=== PATIENT | female | born 1990 | race Caucasian/White ===

== ENCOUNTER 2019-12-28 19:38 | Emergency (ER) | payer MEDICAID, OTHER ==
[~2019-12-28] VITALS: Ht 162.6 cm; Wt 70.5 kg
[2019-12-28 19:39] VITALS: BP 125/81
[2019-12-28] MEDS ORDERED: METH20TA31 PO (20:08)
[2019-12-28] MEDS ORDERED: BUPR8SUB SL (20:08)
[2019-12-28] MEDS ORDERED: XANA1TAB2 PO (20:08)
[2019-12-28 22:22] LABS: AMPHETAMINES LEVEL URINE NEGATIVE (NEGATIVE); BARBITURATES URINE NEGATIVE (NEGATIVE); BENZODIAZEPINES URINE POSITIVE (NEGATIVE); CANNABINOIDS URINE NEGATIVE (NEGATIVE); COCAINE METABOLITE URINE NEGATIVE (NEGATIVE); METHADONE URINE NEGATIVE (NEGATIVE); OPIATES URINE NEGATIVE (NEGATIVE); PHENCYCLIDINE URINE NEGATIVE (NEGATIVE)
[2019-12-28 22:23] LABS: ACETAMINOPHEN LEVEL < 2.0 UG/ML (10.0-30.0); ETHYL ALCOHOL (ETHANOL) < 0.003 % (0.000-0.010)
[2019-12-28] MEDS ORDERED: BUPRENORPHINE/NALOXONE 8-2MG SUBLINGUAL TABLET(SUBOXONE) SL STA (22:25)
[2019-12-28] MEDS ORDERED: ALPRAZolam 0.5 MG TAB PO ONE (22:30)
[2019-12-28] MEDS ORDERED: METHYLPHENIDATE 5 MG TAB PO ONE (22:30)
[2019-12-28] MEDS ORDERED: GABA800T4 (22:30)
[2019-12-28] MEDS ORDERED: PRENTAB29 (22:30)
== END 2019-12-28 23:26 | disposition left against medical advice (07) ==
LOC: M ED 19:38
DX: Z76.0 Encounter for issue of repeat prescription (principal); F19.10 Other psychoactive substance abuse, uncomplicated; F41.9 Anxiety disorder, unspecified; F90.9 Attention-deficit hyperactivity disorder, unspecified type; Z53.9 Procedure and treatment not carried out, unspecified reason; K21.9 Gastro-esophageal reflux disease without esophagitis; B19.20 Unspecified viral hepatitis C without hepatic coma; F17.200 Nicotine dependence, unspecified, uncomplicated
CPT/HCPCS: 36415; 80307; 99283; G0480

== ENCOUNTER 2019-12-31 17:53 | Emergency (ER) | payer MEDICAID, OTHER ==
[~2019-12-31] VITALS: Ht 162.6 cm; Wt 70.5 kg
[~2019-12-31 17:53] MED LIST: BUPR8SUB SL; GABA800T4; METH20TA31 PO; PRENTAB29; XANA1TAB2 PO
[2019-12-31 19:27] LABS: AMPHETAMINES LEVEL URINE NEGATIVE (NEGATIVE); BARBITURATES URINE NEGATIVE (NEGATIVE); BENZODIAZEPINES URINE POSITIVE (NEGATIVE); CANNABINOIDS URINE NEGATIVE (NEGATIVE); COCAINE METABOLITE URINE NEGATIVE (NEGATIVE); METHADONE URINE NEGATIVE (NEGATIVE); OPIATES URINE NEGATIVE (NEGATIVE); PHENCYCLIDINE URINE NEGATIVE (NEGATIVE)
[2019-12-31] MEDS ORDERED: XANA1TAB2 PO (19:43)
[2019-12-31] MEDS ORDERED: ALPRAZolam 0.5 MG TAB PO ONE (19:45)
[2019-12-31 19:52] VITALS: BP 109/65
== END 2019-12-31 19:55 | disposition home or self-care (01) ==
LOC: M ED 17:53
DX: F13.20 Sedative, hypnotic or anxiolytic dependence, uncomplicated (principal); Z76.0 Encounter for issue of repeat prescription; K21.9 Gastro-esophageal reflux disease without esophagitis; M54.9 Dorsalgia, unspecified; B19.20 Unspecified viral hepatitis C without hepatic coma; F31.89 Other bipolar disorder; F41.9 Anxiety disorder, unspecified; F43.10 Post-traumatic stress disorder, unspecified; F17.200 Nicotine dependence, unspecified, uncomplicated; Z79.899 Other long term (current) drug therapy

== ENCOUNTER 2021-01-13 17:13 | Emergency (ER) | payer OTHER ==
[~2021-01-13] VITALS: Ht 160 cm; Wt 76.4 kg
[2021-01-13 17:18] VITALS: BP 127/71
--- OUTSIDE RECORDS SUMMARY | 2021-01-13 17:36 | CCD | Clinical Summary ---
Author Author [facility] Address [address] [place] [address] Phone Care Team Providers Care Compositor Apprentice Name Role Phone Danika Osborne Unavailable [phone] Eliseo Elliott MD Unavailable [phone] Eliseo Elliott MD PP [phone] Reason for Referral Date Encounter Description Provider Reason for Referral 12/17/20 Eliseo Elliott MD Request Con sultation By Specialist Reason for Visit and Chief Complaint The Chief Complaint is: pt ambulated to the room well for a subutex visit, she last used this mediation tdoay , her recent UDS was inconsistatn , she has no c/ o' stoday , catarina castron was with this pt for 9 minutes Problems Includes: Problems addressed during this encounter and other active Problems Current Visit Onset Date - Time Resolved Date - Time Provider C ondition Status Hepatitis, C Virus - Chronic 08/20/2020 - 5:06PM Eliseo Elliott MD Active 08/20/2020 - 5:03PM Eliseo Elliott MD A ctive Anxiety Disorder Nos 02/01/2020 - 12:00AM Carolynjennifer Pond DO Active Adult Attention Deficit Hyperactivity Disorder 02/01/2020 - 12:0 0AM Carolyn John Pond DO Active Post-traumatic Stress Disorder 02/01/2020 - 12:00AM Am jennifer L Ray DO Active 06/06/2019 - 12:00AM Unknown - Unknown Eliseo coppola MD Resolved Note: with second c hild Nicotine Dependence 06/10/2011 - 12:00AM Eliseo vieyra MD Active Note: Unchanged Opioid Dependence 06/03/2011 - 12:00AM Genet engel NP Active Note: Unchanged Depression 11/22/2008 - 12:00AM Nurys JaylinDevon Reagan Active Note: Unchanged Bipolar Disorder 11/22/2008 - 12:00AM Genet Lange NP Active Note: Unchanged - about ever y month goes from depressed to feeling th opposite for about 1 week - high energy and mood etc. [address] grace discussed Past Visits Onset Date - Time Resolved Date - Time Provider Co ndition Status Lumbago 02/01/2020 - 12:00AM Carolyn L Ray DO Acti ve Adjustment Disorder 01/25/2020 - 12:00AM Carolyn L Ray DO Active Contraceptive Surveillance 02/08/2019 - 12:00AM Sabrina Lange NP Active Benzodiazepine Abuse 06/03/2011 - 12:00AM Eliseo licona MD Active Note: Improved Cannabis Abuse 06/03/2011 - 12:00AM Eliseo Bang Active Note: Unchanged Plan of Treatment Pending Tests Order Diagnosis Results Due Ordering Provi tavia Lab CBC w/ Auto Diff 08/20/20 Eliseo patino MD Lab COMPREHENSIVE METABOLIC PANEL 08/20/20 Eliseo Elliott MD Lab HCG QUALITATIVE SPECIMEN 08/20/20 Netta Elliott MD Lab HEP C VIR RNA PCR,QN RFX SANDRA 08/20/20 Eliseo Elliott MD Lab HIV SCREEN 08/20/20 Eliseo coppola MD Lab HEPATITIS PROF A,B,C 08/20/20 Eliseo Elliott MD Lab HSV 1 and 2 IgG Ab,S 08/20/20 Eliseo Elliott MD Lab LIPID PANEL 08/20/20 Eliseo coppola MD Lab Syphilis Abs. to T. pallidum 08/20/20 Eliseo Elliott MD Lab TSH 08/20/20 Eliseo coppola MD Lab Vitamin D,25-HYDROXY 08/20/20 Eliseo Elliott MD Lab Custom Panel [id number] 12/24/20 Eliseo Elliott MD Future Appointments Date Time Location Provider [facility] 01/14/2021 10:20AM [facility] Eliseo licona MD [facility] 02/11/2021 10:40AM [facility] Eliseo licona MD [facility] 03/11/2021 11:20AM [facility] Eliseo licona MD - Instructions for patient Continue subutex at 10mg (one 8mg and one 2mg). Continue xanax as 1mg three times a day, but can try cutting down by 1/2 pill in a day if able Continue methylphenidate at two 20mg tabs twice a day but can consider cutting out one of the afternoon pills. Wants refill on ProAir. Still taking zoloft 200mg a day F/u 4 weeks - Return to the clinic if condition wors ens or new symptoms arise Assessments Includes: Assessments from this encounter - Chronic hepatitis, C virus - - Opioid dependence - Nicotine dependence - Depression - Post-traumatic stress disorder - Adult attention deficit hyperactivity disorder - Anxiety disorder NOS - Bipolar disorder Instructions Includes: Instructions from this encounter Instructions to patient Instructions for patient ~Continue subu [place] at 10mg (one 8mg and one 2mg). ~Continue xanax as 1mg three times a day, but can try cutting down by 1/2 pill in a day if able ~Continue methylphenidate at two 20mg tabs twice a day but can consider cutting out one of the afternoon pills. ~Wants refill on ProAir. ~Still taking zoloft 200mg a day ~F/u 4 weeks ~ ~ Education and Decision Aids were provide d during visit for: Education and counseling provided for h ealthy behaviors related to chronic care goals and plan Medical Equipment - Implanted Devices Includes: Current DevicesNo Medical Equipment Recorded Medications Includes: Medications discussed during this encounter and other current Medicati ons New / Renewed during this visit Eliseo Elliott MD on 12/17/2020 ProAir HFA 108 (90 Base) MCG/ACT Inhalation Aerosol Solution Provider: Eliseo Elliott MD 30 day supply: 8.5 gram, 0 refills Diagnosis: as directed - 2 puffs every 4-6 hours as needed for cough or wheeze. Pharmacy: [id number] - [address] [facility], [phone] - Zoloft 100 MG Oral Tablet Provider: Eliseo Elliott MD 30 day supply: 60 tablet, 1 refills Diagnosis: 2 once a day- increasing dose Pharmacy: [facility] - [address] [facility], [id number] - Buprenorphine HCl 8 MG Sublingual Tablet Sublingual Provider: Eliseo Elliott MD 28 day supply: 28 tablet, 0 refills Diagnosis: Opi oid dependence, in remission Dissolve 1 tablet under tongue once a day. MDD1 Pharmacy: [facility] - [address] [facility], [id number] - Buprenorphine HCl 2 MG Sublingual Tablet Sublingual Provider: Eliseo Elliott MD 28 day supply: 28 tablet, 0 refills Diagnosis: Opi oid dependence, in remission Dissolve 1 tablet under tongue once a da y, in addition to one 8mg subutex. [id number] Pharmacy: [id number] - [address] [facility], [id number] - Current Medications (continue as prescribed) Methylphenidate HCl 20 MG Oral Tablet 12/04/2020 Pr ovider: Eliseo Elliott MD Diagnosis: Attention-deficit hy peractivity disorder, other type 2 twice a day MDD4 ALPRAZolam 1 MG Oral Tablet 11/26/2020 Provider: Eliseo Elliott MD Diagnosis: Generalized anxiety disorder three times a day MDD3 Due 12/05/20 Multi 27-0.8 MG Oral Tablet 07/11/2019 Pro vider: Diagnosis: 1 PO q day Medications Administered Includes: Administered Medications from this encounterNo Administered Medications Recorded Vital Signs Includes: Vital Signs from this encounter Vital Name 12/17/2020 11:31A Blood Pressure Sitting L 100/70 BP Cuff Size Regular Pulse Rate-Sitting (bpm) 76 Pulse Rhythm Regular Respiration Rate (breaths/min) 16 Temp-Tympanic (F) 97.8 Height (in) 62 Weight (lb) 158 Body Mass Index (kg/m2) 28.9 Body Surface Area (m2) 1.73 Pain Level 0 Oxygen Saturation (%) 97 Results Includes: Results discussed during this encounterNo Results Recorded For Specified Dates History of Present Illness Includes: History of Present Illness from this encounter Ariella Montemayor is a 30 year old female. - Allergy list reviewed - Medication reconciliation performed Pt presents to f/u opioid dependence/depression//PTSD/Bipolar disorder/ Drug of Choice: IV Heroin and cocaine. Last heroin 2016. She is staying clean. She would like to come down on the subutex today, to 10mg. Wants to keep the xanax and methylphenidate as they are and get 30 days at a time for insurance reasons. Legal issues: On probation for another year, max. Medical issues: Takes zoloft for depression. Has known Hepatitis C. Not treated yet. Family history: Family hx of alcohol abuse. Still smoking but much improved. Social history: Has 3 year old son. Currently 31 weeks a girl. Had a 2 month old daughter . [id number]. Baby is doing fine, but she is expecting a , and it may be done early due to bladder dropping and weak pelvic muscles. She is at about 35 weeks and 3 days now. Due in a month and 4 days, Dec - - No request for consultation by special ist no previous emergency room visit Social History Description Last Updated Smoking status 12/17/2020 : Current everyday smoker Single. Niece of Bailey Brown. Dropped o ut of HS 2 years ago, but plans to get GED. Also has plans to get a "really good job" at a place that will be doing drug testing, so wants to be clean. Boyfriend a drug addict in inpatient rehab (as of May 2011) 01/25/2020 1 snacks per day 01/25/2020 3 meals per day 01/25/2020 Activities 01/25/2020 Alcohol use Last alcohol 30 Mar 2011 01/25/2020 control method using condoms, "not very sexuall y active." 01/25/2020 Current smoker 1/2 ppd 01/25/2020 Daily cola consumption 01/25/2020 Diet provides sufficient food variety 01/25/2020 Drug use Last marijuana was 06/02/11. Arellano s been smoking 2 bowls every other day. ~Last heroin was 04/08/13 . Has been using 5-6 bags/day. IV. ~Last cocaine prior to 2010. ~Last morphine use September 2010 ~Last Opana use 19 May 2011 ~Never used LSD or crystal meth ~Last oxycodone May 11 ~Last Hyrocodone May 11 ~Last benzodiazepine abt May 11 01/25/2020 Educational level Dropped out of high school in tenth grade 01/25/2020 Educational level: grade was ten 01/25/2020 Good occasional exercise habits 01/25/2020 No caffeine use 01/25/2020 No chronic emotional stress 01/25/2020 No domestic violence 01/25/2020 No physical disability 01/25/2020 No recent emotional stress 01/25/2020 No secondhand cigarette smoke exposure 01/25/2020 Normal activities of daily living 01/25/2020 Not a smoker Greater than 30 pack years 01/25/2020 Not working part-time 01/25/2020 Physical activity tolerance has recently decreased Sexually active 01/25/2020 Procedures and Surgical History Includes: Procedures from this encounter Procedures Code Diagnosis Performing Provider Service Location Service Date Summary provided electronically in CCDA format & reasonable certainty of receipt Surgical History Last Updated No prior surgery 01/25/2020 Medical History Includes: Medical History addressed during this encounter Description Last Updated PSHx: No prior surgery 01/25/2020 weight: was 3497 g 10/25/2019 JOSEPH ENT DELIVERED AT [facility] AT 41 F1/7 WKS GESTATION VIA VAGINAL DELIVERY OF FEMALE WEIGHT 7 POUNDS 11 [place] NAMED KIM SHERIFF 01/25/2020 First visit was with another provider Arledia [facility] 01/25/2020 No history of coronary artery disease 01/25/2020 No history of essential hypertension 01/25/2020 No history of hyperlipidemia 01/25/2020 No history of type 2 diabetes mellitus 01/25/2020 Not taking medication 01/25/2020 Other diagnoses and conditions 01/25/2020 Past medical history -Please see Problem List for Act stalin Chronic Problems 01/25/2020 Patient entered care during 1st trimester 05/11/2017 AT 12 0/7 WKS GESTATION. [facility] 01/25/2020 Patient entered care during 2nd trimester 05/28 22 0/7 WKS 01/25/2020 Smoke exposure 01/25/2020 Education and counseling provided for h ealthy behaviors related to chronic care goals and plan 06/13/2013 X-rays of the hand(s) were performed 06/27/19942013 Family History Includes: Family History addressed during this encounter Description Last Updated DM--None 01/25/2020 Family history changed 01/25/2020 Family history of cancer MGF's brothers--lung CA 12/29 Family history of depression Mother, MGM. No known bi polar 01/25/2020 Family history of diabetes mellitus 01/25/2020 Family history of not using drugs 01/25/2020 Family history reviewed - unchanged since last visit 01/25/2020 No family history of heart disease 01/25/2020 No family history of hypertension 01/25/2020 Review of Systems Includes: Review of Systems from this encounter Systemic: Not feeling poorly (malaise). No fever, no chills, no night sweats, and no recent weight change. Head: No headache, no facial pain, and no sinus pain. Neck: No neck pain and no neck stiffness. Eyes: No vision problems, no itching of the eyes, and no eye pain. No photophobia. Otolaryngeal: No hearing loss, no earache, no tinnitus, no nasal discharge, no epistaxis, no hoarseness, no sore throat, and no bleeding gums. No mouth sores. Cardiovascular: No chest pain or discomfort, no palpitations, and the heart rate was not fast. Pulmonary: No dyspnea, not during exertion, and not nocturnal; causing awakening from sleep. No cough, no hemoptysis, and no wheezing. Gastrointestinal: Normal appetite, no dysphagia, and no heartburn. No nausea, no vomiting, no abdominal pain, and no melena. No diarrhea and no constipation. Genitourinary: No hematuria, no increase in urinary frequency, and no nocturia. No dysuria. Endocrine: No polydipsia and no excessive sweating. Musculoskeletal: No muscle aches, no localized joint pain, and no localized joint stiffness. Neurological: No dizziness, no vertigo, no fainting, no motor disturbances, and no sensory disturbances. Psychological: No anxiety, no depression, and no sleep disturbances. Skin: No pruritus. No skin lesions and no rash. Mental Status Includes: Mental Status from this encounter Description Cognitive functioning was normal Thought processes were not impaired No anxiety The thought content revealed no impairme nt Depression Functional Status Includes: Functional Status from this encounterNo Functional Status Recorded Physical Exam Includes: Physical Exam from this encounter Lungs: -normal breath sounds/voice sounds -no wheezing was heard -no rhonchi were heard -no rales/crackles were heard Cardiovascular System: -no murmurs were heard -heart rate and rhythm normal -no bradycardia present -no tachycardia present Abdomen: -the bowel sounds were normal -abdominal non-tender -no mass was palpated in the abdomen -- -the liver was not enlarged -the spleen was not enlarged Psychiatric Exam: -the grooming was normal -the affect was normal -the mood was euthymic -thought processes were not impaired -the thought content revealed no impairment Neurological System: -cognitive functioning was normal General Status: -in no acute distress -well developed -well nourished -no feelings of hopelessness -no loss of interest in activities Vital Signs: -current vital signs reviewed Immunizations Includes: Immunizations addressed during this encounterNo Immunizations Recorded Allergies Includes: Active AllergiesNo Known Allergies Encounters Encounter Provider Location Date Check-In Time Check-Out Time D iagnosis SUBOX[facility] Eliseo Elliott MD [facility] 12/17/2020 11:32AM 11: 59PM , Opioid Dependence, Nicotine Dependence, Anxiety Disorder Nos, Depression, Hepatitis, C Virus - Chronic, Assessment of Bipolar Disorder, Post- traumatic Stress Disorder, Adult Attention Deficit Hyperactivity Disorder Insurance Includes: Active Insurance Policies Plan Name Member ID Group # Subscriber Relationship Effective Da chelly 1 - Neto [id number] Ariella Montemayor Self 03/2018 - Unknown Advance Directives Includes: Current Advance Directives Directive Pat Aware Third Republican Effective Date Reviewed Status Ebola Screening Performed Yes 01/25/2020 Current and Verified Note: Within the last month, have you traveled outside of the [place]? - NO COVID Screening Performed Yes 07/27/2020 Current and Verified Note: neg packet given Pt Bill of Rights, Priv Prac, Ad Dir Yes 07/27/2020 Current and Verified Note: Pt declined AD packet Health Concerns Includes: Health Concerns addressed during this encounterNo Active Health Concerns Recorded Goals Includes: Goals addressed during this encounterNo Active Goals Recorded Interventions Includes: Interventions addressed during this encounterNo Interventions Recorded Evaluations & Outcomes Includes: Evaluations & Outcomes addressed during this encounterNo Outcomes Recorded
--- OUTSIDE RECORDS SUMMARY | 2021-01-13 17:37 | CCD | Clinical Summary ---
Author Author [place] Organization [facility] Address [address] [place] [address] Phone Care Team Providers Care Travelift Operator Name Role Phone Danika Osborne Unavailable [phone] Eliseo Elliott MD Unavailable [phone] Eliseo Elliott MD PP [phone] Reason for Referral Date Encounter Description Provider Reason for Referral 10/22/20 Eliseo Elliott MD Request Con sultation By Specialist Reason for Visit and Chief Complaint The Chief Complaint is: pt ambulated to ther oom well for a subutx visit , she last used this medication today , her recent UDS was consistant , she has no c/o 's today, [facility] collins was with this pt for 9 minutes [...] Deficit Hyperactivity Disorder 02/01/2020 - 12:0 0AM Carolynjennifer Pond DO Active Post-traumatic Stress Disorder 02/01/2020 - 12:00AM Am jennifer John Ray DO Active 06/06/2019 - 12:00AM Unknown - Unknown Eliseo coppola MD Resolved Note: with second c hild Nicotine Dependence 06/10/2011 - 12:00AM Eliseo vieyra MD Active Note: Unchanged Opioid Dependence 06/03/2011 - 12:00AM 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 to T. pallidum 08/20/20 Eliseo Elliott MD Lab TSH 08/20/20 Eliseo coppola MD Lab Vitamin D,25-HYDROXY 08/20/20 Eliseo Elliott MD Lab Custom Panel [id number] 10/29/20 Eliseo Elliott MD Future Appointments Date Time Location Provider SUBOXONE 11/05/2020 10:30AM [facility] Eliseo licona MD SUBOXONE 11/26/2020 10:50AM [facility] Eliseo licona MD SUBOXONE 12/17/2020 11:20AM [facility] Eliseo licona MD - Instructions for patient Continue subutex at 1 and 1/2 of an 8mg tablet daily. Consider/plan on going down next visit Continue xanax as 1mg three times a day, but can try cutting down by 1/2 pill in a day if able Continue methylphenidate at two 20mg tabs twice a day but can consider cutting out one of the afternoon pills. Still taking zoloft 200mg a day F/u 2 weeks - Return to the clinic if [...] Instructions for patient ~Continue subu wellington at 1 and 1/2 of an 8mg tablet daily. Consider/plan on going down next visit ~Continue xanax as 1mg three times a day, but can try cutting down by 1/2 pill in a day if able ~Continue methylphenidate at two 20mg tabs twice a day but can consider cutting out one of the afternoon pills. ~Still taking zoloft 200mg a day ~F/u 2 weeks ~ ~ Education and Decision Aids were provide d during visit for: Education and counseling provided for h ealthy behaviors related to chronic care goals and plan Medical Equipment - Implanted Devices Includes: Current DevicesNo Medical Equipment Recorded Medications Includes: Medications discussed during this encounter and other current Medicati ons New / Renewed during this visit Eliseo Elliott MD on 10/22/2020 Zoloft 100 MG Oral Tablet Provider: Eliseo Elliott MD 30 day supply: 60 tablet, 1 refills Diagnosis: 2 once a day- increasing dose Pharmacy: [address] [facility] [address] - [address] [facility], [id number] - Buprenorphine HCl 8 MG Sublingual Tablet Sublingual Provider: Eliseo Elliott MD 14 day supply: 21 tablet, 0 refills Diagnosis: Opi oid dependence, in remission Dissolve 1 and 1/2 tablets under tongue once a day. MDD1.5 Pharmacy: [facility] - [id number] [facility], [id number] - Methylphenidate HCl 20 MG Oral Tablet Pr ovider: Eliseo Elliott MD 14 day supply: 56 tablet, 0 refills Diagnosis: Att ention-deficit hyperactivity disorder, other type 2 twice a day MDD4 [id number] Pharmacy: [facility] [address] - [address] [facility], [id number] - ALPRAZolam 1 MG Oral Tablet Provider: Eliseo Elliott MD 14 day supply: 42 tablet, 0 refills Diagnosis: three times a day Due 10/14/20 MDD3 Pharmacy: [facility] - [address] [facility], [id number] - Current Medications (continue as prescribed) Multi 27-0.8 MG Oral Tablet 07/11/2019 Pro vider: Diagnosis: 1 PO q day ProAir HFA 108 (90 Base)MCG/ACT Inhalation Aerosol Solution 04/07/2018 Provider: Genet Lange FIRE AND SAFETY HELPER Diagnosis: as directed - 2 puffs every 4-6 hours as needed for cough or wheeze. Medications Administered Includes: Administered Medications from this encounterNo Administered Medications Recorded Vital Signs Includes: Vital Signs from this encounter Vital Name 10/22/2020 10:40A Blood Pressure Sitting L 104/70 BP Cuff Size Regular Pulse Rate-Sitting (bpm) 98 Pulse Rhythm Regular Respiration Rate (breaths/min) 16 Temp-Tympanic (F) 97.3 Height (in) 62 Weight (lb) 148 Body Mass Index (kg/m2) 27.1 Body Surface Area (m2) 1.68 Pain Level 0 Oxygen Saturation (%) 100 Results Includes: Results discussed during this encounterNo Results Recorded For Specified Dates History of Present Illness Includes: History of Present Illness from this encounter Ariella Montemayor is a 30 year old female. - Allergy list reviewed - Medication reconciliation performed Pt presents to establish care and start in the buprenorphine-naloxone program for treatment of opioid dependence. Drug of Choice: IV Heroin and cocaine. She is staying clean. Notes she thought she would be particularly depressed this month because her daughter would have turned one. Does not want to mess with her meds right now. But willing to talk about adjustments later. Knows she is on whopping doses of methylphenidate and xanax. She has most recently been on Xanax 1mg three times a day as needed (usually takes 3 times a day) and three 8mg subutex daily. But, being , she has not wanted to be on the three 8s a day so has been taking 1 and 1/2 and doing fine. Also prescribed methylphenidate two 20mg tablets in AM and two in early afternoon. Has been on that close to 2 years. Also on vitamins and zoloft. She is not currently working. Wants to work on getting off subutex--plans to go down to one 8mg next visit. Drug use questionaire:Last heroin Jan 2017. Last oxycodone/opana/morphine 2014. Last fentanyl 2015. Prior treatment programs: Legal issues: On probation for another year, max. Medical issues: She says she is 17 and 1/2 weeks pregant. Seeing OB. Due date 01/20/21. Takes zoloft for depression. Was a tobacco smoker for a long time, then quit, then started again, still smoking. Thinks OB is going to prescribe her something to help her quit. But last week only smoked 2-3 cigarettes. Has known Hepatitis C. Not treated yet. Family history: Family hx of alcohol abuse. Social history: Has 3 year old son. Currently 27+1 weeks a girl. Had a 2 month old daughter . [id number] - - No request for consultation by special ist no previous emergency room visit Social History Description Last Updated Smoking status 10/22/2020 : Current everyday smoker Single. Niece of [...] 3497 g 10/25/2019 JOSEPH ENT DELIVERED AT [facility] AT 41 F1/7 WKS GESTATION VIA VAGINAL DELIVERY OF FEMALE WEIGHT 7 POUNDS 11 [employer] NAMED KIM SHERIFF 01/25/2020 First visit was with another provider [facility] 01/25/2020 No history of coronary artery disease 01/25/2020 No history of essential hypertension 01/25/2020 No history of hyperlipidemia 01/25/2020 No history of type 2 diabetes mellitus 01/25/2020 Not taking medication 01/25/2020 Other diagnoses and conditions 01/25/2020 Past medical history -Please see Problem List for Act stalin Chronic Problems 01/25/2020 Patient entered care during 1st trimester 05/11/2017 AT 12 0/7 WKS GESTATION. [facility] 01/25/2020 Patient entered care during 2nd trimester [...] Time D iagnosis SUBOXONE Eliseo Elliott MD [facility] 10/22/2020 10:30AM 11: 59PM , Opioid Dependence, Nicotine Dependence, Anxiety Disorder Nos, Depression, Hepatitis, C Virus - Chronic, Assessment of Bipolar Disorder, Post- traumatic Stress Disorder, Adult Attention Deficit Hyperactivity Disorder Insurance Includes: Active Insurance Policies Plan Name Member ID Group # Subscriber Relationship Effective Da chelly 1 - [place] [id number] Ariella Montemayor Self 03/2018 - Unknown Advance Directives Includes: Current Advance Directives Directive Pat Aware Third Green Party Effective Date Reviewed Status Ebola Screening Performed Yes 01/25/2020 Current and Verified Note: Within the last month, have you traveled outside of the [place]? - NO COVID Screening Performed Yes 07/27/2020 Current and Verified Note: neg packet given Pt Bill of Rights, Priv Prac, Ad Dir Yes 07/27/2020 Current and Verified Note: Pt declined AD packet Health Concerns Includes: Health Concerns for current assessments Depression Onset 11/22/2008 Goals Includes: Active Goals for current assessments Symptom relief. Added 11/22/2008 by Provider Health Concern: Depression Interventions Includes: Interventions for current assessments PHQ - 9, reveals mild depression, please continue counseling sessions monthly. Will trial Zoloft as this is the preferred SSRI to be used during . Follow-up one month or sooner if needed. Added 11/22/2008 Goal: Symptom relief. Evaluations & Outcomes Includes: Evaluations & Outcomes for current assessments Goal converted from Patient Problem data . Goal is currently In Progress. Added 11/22/2008 - In Progress Goal: Symptom relief.
--- OUTSIDE RECORDS SUMMARY | 2021-01-13 17:37 | CCD | Clinical Summary ---
Author Author [place] [employer] Organization [facility] Address [address] [place] [address] Phone Care Team Providers Care Acid Cutter Name Role Phone Danika Osborne Unavailable [phone] Eliseo Elliott MD Unavailable [phone] Eliseo Elliott MD PP [phone] Reason for Referral Date Encounter Description Provider Reason for Referral 11/05/20 Eliseo Elliott MD Request Con sultation By Specialist Reason for Visit and Chief Complaint The Chief Complaint is: pt ambulated to the room well for a suboxone visit, she last used this medcaiton today ,her recent UDS was inconsistant , she has no c/ o's today , [facility] Problems Includes: Problems addressed during this encounter [...] 06/03/2011 - 12:00AM 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 Consider/plan on going down next visit to one 8mg. Continue xanax as 1mg three times a day, but can try cutting down by 1/2 pill in a day if able Continue methylphenidate at two 20mg tabs twice a day but can consider cutting out one of the afternoon pills. Still taking zoloft 200mg a day F/u 3 weeks - Return to the clinic if condition wors ens or new symptoms arise Assessments Includes: Assessments from this encounter - Chronic hepatitis, C virus - - Opioid dependence - Nicotine dependence - Depression - Post-traumatic stress disorder - Adult attention deficit hyperactivity disorder - Anxiety disorder NOS - Bipolar disorder Instructions Includes: Instructions from this encounter Instructions to patient Instructions for patient ~Decrease subu wellington to 10mg (one 8mg and one 2mg). Consider/plan on going down next visit to one 8mg. ~Continue xanax as 1mg three times a day, but can try cutting down by 1/2 pill in a day if able ~Continue methylphenidate at two 20mg tabs twice a day but can consider cutting out one of the afternoon pills. ~Still taking zoloft 200mg a day ~F/u 3 weeks ~ ~ Education and Decision Aids were provide d during visit for: Education and counseling provided for h ealthy behaviors related to chronic care goals and plan Medical Equipment - Implanted Devices Includes: Current DevicesNo Medical Equipment Recorded Medications Includes: Medications discussed during this encounter and other current Medicati ons New / Renewed during this visit Eliseo Elliott MD on 11/05/2020 Buprenorphine HCl 2 MG Sublingual Tablet Sublingual Provider: Eliseo Elliott MD 21 day supply: 21 tablet, 0 refills Diagnosis: Opi oid dependence, in remission Dissolve 1 tablet under tongue once a da y, in addition to one 8mg subutex. [id number] Pharmacy: [facility] - [address] [facility], [id number] - Buprenorphine HCl 8 MG Sublingual Tablet Sublingual Provider: Eliseo Elliott MD 21 day supply: 21 tablet, 0 refills Diagnosis: Opi oid dependence, in remission Dissolve 1 tablet under tongue once a day. MDD1 Pharmacy: [facility] - [address] [facility], [id number] - Methylphenidate HCl 20 MG Oral Tablet Pr ovider: Eliseo Elliott MD 30 day supply: 120 tablet, 0 refills Diagnosis: At tention-deficit hyperactivity disorder, other type 2 twice a day MDD4 [id number] Pharmacy: [facility] [address] - [address] [facility], [id number] - ALPRAZolam 1 MG Oral Tablet Provider: Eliseo Elliott MD 30 day supply: 90 tablet, 0 refills Diagnosis: Gen eralized anxiety disorder three times a day MDD3 Pharmacy: [facility] [address] - [address] [facility], [id number] - Current Medications (continue as prescribed) Zoloft 100 MG Oral Tablet 10/22/2020 Provider: Eliseo Elliott MD Diagnosis: 2 once a day- increasing dose Multi 27-0.8 MG Oral Tablet 07/11/2019 Pro vider: Diagnosis: 1 PO q day ProAir HFA 108 (90 Base)MCG/ACT Inhalation Aerosol Solution 04/07/2018 Provider: Genet Lange NP Diagnosis: as directed - 2 puffs every 4-6 hours as needed for cough or wheeze. Medications Administered Includes: Administered Medications from this encounterNo Administered Medications Recorded Vital Signs Includes: Vital Signs from this encounter Vital Name 11/05/2020 11:15A Blood Pressure Sitting L 100/66 BP Cuff Size Regular Pulse Rate-Sitting (bpm) 78 Pulse Rhythm Regular Respiration Rate (breaths/min) 16 Temp-Tympanic (F) 96.7 Height (in) 62 Weight (lb) 146 Body Mass Index (kg/m2) 26.7 Body Surface Area (m2) 1.67 Pain Level 0 Oxygen Saturation (%) 100 [...] Heroin and cocaine. She is staying clean. She would like to come down on the subutex today, to 10mg. Wants to keep the xanax and methylphenidate as they are and get 30 days at a time for insurance reasons. Drug use questionaire:Last heroin Jan 2017. Last [...] Had a 2 month old daughter . [id number] - - No request for consultation by special ist no previous emergency room visit Social History Description Last Updated Smoking status 11/05/2020 : Current everyday smoker 11/2020 Single. Niece of Bailey Brown. Dropped o [...] 3497 g 10/25/2019 JOSEPH ENT DELIVERED AT [facility] AT 41 F1/7 WKS GESTATION VIA VAGINAL DELIVERY OF FEMALE WEIGHT 7 POUNDS 11 [employer] NAMED KIM SHERIFF 01/25/2020 First visit was with another provider [facility] 01/25/2020 No history of coronary artery disease 01/25/2020 No history of essential hypertension 01/25/2020 No history of hyperlipidemia 01/25/2020 No history of type 2 diabetes mellitus 01/25/2020 Not taking medication 01/25/2020 Other diagnoses and conditions 01/25/2020 Past medical history -Please see Problem List for Act stalin Chronic Problems 01/25/2020 Patient entered care during 1st trimester 05/11/2017 AT 12 0/7 WKS GESTATION. [facility] 01/25/2020 Patient entered care during [...] iagnosis SUBOXONE Eliseo Elliott MD [facility] 11/05/2020 11:07AM 11: 59PM , Opioid Dependence, Nicotine Dependence, Anxiety Disorder Nos, Depression, Hepatitis, C Virus - Chronic, Assessment of Bipolar Disorder, Post- traumatic Stress Disorder, Adult Attention Deficit Hyperactivity Disorder Insurance Includes: Active Insurance Policies Plan Name Member ID Group # Subscriber Relationship Effective Da chelly 1 - [place] [id number] Ariella Montemayor Self 03/2018 - Unknown Advance Directives Includes: Current Advance Directives Directive Pat Aware Third Alliance Party Effective Date Reviewed Status Ebola Screening [...]
--- OUTSIDE RECORDS SUMMARY | 2021-01-13 17:38 | CCD ---
Author Author [facility] Organization [facility] Address Unknown Phone Unavailable Care Team Providers Care Operator Cavity Pump Name Role Phone MENARDDaniela HARDIK Unavailable Unavailable Anisa, I Genet BUS [employer]LEY [employer]AX[employer] INSTRUCTOR Unavailable Unavailable Anisa, I Genet BUS TROLLEY [employer]AXI INSTRUCTOR Unavailable Unavailable Anisa, I Genet BUS TROLLEY [employer] TAXI INSTRUCTOR Unavailable Unavailable Anisa, I Genet BUS TROLLEY AND TAXI INSTRUCTOR Unavailable Unavailable Anisa, I Genet BUS TROLLEY AND TAXI INSTRUCTOR Unavailable Unavailable Anisa, I Genet BUS TROLLEY AND TAXI INSTRUCTOR Unavailable Unavailable Anisa, I Genet BUS TROLLEY AND TAXI INSTRUCTOR Unavailable Unavailable Anisa, I Genet BUS TROLLEY AND TAXI INSTRUCTOR Unavailable Unavailable Anisa, I Genet BUS TROLLEY AND TAXI INSTRUCTOR Unavailable Unavailable Anisa, I Genet BUS TROLLEY AND TAXI INSTRUCTOR Unavailable Unavailable Anisa, I Genet BUS TROLLEY AND TAXI INSTRUCTOR Unavailable Unavailable Anisa, I Genet BUS TROLLEY AND TAXI INSTRUCTOR Unavailable Unavailable Anisa, I Genet BUS TROLLEY AND TAXI INSTRUCTOR Unavailable Unavailable Anisa, I Genet BUS TROLLEY AND TAXI INSTRUCTOR Unavailable Unavailable Anisa, I Genet BUS TROLLEY AND TAXI INSTRUCTOR Unavailable Unavailable Anisa, I Genet BUS TROLLEY AND TAXI INSTRUCTOR Unavailable Unavailable Anisa, I Genet BUS TROLLEY AND TAXI INSTRUCTOR Unavailable Unavailable Anisa, I Genet BUS TROLLEY [employer] TAXI INSTRUCTOR Unavailable Unavailable Anisa, I Genet BUS TROLLEY AND TAXI INSTRUCTOR Unavailable Unavailable Anisa, I Genet BUS TROLLEY AND TAXI INSTRUCTOR Unavailable Unavailable Anisa, I Genet BUS TROLLEY AND TAXI INSTRUCTOR Unavailable Unavailable Anisa, I Genet BUS TROLLEY AND TAXI INSTRUCTOR Unavailable Unavailable Anisa, I Genet BUS TROLLEY AND TAXI INSTRUCTOR Unavailable Unavailable Anisa, I Genet BUS TROLLEY AND TAXI INSTRUCTOR Unavailable Unavailable Anisa, I Genet BUS TROLLEY AND TAXI INSTRUCTOR Unavailable Unavailable Anisa, I Genet BUS TROLLEY AND TAXI INSTRUCTOR Unavailable Unavailable Anisa, I Genet BUS TROLLEY AND TAXI INSTRUCTOR Unavailable Unavailable Anisa, I Genet BUS TROLLEY AND TAXI INSTRUCTOR Unavailable Unavailable Anisa, I Genet BUS TROLLEY AND TAXI INSTRUCTOR Unavailable Unavailable Anisa, I Genet BUS TROLLEY [employer] TAXI INSTRUCTOR Unavailable Unavailable Anisa, I Genet BUS TROLLEY AND TAXI INSTRUCTOR Unavailable Unavailable Anisa, I Genet BUS TROLLEY AND TAXI INSTRUCTOR Unavailable Unavailable Anisa, I Genet BUS TROLLEY AND TAXI INSTRUCTOR Unavailable Unavailable Anisa, I Genet BUS TROLLEY AND TAXI INSTRUCTOR Unavailable Unavailable Anisa, I Genet BUS TROLLEY AND TAXI INSTRUCTOR Unavailable Unavailable Anisa, I Genet BUS TROLLEY AND TAXI INSTRUCTOR Unavailable Unavailable Anisa, I Genet BUS TROLLEY AND TAXI INSTRUCTOR Unavailable Unavailable Anisa, I Genet BUS TROLLEY AND TAXI INSTRUCTOR Unavailable Unavailable Anisa, I Genet BUS TROLLEY AND TAXI INSTRUCTOR Unavailable Unavailable Anisa, I Genet BUS TROLLEY AND TAXI INSTRUCTOR Unavailable Unavailable Anisa, I Genet BUS TROLLEY AND TAXI INSTRUCTOR Unavailable Unavailable Anisa, I Genet BUS TROLLEY AND TAXI INSTRUCTOR Unavailable Unavailable Anisa, I Genet BUS TROLLEY AND TAXI INSTRUCTOR Unavailable Unavailable Anisa, I Genet BUS TROLLEY [employer] TAXI INSTRUCTOR Unavailable Unavailable Anisa, I Genet BUS TROLLEY AND TAXI INSTRUCTOR Unavailable Unavailable Anisa, I Genet BUS TROLLEY AND TAXI INSTRUCTOR Unavailable Unavailable Anisa, I Genet BUS TROLLEY AND TAXI INSTRUCTOR Unavailable Unavailable Anisa, I Genet BUS TROLLEY AND TAXI INSTRUCTOR Unavailable Unavailable Anisa, I Genet BUS TROLLEY AND TAXI INSTRUCTOR Unavailable Unavailable Anisa, I Genet BUS TROLLEY AND TAXI INSTRUCTOR Unavailable Unavailable Naisa, I Genet BUS TROLLEY AND TAXI INSTRUCTOR Unavailable Unavailable Anisa, I Genet BUS TROLLEY AND TAXI INSTRUCTOR Unavailable Unavailable Anisa, I Genet BUS TROLLEY AND TAXI INSTRUCTOR Unavailable Unavailable Anisa, I Genet BUS TROLLEY AND TAXI INSTRUCTOR Unavailable Unavailable Anisa, I Genet BUS TROLLEY AND TAXI INSTRUCTOR Unavailable Unavailable Anisa, I Genet BUS TROLLEY AND TAXI INSTRUCTOR Unavailable Unavailable Anisa, I Genet BUS TROLLEY AND TAXI INSTRUCTOR Unavailable Unavailable Anisa, I Genet BUS TROLLEY AND TAXI INSTRUCTOR Unavailable Unavailable Anisa, I Genet BUS TROLLEY AND TAXI INSTRUCTOR Unavailable Unavailable Anisa, I Genet BUS TROLLEY AND TAXI INSTRUCTOR Unavailable Unavailable Anisa, I Genet BUS TROLLEY AND TAXI INSTRUCTOR Unavailable Unavailable Anisa, I Genet BUS TROLLEY AND TAXI INSTRUCTOR Unavailable Unavailable Anisa, I Genet BUS TROLLEY AND TAXI INSTRUCTOR Unavailable Unavailable Anisa, I Genet BUS TROLLEY AND TAXI INSTRUCTOR Unavailable Unavailable Anisa, I Genet BUS TROLLEY AND TAXI INSTRUCTOR Unavailable Unavailable Anisa, I Genet BUS TROLLEY AND TAXI INSTRUCTOR Unavailable Unavailable Anisa, I Genet BUS TROLLEY AND TAXI INSTRUCTOR Unavailable Unavailable Anisa, I Genet BUS TROLLEY AND TAXI INSTRUCTOR Unavailable Unavailable Anisa, I Genet BUS TROLLEY AND TAXI INSTRUCTOR Unavailable Unavailable Anisa, I Genet BUS TROLLEY AND TAXI INSTRUCTOR Unavailable Unavailable Anisa, I Genet BUS TROLLEY AND TAXI INSTRUCTOR Unavailable Unavailable Anisa, I Genet BUS TROLLEY AND TAXI INSTRUCTOR Unavailable Unavailable BILAL, AHMAD MD Unavailable Unavailable BILAL, AHMAD MD Unavailable Unavailable BILAL, AHMAD MD Unavailable Unavailable BILAL, AHMAD MD Unavailable Unavailable BILAL, AHMAD MD Unavailable Unavailable BILAL, AHMAD MD Unavailable Unavailable BILAL, AHMAD MD Unavailable Unavailable BILAL, AHMAD MD Unavailable Unavailable BILAL, AHMAD MD Unavailable Unavailable BILAL, AHMAD MD Unavailable Unavailable Curry, C Dede Unavailable Unavailable Curry, C Dede Unavailable Unavailable Curry, C Dede Unavailable Unavailable Curry, C Dede Unavailable Unavailable Curry, C Dede Unavailable Unavailable Curry, C Dede Unavailable Unavailable Curry, C Dede Unavailable Unavailable Curry, C Dede Unavailable Unavailable Curry, C Dede Unavailable Unavailable Curry, C Dede Unavailable Unavailable Curry, C Dede Unavailable Unavailable Curry, C Dede Unavailable Unavailable Curry, C Dede Unavailable Unavailable Curry, C Dede Unavailable Unavailable Curry, C Dede Unavailable Unavailable Curry, C Dede Unavailable Unavailable Curry, C Dede Unavailable Unavailable Curry, C Dede Unavailable Unavailable Curry, C Dede Unavailable Unavailable Curry, C Dede Unavailable Unavailable Curry, C Dede Unavailable Unavailable Curry, C Dede Unavailable Unavailable Curry, C Dede Unavailable Unavailable Curry, C Dede Unavailable Unavailable Curry, C Dede Unavailable Unavailable Curry, C Dede Unavailable Unavailable Earl, F Eliseo MD Unavailable Unavailable Earl, F Eliseo MD Unavailable Unavailable Earl, F Eliseo Unavailable Unavailable Earl, F Eliseo MD Unavailable Unavailable Earl, F Eliseo MD Unavailable Unavailable Earl, F Eliseo MD Unavailable Unavailable Earl, F Eliseo MD Unavailable Unavailable Earl, F Eliseo MD Unavailable Unavailable Earl, F Eliseo MD Unavailable Unavailable Earl, F Eliseo MD Unavailable Unavailable Earl, F Eliseo MD Unavailable Unavailable Earl, F Eliseo MD Unavailable Unavailable Earl, F Eliseo MD Unavailable Unavailable Earl, F Eliseo MD Unavailable Unavailable Earl, F Eliseo MD Unavailable Unavailable Earl, F Eliseo MD Unavailable Unavailable Earl, F Eliseo MD Unavailable Unavailable Earl, F Eliseo MD Unavailable Unavailable Earl, F Eliseo MD Unavailable Unavailable Earl, F Eliseo MD Unavailable Unavailable Earl, F Eliseo MD Unavailable Unavailable Earl, F Eliseo MD Unavailable Unavailable Earl, F Eliseo MD Unavailable Unavailable Earl, F Eliseo MD Unavailable Unavailable Earl, F Eliseo MD Unavailable Unavailable Earl, F Eliseo MD Unavailable Unavailable Earl, F Eliseo MD Unavailable Unavailable Earl, F Eliseo MD Unavailable Unavailable Earl, F Eliseo MD Unavailable Unavailable Earl, F Eliseo MD Unavailable Unavailable Earl, F Eliseo MD Unavailable Unavailable Earl, F Eliseo MD Unavailable Unavailable Earl, F Eliseo MD Unavailable Unavailable Earl, F Eliseo MD Unavailable Unavailable Earl, F Eliseo MD Unavailable Unavailable Earl, F Eliseo MD Unavailable Unavailable Earl, F Eliseo MD Unavailable Unavailable Earl, F Eliseo MD Unavailable Unavailable Earl, F Eliseo MD Unavailable Unavailable Earl, F Eliseo MD Unavailable Unavailable Earl, F Eliseo MD Unavailable Unavailable Earl, F Eliseo MD Unavailable Unavailable Earl, F Eliseo MD Unavailable Unavailable Earl, F Eliseo MD Unavailable Unavailable Earl, F Eliseo Unavailable Unavailable Earl, F Eliseo MD Unavailable Unavailable Earl, F Eliseo MD Unavailable Unavailable Earl, F Eliseo Unavailable Unavailable Earl, F Eliseo Unavailable Unavailable Earl, F Eliseo Unavailable Unavailable Earl, F Eliseo MD Unavailable Unavailable Earl, F Eliseo Unavailable Unavailable Earl, F Eliseo MD Unavailable Unavailable Earl, F Eliseo MD Unavailable Unavailable Earl, F Eliseo MD Unavailable Unavailable Earl, F Eliseo MD Unavailable Unavailable Earl, F Eliseo MD Unavailable Unavailable Earl, F Eliseo MD Unavailable Unavailable Earl, F Eliseo MD Unavailable Unavailable Earl, F Eliseo MD Unavailable Unavailable Earl, F Eliseo MD Unavailable Unavailable Earl, Sarina Gomes MD Unavailable Unavailable Earl, Sarina Gomes MD Unavailable Unavailable Earl, Sarina Gomes MD Unavailable Unavailable Earl, Sarina Gomes MD Unavailable Unavailable Earl, Sarina Gomes MD Unavailable Unavailable Earl, Sarina Gomes MD Unavailable Unavailable Earl, Sarina Gomes MD Unavailable Unavailable Earl, F Eliseo CALDWELL Unavailable Unavailable Earl, F Eliseo CALDWELL Unavailable Unavailable Earl, F Eliseo CALDWELL Unavailable Unavailable Earl, Sarina Gomes MD Unavailable Unavailable Ray, L Carolyn Unavailable Unavailable Ray, L Carolyn Unavailable Unavailable Ray, L Carolyn Unavailable Unavailable Ray, L Carolyn Unavailable Unavailable Ray, L Carolyn Unavailable Unavailable Ray, L Carolyn Unavailable Unavailable Ray, L Carolyn Unavailable Unavailable Ray, L Carolyn Unavailable Unavailable Ray, L Carolyn Unavailable Unavailable Ray, L Carolyn Unavailable Unavailable Ray, L Caroyln Unavailable Unavailable Ray, L Carolyn Unavailable Unavailable Ray, L Carolyn Unavailable Unavailable Ray, L Carolyn Unavailable Unavailable Ray, L Carolyn Unavailable Unavailable Ray, L Carolyn Unavailable Unavailable Ray, L Carolyn Unavailable Unavailable Ray, L Carolyn Unavailable Unavailable Ray, L Carolyn Unavailable Unavailable Ray, L Carolyn Unavailable Unavailable Ray, L Carolyn Unavailable Unavailable Ray, L Carolyn Unavailable Unavailable Ray, L Carolyn Unavailable Unavailable Ray, L Carolyn Unavailable Unavailable Ray, L Carolyn Unavailable Unavailable Ray, L Carolyn Unavailable Unavailable Ray, L Carolyn Unavailable Unavailable Ray, L Carolyn Unavailable Unavailable Ray, L Carolyn Unavailable Unavailable Ray, L Carolyn Unavailable Unavailable Ray, L Carolyn Unavailable Unavailable Ray, L Carolyn Unavailable Unavailable Ray, L Carolyn Unavailable Unavailable Ray, L Carolyn Unavailable Unavailable Ray, L Carolyn Unavailable Unavailable Ray, L Carolyn Unavailable Unavailable Ray, L Carolyn Unavailable Unavailable Ray, L Carolyn Unavailable Unavailable Ray, L Carolyn Unavailable Unavailable Ray, L Carolyn Unavailable Unavailable Ray, L Carolyn Unavailable Unavailable Ray, L Carolyn Unavailable Unavailable Ray, L Carolyn Unavailable Unavailable Ray, L Carolyn Unavailable Unavailable Ray, L Carolyn Unavailable Unavailable Ray, L Carolyn Unavailable Unavailable Ray, L Carolyn Unavailable Unavailable Ray, L Carolyn Unavailable Unavailable Ray, L Carolyn Unavailable Unavailable Ray, L Carolyn Unavailable Unavailable Ray, L Carolyn Unavailable Unavailable Ray, L Carolyn Unavailable Unavailable Ray, L Carolyn Unavailable Unavailable Ray, L Carolyn Unavailable Unavailable Ray, L Carolyn Unavailable Unavailable Ray, L Carolyn Unavailable Unavailable Ray, L Carolyn Unavailable Unavailable Ray, L Carolyn Unavailable Unavailable Ray, L Carolyn Unavailable Unavailable Ray, L Carolyn Unavailable Unavailable Ray, L Carolyn Unavailable Unavailable Ray, L Carolyn Unavailable Unavailable Ray, L Carolyn Unavailable Unavailable Ray, L Carolyn Unavailable Unavailable Ray, L Carolyn Unavailable Unavailable Ray, L Carolyn Unavailable Unavailable Ray, L Carolyn Unavailable Unavailable Ray, L Carolyn Unavailable Unavailable Ray, L Carolyn Unavailable Unavailable Ray, L Carolyn Unavailable Unavailable Ray, L Carolyn Unavailable Unavailable Ray, L Carolyn Unavailable Unavailable Ray, L Carolyn Unavailable Unavailable Ray, L Carolyn Unavailable Unavailable Ray, L Carolyn Unavailable Unavailable Maribel Michele MD Unavailable Unavailable Maribel Michele MD Unavailable Unavailable Maribel Michele MD Unavailable Unavailable SyrMaribel pruitt MD Unavailable Unavailable SyrMaribel pruitt MD Unavailable Unavailable MANZANARES, BERTHA Unavailable Unavailable GOWDAKAYARELIS, M GREGG Unavailable Unavailable Dator SR, Yonatan Drake MD Unavailable Unavailable Dator SR, Yonatan Drake MD Unavailable Unavailable Dator SR, Yonatan Drake MD Unavailable Unavailable Dator SR, Yonatan Drake MD Unavailable Unavailable Dator SR, Yonatan Drake MD Unavailable Unavailable Dator SR, Yonatan Drake MD Unavailable Unavailable Dator SR, Yonatan Drake MD Unavailable Unavailable Dator SR, Yonatan Drake MD Unavailable Unavailable Dator SR, Yonatan Drake MD Unavailable Unavailable Dator SR, Yonatan Drake MD Unavailable Unavailable Dator SR, Yonatan Drake MD Unavailable Unavailable Dator SR, Yonatan Drake MD Unavailable Unavailable Dator SR, Yonatan Drake MD Unavailable Unavailable Dator SR, Yonatan Drake MD Unavailable Unavailable Dator SR, Yonatan Drake MD Unavailable Unavailable Dator SR, Yonatan Drake MD Unavailable Unavailable Dator SR, Yonatan Drake MD Unavailable Unavailable Dator SR, Yonatan Drake MD Unavailable Unavailable Dator SR, Yonatan Drake MD Unavailable Unavailable Dator SR, Yonatan Drake MD Unavailable Unavailable Dator SR, Yonatan Drake MD Unavailable Unavailable Dator SR, Yonatan Drake MD Unavailable Unavailable Dator SR, Yonatan Drake MD Unavailable Unavailable Dator SR, Yonatan Drake MD Unavailable Unavailable Dator SR, Yonatan Drake MD Unavailable Unavailable Dator SR, Yonatan Drake MD Unavailable Unavailable Dator SR, Yonatan Drake MD Unavailable Unavailable Dator SR, Yonatan Drake MD Unavailable Unavailable Dator SR, Yonatan Drake MD Unavailable Unavailable Dator SR, Yonatan Drake MD Unavailable Unavailable Dator SR, Yonatan Drake MD Unavailable Unavailable Dator SR, Yonatan Drake MD Unavailable Unavailable Dator SR, Yonatan Drake MD Unavailable Unavailable Dator SR, Yonatan Drake MD Unavailable Unavailable Dator SR, Yonatan Drake MD Unavailable Unavailable Dator SR, Yonatan Drake MD Unavailable Unavailable Dator SR, Yonatan Drake MD Unavailable Unavailable Dator SR, Yonatan Drkae MD Unavailable Unavailable Dator SR, Yonatan Drake MD Unavailable Unavailable Dator SR, Yonatan Drake MD Unavailable Unavailable Dator SR, Yonatan Drake MD Unavailable Unavailable Dator SR, Yonatan Drake MD Unavailable Unavailable Dator SR, Yonatan Drake MD Unavailable Unavailable Dator SR, Yonatan Drake MD Unavailable Unavailable Dator SR, Yonatan Drake MD Unavailable Unavailable Dator SR, Yonatan Drake MD Unavailable Unavailable Dator SR, Yonatan Drake MD Unavailable Unavailable Dator SR, Yonatan Drake MD Unavailable Unavailable Dator SR, Yonatan Drake MD Unavailable Unavailable Dator SR, Yonatan Drake MD Unavailable Unavailable Dator SR, Yonatan Drake MD Unavailable Unavailable Dator SR, Yonatan Drake MD Unavailable Unavailable Dator SR, Yonatan Drake MD Unavailable Unavailable Dator SR, Yonatan Drake MD Unavailable Unavailable Dator SR, Yonatan Drake MD Unavailable Unavailable Dator SR, Yonatan Drake MD Unavailable Unavailable PHYSICIAN, PHYSICIAN ER Unavailable Unavailable Mason Cheung MD Unavailable Unavailable Mason Cheung MD Unavailable Unavailable Mason Cheung MD Unavailable Unavailable Mason Cheung MD Unavailable Unavailable Mason Cheung MD Unavailable Unavailable Mason Cheung MD Unavailable Unavailable Mason Cheung MD Unavailable Unavailable Mason Cheung MD Unavailable Unavailable Mason Cheung MD Unavailable Unavailable Mason Cheung MD Unavailable Unavailable Mason Cheung MD Unavailable Unavailable Mason Cheung MD Unavailable Unavailable Mason Cheung MD Unavailable Unavailable Mason Cheung MD Unavailable Unavailable Mason Cheung MD Unavailable Unavailable Mason Cheung MD Unavailable Unavailable Mason Cheung MD Unavailable Unavailable Mason Cheung MD Unavailable Unavailable Mason Cheung MD Unavailable Unavailable Ahmed, M Mohamed MD Unavailable Unavailable Ahmed, M Mohamed MD Unavailable Unavailable Ahmed, M Mohamed MD Unavailable Unavailable Ahmed, M Mohamed MD Unavailable Unavailable Ahmed, M Mohamed MD Unavailable Unavailable Ahmed, M Mohamed MD Unavailable Unavailable Ahmed, M Mohamed MD Unavailable Unavailable Ahmed, M Mohamed MD Unavailable Unavailable Ahmed, M Mohamed MD Unavailable Unavailable Ahmed, M Mohamed MD Unavailable Unavailable Ahmed, M Mohamed MD Unavailable Unavailable Ahmed, M Mohamed MD Unavailable Unavailable Ahmed, M Mohamed MD Unavailable Unavailable Ahmed, M Mohamed MD Unavailable Unavailable Ahmed, M Mohamed MD Unavailable Unavailable Ahmed, M Mohamed MD Unavailable Unavailable Ahmed, M Mohamed MD Unavailable Unavailable Ahmed, M Mohamed MD Unavailable Unavailable Ahmed, M Mohamed MD Unavailable Unavailable Ahmed, M Mohamed MD Unavailable Unavailable Ahmed, M Mohamed MD Unavailable Unavailable Ahmed, M Mohamed MD Unavailable Unavailable Ahmed, M Mohamed MD Unavailable Unavailable Ahmed, M Mohamed MD Unavailable Unavailable Ahmed, M Mohamed MD Unavailable Unavailable Ahmed, M Mohamed MD Unavailable Unavailable Ahmed, M Mohamed MD Unavailable Unavailable Ahmed, M Mohamed MD Unavailable Unavailable Ahmed, M Mohamed MD Unavailable Unavailable Ahmed, M Mohamed MD Unavailable Unavailable Cristine, Carmen Isela DO Unavailable Unavailable Blanchard, Carmen Isela DO Unavailable Unavailable Cristine, Carmen Isela DO Unavailable Unavailable Blanchard, Carmen Isela DO Unavailable Unavailable Blanchard, Carmen Isela DO Unavailable Unavailable Blanchard, Carmen Isela DO Unavailable Unavailable Cristine, Carmen Isela DO Unavailable Unavailable Blanchard, Carmen Isela DO Unavailable Unavailable Cristine, Carmen Isela DO Unavailable Unavailable Blanchard, Carmen Isela DO Unavailable Unavailable Cristine, Carmen Isela DO Unavailable Unavailable Blanchard, Carmen Isela DO Unavailable Unavailable Blanchard, Carmen Isela DO Unavailable Unavailable Cristine, Carmen Isela DO Unavailable Unavailable Blanchard, Carmen Isela DO Unavailable Unavailable Cristine, Carmen Isela DO Unavailable Unavailable Blanchard, Carmen Isela DO Unavailable Unavailable Blanchard, Carmen Isela DO Unavailable Unavailable Cristine, Carmen Isela DO Unavailable Unavailable Cristine, Carmen Isela DO Unavailable Unavailable Blanchard, Carmen Isela DO Unavailable Unavailable Blanchard, Carmen Isela DO Unavailable Unavailable Blanchard, Carmen Isela DO Unavailable Unavailable Blanchard, Carmen Isela DO Unavailable Unavailable Cristine, Carmen Isela DO Unavailable Unavailable Cristine, Carmen Isela DO Unavailable Unavailable Blanchard, Carmen Isela DO Unavailable Unavailable Cristine, Carmen Isela DO Unavailable Unavailable BINA, A RALF MD Unavailable Unavailable BINA, A RALF MD Unavailable Unavailable BINA, A RALF MD Unavailable Unavailable BINA, A RALF MD Unavailable Unavailable BINA, A RALF MD Unavailable Unavailable BINA, A RALF MD Unavailable Unavailable BINA, A RALF MD Unavailable Unavailable BINA, A RALF MD Unavailable Unavailable BINA, A RALF MD Unavailable Unavailable BINA, A RALF MD Unavailable Unavailable BINA, A RALF MD Unavailable Unavailable BINA, A RALF MD Unavailable Unavailable BINA, A RALF MD Unavailable Unavailable BINA, A RALF MD Unavailable Unavailable BINA, A RALF MD Unavailable Unavailable BINA, A RALF MD Unavailable Unavailable BINA, A RALF MD Unavailable Unavailable BINA, A RALF MD Unavailable Unavailable BINA, A RALF MD Unavailable Unavailable BINA, A RALF MD Unavailable Unavailable BINA, A RALF MD Unavailable Unavailable BINA, A RALF MD Unavailable Unavailable BINA, A RALF MD Unavailable Unavailable BINA, A RALF MD Unavailable Unavailable BINA, A RALF MD Unavailable Unavailable BINA, A RALF MD Unavailable Unavailable BINA, A RALF MD Unavailable Unavailable BINA, A RALF MD Unavailable Unavailable BINA, A RALF MD Unavailable Unavailable BINA, A RALF MD Unavailable Unavailable BINA, A RALF MD Unavailable Unavailable BINA, A RALF MD Unavailable Unavailable BINA, A RALF MD Unavailable Unavailable BINA, A RALF MD Unavailable Unavailable BINA, A RALF MD Unavailable Unavailable BINA, A RALF MD Unavailable Unavailable BINA, A RALF MD Unavailable Unavailable BINA, A RALF MD Unavailable Unavailable BINA, A RALF MD Unavailable Unavailable BINA, A RALF MD Unavailable Unavailable BINA, A RALF MD Unavailable Unavailable BINA, A RALF MD Unavailable Unavailable BINA, A RALF MD Unavailable Unavailable BINA, A RALF MD Unavailable Unavailable BINA, A RALF MD Unavailable Unavailable BINA, A RALF MD Unavailable Unavailable BINA, A RALF MD Unavailable Unavailable BINA, A RALF MD Unavailable Unavailable BINA, A RALF MD Unavailable Unavailable BINA, A RALF MD Unavailable Unavailable BINA, A RALF MD Unavailable Unavailable BINA, A RALF MD Unavailable Unavailable BINA, A RALF MD Unavailable Unavailable BINA, A RALF MD Unavailable Unavailable BINA, A RALF MD Unavailable Unavailable BINA, A RALF MD Unavailable Unavailable BINA, A RALF MD Unavailable Unavailable BINA, A RALF MD Unavailable Unavailable BINA, A RALF MD Unavailable Unavailable BINA, A RALF MD Unavailable Unavailable BINA, A RALF MD Unavailable Unavailable BINA, A RALF MD Unavailable Unavailable BINA, A RALF MD Unavailable Unavailable BINA, A RALF MD Unavailable Unavailable BINA, A RALF MD Unavailable Unavailable BINA, A RALF MD Unavailable Unavailable BINA, A RALF MD Unavailable Unavailable OH, R EMELYN Unavailable Unavailable Charity, D Karina RESEARCH TECHNOLOGIST-C Unavailable Unavailable Charity, D Karina RESEARCH TECHNOLOGIST-C Unavailable Unavailable Charity, D Karina RESEARCH TECHNOLOGIST-C Unavailable Unavailable Charity, D Karina RESEARCH TECHNOLOGIST-C Unavailable Unavailable Charity, D Karina RESEARCH TECHNOLOGIST-C Unavailable Unavailable Charity, D Karina RESEARCH TECHNOLOGIST-C Unavailable Unavailable Charity, D Karina RESEARCH TECHNOLOGIST-C Unavailable Unavailable Charity, D Karina RESEARCH TECHNOLOGIST-C Unavailable Unavailable Charity, D Karina RESEARCH TECHNOLOGIST-C Unavailable Unavailable Charity, D Karina RESEARCH TECHNOLOGIST-C Unavailable Unavailable Charity, D Karina RESEARCH TECHNOLOGIST-C Unavailable Unavailable Charity, D Karina RESEARCH TECHNOLOGIST-C Unavailable Unavailable Charity, D Karina RESEARCH TECHNOLOGIST-C Unavailable Unavailable PHYSICIAN, ER Unavailable Unavailable Re-disclosure Warning The records that you are about to access may contain information from federally-assisted alcohol or drug abuse programs. If such information is present, then the following federally mandated warning applies: This information has been disclosed to you from records protected by federal confidentiality rules (42 CFR part 2). The federal rules prohibit you from making any further disclosure of this information unless further disclosure is expressly permitted by the written consent of the person to whom it pertains or as otherwise permitted by 42 CFR part 2. A general authorization for the release of medical or other information is NOT sufficient for this purpose. The Federal rules restrict any use of the information to criminally investigate or prosecute any alcohol or drug abuse patient.The records that you are about to access may contain highly sensitive health information, the redisclosure of which is protected by Article 27-F of the [facility] Public Health law. If you continue you may have access to information: Regarding HIV / AIDS; Provided by facilities licensed or operated by the [facility] Office of Mental Health; or Provided by the [facility] Office for People With Developmental Disabilities. If such information is present, then the following [facility] mandated warning applies: This information has been disclosed to you from confidential records which are protected by state law. State law prohibits you from making any further disclosure of this information without the specific written consent of the person to whom it pertains, or as otherwise permitted by law. Any unauthorized further disclosure in violation of state law may result in a fine or chcf sentence or both. A general authorization for the release of medical or other information is NOT sufficient authorization for further disc losure. 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 -NO Ebola Screening Performed completed Ebol a Screening Performed [facility] ([facility]) Note: Within the last month, have you tr aveled outside of the [place]? -NO Allergies and Adverse Reactions Type Description Substance Reaction Status Data Source(s ) Allergy to substance No Known Allergies No known allergies (situation ) [facility] ([facility]) Allergy to substance No Known Allergies No known allergies (situation ) [facility] ([facility]) Allergy to substance No Known Allergies No known allergies (situation ) [facility] ([facility]) Propensity to adverse reactions NO KNOWN ALLERGIES NO KNOWN ALLERGIES [facility] Allergy to substance No Known Allergies No known allergies (situation ) [facility] ([facility]) Allergy to substance No Known Allergies No known allergies (situation ) [facility] ([facility]) Allergy to substance No Known Allergies No known allergies (situation ) [facility] ([facility]) Drug allergy No Known Allergies No Known Allergies [facility] Allergy to substance No Known Allergies No known allergies (situation ) [facility] ([facility]) Allergy to substance No Known Allergies No known allergies (situation ) [facility] ([facility]) Family History Family Member Name Family Member Gender Family Member Status Date o f Status Description Data Source(s) Unknown Condition [facility] Unknown Condition [facility] Unknown Unknown Problem [facility] ([facility]) Encounters Encounter Providers Location Date Indications Data Source(s ) Outpatient Attender: GREGG Caputoender: HARDIK ANTHONY ES1-FP 01/10/2021 10:50:06 AM EDT - 01/10/2021 02:43:20 PM EDT [facility] Outpatient Referrer: RALF GONZALEZ1-[email or web address].MED 01/10/2021 12:00:00 AM EDT [facility] ES1-FP 01/04/2021 12:18:00 PM EDT [facility] Outpatient Attender: GREGG AZAR Attender: Isela Colunga DOConsultant: Isela Colunga DO ES1-FP 01/02/2021 03:32:42 PM EDT - 01/02/2021 04:23:57 PM EDT [facility] Outpatient Attender: HARDIK Bradyer: HARDIK BENNETTULTRA 12/26/2020 03:19:56 PM EDT - 12/26/2020 11:59:00 PM EDT [facility] Patient discharged. Outpatient Attender: GREGG Bedolla: HARDIK [email or web address]-[email or web address].OB 12/26/2020 08:43:39 AM EDT - 12/26/2020 10:15:42 AM EDT [facility] Outpatient Attender: EMELYN LEBLANCdmitter: EMELYN BARKER CEReferrer: EMELYN [place] ES1-BP 12/25/2020 12:02:00 AM EDT - 12/25/2020 03:25:00 AM EDT [facility] Patient discharged. <td ID="encounterTypeDescriptionID0">SUB OXONE</td><td>Eliseo Elliott MD</td><td>[facility]</td><td>12/17/2020</td><td>11:32AM</td><td>11:59PM</td><td><content ID="encounterDiagnosisID0-0"></content>, <content ID="encounterDiagnosisID0-1">Opioid Dependence</content>, <content ID="encounterDiagnosisID0-2">Nicotine Dependence</content>, <content ID="encounterDiagnosisID0-3">Anxiety Disorder Nos</content>, <content ID="encounterDiagnosisID0-4">Depression</content>, <content ID="encounterDiagnosisID0-5">Hepatitis, C Virus - Chronic</content>, <content ID="encounterDiagnosisID0-6">Assessment of Bipolar Disorder</content>, <content ID="encounterDiagnosisID0-7">Post-traumatic Stress Disorder</content>, <content ID="encounterDiagnosisID0-8">Adult Attention Deficit Hyperactivity Disorder</content></td>Unknown Attender: Eliseo Elliott MD [facility] 12/17/2020 11:32:00 AM EDT - 12/17/2020 11:59:00 PM EDT Hepatitis, C Virus - ChronicPregnancyAdult Attention Deficit Hyperactivity DisorderPost-traumatic Stress DisorderAnxiety Disorder NosNicotine DependenceOpioid DependenceAssessment of Bipolar DisorderDepression [facility] ([facility]) Hepatitis, C Virus - Chronic Adult Attention Deficit Hyperactivity Di sorder Post-traumatic Stress Disorder Anxiety Disorder Nos Nicotine Dependence Opioid Dependence Assessment of Bipolar Disorder Depression <td ID="encounterTypeDescriptionID0">SUB OXONE</td><td>Eliseo Elliott MD</td><td>[facility]</td><td>11/05/2020</td><td>11:07AM</td><td>11:59PM</td><td><content ID="encounterDiagnosisID0-0"></content>, <content ID="encounterDiagnosisID0-1">Opioid Dependence</content>, <content ID="encounterDiagnosisID0-2">Nicotine Dependence</content>, <content ID="encounterDiagnosisID0-3">Anxiety Disorder Nos</content>, <content ID="encounterDiagnosisID0-4">Depression</content>, <content ID="encounterDiagnosisID0-5">Hepatitis, C Virus - Chronic</content>, <content ID="encounterDiagnosisID0-6">Assessment of Bipolar Disorder</content>, <content ID="encounterDiagnosisID0-7">Post-traumatic Stress Disorder</content>, <content ID="encounterDiagnosisID0-8">Adult Attention Deficit Hyperactivity Disorder</content></td>Unknown Attender: Eliseo Elliott MD [facility] 11/05/2020 11:07:00 AM EDT - 11/05/2020 11:59:00 PM EDT Hepatitis, C Virus - ChronicPregnancyAdult Attention Deficit Hyperactivity DisorderPost-traumatic Stress DisorderAnxiety Disorder NosNicotine DependenceOpioid DependenceAssessment of Bipolar DisorderDepression [facility] ([facility]) Hepatitis, C Virus - Chronic Adult Attention Deficit Hyperactivity Di sorder Post-traumatic Stress Disorder Anxiety Disorder Nos Nicotine Dependence Opioid Dependence Assessment of Bipolar Disorder Depression Emergency ES1-ES1 10/30/2020 12:41:00 AM EDT - 021 05:39:00 AM EDT [facility] Patient discharged. <td ID="encounterTypeDescriptionID0">SUB OXONE</td><td>Eliseo Elliott MD</td><td>[facility]</td><td>10/22/2020</td><td>10:30AM</td><td>11:59PM</td><td><content ID="encounterDiagnosisID0-0"></content>, <content ID="encounterDiagnosisID0-1">Opioid Dependence</content>, <content ID="encounterDiagnosisID0-2">Nicotine Dependence</content>, <content ID="encounterDiagnosisID0-3">Anxiety Disorder Nos</content>, <content ID="encounterDiagnosisID0-4">Depression</content>, <content ID="encounterDiagnosisID0-5">Hepatitis, C Virus - Chronic</content>, <content ID="encounterDiagnosisID0-6">Assessment of Bipolar Disorder</content>, <content ID="encounterDiagnosisID0-7">Post-traumatic Stress Disorder</content>, <content ID="encounterDiagnosisID0-8">Adult Attention Deficit Hyperactivity Disorder</content></td>Unknown Attender: Eliseo Elliott MD [facility] 10/22/2020 10:30:00 AM EDT - 10/22/2020 11:59:00 PM EDT Hepatitis, C Virus - ChronicPregnancyAdult Attention Deficit Hyperactivity DisorderPost-traumatic Stress DisorderAnxiety Disorder NosNicotine DependenceOpioid DependenceAssessment of Bipolar DisorderDepression [facility] ([facility] Hepatitis, C Virus - Chronic Adult Attention Deficit Hyperactivity Di sorder Post-traumatic Stress Disorder Anxiety Disorder Nos Nicotine Dependence Opioid Dependence Assessment of Bipolar Disorder Depression Outpatient Referrer: Karina DODSONP-C 10/10/2020 12: 00:00 AM EDT [facility] Outpatient Referrer: Karina DODSONP-C 10/10/2020 12: 00:00 AM [facility] Unknown<td ID="encounterTypeDescriptionI D0">SUBOXONE</td><td>Eliseo Elliott MD</td><td>[facility]</td><td>10/08/2020</td><td>10:54AM</td><td>11:59PM</td><td><content ID="encounterDiagnosisID0-0"></content>, <content ID="encounterDiagnosisID0-1">Opioid Dependence</content>, <content ID="encounterDiagnosisID0-2">Nicotine Dependence</content>, <content ID="encounterDiagnosisID0-3">Anxiety Disorder Nos</content>, <content ID="encounterDiagnosisID0-4">Depression</content>, <content ID="encounterDiagnosisID0-5">Hepatitis, C Virus - Chronic</content>, <content ID="encounterDiagnosisID0-6">Assessment of Bipolar Disorder</content>, <content ID="encounterDiagnosisID0-7">Post-traumatic Stress Disorder</content>, <content ID="encounterDiagnosisID0-8">Adult Attention Deficit Hyperactivity Disorder</content></td> Attender: Eliseo Elliott MD [facility] 10/09/19 10:54:00 AM EDT - 10/08/2020 11:59:00 PM EDT Hepatitis, C Virus - ChronicPregnancyAdult Attention Deficit Hyperactivity DisorderPost-traumatic Stress DisorderAnxiety Disorder NosNicotine DependenceOpioid DependenceAssessment of Bipolar DisorderDepression [facility] ([facility]) Hepatitis, C Virus - Chronic Adult Attention Deficit Hyperactivity Di sorder Post-traumatic Stress Disorder Anxiety Disorder Nos Nicotine Dependence Opioid Dependence Assessment of Bipolar Disorder Depression Outpatient Referrer: Karina BROWN-Narda 09/04/2020 12: 00:00 AM T [facility] Outpatient Referrer: Karina BROWN-Narda 09/04/2020 12: 00:00 AM [facility] Unknown<td ID="encounterTypeDescriptionI D0">SUBOXONE</td><td>Eliseo Elliott MD</td><td>[facility]</td><td>09/03/2020</td><td>2:35PM</td><td>11:59PM</td><td><content ID="encounterDiagnosisID0-0"></content>, <content ID="encounterDiagnosisID0-1">Opioid Dependence</content>, <content ID="encounterDiagnosisID0-2">Nicotine Dependence</content>, <content ID="encounterDiagnosisID0-3">Anxiety Disorder Nos</content>, <content ID="encounterDiagnosisID0-4">Depression</content>, <content ID="encounterDiagnosisID0-5">Hepatitis, C Virus - Chronic</content>, <content ID="encounterDiagnosisID0-6">Assessment of Bipolar Disorder</content>, <content ID="encounterDiagnosisID0-7">Post-traumatic Stress Disorder</content>, <content ID="encounterDiagnosisID0-8">Adult Attention Deficit Hyperactivity Disorder</content></td> Attender: Eliseo Elliott MD [facility] 09/04/19 02:35:00 PM EDT - 09/03/2020 11:59:00 PM EDT Hepatitis, C Virus - ChronicPregnancyAdult Attention Deficit Hyperactivity DisorderPost-traumatic Stress DisorderAnxiety Disorder NosNicotine DependenceOpioid DependenceAssessment of Bipolar DisorderDepression [facility] ([facility]) Hepatitis, C Virus - Chronic Adult Attention Deficit Hyperactivity Di sorder Post-traumatic Stress Disorder Anxiety Disorder Nos Nicotine Dependence Opioid Dependence Assessment of Bipolar Disorder Depression Outpatient<td ID="encounterTypeDescripti onID0">SUBOXONE</td><td>Eliseo Elliott MD</td><td>[facility]</td><td>08/20/2020</td><td>3:19PM</td><td>11:59PM</td><td><content ID="encounterDiagnosisID0-0">Opioid Dependence</content>, <content ID="encounterDiagnosisID0-1">Nicotine Dependence</content>, <content ID="encounterDiagnosisID0-2">Post-traumatic Stress Disorder</content>, <content ID="encounterDiagnosisID0-3">Depression</content>, <content ID="encounterDiagnosisID0-4">Assessment of Bipolar Disorder</content>, <content ID="encounterDiagnosisID0-5">Anxiety Disorder Nos</content>, <content ID="encounterDiagnosisID0-6">Adult Attention Deficit Hyperactivity Disorder</content>, <content ID="encounterDiagnosisID0-7"></content>, <content ID="encounterDiagnosisID0-8">Hepatitis, C Virus - Chronic</content></td> Attender: Eliseo Elliott MD [facility] 03:19:00 PM EDT - 08/20/2020 11:59:00 PM EDT Hepatitis, C Virus - ChronicPregnancyAdult Attention Deficit Hyperactivity DisorderAnxiety Disorder NosPost-traumatic Stress DisorderNicotine DependenceOpioid DependenceAssessment of Bipolar DisorderDepression [facility] ([facility]) Hepatitis, C Virus - Chronic Adult Attention Deficit Hyperactivity Di sorder Anxiety Disorder Nos Post-traumatic Stress Disorder Nicotine Dependence Opioid Dependence Assessment of Bipolar Disorder Depression Emergency Attender: ER PHYSICIAN 07/22/2020 10:41:04 PM E DT [facility] [place] [facility] Emergency Attender: BERTHA Dahlender: ER PHYSICIAN 07/22/2020 09:26:00 PM EDT - 07/22/2020 11:30:00 PM EDT 14WK PREG HEART PRESSURE NUMBNESS LT ARM [facility] 14WK PREG HEART PRESSURE NUMBNESS LT ARM Patient discharged. Outpatient Attender: MIGNON Fortune tter: MIGNON SCHNEIDER MDConsultant: MIGNON SCHNEIDER MD 04/21/2020 01:43:00 AM EST Suicidal ideations R4 5.851 [facility] Suicidal ideations R45.851 Outpatient Attender: MIGNON Fortune tter: MIGNON SCHNEIDER MDConsultant: MIGNON SCHNEIDER MD 04/21/2020 01:43:00 AM EST Suicidal ideations R4 5.851 [facility] Suicidal ideations R45.851 Inpatient Attender: MIGNON Loo nder: Missy Cheung MDAdmitter: MIGNON SCHNEIDER MD 04/21/2020 01:43:00 AM EST - 04/25/2020 09:20:00 AM EST Suicidal ideations R45.851 [facility] Suicidal ideations R45.851 Patient discharged. Outpatient Attender: MIGNON Fortune tter: MIGNON SCHNEIDER MDConsultant: MIGNON SCHNEIDER MD 04/21/2020 01:43:00 AM EST Suicidal ideations R4 5.851 [facility] Suicidal ideations R45.851 Outpatient Attender: MIGNON Fortune tter: MIGNON SCHNEIDER MDConsultant: MIGNON SCHNEIDER MD 04/21/2020 01:43:00 AM EST Suicidal ideations R4 5.851 [facility] Suicidal ideations R45.851 Outpatient Attender: Vidal Sherwood SR 04/20/2020 10:1 3:00 PM EST [facility] Attender: Dede Dickerson er: MIGNON SCHNEIDER MDConsultant: MIGNON SCHNEIDER MD 04/20/2020 09:15:00 PM EST Suicidal ideations [facility] Suicidal ideations Outpatient Attender: Dede Dickerson er: MIGNON SCHNEIDER MDConsultant: MIGNON SCHNEIDER MD 04/20/2020 09:15:00 PM EST Suicidal ideations [facility] Suicidal ideations Outpatient<td ID="encounterTypeDescripti onID0">[facility] Telehealth FaceTime</td><td>Carolyn Pond DO</td><td>[facility]</td><td>02/01/2020</td><td><content ID="encounterDiagnosisID0-0">Opioid Dependence</content>, <content ID="encounterDiagnosisID0-1">Adjustment Disorder</content>, <content ID="encounterDiagnosisID0-2">Lumbago</content>, <content ID="encounterDiagnosisID0-3">Post-traumatic Stress Disorder</content>, <content ID="encounterDiagnosisID0-4">Anxiety Disorder Nos</content>, <content ID="encounterDiagnosisID0-5">Adult Attention Deficit Hyperactivity Disorder</co ntent></td> Attender: Carolyn Pond [facility] 02/01/2020 12:35:00 PM EST - 02/01/2020 03:24:19 PM EST Adult Attention Deficit Hyperactivity Di sorderAnxiety Disorder NosPost-traumatic Stress DisorderLumbagoAdjustment DisorderOpioid Dependence [facility] ([facility]) Adult Attention Deficit Hyperactivity Di sorder Anxiety Disorder Nos Post-traumatic Stress Disorder Lumbago Adjustment Disorder Opioid Dependence <td ID="encounterTypeDescriptionID1">Est [facility]</td><td>Carolyn Pond DO</td><td>[facility]</td><td>01/25/2020</td><td><content ID="encounterDiagnosisID1-0">Opioid Dependence</content>, <content ID="encounterDiagnosisID1-1">Benzodiazepine Abuse</content>, <content ID="encounterDiagnosisID1-2">Adjustment Disorder</content></td>Outpatient Attender: Carolyn Pond [facility] 01/25/2020 04:03:00 PM EDT - 01/25/2020 06:01:44 PM EDT Adjustment DisorderAdjustment DisorderBe nzodiazepine AbuseOpioid DependenceBenzodiazepine AbuseOpioid Dependence [facility] Adjustment Disorder Adjustment Disorder Benzodiazepine Abuse Opioid Dependence Benzodiazepine Abuse Opioid Dependence Unknown<td ID="encounterTypeDescriptionI D2">On-Call</td><td>Genet Lange NP</td><td></td><td>01/24/2020</td><td></td> Attender: Genet Lange NP 01/24/2020 03:48:00 PM EDT - 01/24/2020 11:59:00 PM EDT [facility] ([facility]) <td ID="encounterTypeDescriptionID0">SUB OXONE</td><td>Genet Lange NP</td><td>[facility]</td><td>01/02/2020</td><td><content ID="encounterDiagnosisID0-0">Benzodiazepine Abuse</content>, <content ID="encounterDiagnosisID0-1">Assessment of Bipolar Disorder</content>, <content ID="encounterDiagnosisID0-2">Contraceptive Surveillance</content>, <content ID="encounterDiagnosisID0-3">Opioid Dependence</content></td>Outpatient Attender: Genet Lange [employer] [facility] 01/02/2020 06:26:00 PM EDT - 01/02/2020 09:46:25 PM EDT Contraceptive SurveillanceContraceptive SurveillanceContraceptive SurveillanceContraceptive SurveillanceOpioid DependenceBenzodiazepine AbuseOpioid DependenceBenzodiazepine AbuseOpioid DependenceBenzodiazepine AbuseOpioid DependenceBenzodiazepine AbuseAssessment of Bipolar DisorderAssessment of Bipolar DisorderAssessment of Bipolar DisorderAssessment of Bipolar Disorder [facility] ([facility]) Contraceptive Surveillance Contraceptive Surveillance Contraceptive Surveillance Contraceptive Surveillance Opioid Dependence Benzodiazepine Abuse Opioid Dependence Benzodiazepine Abuse Opioid Dependence Benzodiazepine Abuse Opioid Dependence Benzodiazepine Abuse Assessment of Bipolar Disorder Assessment of Bipolar Disorder Assessment of Bipolar Disorder Assessment of Bipolar Disorder Emergency Attender: Kervin Michele MD 2019 08:35:00 PM EDT - 12/29/2019 09:20:00 PM [facility]. Immunizations Vaccine Date Status Description Data Source(s) COVID-19 VACCINE Moderna 01/10/2021 12:00:00 AM EDT completed [facility] Vaccine Series Complete: NOThis Data was [facility] Via [email or web address]. Medications Medication Brand Name Start Date Product Form Dose Route Admi nistrative Instructions Pharmacy Instructions Status Indications Reaction Description Data Source(s) NITROFURANTOIN, MACROCRYSTALS 25 MG / Ni trofurantoin, Monohydrate 75 MG Oral Capsule 100 mg NITROFURANTOIN MONOHYD/M-CRYST 01/07/2021 12:00:00 AM EDT ca psule 14 TAKE ONE CAPSULE BY MOUTH TWICE A DAY FOR 7 DAYS TAKE ONE CAPSULE BY MOUTH TWICE A DAY FOR 7 DAYS SOLD: 01/10/2021 [facility] 325 mg (65 mg iron) 01/04/2021 12:00:00 AM EDT tablet 60 TAKE ONE TABLET BY MOUTH TWICE A DAY TAKE ONE TABLET BY MOUTH TWICE A DAY SOLD: 01/05/2021 [facility] Cephalexin 500 MG Oral Capsule CEPHALEXIN 01/04/2021 12:00:00 AM EDT capsule 14 TAKE ONE CAPSULE BY MOUTH TWICE A DAY FOR 7 DAYS TAKE ONE CAPSULE BY MOUTH TWICE A DAY FOR 7 DAYS SOLD: 01/05/2021 [facility] 1 mg 01/03/2021 12:00:00 AM EDT tablet 90 TAKE ONE TABLET BY MOUTH THREE TIMES A DAY. MAXIMUM DAILY DOSE = 3 TABLETS TAKE ONE TABLET BY MOUTH THREE TIMES A DAY. MAXIMUM DAILY DOSE = 3 TABLETS SOLD: 01/03/2021 [facility] 200 ACTUAT Albuterol 0.09 MG/ACTUAT Mete red Dose Inhaler [ProAir] ProAir HFA 108 (90 Base) MCG/ACT Inhalation Aerosol Solution ProAir HFA 108 (90 Base) MCG/ACT Inhalation Aerosol Solution 12/17/2020 12:00:00 AM EDT active [id number] 200 ACTUAT albuterol 0.09 MG/ACTUAT Metered Dose Inhaler [ProAir] [facility] ([facility]) 100 mg 12/17/2020 12:00:00 AM EDT tablet 60 TAKE TWO TABLETS BY MOUTH EVERY DAY MAXIMUM DAILY DOSE = 2 TAKE TWO TABLETS BY MOUTH EVERY DAY MAXI MUM DAILY DOSE = 2 SOLD: 12/17/2020 [facility] Buprenorphine 8 MG Sublingual Tablet Bup renorphine HCl 8 MG Sublingual Tablet Sublingual Buprenorphine HCl 8 MG Sublingual Tablet Sublingual 12:00:00 AM EDT active buprenor phine 8 MG Sublingual Tablet [facility] ([facility]) albuterol (PROVENTIL HFA;VENTOLIN HFA) 108 (90 Base) M CG/ACT inhaler [id number] 12/17/2020 12:00:00 AM EDT activ e INHALE 2 PUFFS EVERY 4 TO 6 HOURS PRRN FOR COUGH OR WHEEZE [facility] 2 mg 12/17/2020 12:00:00 AM EDT tablet, sublingual 28 DISSOLVE 1 TABLET UNDER THE TONGUE ONCE DAILY MAXIMUM DAILY DOSE = 1 DISSOLVE 1 TABLET UNDER THE TONGUE ONCE DAILY MAXIMUM DAILY DOSE = 1 SOLD: 12/17/2020 [facility] Buprenorphine 2 MG Sublingual Tablet Bup renorphine HCl 2 MG Sublingual Tablet Sublingual Buprenorphine HCl 2 MG Sublingual Tablet Sublingual 12:00:00 AM EDT active buprenor phine 2 MG Sublingual Tablet [facility] ([facility]) Sertraline 100 MG Oral Tablet [Zoloft] Zoloft 100 MG O ral Tablet Zoloft 100 MG Oral Tablet 12/17/2020 12:00:00 AM EDT 2 active sertraline 100 MG Oral Tablet [Zoloft] [facility] ([facility]) 90 mcg/actuation 12/17/2020 12:00:00 AM EDT HFA aerosol inha ler 8 INHALE 2 PUFFS EVERY 4 TO 6 HOURS PRRN FOR COUGH OR WHEEZE INHALE 2 PUFFS EVERY 4 TO 6 HOURS PRRN FOR COUGH OR WHEEZE SOLD: 12/17/2020 [facility] 8 mg 12/17/2020 12:00:00 AM EDT tablet, sublingual 28 DISSOLVE 1 TABLET UNDER THE TONGUE ONCE DAILY MAXIMUM DAILY DOSE = 1 DISSOLVE 1 TABLET UNDER THE TONGUE ONCE DAILY MAXIMUM DAILY DOSE = 1 SOLD: 12/17/2020 [facility] 1 mg 12/05/2020 12:00:00 AM EDT tablet 90 TAKE ONE TABLET BY MOUTH THREE TIMES A DAY MAXIMUM DAILY DOSE = 3 TAKE ONE TABLET BY MOUTH THREE TIMES A D AY MAXIMUM DAILY DOSE = 3 SOLD: 12/05/2020 [facility] Methylphenidate Hydrochloride 20 MG Oral Tablet Methylphenidate HCl 20 MG Oral Tablet Methylphenidate HCl 20 MG Oral Tablet 12/04/2020 12:00:00 AM EDT 2 active methylphenidate hydrochlorid e 20 MG Oral Tablet [facility] ([facility]) 20 mg 12/01/2020 12:00:00 AM EDT tablet 16 TAKE TWO TABLETS BY MOUTH TWICE A DAY MAXIMUM DAILY DOSE = 4 TAKE TWO TABLETS BY MOUTH TWICE A DAY MOHAN RODRIGUEZ DAILY DOSE = 4 SOLD: 12/01/2020 [facility] Alprazolam 1 MG Oral Tablet ALPRAZolam 1 MG Oral Table t ALPRAZolam 1 MG Oral Tablet 11/26/2020 12:00:00 AM EDT 1 active alprazolam 1 MG Oral Tablet [facility] ([facility]) 8 mg 11/26/2020 12:00:00 AM EDT tablet, sublingual 21 DISSOLVE ONE TABLET UNDER THE TONGUE EVERY DAY MAXIMUM DAILY DOSE = 1 DISSOLVE ONE TABLET UNDER THE TONGUE EVERY DAY MAXIMUM DAILY DOSE = 1 SOLD: 11/26/2020 [facility] 2 mg 11/26/2020 12:00:00 AM EDT tablet, sublingual 21 DISSOLVE 1 TABLET UNDER THE TONGUE ONCE DAILY IN ADDITION TO 8 MG DOSE MAXIMUM DAILY DOSE = 1 DISSOLVE 1 TABLET UNDER THE TONGUE ONCE DAILY IN ADDITION TO 8 MG DOSE MAXIMUM DAILY DOSE = 1 SOLD: 11/26/2020 [facility] Buprenorphine 2 MG Sublingual Tablet Bup renorphine HCl 2 MG Sublingual Tablet Sublingual Buprenorphine HCl 2 MG Sublingual Tablet Sublingual 12:00:00 AM EDT active buprenor phine 2 MG Sublingual Tablet [facility] ([facility]) 20 mg 11/05/2020 12:00:00 AM EDT tablet 104 TAKE TWO TABLETS BY MOUTH TWICE A DAY. MAXIMUM DAILY DOSE = 4 TAKE TWO TABLETS BY MOUTH TWICE A DAY. M AXIMUMason DAILY DOSE = 4 SOLD: 11/05/2020 [facility] 8 mg 11/05/2020 12:00:00 AM EDT tablet, sublingual 21 DISSOLVE 1 TABLET UNDER THE TONGUE ONCE A DAY MAXIMUM DAILY DOSE = 1 DISSOLVE 1 TABLET UNDER THE TONGUE ONCE A DAY MAXIMUM DAILY DOSE = 1 SOLD: 11/05/2020 [facility] 2 mg 11/05/2020 12:00:00 AM EDT tablet, sublingual 21 DISSOLVE 1 TABLET UNDER THE TONGUE ONCE A DAY MAXIMUM DAILY DOSE = 1 DISSOLVE 1 TABLET UNDER THE TONGUE ONCE A DAY MAXIMUM DAILY DOSE = 1 SOLD: 11/05/2020 [facility] Alprazolam 1 MG Oral Tablet ALPRAZolam 1 MG Oral Table t ALPRAZolam 1 MG Oral Tablet 11/05/2020 12:00:00 AM EDT 1 active alprazolam 1 MG Oral Tablet [facility]) Buprenorphine 8 MG Sublingual Tablet Bup renorphine HCl 8 MG Sublingual Tablet Sublingual Buprenorphine HCl 8 MG Sublingual Tablet Sublingual 12:00:00 AM EDT active buprenor phine 8 MG Sublingual Tablet [facility]) Methylphenidate Hydrochloride 20 MG Oral Tablet Methylphenidate HCl 20 MG Oral Tablet Methylphenidate HCl 20 MG Oral Tablet 11/05/2020 12:00:00 AM EDT 2 active methylphenidate hydrochlorid e 20 MG Oral Tablet [facility]) 1 mg 11/05/2020 12:00:00 AM EDT tablet 90 TAKE ONE TABLET BY MOUTH THREE TIMES A DAY MAXIMUM DAILY DOSE = 3 TAKE ONE TABLET BY MOUTH THREE TIMES A D AY MAXIMUM DAILY DOSE = 3 SOLD: 11/05/2020 [facility] Methylphenidate Hydrochloride 20 MG Oral Tablet METHYLPHENID ATE HCL 10/25/2020 12:00:00 AM EDT tablet 56 TAKE TWO TABLETS BY MOUTH TWICE A DAY MAXIMUM DAILY DOSE = 4 TAKE TWO TABLETS BY MOUTH TWICE A DAY MAXIMUM DAILY DO SE = 4 SOLD: 11/02/2020 [facility] Methylphenidate Hydrochloride 20 MG Oral Tablet methylphenidate (RITALIN) 20 MG tablet methylphenidate (RITALIN) 20 MG tablet 10/25/2020 12:00:00 AM EDT active TAKE TWO TABLETS BY MOUTH TWICE A DAY MAXIMUM DAILY DOSE 4 [facility] Alprazolam 1 MG Oral Tablet ALPRAZolam 1 MG Oral Table t ALPRAZolam 1 MG Oral Tablet 10/22/2020 12:00:00 AM EDT 1 active alprazolam 1 MG Oral Tablet [facility]) Sertraline 100 MG Oral Tablet [Zoloft] Zoloft 100 MG O ral Tablet Zoloft 100 MG Oral Tablet 10/22/2020 12:00:00 AM EDT 2 active sertraline 100 MG Oral Tablet [Zoloft] [facility]) 8 mg 10/22/2020 12:00:00 AM EDT tablet, sublingual 21 DISSOLVE 1 & 1/2 TABLETS UNDER THE TONGUE ONCE DAILY MAXIMUM DAILY DOSE = 1 & 1/2 TABLETS DISSOLVE 1 & 1/2 TABLETS UNDER THE TONGUE ONCE DAILY MAXIMUM DAILY DOSE = 1 & 1/2 TABLETS SOLD: 10/22/2020 [facility] Methylphenidate Hydrochloride 20 MG Oral Tablet Methylphenidate HCl 20 MG Oral Tablet Methylphenidate HCl 20 MG Oral Tablet 10/22/2020 12:00:00 AM EDT 2 active methylphenidate hydrochlorid e 20 MG Oral Tablet [facility]) 1 mg 10/22/2020 12:00:00 AM EDT tablet 42 TAKE ONE TABLET BY MOUTH THREE TIMES A DAY MAXIMUM DAILY DOSE = 3 TAKE ONE TABLET BY MOUTH THREE TIMES A D AY MAXIMUM DAILY DOSE = 3 SOLD: 10/22/2020 [facility] Buprenorphine 8 MG Sublingual Tablet Bup renorphine HCl 8 MG Sublingual Tablet Sublingual Buprenorphine HCl 8 MG Sublingual Tablet Sublingual 12:00:00 AM EDT active buprenor phine 8 MG Sublingual Tablet [facility] Buprenorphine 8 MG Sublingual Tablet Buprenorphine HCl 8 MG SUBL Buprenorphine HCl 8 MG SUBL 10/22/2020 12:00:00 AM EDT acti ve DISSOLVE 1 1/2 TABLETS UNDER THE TONGUE ONCE DAILY MAXIMUM DAILY DOSE 1 1/2 TABLETS [facility] Alprazolam 1 MG Oral Tablet ALPRAZolam (XANAX) 1 MG ta blet ALPRAZolam (XANAX) 1 MG tablet 10/22/2020 12:00:00 AM EDT active TAKE ONE TABLET BY MOUTH THREE TIMES A DAY MAXIMUM DAILY DOSE 3 [facility] Methylphenidate Hydrochloride 20 MG Oral Tablet METHYLPHENID ATE HCL 10/22/2020 12:00:00 AM EDT tablet 16 TAKE TWO TABLETS BY MOUTH TWICE A DAY MAXIMUM DAILY DOSE = 4 TAKE TWO TABLETS BY MOUTH TWICE A DAY MAXIMUM DAILY DO SE = 4 SOLD: 10/22/2020 [facility] Methylphenidate Hydrochloride 20 MG Oral Tablet METHYLPHENID ATE HCL 10/14/2020 12:00:00 AM EDT tablet 32 TAKE TWO TABLETS BY MOUTH TWICE A DAY MAXIMUM DAILY DOSE = 4 TAKE TWO TABLETS BY MOUTH TWICE A DAY MAXIMUM DAILY DO SE = 4 SOLD: 10/14/2020 [facility] 1 mg 10/14/2020 12:00:00 AM EDT tablet 24 TAKE ONE TABLET BY MOUTH THREE TIMES A DAY MAXIMUM DAILY DOSE = 3 TAKE ONE TABLET BY MOUTH THREE TIMES A D AY MAXIMUM DAILY DOSE = 3 SOLD: 10/14/2020 [facility] 8 mg 10/14/2020 12:00:00 AM EDT tablet, sublingual 12 DISSOLVE 1 & 1/2 TABLETS UNDER THE TONGUE ONCE DAILY MAXIMUM DAILY DOSE = 1 & 1/2 DISSOLVE 1 & 1/2 TABLETS UNDER THE TONGUE ONCE DAILY MAXIMUM DAILY DOSE = 1 & 1/2 SOLD: 10/14/2020 [facility] 100 mg 10/09/2020 12:00:00 AM EDT tablet 60 TAKE TWO TABLETS BY MOUTH EVERY DAY TAKE TWO TABLETS BY MOUTH EVERY DAY SOLD: 10/14/2020 [facility] Sertraline 100 MG Oral Tablet sertraline (ZOLOFT) 100 MG tablet sertraline (ZOLOFT) 100 MG tablet 10/09/2020 12:00:00 AM EDT 200 mg Oral active Take 200 mg by mouth daily [facility] Methylphenidate Hydrochloride 20 MG Oral Tablet Methylphenidate HCl 20 MG Oral Tablet Methylphenidate HCl 20 MG Oral Tablet 10/08/2020 12:00:00 AM EDT 2 active methylphenidate hydrochlorid e 20 MG Oral Tablet [facility]) Buprenorphine 8 MG Sublingual Tablet Bup renorphine HCl 8 MG Sublingual Tablet Sublingual Buprenorphine HCl 8 MG Sublingual Tablet Sublingual 12:00:00 AM EDT active buprenor phine 8 MG Sublingual Tablet [facility]) Alprazolam 1 MG Oral Tablet ALPRAZolam 1 MG Oral Table t ALPRAZolam 1 MG Oral Tablet 10/08/2020 12:00:00 AM EDT 1 active alprazolam 1 MG Oral Tablet [facility]) Methylphenidate Hydrochloride 20 MG Oral Tablet METHYLPHENID ATE HCL 10/03/2020 12:00:00 AM EDT tablet 44 TAKE TWO TABLETS BY MOUTH TWICE A DAY MAXIMUM DAILY DOSE = 4 TAKE TWO TABLETS BY MOUTH TWICE A DAY MAXIMUM DAILY DO SE = 4 SOLD: 10/03/2020 [facility] 8 mg 10/03/2020 12:00:00 AM EDT tablet, sublingual 17 DISSOLVE 1 & 1/2 TABLETS UNDER THE TONGUE ONCE DAILY MAXIMUM DAILY DOSE = 1 & 1/2 DISSOLVE 1 & 1/2 TABLETS UNDER THE TONGUE ONCE DAILY MAXIMUM DAILY DOSE = 1 & 1/2 SOLD: 10/03/2020 [facility] 1 mg 10/03/2020 12:00:00 AM EDT tablet 33 TAKE ONE TABLET BY MOUTH THREE TIMES A DAY MAXIMUM DAILY DOSE = 3 TAKE ONE TABLET BY MOUTH THREE TIMES A D AY MAXIMUM DAILY DOSE = 3 SOLD: 10/03/2020 [facility] Buprenorphine 8 MG Sublingual Tablet Bup renorphine HCl 8 MG Sublingual Tablet Sublingual Buprenorphine HCl 8 MG Sublingual Tablet Sublingual 12:00:00 AM EDT 1 active buprenor phine 8 MG Sublingual Tablet [facility]) Methylphenidate Hydrochloride 20 MG Oral Tablet Methylphenidate HCl 20 MG Oral Tablet Methylphenidate HCl 20 MG Oral Tablet 09/03/2020 12:00:00 AM EDT 2 active methylphenidate hydrochlorid e 20 MG Oral Tablet [facility]) Alprazolam 1 MG Oral Tablet ALPRAZolam 1 MG Oral Table t ALPRAZolam 1 MG Oral Tablet 09/03/2020 12:00:00 AM EDT 1 active alprazolam 1 MG Oral Tablet [facility] ([facility]) 0.75 % 2020 12:00:00 AM EDT gel 70 INSERT 1 APPLICATORFUL VAGINALLY EVERY NIGHT FOR 5 NIGHTS INSERT 1 APPLICATORFUL VAGINALLY EVERY N IGHT FOR 5 NIGHTS SOLD: 08/22/2020 [facility] 100 mg 07/06/2020 12:00:00 AM EDT capsule 14 TAKE ONE CAPSULE BY MOUTH TWICE A DAY TAKE ONE CAPSULE BY MOUTH TWICE A DAY SOLD: 07/06/2020 [facility] Escitalopram 5 MG Oral Tablet ESCITALOPRAM OXALATE 02/02/2020 12 :00:00 AM EST tablet 30 TAKE ONE TABLET BY MOUTH EVERY D AY TAKE ONE TABLET BY MOUTH EVERY DAY SOLD: 02/17/2020 [facility] Escitalopram 5 MG Oral Tablet [Lexapro] Lexapro 5 MG O ral Tablet Lexapro 5 MG Oral Tablet 02/01/2020 12:00:00 AM EST 1 aborte d escitalopram 5 MG Oral Tablet [Lexapro] [facility] ([facility]) gabapentin 800 MG Oral Tablet Gabapentin 800 MG Oral T ablet Gabapentin 800 MG Oral Tablet 01/04/2020 12:00:00 AM EDT aborte d gabapentin 800 MG Oral Tablet [facility] ([facility]) Buprenorphine 8 MG Sublingual Tablet Bup renorphine HCl 8 MG Sublingual Tablet Sublingual Buprenorphine HCl 8 MG Sublingual Tablet Sublingual 12:00:00 AM EDT 1 active buprenor phine 8 MG Sublingual Tablet [facility] ([facility]) Methylphenidate Hcl 12/29/2019 08:57:46 PM EDT UNASSIGNED 40 MG ORAL active [facility] Methylphenidate Hcl 12/29/2019 08:57:46 PM EDT UNASSIGNED 40 MG ORAL active [facility] Alprazolam 1 MG Oral Tablet Alprazolam (Xanax) 1 mg Ta blet Alprazolam (Xanax) 1 mg Tablet 12/29/2019 08:56:56 PM EDT TABLET 1 MG ORAL active [facility] Alprazolam 1 MG Oral Tablet Alprazolam (Xanax) 1 mg Ta blet Alprazolam (Xanax) 1 mg Tablet 12/29/2019 08:56:56 PM EDT TABLET 1 MG [facility] Bup[facility]ine 8 MG Sublingual Tablet Buprenorphine Hcl Bupre norphine Hcl 12/29/2019 08:55:19 PM EDT UNASSIGNED 8 MG SUBLINGUALLY [facility] Buprenorphine 8 MG Sublingual Tablet Buprenorphine Hcl Bupre norphine Hcl 12/29/2019 08:55:19 PM EDT UNASSIGNED 8 MG SUBLINGUALLY active [facility] Alprazolam 1 MG Oral Tablet ALPRAZolam 1 MG Oral Table t ALPRAZolam 1 MG Oral Tablet 12/09/2019 12:00:00 AM EDT active alprazolam 1 MG Oral Tablet [facility] ([facility]) Buprenorphine 8 MG Sublingual Tablet Bup renorphine HCl 8 MG Sublingual Tablet Sublingual Buprenorphine HCl 8 MG Sublingual Tablet Sublingual 12:00:00 AM EDT 1 aborted bupreno rphine 8 MG Sublingual Tablet [facility] ([facility]) Buprenorphine 8 MG Sublingual Tablet Bup renorphine HCl 8 MG Sublingual Tablet Sublingual Buprenorphine HCl 8 MG Sublingual Tablet Sublingual 12:00:00 AM EDT aborted bupreno rphine 8 MG Sublingual Tablet [facility] ([facility]) Famotidine 10 MG Oral Tablet Famotidine 10 MG Oral Tablet 12:00:00 AM EDT 1 active famotidine 10 MG Oral Tablet [facility] ([facility]) Buprenorphine 8 MG Sublingual Tablet Bup renorphine HCl 8 MG Sublingual Tablet Sublingual Buprenorphine HCl 8 MG Sublingual Tablet Sublingual 12:00:00 AM EST aborted bupreno rphine 8 MG Sublingual Tablet [facility] ([facility]) Comb No.42-Folic Acid (Prena1 C hew Tablet) 1.4 MG tablet,YUNIOR ortega DRbiphase 12/09/2017 10:28:34 PM EDT UNASSIGNED 1 TAB ORAL c ompleted [facility] Amoxicillin 875 MG / Clavulanate 125 MG Oral Tablet Am oxicillin-Pot Clavulanate Amoxicillin-Pot Clavulanate 12/09/2017 10:28:34 PM EDT TABLET 1 TAB ORAL completed [facility] Comb No.42-Folic Acid (Prena1 C hew Tablet) 1.4 MG tablet,jordan,YUNIOR Anguiano DR,biphase 12/09/2017 10:28:34 PM EDT UNASSIGNED 1 TAB [facility] Amox[facility] 875 MG / Clavulanate 125 MG Oral Tablet Am oxicillin-Pot Clavulanate Amoxicillin-Pot Clavulanate 12/09/2017 10:28:34 PM EDT TABLET 1 TAB ORAL completed [facility] Ibuprofen 600 MG Oral Tablet ibuprofen (ADVIL,MOTRIN) 600 MG tablet ibuprofen (ADVIL,MOTRIN) 600 MG tablet 12/06/2017 12:00:00 AM EDT 600 mg Oral aborted Take 1 tablet (600 m g total) by mouth every 6 (six) hours as needed for pain [facility] Insurance Providers Payer name Policy type / Coverage type Policy ID Covered constitution party ID Covered constitution party's relationship to david Policy David Plan Information [employer] [place] Other 0 [id number] Self 0 [employer] [employer] [place] Other 0 [id number] Self 0 Medicaid S [id number] S [id number] Managed Care Neto P [id number] S [id number] MEDICAID [id number] Samantha [id number] United[employer] Other 0 [id number] Self 0 UnitedHealthcare Other 0 [id number] Self 0 UnitedHealth[employer] Other 0 [id number] Self 0 [facility] COMMUNITY PLAN [id number] SP [id number] [facility] MEDICAID [id number] Samantha [id number] [facility] MEDICAID [id number] Samantha [id number] [facility] MEDICAID [id number] Samantha [id number] [employer] Other 0 [id number] Self 0 [employer] Other 0 [id number] Self 0 [employer] Other 0 [id number] Self 0 SELF PAY [facility] COMMUNITY PLAN [id number] SP [id number] [place] [facility] [place] Other 0 [id number] Self 0 [place] [facility] [place] Other 0 [id number] Self 0 [place] [facility] [place] Other 0 [id number] Self 0 [place] [facility] [place] Other 0 [id number] Self 0 [place] [facility] [place] Other 0 [id number] Self 0 [place] [facility] [place] Other 0 [id number] Self 0 [place] Other 0 [id number] Self 0 [place] [id number] 0 [id number] [place] Other 0 [id number] Self 0 [place] Other 0 [id number] Self 0 [place] Other 0 [id number] Self 0 [place] Other 0 [id number] Self 0 [place] Other 0 [id number] Self 0 [place] Other 0 [id number] Self 0 [place] [facility] [place] Other 0 [id number] Self 0 [place] [employer] [place] Other 0 [id number] Self 0 [place] [facility] [place] Other 0 [id number] Self 0 [place] [employer] [place] Other 0 [id number] Self 0 [place] Other 0 [id number] Self 0 [place] Other 0 [id number] Self 0 [place] [facility] [place] Other 0 [id number] Self 0 [place] [facility] [place] Other 0 [id number] Self 0 [place] [facility] [place] Other 0 [id number] Self 0 NETO MEDICAID [id number] NET[place] MEDICAID [id number] Samantha [id number] [place] [facility] [place] Other 0 [id number] Self 0 NETO [id number] SP [id number] SELF PAY NETO [id number] SP [id number] SELF PAY SELF PAY NETO [id number] SP [id number] NETO [id number] SP [id number] SELF PAY SELF PAY NETO [id number] SP [id number] SELF PAY NETO [id number] SP [id number] NETO [id number] SP [id number] SELF PAY SELF PAY [facility] [id number] SP [id number] [facility] [id number] SP [id number] [place] [id number] SP [id number] MEDICAID PI PI [facility] MEDICAID PI PI NF PENDING UNAVAILABLE SP UNAVAIL [place] UNAVAILABLE SP UNAVAILABLE [facility] Community Plan Health Maintenance Organization (HMO) [id number] Self [id number] [facility] Health Maintenance Organization [place] [id number] Self [id number] [facility] Health Maintenance Organization [place] [place] [id number] Self [id number] [facility] [id number] SP [id number] [facility] [id number] SP [id number] [facility] [id number] Comme rcial Insurance [id number] SELF PAY HEA UNAVAILABLE [id number] S UNAVAIL ABLE Medicaid [facility] Other 0 [id number] Self 0 NETO [id number] SP [id number] SELF PAY UNAVAILABLE SP UNAVAILA BLE [facility] PLAN [id number] 0 [id number] NETO CARE HEA [id number] S [id number] NETO [id number] SP [id number] [facility] [id number] 0 [id number] MEDICAID GME [id number] S [id number] [facility] PLAN [id number] SP [id number] [facility] PLAN UNAVAILABLE SP UNAVAILABLE Problems, Conditions, and Diagnoses Code Display Name Description Problem Type Effective Dates Data Source(s) O09.93 Supervision of high risk , unsp ecified, third trimester Supervision of high risk , unsp Diagnosis 01/10/2021 10:50:06 AM EDT [facility] Z86.19 Personal history of other infectious and parasitic diseases Personal history of other infectious and Diagnosis 01/10/2021 10:50:06 AM EDT [facility] R82.5 Elevated urine levels of drugs, medicame nts and biological substances Elevated urine levels of drugs, medicame Diagnosis 01/10/2021 10:50:06 AM EDT [facility] F11.20 Opioid dependence, uncomplicated Opioid dependen ce, uncomplicated Diagnosis 12/26/2020 08:43:39 AM EDT [facility] O99.320 Drug use complicating , unspeci fied trimester Drug use complicating , unspeci Diagnosis 12/26/2020 08:43:39 AM EDT [facility] Z34.80 Encounter for supervision of other normal , unspecified trimester Encounter for supervision of other arpan Diagnosis 12/26/2020 08:43:39 AM EDT [facility] O09.33 Supervision of wit h insufficient care, third trimester Supervision of with insufficie Diagnosis 12/26/2020 08:43:39 AM EDT [facility] O47.9 False labor, unspecified False labor, unspecified Diag nosis 12/25/2020 12:02:00 AM EDT [facility] Z72.0 Tobacco use Z72.0 - Tobacco use Diagnosis 04/21/2020 01:4 3:[facility].21 Adjustment disorder with depressed mood F43.21 - Adjustment disorder with depressed mood Diagnosis 04/21/2020 01:43:00 AM [facility] Z13.9 Encounter for screening, unspecified Z13 .9 - Encounter for screening, unspecified Diagnosis 04/21/2020 01:43:00 AM [facility] Z76.0 Encounter for issue of repeat prescripti on Z76.0 - Encounter for issue of repeat prescription Diagnosis 12/29/2019 08:35:00 PM EDT [facility] O99.320 Suboxone maintenance treatment complicat ing , antepartum Suboxone maintenance treatment complicating , antepartum [id number] 12/26/2020 12:00:00 AM EDT [facility] O09.93 , supervision, high-risk, third trimester , supervision, high-risk, third trimester [id number] 12/26/2020 12:00:00 AM EDT [facility] O47.00 Premature uterine contractions Premature uterine contr actions [id number] 12/25/2020 12:00:00 AM EDT [facility] 070.54 Hepatitis, C Virus - Chronic Hepatitis, C Virus - Answering Service Agent mat Problem 08/20/2020 05:06:00 PM EDT [facility]) 070.54 Hepatitis, C Virus - Chronic Hepatitis, C Virus - Answering Service Agent mat Problem 08/20/2020 05:06:00 PM EDT [facility] 070.54 Hepatitis, C Virus - Chronic Hepatitis, C Virus - Answering Service Agent mat Problem 08/20/2020 05:06:00 PM EDT [facility]) 070.54 Hepatitis, C Virus - Chronic Hepatitis, C Virus - Answering Service Agent mat Problem 08/20/2020 05:06:00 PM EDT [facility]) 070.54 Hepatitis, C Virus - Chronic Hepatitis, C Virus - Answering Service Agent mat Problem 08/20/2020 05:06:00 PM EDT [facility]) 070.54 Hepatitis, C Virus - Chronic Hepatitis, C Virus - Answering Service Agent mat Problem 08/20/2020 05:06:00 PM EDT [facility]) V22.2 Problem 08/20/2020 05:03:00 PM ED T [facility]) V22.2 Problem 08/20/2020 05:03:00 PM ED T [facility]) V22.2 Problem 08/20/2020 05:03:00 PM ED T [facility] V22.2 Problem 08/20/2020 05:03:00 PM ED T [facility] V22.2 Problem 08/20/2020 05:03:00 PM ED T [facility] V22.2 Problem 08/20/2020 05:03:00 PM ED T [facility]) 724.2 Lumbago Lumbago Finding 02/01/2020 12:00:00 AM ES T [facility]) 309.81 Post-traumatic Stress Disorder Post-traumatic Stress D isorder Problem 02/01/2020 12:00:00 AM EST [facility]) 314.01 Adult Attention Deficit Hyperactivity Di sorder Adult Attention Deficit Hyperactivity Disorder Problem 02/01/2020 12:00:00 AM EST [facility]) 300.00 Anxiety Disorder Nos Anxiety Disorder Nos Problem 02/01/2020 12:00:00 AM EST [facility]) 724.2 Lumbago Lumbago Finding 02/01/2020 12:00:00 AM ES T [facility]) 309.81 Post-traumatic Stress Disorder Post-traumatic Stress D isorder Problem 02/01/2020 12:00:00 AM EST [facility]) 314.01 Adult Attention Deficit Hyperactivity Di sorder Adult Attention Deficit Hyperactivity Disorder Problem 02/01/2020 12:00:00 AM EST [facility]) 300.00 Anxiety Disorder Nos Anxiety Disorder Nos Problem 02/01/2020 12:00:00 AM EST [facility]) 724.2 Lumbago Lumbago Finding 02/01/2020 12:00:00 AM ES T [facility] 309.81 Post-traumatic Stress Disorder Post-traumatic Stress D isorder Problem 02/01/2020 12:00:00 AM EST [facility]) 314.01 Adult Attention Deficit Hyperactivity Di sorder Adult Attention Deficit Hyperactivity Disorder Problem 02/01/2020 12:00:00 AM EST [facility]) 300.00 Anxiety Disorder Nos Anxiety Disorder Nos Problem 02/01/2020 12:00:00 AM EST [facility]) 724.2 Lumbago Lumbago Finding 02/01/2020 12:00:00 AM ES T [facility] 309.81 Post-traumatic Stress Disorder Post-traumatic Stress D isorder Problem 02/01/2020 12:00:00 AM EST [facility]) 314.01 Adult Attention Deficit Hyperactivity Di sorder Adult Attention Deficit Hyperactivity Disorder Problem 02/01/2020 12:00:00 AM EST [facility]) 300.00 Anxiety Disorder Nos Anxiety Disorder Nos Problem 02/01/2020 12:00:00 AM EST [facility]) 724.2 Lumbago Lumbago Finding 02/01/2020 12:00:00 AM ES T [facility]) 309.81 Post-traumatic Stress Disorder Post-traumatic Stress D isorder Problem 02/01/2020 12:00:00 AM EST [facility]) 314.01 Adult Attention Deficit Hyperactivity Di sorder Adult Attention Deficit Hyperactivity Disorder Problem 02/01/2020 12:00:00 AM EST [facility]) 300.00 Anxiety Disorder Nos Anxiety Disorder Nos Problem 02/01/2020 12:00:00 AM EST [facility]) 724.2 Lumbago Lumbago Finding 02/01/2020 12:00:00 AM ES T [facility]) 309.81 Post-traumatic Stress Disorder Post-traumatic Stress D isorder Problem 02/01/2020 12:00:00 AM EST [facility]) 314.01 Adult Attention Deficit Hyperactivity Di sorder Adult Attention Deficit Hyperactivity Disorder Problem 02/01/2020 12:00:00 AM EST [facility]) 300.00 Anxiety Disorder Nos Anxiety Disorder Nos Problem 02/01/2020 12:00:00 AM EST [facility]) 309.81 Post-traumatic Stress Disorder Post-traumatic Stress D isorder Problem 02/01/2020 12:00:00 AM EST [facility]) 724.2 Lumbago Lumbago Finding 02/01/2020 12:00:00 AM ES T [facility]) 314.01 Adult Attention Deficit Hyperactivity Di sorder Adult Attention Deficit Hyperactivity Disorder Problem 02/01/2020 12:00:00 AM EST [facility]) 300.00 Anxiety Disorder Nos Anxiety Disorder Nos Problem 02/01/2020 12:00:00 AM EST [facility]) 309.9 Adjustment Disorder Adjustment Disorder Problem 1 12:00:00 AM EDT [facility]) 309.9 Adjustment Disorder Adjustment Disorder Problem 1 12:00:00 AM EDT [facility]) 309.9 Adjustment Disorder Adjustment Disorder Problem 1 12:00:00 AM EDT [facility]) 309.9 Adjustment Disorder Adjustment Disorder Problem 1 12:00:00 AM EDT [facility]) 309.9 Adjustment Disorder Adjustment Disorder Problem 1 12:00:00 AM EDT [facility]) 309.9 Adjustment Disorder Adjustment Disorder Problem 1 12:00:00 AM EDT [facility]) 309.9 Adjustment Disorder Adjustment Disorder Problem 1 12:00:00 AM EDT [facility]) 309.9 Adjustment Disorder Adjustment Disorder Problem 1 12:00:00 AM EDT [facility]) Surgeries/Procedures Procedure Description Date Indications Data Source(s) US PREG UTERUS AFTER 1ST TRIMEST GESTATION <td>U S OB 14 + WEEKS SINGLE OR FIRST GESTATION</td><td>Today</td><td>12/26/2020 4:02 PM EDT</td><td> , supervision, high-risk, third trimester</td><td> </td> 12/26/2020 04:02:22 PM EDT , supervision, high-risk, third trimester [facility] , supervision, high-risk, third trimester Summary provided electronically in CCDA format & reasonable certainty of receipt 12/17/2020 12:00:00 AM EDT - 12/17/2020 12:00:00 AM EDT [facility]) Summary provided electronically in CCDA format & reasonable certainty of receipt 11/05/2020 12:00:00 AM EDT - 11/05/2020 12:00:00 AM EDT [facility]) Summary provided electronically in CCDA format & reasonable certainty of receipt 10/22/2020 12:00:00 AM EDT - 10/22/2020 12:00:00 AM EDT [facility]) Summary provided electronically in CCDA format & reasonable certainty of receipt 10/08/2020 12:00:00 AM EDT - 10/08/2020 12:00:00 AM EDT [facility]) Summary provided electronically in CCDA format & reasonable certainty of receipt 09/03/2020 12:00:00 AM EDT - 09/03/2020 12:00:00 AM EDT [facility]) Summary provided electronically in CCDA format & reasonable certainty of receipt 08/20/2020 12:00:00 AM EDT - 08/20/2020 12:00:00 AM EDT [facility]) Clinical summary provided to patient 12:00:00 AM EDT - 08/20/2020 12:00:00 AM EDT [facility]) prolonged physician office or outpatient service 60 08/20/2020 12:00:00 AM EDT - 08/20/2020 12:00:00 AM EDT [facility] ([facility]) prolonged physician service with direct patient contact 08/20/2020 12:00:00 AM EDT - 08/20/2020 12:00:00 AM EDT [facility] ([facility]) Electrocardiogram Interpretation & Report Only 021 12:00:00 AM EDT [facility] ([facility]) History of surgery (situation) No prior surgery 01/25/2020 12:00:00 AM EDT [facility] ([facility]) History of surgery (situation) No prior surgery 01/25/2020 12:00:00 AM EDT [facility] ([facility]) History of surgery (situation) No prior surgery 01/25/2020 12:00:00 AM EDT [facility] ([facility]) History of surgery (situation) No prior surgery 01/25/2020 12:00:00 AM EDT [facility] ([facility]) History of surgery (situation) No prior surgery 01/25/2020 12:00:00 AM EDT [facility] ([facility]) History of surgery (situation) No prior surgery 01/25/2020 12:00:00 AM EDT [facility] ([facility]) Smoke exposure Smoke exposure 01/25/2020 12:00:00 AM EDT [facility] ([facility]) Patient entered care during 2nd trimester 05/28 22 0/7 WKS Patient entered care during 2nd trimester 06/13/2019 22 0/7 WKS 01/25/2020 12:00:00 AM EDT [facility] ([facility]) Patient entered care during 1st trimester 05/11/2017 AT 12 0/7 WKS GE[facility]ATION. [facility] Patient entered care during 1st trimester 05/11/2017 AT 12 0/[address] [facility] 01/25/2020 12:00:00 AM EDT [facility] Past medical history -Please see Problem List for Act stalin Chronic Problems Past medical history -Please see Problem List for Active Chronic Problems 01/25/2020 12:00:00 AM EDT [facility] ([facility]) Other diagnoses and conditions Other diagnoses and condition s 01/25/2020 12:00:00 AM EDT [facility] ([facility]) Not taking medication Not taking medication 01/25/2020 12:00:00 AM EDT [facility] ([facility]) No history of type 2 diabetes mellitus No history of type 2 diabetes mellitus 01/25/2020 12:00:00 AM EDT [facility] ([facility]) No history of hyperlipidemia No history of hyperlipidemia 12:00:00 AM EDT [facility] ([facility]) No history of essential hypertension No history of essential hypertension 01/25/2020 12:00:00 AM EDT [facility]) No history of coronary artery disease No history of coronary artery disease 01/25/2020 12:00:00 AM EDT [facility] ([facility]) First visit was with another provider [facility] First visit was with another provider [facility] 01/25/2020 12:00:00 AM EDT [facility]) weight: was 3497 g 10/25/2019 JOSEPH ENT DELIVERED AT [facility] AT 41 F1/7 WKS GESTATION VIA VAGINAL DELIVERY OF FEMALE WEIGHT 7 POUNDS 11 [facility] NAMED BRIXLEY GREEN weight: was 3497 g 10/25/2019 JOSEPH ENT DELIVERED AT [facility] AT 41 F1/7 WKS GESTATION VIA VAGINAL DELIVERY OF FEMALE WEIGHT 7 POUNDS 11 [facility] NAMED BRIXLEY GREEN 01/25/2020 12:00:00 AM EDT [facility] ([facility]) PSHx: No prior surgery PSHx: No prior surgery 01/25/2020 12:00:00 A M EDT [facility] ([facility]) No prior surgery No prior surgery 01/25/2020 12:00:00 AM EDT [facility] ([facility]) Patient entered care during 2nd trimester 05/28 22 0/7 WKS Patient entered care during 2nd trimester 06/13/2019 22 0/7 WKS 12/10/2019 12:00:00 AM EDT [facility] ([facility]) First visit was with another provider [facility] First visit was with another provider [facility] 12/10/2019 12:00:00 AM EDT [facility] ([facility]) weight: was 3497 g 10/25/2019 JOSEPH ENT DELIVERED AT [facility] AT 41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 (HCT/P). Performed by [facility], [address] [place] [id number] [email or web address], Sunita Vaca MD, Lab. Director ID Date Data Source [id number] 12/27/2020 01:51:24 PM EDT Lab [facility] Name Value Range Interpretation Code Description Data Fadumo rce(s) Supporting Document(s) TREPONEMA IGG/IGM @ (NEG) Lab Tarun guerra [facility] ID Date Data Source [id number] 12/27/2020 12:31:12 PM EDT [facility] Name Value Range Interpretation Code Description Data Fadumo rce(s) Supporting Document(s) HEPATITIS C AB @ (NEG) A [facility] [place] PROBABLY IND ICATES PAST OR PRESENTHCV INFECTION. IF INDICATED, HCV QUANTITATIVERNA SHOULD BE REQUESTED.CALLED RESULTS TO [facility] AT [phone] ON 12/27/2020 AT 1214 BY [id number] RESULTS TO [facility] ON 12/27/2020 [place] 1228 [place] [id number] ID Date Data Source [id number] 12/26/2020 10:39:28 PM EDT [facility] SPEC EXP DATE 12/29/2020ATI ENT ABO/Rh O POSITIVEANTIBODY SCREEN NEGATIVETESTING SITE PERFORMED AT [address] [place] [address] BANK COMMENT BLOOD TYPE CONFIRMED. Name Value Range Interpretation Code Description Data Fadumo rce(s) Supporting Document(s) TYPE AND SCREEN [facility] [place] [facility] ID Date Data Source [id number] 12/26/2020 06:42:58 PM EDT [facility] Name Value Range Interpretation Code Description Data Fadumo rce(s) Supporting Document(s) HIV 1/2 SCREEN @ (NEG) [facility] [place] Testing performed using Siemens ADVIACen taur 4th gen CHIV combo assay.This assay detects the HIV1 p24 antigenin addition to antibodies to HIV1 and HIV2. ID Date Data Source [id number] 12/26/2020 06:00:43 PM EDT [facility] Name Value Range Interpretation Code Description Data Fadumo rce(s) Supporting Document(s) GLU CHALLENGE TEST @ 96 mg/dL (<140) Lab [facility] LITERATURE SUGGESTS RESULTS <140 MG/DL I N A FEMALE RULE OUT GESTATIONAL DIABETES.PATIENTS WITH RESULTS > OR = 140 MAY NEED AGLUCOSE TOLERANCE TEST FOLLOW UP. NOREFERENCE RANGE FOR NON- PATIENTS. ID Date Data Source [id number] 12/26/2020 05:20:23 PM EDT [facility] Name Value Range Interpretation Code Description Data Fadumo rce(s) Supporting Document(s) WBC 9.9 10*3/uL (4.1-11.0) [facility] [place] [facility] [place] RBC 3.60 10*6/uL (4.00-5.40) L [facility] HGB 9.9 g/dL (12.0-16.0) L [facility] HCT 29.6 % (36.0-47.0) L [facility] MCV 82.3 fL (80.0-95.0) [facility] MCH 27.6 pg (27.0-32.0) [facility] MCHC 33.6 g/dL (32.0-36.0) [facility] RDW 14.7 % (10.5-14.5) H [facility] PLT 186 10*3/uL (150-450) [facility] MPV 9.2 fL (7.1-10.7) [facility] ID Date Data Source [id number] 12/30/2020 06:46:24 AM EDT [facility] Name Value Range Interpretation Code Description Data Fadumo rce(s) Supporting Document(s) BUPRENORPHINE UR 3 ng/mL [facility] INTERPRETIVE INFORMATION: Buprenorphine and Metabolites, Urine, Quantitative Methodology: Quantitative Liquid Chromatography-Tandem Mass Spectrometry Positive cutoff: Buprenorphine 2 ng/mL Norbuprenorphine 2 ng/mL Buprenorphine glucuronide 5 ng/mL Norbuprenorphine glucuronide 5 ng/mL Naloxone 100 ng/mL For medical purposes only; not valid for forensic use. The presence of metabolite(s) without parent drug is common and may indicate use of parent drug during the prior week. Naloxone is included to detect addition of a naloxone-containing drug directly into the urine. The absence of expected drug(s) and/or drug metabolite(s) may indicate non-compliance, inappropriate timing of specimen collection relative to drug administration, poor drug absorption, diluted/adulterated urine, or limitations of testing. The concentration value must be greater than or equal to the cut off to be reported as positive. Interpretive questions should be directed to the laboratory. This test was developed and its performance characteristics determined by [facility]. It has not been cleared or approved by the US Food and Drug Administration. This test was performed in a CLIA certified laboratory and is intended for clinical purposes. NORBUPRENORPHINE UR 195 ng/mL [facility] BUPRENORPHINE GLUCU 672 [facility] Unit: ng/mL Consistent with use of a bup renorphine-containing drug. Glucuronide concentrations are semi-quantitative. NORBUPR GLUCURONIDE >1000 [facility] Unit: ng/mL NALOXONE,URINE <100 ng/mL [facility] [place] [facility] Performed By: [facility] [address] [place] [id number] Fashion Consultant: Sunita Vaca MD ID Date Data Source [id number] 12/26/2020 10:06:52 PM EDT [facility] Name Value Range Interpretation Code Description Data Fadumo rce(s) Supporting Document(s) BUPRENORPH SCREEN UR (NEG) A [facility] THIS IS A SCREENING IMMUNOASSAYTEST THAT IS REPORTED POSITIVEWHEN THE RESULT EXCEEDS THETHRESHOLD (CUTOFF) INDICATED. ACONFIRMATORY ANALYSIS ISREFLEXIVELY ORDERED ON SPECIMENSSCREENING POSITIVE AND MAYBE ADDED FOR UNEXPECTED NEGATIVERESULTS IF REQUESTED WITHIN 72 HRS.A LIST OF POTENTIAL INTERFERENCESIS AVAILABLE UPON REQUEST. ID Date Data Source [id number] 12/26/2020 09:29:44 AM EDT [facility] Name Value Range Interpretation Code Description Data Fadumo rce(s) Supporting Document(s) POC URINE COLOR [facility] [place] POC URINE APPEARANCE [facility] POC SPEC GRAV URINE 1.015 (1.003-1.030) [facility] POC PH URINE 7.0 (5.0-7.5) [facility] [place] [facility] [place] POC LEUK ESTERASE UR 3+ (NEG) A [facility] POC NITRITE URINE (NEG) [facility] P[facility] PROTEIN URINE (NEG) [facility] POC GLUCOSE URINE (NEG) [facility] POC KETONE URINE (NEG) [facility] P[facility] UROBILINOGEN UR 0.2 EU/dL (0.2-1.0) [facility] POC BILIRUBIN UR (NEG) [facility] POC BLOOD HGB URINE (NEG) A [facility] PERFORMED BY [facility] CLINICAL STAFF ID Date Data Source [id number] 12/25/2020 03:31:35 AM EDT [address] [address]Djxzymg Name: Carlos AguilarDOB: 1990Sex: FOrdering Provider: HAILEY GROETZAuthorizing Prov: HAILEY GROETZReferring Provider: Procedure Performed: US BIOPHYSICAL PROFILE WO NON STRESS TESTINGExam Date: 12/25/2020 01:35MRN: [id number] Number: [id number] Class: INFORMATION: Exam: US Biophysical Profile Without Non-Stress Test Exam date and time: 12/25/2020 1:35 AM Age: 30 years old Clinical indication: Other: labor; ; Additional info: Scant care, opiate use in TECHNIQUE: Imaging protocol: US biophysical profile without non-stress testing. COMPARISON: US OB FOLLOW UP TRANSABDOMINAL APPROACH 12/25/2020 1:29 AM FINDINGS: BIOPHYSICAL PROFILE: Breathin/2 Gross body movements: 2/2 tone: 2/2 Qualitative amniotic fluid: 2/2 Biophysical Profile Score: 8/8 IMPRESSION: Biophysical profile score is 8 out of 8. Report electronically signed by: SAPNA SIN MD on 12/25/2020 03:31:35 Name Value Range Interpretation Code Description Data Fadumo rce(s) Supporting Document(s) ID Date Data Source [id number] 12/25/2020 03:31:11 AM EDT [address] [address] Name: Carlos AguilarDOB: 1990Sex: FOrdering Provider: HAILEY GARCIAAutrebeca Prov: HAILEY GARCIARefsiri Provider: Procedure Performed: US OB FOLLOW UP TRANSABDOMINAL APPROACHExam Date: 12/25/2020 01:35MRN: [id number] Number: [id number] Class: INFORMATION: Exam: US , Limited Exam date and time: 12/25/2020 1:35 AM Age: 30 years old Clinical indication: Lmp or gestational age (in weeks): 36w 2d; Other: labor; ; Additional info: contractions, efw and position of placenta TECHNIQUE: Imaging protocol: Real-time ultrasound of the maternal uterus with image documentation. Exam focused on the clinical indication. COMPARISON: No relevant prior studies available. FINDINGS: Gestation: Single live intrauterine gestation. Fetus is in cephalic position. heart rate: heart rate measures 152 bpm. Placenta: Placenta is anterior. BIOMETRY: Estimated weight: Estimated weight is 5 lb 15 oz. MATERNAL: Intraperitoneal space: Biophysical profile measures 8/8. IMPRESSION: Unremarkable limited exam. Single live intrauterine in cephalic position, biophysical profile measures 8/8.Report electronically signed by: SAPNA SIN MD on 12/25/2020 03:31:11 Name Value Range Interpretation Code Description Data Fadumo rce(s) Supporting Document(s) ID Date Data Source [id number] 08/18/2020 08:24:08 PM EDT [facility] Name Value Range Interpretation Code Description Data Fadumo rce(s) Supporting Document(s) HCV QUANT BY NAAT [facility] 2,977,621 HCV QUANT BY NAAT 6.47 [facility] Unit: log IU/mL HCV QNT NAAT INTERP A [facility] Reference range: Not Detected INTERPRETI VE INFORMATION: HCV by Quantitative NAAT Normal range for this assay is "Not Detected". The quantitative range of this assay is 10 - 100,000,000 IU/mL (1.0 - 8.0 log IU/mL). Lower limit of quantitation (LLoQ): 10 IU/mL (1.0 log IU/mL) LLoQ values do not apply to diluted specimens. A result of "Not Detected" does not rule out the presence of inhibitors in the patient specimen or hepatitis C virus RNA concentrations below the level of detection of the test. Care should be taken when interpreting any single viral load determination. This test should not be used for blood donor screening, associated re-entry protocols, or for screening Human Cell, Tissues and Cellular Tissue-Based Products (HCT/P). Performed by [facility], [address] [place] [id number] www[employer], Sunita Vaca MD, Lab. Director ID Date Data Source [id number] 2020 10:06:01 PM EDT [facility] [employer] Name Value Range Interpretation Code Description Data Fadumo rce(s) Supporting Document(s) AMPHETAMINES,URINE (NEG) [facility] [place] [facility] BARBITURATES,URINE (NEG) Laboratory [facility] BENZODIAZEPINE,URINE (NEG) A Laborator y [facility] SPECIMEN HAS BEEN SENT FOR CONFIRMATION. CANNABINOIDS,URINE (NEG) [facility] [place] COCAINE,URINE (NEG) Laboratory [facility] OPIATES,URINE (NEG) Laboratory [facility] NOTE: Oxycodone is not sufficientlydetec joel by this screening assay. A moresensitive assay is available upon request. PHENCYCLIDINE,URINE (NEG) [facility] [place] [facility] PLEASE NOTE: Laboratory [facility] ARE REPORTED POSITIVE WHEN THE RESULT SEXCEED THE THRESHOLD (CUTOFF) INDICATED. ALIST OF POTENTIAL INTERFERENCES FOR EACHMETHOD CAN BE MADE AVAILABLE UPON REQUEST.A CONFIRMATORY ANALYSIS IS ORDERED ONALL DRUG CLASSES SCREENING POSITIVE BYTHIS METHOD.* * * * * * * * * * * * * * *THIS ASSAY IS NOT INTENDED TO BE USED FORMONITORING MEDICATION COMPLIANCE. ID Date Data Source [id number] 08/16/2020 12:19:26 AM EDT [facility] [employer] Name Value Range Interpretation Code Description Data Fadumo rce(s) Supporting Document(s) BUPRENORPH SCREEN UR (NEG) A Labor[facility] y [place] [facility] [employer] [facility] THIS IS A SCREENING IMMUNOASSAYTEST THAT IS REPORTED POSITIVEWHEN THE RESULT EXCEEDS THETHRESHOLD (CUTOFF) INDICATED. ACONFIRMATORY ANALYSIS ISREFLEXIVELY ORDERED ON SPECIMENSSCREENING POSITIVE AND MAYBE ADDED FOR UNEXPECTED NEGATIVERESULTS IF REQUESTED WITHIN 72 HRS.A LIST OF POTENTIAL INTERFERENCESIS AVAILABLE UPON REQUEST. ID Date Data Source [id number] 08/19/2020 09:37:52 AM EDT [facility] Name Value Range Interpretation Code Description Data Fadumo rce(s) Supporting Document(s) DIAZEPAM,URINE <20 Laboratory Ángel ance of [facility] Unit: ng/mL Cutoff: 20 ng/mL NORDIAZEPAM,URINE <20 [facility] Unit: ng/mL Cutoff: 20 ng/mL OXAZEPAM,URINE <20 Laboratory [facility]el [facility] of [facility] Unit: ng/mL Cutoff: 20 ng/mL TEMAZEPAM,URINE <20 Laboratory [facility] Unit: ng/mL Cutoff: 20 ng/mL LORAZEPAM,URINE <20 [facility] Unit: ng/mL Cutoff: 20 ng/mL ALPRAZOLAM,URINE 734 [facility] Unit: ng/mL Consistent with use of a lópez g containing alprazolam, such as Xanax. Cutoff: 5 ng/mL ALPHA OH ALPRAZOLAM >1000 [facility] Unit: ng/mL Alprazolam metabolite; consi stent with use of a drug containing alprazolam, such as Xanax. Cutoff: 5 ng/mL CLONAZEPAM,URINE <5 [facility] Unit: ng/mL Cutoff: 5 ng/mL 7 AMINOCLONAZEPAM U 25 [facility] Unit: ng/mL Clonazepam metabolite; consi stent with use of a drug containing clonazepam, such as Klonopin. Cutoff: 5 ng/mL MIDAZOLAM,URINE <20 Laboratory [facility] Unit: ng/mL Cutoff: 20 ng/mL CHLORDIAZEPOXIDE <20 Laboratory [facility] Unit: ng/mL Cutoff: 20 ng/mL ALPHA [place] MIDAZOLAM <20 [facility] Unit: ng/mL Cutoff: 20 ng/mL INTERPRETIV E INFORMATION: Benzodiazepines, Urine, Quantitative Methodology: Quantitative Liquid Chromatography-Tandem Mass Spectrometry For medical purposes only; not valid for forensic use. Identification of specific drug(s) taken by specimen donor is problematic due to common metabolites, some of which are prescription drugs themselves. The absence of expected drug(s) and/or drug metabolite(s) may indicate non-compliance, inappropriate timing of specimen collection relative to drug administration, poor drug absorption, diluted/adulterated urine, or limitations of testing. The concentration value must be greater than or equal to the cutoff to be reported as positive. Interpretive questions should be directed to the laboratory. This test was developed and its performance characteristics determined by [facility]. It has not been cleared or approved by the [place] Food and Drug Administration. This test was performed in a CLIA certified laboratory and is intended for clinical purposes. Performed By: [facility] [address] [place] [id number] Fashion Consultant: Sunita Vaca MD ID Date Data Source [id number] 08/19/2020 02:39:08 PM EDT [facility] Name Value Range Interpretation Code Description Data Fadumo rce(s) Supporting Document(s) BUPRENORPHINE UR 53 ng/mL [facility] INTERPRETIVE INFORMATION: Buprenorphine and Metabolites, Urine, Quantitative Methodology: Quantitative Liquid Chromatography-Tandem Mass Spectrometry Positive cutoff: Buprenorphine 2 ng/mL Norbuprenorphine 2 ng/mL Buprenorphine glucuronide 5 ng/mL Norbuprenorphine glucuronide 5 ng/mL Naloxone 100 ng/mL For medical purposes only; not valid for forensic use. The presence of metabolite(s) without parent drug is common and may indicate use of parent drug during the prior week. Naloxone is included to detect addition of a naloxone-containing drug directly into the urine. The absence of expected drug(s) and/or drug metabolite(s) may indicate non-compliance, inappropriate timing of specimen collection relative to drug administration, poor drug absorption, diluted/adulterated urine, or limitations of testing. The concentration value must be greater than or equal to the cut off to be reported as positive. Interpretive questions should be directed to the laboratory. This test was developed and its performance characteristics determined by [facility]. It has not been cleared or approved by the US Food and Drug Administration. This test was performed in a CLIA certified laboratory and is intended for clinical purposes. NORBUPRENORPHINE UR 539 ng/mL [facility] [place] [facility] BUPRENORPHINE GLUCU >1000 Laboratory [facility] Unit: ng/mL Consistent with use of a bup renorphine-containing drug. Glucuronide concentrations are semi-quantitative. NORBUPR GLUCURONIDE >1000 Laboratory [facility] Unit: ng/mL NALOXONE,URINE <100 ng/mL Laboratory [facility] Performed By: [facility] [address] [place] [address] Fashion Consultant: Sunita Vaca MD ID Date Data Source [id number] 07/24/2020 08:26:12 AM EDT Lab [facility] SPECIMEN DESCRIPTION URINE, COLLE CTION METHOD NOT SPECIFIEDCULTURE RESULTS NO GROWTHREPORT STATUS FINAL 07/24/2020 Name Value Range Interpretation Code Description Data Fadumo rce(s) Supporting Document(s) ID Date Data Source [id number] 07/22/2020 11:09:50 PM EDT Lab [facility] Name Value Range Interpretation Code Description Data Fadumo rce(s) Supporting Document(s) AMPHETAMINES,URINE (NEG) [facility] BARBITURATES,URINE (NEG) [facility] BENZODIAZEPINE,URINE (NEG) A [facility] CANNABINOIDS,URINE (NEG) [facility] COCAINE,URINE (NEG) A [facility] [place] [facility] OPIATES,URINE (NEG) [facility] [place] [facility] NOTE: Oxycodone is not sufficientlydetec joel by this screening assay. A moresensitive assay is available upon request. PHENCYCLIDINE,URINE (NEG) [facility] PLEASE NOTE: [facility] [place] [facility] [place] ARE REPORTED POSITIVE WHEN THE RESULT SEXCEED THE THRESHOLD (CUTOFF) INDICATED. ALIST OF POTENTIAL INTERFERENCES FOR EACHMETHOD CAN BE MADE AVAILABLE UPON REQUEST.CONFIRMATION OF A POSITIVE SCREEN CAN BE PERFORMED BY A REFERENCE LABORATORY IFREQUEST IS MADE WITHIN 48 HRS.* * * * * * * * * * * * * * *THIS ASSAY IS NOT INTENDED TO BE USED FORMONITORING MEDICATION COMPLIANCE. ID Date Data Source [id number] 07/22/2020 10:59:08 PM EDT Lab [facility] Name Value Range Interpretation Code Description Data Fadumo rce(s) Supporting Document(s) URINE WBC (0-5) [facility] URINE RBC (0-2) [facility] EPITHELIAL CELLS 2+ [HPF] [facility] BACTERIA 1+ [HPF] [facility] MUCUS 1+ [HPF] [facility] ID Date Data Source [id number] 07/22/2020 10:42:22 PM EDT [facility] Name Value Range Interpretation Code Description Data Fadumo rce(s) Supporting Document(s) COLOR [facility] APPEARANCE [facility] SPEC GRAV URINE 1.028 (1.003-1.030) [facility] PH URINE 6.0 (5.0-7.5) [facility] LEUK ESTERASE 1+ (NEG) A [facility] NITRITE URINE (NEG) [facility] PROTEIN URINE (NEG) [facility] GLUCOSE URINE (NEG) [facility] KETONE URINE (NEG) [facility] UROBILINOGEN 1.0 mg/dL (0-1.0) [facility] BILIRUBIN URINE 1+ (NEG) A [facility] INTERFERING SUBSTANCES MAY CAUSE FALSEPO SITIVE BILIRUBIN, WHICH HAS BEENSHOWN TO BE CLINICALLY INSIGNIFICANT.CORRELATE WITH OTHER TESTING. BLOOD/HGB URINE (NEG) [facility] ID Date Data Source [id number] 07/22/2020 11:13:55 PM EDT [facility] Name Value Range Interpretation Code Description Data Fadumo rce(s) Supporting Document(s) SODIUM 139 mmol/L (136-145) [facility] POTASSIUM 3.8 mmol/L (3.6-5.2) [facility] CHLORIDE 108 mmol/L (100-108) [facility] CO2 25 mmol/L (22-31) [facility] ANION GAP 6 mmol/L (7-16) L [facility] UREA NITROGEN 6 mg/dL (7-24) L [facility] CREATININE 0.55 mg/dL (0.60-1.00) L [facility] BUN/CREAT RATIO 10.9 RATIO (10.0-20.0) [facility] GLUCOSE 79 mg/dL (70-99) [facility] CALCIUM 8.2 mg/dL (8.4-10.2) L [facility] GFR >60 ml/min/1.73m2 (>59) [facility] GFR ( AMER) >60 ml/min/1.73m2 (>59) [facility] GFR INTERPRETATION [facility] --NORMAL KIDNEY FUNCTION OR MILD DISEASE - GFR >OR= 60CHRONIC KIDNEY DISEASE - GFR 15 - 59RENAL FAILURE - GFR <15 Est. GFR calculation based on the MDRDstudy equation, which assumes a steadystate for creatinine. Est. GFR should notbe used for medication dosing. ID Date Data Source [id number] 07/22/2020 11:13:55 PM EDT [facility] Name Value Range Interpretation Code Description Data Fadumo rce(s) Supporting Document(s) TROPONIN I <0.05 ng/mL (<0.05) [facility] [place] Less than 0.05: Myocardial injury unlike lyGreater than or equal to 0.05: Highly suggestive of myocardial injuryCorrelation with rise and/or fall ofserial troponins, clinical symptomsand ECG changes is necessary. ID Date Data Source [id number] 07/22/2020 10:41:02 PM EDT [facility] Name Value Range Interpretation Code Description Data Fadumo rce(s) Supporting Document(s) WBC 6.4 10*3/uL (4.1-11.0) [facility] [place] RBC 3.65 10*6/uL (4.00-5.40) L [facility] HGB 10.9 g/dL (12.0-16.0) L [facility] HCT 31.9 % (36.0-47.0) L [facility] MCV 87.5 fL (80.0-95.0) [facility] MCH 30.0 pg (27.0-32.0) [facility] MCHC 34.2 g/dL (32.0-36.0) [facility] RDW 14.3 % (10.5-14.5) [facility] PLT 156 10*3/uL (150-450) [facility] MPV 8.5 fL (7.1-10.7) [facility] NEUT % 56.4 % (35.0-75.0) [facility] LYMPH % 31.7 % (16.0-52.0) [facility] MONO % 7.0 % (0.0-8.0) [facility] EOS % 4.6 % (0.0-5.0) [facility] BASO % 0.3 % (0.0-4.0) [facility] NEUT # 3.6 10*3/uL (1.8-7.7) [facility] LYMPH # 2.0 10*3/uL (1.2-4.8) [facility] MONO # 0.4 10*3/uL (0.0-0.8) [facility] Eosinophils [#/volume] in Blood by Automated count 0.3 10*3/uL (0.0-0 .5) [facility] BASO # 0.0 10*3/uL (0.0-0.2) [facility] ID Date Data Source [id number] 07/18/2020 11:36:36 PM EDT [facility] [place] Name Value Range Interpretation Code Description Data Fadumo rce(s) Supporting Document(s) BUPRENORPH SCREEN UR (NEG) A [facility] [employer] THIS IS A SCREENING IMMUNOASSAYTEST THAT IS REPORTED POSITIVEWHEN THE RESULT EXCEEDS THETHRESHOLD (CUTOFF) INDICATED. ACONFIRMATORY ANALYSIS ISREFLEXIVELY ORDERED ON SPECIMENSSCREENING POSITIVE AND MAYBE ADDED FOR UNEXPECTED NEGATIVERESULTS IF REQUESTED WITHIN 72 HRS.A LIST OF POTENTIAL INTERFERENCESIS AVAILABLE UPON REQUEST. ID Date Data Source [id number] 07/22/2020 03:52:18 PM EDT [facility] [employer] Name Value Range Interpretation Code Description Data Fadumo rce(s) Supporting Document(s) BUPRENORPHINE UR 23 ng/mL [facility] INTERPRETIVE INFORMATION: Buprenorphine and Metabolites, Urine, Quantitative Methodology: Quantitative Liquid Chromatography-Tandem Mass Spectrometry Positive cutoff: Buprenorphine 2 ng/mL Norbuprenorphine 2 ng/mL Buprenorphine glucuronide 5 ng/mL Norbuprenorphine glucuronide 5 ng/mL Naloxone 100 ng/mL For medical purposes only; not valid for forensic use. The presence of metabolite(s) without parent drug is common and may indicate use of parent drug during the prior week. Naloxone is included to detect addition of a naloxone-containing drug directly into the urine. The absence of expected drug(s) and/or drug metabolite(s) may indicate non-compliance, inappropriate timing of specimen collection relative to drug administration, poor drug absorption, diluted/adulterated urine, or limitations of testing. The concentration value must be greater than or equal to the cut off to be reported as positive. Interpretive questions should be directed to the laboratory. This test was developed and its performance characteristics determined by [facility]. It has not been cleared or approved by the [place] Food and Drug Administration. This test was performed in a CLIA certified laboratory and is intended for clinical purposes. NORBUPRENORPHINE UR 667 ng/mL Laboratory [facility] BUPRENORPHINE GLUCU >1000 Laboratory [facility] Unit: ng/mL Consistent with use of a bup renorphine-containing drug. Glucuronide concentrations are semi-quantitative. NORBUPR GLUCURONIDE >1000 Laboratory [facility] Unit: ng/mL NALOXONE,URINE <100 ng/mL Laboratory [facility] Performed By: [facility] [address] [place] [id number] Fashion Consultant: Sunita Vaca MD ID Date Data Source [id number] 07/18/2020 10:42:03 PM EDT Laboratory [facility] SPECIMEN DESCRIPTION MIDSTREAM UR INE,CLEAN CATCHCULTURE RESULTS <10,000 CFU/ML REPRESENTING URETHRAL [place] STATUS FINAL 07/20/2020 Name Value Range Interpretation Code Description Data Fadumo rce(s) Supporting Document(s) COLOR [facility] APPEARANCE [facility] SPEC GRAV URINE 1.030 (1.003-1.030) [facility] PH URINE 5.5 (5.0-7.5) [facility] LEUK ESTERASE (NEG) A [facility] - CORE NITRITE URINE (NEG) [facility] - CORE PROTEIN URINE (NEG) A [facility] - CORE GLUCOSE URINE (NEG) [facility] - CORE KETONE URINE (NEG) [facility] - CORE UROBILINOGEN 1.0 mg/dL (0-1.0) [facility] - CORE BILIRUBIN URINE 1+ (NEG) A [facility] - CORE INTERFERING SUBSTANCES MAY CAUSE FALSEPO SITIVE BILIRUBIN, WHICH HAS BEENSHOWN TO BE CLINICALLY INSIGNIFICANT.CORRELATE WITH OTHER TESTING. BLOOD/HGB URINE (NEG) [facility] - CORE URINE WBC (0-5) [facility] - CORE URINE RBC (0-2) [facility] - CORE EPITHELIAL CELLS 4+ [HPF] [facility] - CORE BACTERIA 1+ [HPF] [facility] - CORE MUCUS 2+ [HPF] [facility] - CORE ID Date Data Source [id number] 07/20/2020 07:56:28 AM EDT [facility] - CORE SPECIMEN DESCRIPTION MIDSTREAM UR INE,CLEAN CATCHCULTURE RESULTS <10,000 CFU/ML REPRESENTING URETHRAL [place] STATUS FINAL 07/20/2020 Name Value Range Interpretation Code Description Data Fadumo rce(s) Supporting Document(s) ID Date Data Source [id number] 07/13/2020 12:00:00 AM EDT [facility] Name Value Range Interpretation Code Description Data Fadumo rce(s) Supporting Document(s) 2019 Novel Coronavirus RNA Negative [facility] This lab was ordered by [facility] are and reported by [facility]. ID Date Data Source [id number] 07/04/2020 06:55:22 PM EDT [facility] - CORE SPEC EXP DATE 07/07/2020[facility] ENT ABO/Rh O POSITIVEANTIBODY SCREEN NEGATIVETESTING SITE PERFORMED AT [address] [place], [place] [address]BLOOD BANK COMMENT BLOOD TYPE CONFIRMED. SPECIMEN DESCRIPTION MIDSTREAM UR INE,CLEAN CATCHCULTURE RESULTS >100,000 CFU/ML STAPHYLOCOCCUS, COAGULASE NEGATIVEREPORT STATUS FINAL 07/06/2020ORGANISM STAPHYLOCOCCUS, COAGULASE NEGATIVEMETHOD MICNITROFURANTOIN <=16 SUSCEPTIBLELEVOFLOXACIN <=0.12 SUSCE PTIBLELINEZOLID 1 SUSCEPTIBLEOXACILLIN <=0.25 SUSCEPTIBLE OXACILLIN PREDICTS RESULTS FOR PENICILLINASE RESISTANT PENICILLINS, BETA LACTAM/BETALACTAMASE INHIBITOR COMBINATIONS,CEPHALOSPORINS (WITH THE EXCEPTION OF CEPHALOSPORINS WITH ANTI MRSA ACTIVITY), AND CARBAPENEMS PER CLSI STANDARDS.TETRACYCLINE <=1 SUSCEPTIBLE ISOLATES SUSCEPTIBLE TO TETRACYCLINE ARE ALSO SUSCEPTIBLE TO DOXYCYCLINE AND MINOCYCLINE.VANCOMYCIN 1 SUSCEPTIBLETRIMETH/SULFA <=.5/9.5 SUSCEPTIBLECIPROFLOXACIN <=0.5 SUSCEPTIBLE Name Value Range Interpretation Code Description Data Fadumo rce(s) Supporting Document(s) TEST NAME [facility] [facility] [address] RESULT [facility] [place] ID Date Data Source [id number] 07/04/2020 06:55:27 PM EDT [facility] [place] SPEC EXP DATE 07/07/2020[facility] ENT ABO/Rh O POSITIVEANTIBODY SCREEN NEGATIVETESTING SITE PERFORMED AT [address] [place] [address] BANK COMMENT BLOOD TYPE CONFIRMED. SPECIMEN DESCRIPTION MIDSTREAM UR INE,CLEAN CATCHCULTURE RESULTS >100,000 CFU/ML STAPHYLOCOCCUS, COAGULASE NEGATIVEREPORT STATUS FINAL 07/06/2020ORGANISM STAPHYLOCOCCUS, COAGULASE NEGATIVEMETHOD MICNITROFURANTOIN <=16 SUSCEPTIBLELEVOFLOXACIN <=0.12 SUSCE PTIBLELINEZOLID 1 SUSCEPTIBLEOXACILLIN <=0.25 SUSCEPTIBLE OXACILLIN PREDICTS RESULTS FOR PENICILLINASE RESISTANT PENICILLINS, BETA LACTAM/BETALACTAMASE INHIBITOR COMBINATIONS,CEPHALOSPORINS (WITH THE EXCEPTION OF CEPHALOSPORINS WITH ANTI MRSA ACTIVITY), AND CARBAPENEMS PER CLSI STANDARDS.TETRACYCLINE <=1 SUSCEPTIBLE ISOLATES SUSCEPTIBLE TO TETRACYCLINE ARE ALSO SUSCEPTIBLE TO DOXYCYCLINE AND MINOCYCLINE.VANCOMYCIN 1 SUSCEPTIBLETRIMETH/SULFA <=.5/9.5 SUSCEPTIBLECIPROFLOXACIN <=0.5 SUSCEPTIBLE Name Value Range Interpretation Code Description Data Fadumo rce(s) Supporting Document(s) WBC 5.2 10*3/uL (4.1-11.0) [facility] [place] RBC 3.82 10*6/uL (4.00-5.40) L [facility] - CORE HGB 11.5 g/dL (12.0-16.0) L [facility] - C[facility] HCT 33.5 % (36.0-47.0) L [facility] - CORE MCV 87.7 fL (80.0-95.0) [facility] - CORE MCH 30.1 pg (27.0-32.0) [facility] - CORE MCHC 34.3 g/dL (32.0-36.0) [facility] - CORE RDW 14.0 % (10.5-14.5) [facility] - CORE PLT 161 10*3/uL (150-450) [facility] - CORE MPV 9.6 fL (7.1-10.7) [facility] - CORE NEUT % 66.1 % (35.0-75.0) [facility] - CORE LYMPH % 25.4 % (16.0-52.0) [facility] - CORE MONO % 4.8 % (0.0-8.0) [facility] - CORE EOS % 3.2 % (0.0-5.0) [facility] - CORE BASO % 0.5 % (0.0-4.0) [facility] - CORE NEUT # 3.4 10*3/uL (1.8-7.7) [facility] - CORE LYMPH # 1.3 10*3/uL (1.2-4.8) [facility] - CORE MONO # 0.2 10*3/uL (0.0-0.8) [facility] - CORE Eosinophils [#/volume] in Blood by Automated count 0.2 10*3/uL (0.0-0 .5) [facility] - CORE BASO # 0.0 10*3/uL (0.0-0.2) [facility] C[facility] ID Date Data Source [id number] 07/04/2020 07:55:40 PM EDT Laboratory [facility] SPEC EXP DATE 07/07/2020[facility] ENT ABO/Rh O POSITIVEANTIBODY SCREEN NEGATIVETESTING SITE PERFORMED AT [address] [place] [address] COMMENT BLOOD TYPE CONFIRMED. SPECIMEN DESCRIPTION MIDSTREAM UR INE,CLEAN CATCHCULTURE RESULTS >100,000 CFU/ML STAPHYLOCOCCUS, COAGULASE NEGATIVEREPORT STATUS FINAL 07/06/2020ORGANISM STAPHYLOCOCCUS, COAGULASE NEGATIVEMETHOD MICNITROFURANTOIN <=16 SUSCEPTIBLELEVOFLOXACIN <=0.12 SUSCE PTIBLELINEZOLID 1 SUSCEPTIBLEOXACILLIN <=0.25 SUSCEPTIBLE OXACILLIN PREDICTS RESULTS FOR PENICILLINASE RESISTANT PENICILLINS, BETA LACTAM/BETALACTAMASE INHIBITOR COMBINATIONS,CEPHALOSPORINS (WITH THE EXCEPTION OF CEPHALOSPORINS WITH ANTI MRSA ACTIVITY), AND CARBAPENEMS PER CLSI STANDARDS.TETRACYCLINE <=1 SUSCEPTIBLE ISOLATES SUSCEPTIBLE TO TETRACYCLINE ARE ALSO SUSCEPTIBLE TO DOXYCYCLINE AND MINOCYCLINE.VANCOMYCIN 1 SUSCEPTIBLETRIMETH/SULFA <=.5/9.5 SUSCEPTIBLECIPROFLOXACIN <=0.5 SUSCEPTIBLE Name Value Range Interpretation Code Description Data Fadumo rce(s) Supporting Document(s) HEPATITIS B S AG @ (NEG) [facility] ID Date Data Source [id number] 07/04/2020 08:00:05 PM EDT Laboratory [facility] SPEC EXP DATE 07/07/2020[facility] ENT ABO/Rh O POSITIVEANTIBODY SCREEN NEGATIVETESTING SITE PERFORMED AT [address] [place] [address] COMMENT BLOOD TYPE CONFIRMED. SPECIMEN DESCRIPTION MIDSTREAM UR INE,CLEAN CATCHCULTURE RESULTS >100,000 CFU/ML STAPHYLOCOCCUS, COAGULASE NEGATIVEREPORT STATUS FINAL 07/06/2020ORGANISM STAPHYLOCOCCUS, COAGULASE NEGATIVEMETHOD MICNITROFURANTOIN <=16 SUSCEPTIBLELEVOFLOXACIN <=0.12 SUSCE PTIBLELINEZOLID 1 SUSCEPTIBLEOXACILLIN <=0.25 SUSCEPTIBLE OXACILLIN PREDICTS RESULTS FOR PENICILLINASE RESISTANT PENICILLINS, BETA LACTAM/BETALACTAMASE INHIBITOR COMBINATIONS,CEPHALOSPORINS (WITH THE EXCEPTION OF CEPHALOSPORINS WITH ANTI MRSA ACTIVITY), AND CARBAPENEMS PER CLSI STANDARDS.TETRACYCLINE <=1 SUSCEPTIBLE ISOLATES SUSCEPTIBLE TO TETRACYCLINE ARE ALSO SUSCEPTIBLE TO DOXYCYCLINE AND MINOCYCLINE.VANCOMYCIN 1 SUSCEPTIBLETRIMETH/SULFA <=.5/9.5 SUSCEPTIBLECIPROFLOXACIN <=0.5 SUSCEPTIBLE Name Value Range Interpretation Code Description Data Fadumo rce(s) Supporting Document(s) HIV 1/2 SCREEN @ (NEG) [facility] Testing performed using Siemens FlatpebbleIAAdAltan taur 4th gen CHIV combo assay.This assay detects the HIV1 p24 antigenin addition to antibodies to HIV1 and HIV2. ID Date Data Source [id number] 07/04/2020 08:06:53 PM EDT Laboratory [facility] SPEC EXP DATE 07/07/2020[facility] ENT ABO/Rh O POSITIVEANTIBODY SCREEN NEGATIVETESTING SITE PERFORMED AT [address] [place] [address] COMMENT BLOOD TYPE CONFIRMED. SPECIMEN DESCRIPTION MIDSTREAM UR INE,CLEAN CATCHCULTURE RESULTS >100,000 CFU/ML STAPHYLOCOCCUS, COAGULASE NEGATIVEREPORT STATUS FINAL 07/06/2020ORGANISM STAPHYLOCOCCUS, COAGULASE NEGATIVEMETHOD MICNITROFURANTOIN <=16 SUSCEPTIBLELEVOFLOXACIN <=0.12 SUSCE PTIBLELINEZOLID 1 SUSCEPTIBLEOXACILLIN <=0.25 SUSCEPTIBLE OXACILLIN PREDICTS RESULTS FOR PENICILLINASE RESISTANT PENICILLINS, BETA LACTAM/BETALACTAMASE INHIBITOR COMBINATIONS,CEPHALOSPORINS (WITH THE EXCEPTION OF CEPHALOSPORINS WITH ANTI MRSA ACTIVITY), AND CARBAPENEMS PER CLSI STANDARDS.TETRACYCLINE <=1 SUSCEPTIBLE ISOLATES SUSCEPTIBLE TO TETRACYCLINE ARE ALSO SUSCEPTIBLE TO DOXYCYCLINE AND MINOCYCLINE.VANCOMYCIN 1 SUSCEPTIBLETRIMETH/SULFA <=.5/9.5 SUSCEPTIBLECIPROFLOXACIN <=0.5 SUSCEPTIBLE Name Value Range Interpretation Code Description Data Fadumo rce(s) Supporting Document(s) TREPONEMA IGG/IGM @ (NEG) [facility] ID Date Data Source [id number] 07/04/2020 08:07:03 PM EDT Laboratory [facility] SPEC EXP DATE 07/07/2020[facility] ENT ABO/Rh O POSITIVEANTIBODY SCREEN NEGATIVETESTING SITE PERFORMED AT [address] [place] [address] COMMENT BLOOD TYPE CONFIRMED. SPECIMEN DESCRIPTION MIDSTREAM UR INE,CLEAN CATCHCULTURE RESULTS >100,000 CFU/ML STAPHYLOCOCCUS, COAGULASE NEGATIVEREPORT STATUS FINAL 07/06/2020ORGANISM STAPHYLOCOCCUS, COAGULASE NEGATIVEMETHOD MICNITROFURANTOIN <=16 SUSCEPTIBLELEVOFLOXACIN <=0.12 SUSCE PTIBLELINEZOLID 1 SUSCEPTIBLEOXACILLIN <=0.25 SUSCEPTIBLE OXACILLIN PREDICTS RESULTS FOR PENICILLINASE RESISTANT PENICILLINS, BETA LACTAM/BETALACTAMASE INHIBITOR COMBINATIONS,CEPHALOSPORINS (WITH THE EXCEPTION OF CEPHALOSPORINS WITH ANTI MRSA ACTIVITY), AND CARBAPENEMS PER CLSI STANDARDS.TETRACYCLINE <=1 SUSCEPTIBLE ISOLATES SUSCEPTIBLE TO TETRACYCLINE ARE ALSO SUSCEPTIBLE TO DOXYCYCLINE AND MINOCYCLINE.VANCOMYCIN 1 SUSCEPTIBLETRIMETH/SULFA <=.5/9.5 SUSCEPTIBLECIPROFLOXACIN <=0.5 SUSCEPTIBLE Name Value Range Interpretation Code Description Data Fadumo rce(s) Supporting Document(s) GLUCOSE 73 mg/dL (70-99) [facility] ID Date Data Source [id number] 07/04/2020 08:07:03 PM EDT Laboratory [facility] [employer] SPEC EXP DATE 07/07/2020[facility] ENT ABO/Rh O POSITIVEANTIBODY SCREEN NEGATIVETESTING SITE PERFORMED AT [address] [place] [address] BANK COMMENT BLOOD TYPE CONFIRMED. SPECIMEN DESCRIPTION MIDSTREAM UR INE,CLEAN CATCHCULTURE RESULTS >100,000 CFU/ML STAPHYLOCOCCUS, COAGULASE NEGATIVEREPORT STATUS FINAL 07/06/2020ORGANISM STAPHYLOCOCCUS, COAGULASE NEGATIVEMETHOD MICNITROFURANTOIN <=16 SUSCEPTIBLELEVOFLOXACIN <=0.12 SUSCE PTIBLELINEZOLID 1 SUSCEPTIBLEOXACILLIN <=0.25 SUSCEPTIBLE OXACILLIN PREDICTS RESULTS FOR PENICILLINASE RESISTANT PENICILLINS, BETA LACTAM/BETALACTAMASE INHIBITOR COMBINATIONS,CEPHALOSPORINS (WITH THE EXCEPTION OF CEPHALOSPORINS WITH ANTI MRSA ACTIVITY), AND CARBAPENEMS PER CLSI STANDARDS.TETRACYCLINE <=1 SUSCEPTIBLE ISOLATES SUSCEPTIBLE TO TETRACYCLINE ARE ALSO SUSCEPTIBLE TO DOXYCYCLINE AND MINOCYCLINE.VANCOMYCIN 1 SUSCEPTIBLETRIMETH/SULFA <=.5/9.5 SUSCEPTIBLECIPROFLOXACIN <=0.5 SUSCEPTIBLE Name Value Range Interpretation Code Description Data Fadumo rce(s) Supporting Document(s) FREE THYROXINE @ 1.24 ng/dL (0.76-1.46) [facility] ID Date Data Source [id number] 07/04/2020 08:07:03 PM EDT [facility] [employer] SPEC EXP DATE 07/07/2020[facility] ENT ABO/Rh O POSITIVEANTIBODY SCREEN NEGATIVETESTING SITE PERFORMED AT [address] [place] [address] COMMENT BLOOD TYPE CONFIRMED. SPECIMEN DESCRIPTION MIDSTREAM UR INE,CLEAN CATCHCULTURE RESULTS >100,000 CFU/ML STAPHYLOCOCCUS, COAGULASE NEGATIVEREPORT STATUS FINAL 07/06/2020ORGANISM STAPHYLOCOCCUS, COAGULASE NEGATIVEMETHOD MICNITROFURANTOIN <=16 SUSCEPTIBLELEVOFLOXACIN <=0.12 SUSCE PTIBLELINEZOLID 1 SUSCEPTIBLEOXACILLIN <=0.25 SUSCEPTIBLE OXACILLIN PREDICTS RESULTS FOR PENICILLINASE RESISTANT PENICILLINS, BETA LACTAM/BETALACTAMASE INHIBITOR COMBINATIONS,CEPHALOSPORINS (WITH THE EXCEPTION OF CEPHALOSPORINS WITH ANTI MRSA ACTIVITY), AND CARBAPENEMS PER CLSI STANDARDS.TETRACYCLINE <=1 SUSCEPTIBLE ISOLATES SUSCEPTIBLE TO TETRACYCLINE ARE ALSO SUSCEPTIBLE TO DOXYCYCLINE AND MINOCYCLINE.VANCOMYCIN 1 SUSCEPTIBLETRIMETH/SULFA <=.5/9.5 SUSCEPTIBLECIPROFLOXACIN <=0.5 SUSCEPTIBLE Name Value Range Interpretation Code Description Data Fadumo rce(s) Supporting Document(s) TSH,ULTRASENSITIVE @ 0.172 mIU/L (0.360-4.170) L [facility] ID Date Data Source [id number] 07/04/2020 08:16:30 PM EDT Laboratory [facility] SPEC EXP DATE 07/07/2020[facility] ENT ABO/Rh O POSITIVEANTIBODY SCREEN NEGATIVETESTING SITE PERFORMED AT [address] [place] [address] COMMENT BLOOD TYPE CONFIRMED. SPECIMEN DESCRIPTION MIDSTREAM UR INE,CLEAN CATCHCULTURE RESULTS >100,000 CFU/ML STAPHYLOCOCCUS, COAGULASE NEGATIVEREPORT STATUS FINAL 07/06/2020ORGANISM STAPHYLOCOCCUS, COAGULASE NEGATIVEMETHOD MICNITROFURANTOIN <=16 SUSCEPTIBLELEVOFLOXACIN <=0.12 SUSCE PTIBLELINEZOLID 1 SUSCEPTIBLEOXACILLIN <=0.25 SUSCEPTIBLE OXACILLIN PREDICTS RESULTS FOR PENICILLINASE RESISTANT PENICILLINS, BETA LACTAM/BETALACTAMASE INHIBITOR COMBINATIONS,CEPHALOSPORINS (WITH THE EXCEPTION OF CEPHALOSPORINS WITH ANTI MRSA ACTIVITY), AND CARBAPENEMS PER CLSI STANDARDS.TETRACYCLINE <=1 SUSCEPTIBLE ISOLATES SUSCEPTIBLE TO TETRACYCLINE ARE ALSO SUSCEPTIBLE TO DOXYCYCLINE AND MINOCYCLINE.VANCOMYCIN 1 SUSCEPTIBLETRIMETH/SULFA <=.5/9.5 SUSCEPTIBLECIPROFLOXACIN <=0.5 SUSCEPTIBLE Name Value Range Interpretation Code Description Data Fadumo rce(s) Supporting Document(s) AMPHETAMINES,URINE (NEG) [facility] BARBITURATES,URINE (NEG) Laboratory [facility] BENZODIAZEPINE,URINE (NEG) A Laborator y [facility] SPECIMEN HAS BEEN SENT FOR CONFIRMATION. CANNABINOIDS,URINE (NEG) [facility] COCAINE,URINE (NEG) [facility] OPIATES,URINE (NEG) [facility] NOTE: Oxycodone is not sufficientlydetec joel by this screening assay. A moresensitive assay is available upon request. PHENCYCLIDINE,URINE (NEG) [facility] PLEASE NOTE: [facility] ARE REPORTED POSITIVE WHEN THE RESULT SEXCEED THE THRESHOLD (CUTOFF) INDICATED. ALIST OF POTENTIAL INTERFERENCES FOR EACHMETHOD CAN BE MADE AVAILABLE UPON REQUEST.A CONFIRMATORY ANALYSIS IS ORDERED ONALL DRUG CLASSES SCREENING POSITIVE BYTHIS METHOD.* * * * * * * * * * * * * * *THIS ASSAY IS NOT INTENDED TO BE USED FORMONITORING MEDICATION COMPLIANCE. ID Date Data Source [id number] 07/04/2020 09:12:57 PM EDT [facility] SPEC EXP DATE 07/07/2020[facility] ENT ABO/Rh O POSITIVEANTIBODY SCREEN NEGATIVETESTING SITE PERFORMED AT [address] [place] [address] COMMENT BLOOD TYPE CONFIRMED. SPECIMEN DESCRIPTION MIDSTREAM UR INE,CLEAN CATCHCULTURE RESULTS >100,000 CFU/ML STAPHYLOCOCCUS, COAGULASE NEGATIVEREPORT STATUS FINAL 07/06/2020ORGANISM STAPHYLOCOCCUS, COAGULASE NEGATIVEMETHOD MICNITROFURANTOIN <=16 SUSCEPTIBLELEVOFLOXACIN <=0.12 SUSCE PTIBLELINEZOLID 1 SUSCEPTIBLEOXACILLIN <=0.25 SUSCEPTIBLE OXACILLIN PREDICTS RESULTS FOR PENICILLINASE RESISTANT PENICILLINS, BETA LACTAM/BETALACTAMASE INHIBITOR COMBINATIONS,CEPHALOSPORINS (WITH THE EXCEPTION OF CEPHALOSPORINS WITH ANTI MRSA ACTIVITY), AND CARBAPENEMS PER CLSI STANDARDS.TETRACYCLINE <=1 SUSCEPTIBLE ISOLATES SUSCEPTIBLE TO TETRACYCLINE ARE ALSO SUSCEPTIBLE TO DOXYCYCLINE AND MINOCYCLINE.VANCOMYCIN 1 SUSCEPTIBLETRIMETH/SULFA <=.5/9.5 SUSCEPTIBLECIPROFLOXACIN <=0.5 SUSCEPTIBLE Name Value Range Interpretation Code Description Data Fadumo rce(s) Supporting Document(s) COLOR [facility] CORE APPEARANCE [facility] CORE SPEC GRAV URINE 1.027 (1.003-1.030) [facility] CORE PH URINE 6.0 (5.0-7.5) [facility] CORE LEUK ESTERASE 2+ (NEG) A [facility] CORE NITRITE URINE (NEG) A [facility] CORE PROTEIN URINE (NEG) A [facility] CORE GLUCOSE URINE (NEG) [facility] CORE KETONE URINE (NEG) A [facility] UROBILINOGEN 1.0 mg/dL (0-1.0) [facility] CORE BILIRUBIN URINE 1+ (NEG) A [facility] CORE INTERFERING SUBSTANCES MAY CAUSE FALSEPO SITIVE BILIRUBIN, WHICH HAS BEENSHOWN TO BE CLINICALLY INSIGNIFICANT.CORRELATE WITH OTHER TESTING. BLOOD/HGB URINE (NEG) [facility] C[facility] URINE WBC (0-5) [facility] CORE URINE RBC (0-2) [facility] CORE EPITHELIAL CELLS 2+ [HPF] [facility] CORE BACTERIA 2+ [HPF] [facility] CORE MUCUS 2+ [HPF] [facility] CORE ID Date Data Source [id number] 07/05/2020 12:27:31 AM EDT [facility] CORE SPEC EXP DATE 07/07/2020ATI ENT ABO/Rh O POSITIVEANTIBODY SCREEN NEGATIVETESTING SITE PERFORMED AT [address] [place] [address] BANK COMMENT BLOOD TYPE CONFIRMED. SPECIMEN DESCRIPTION MIDSTREAM UR INE,CLEAN CATCHCULTURE RESULTS >100,000 CFU/ML STAPHYLOCOCCUS, COAGULASE NEGATIVEREPORT STATUS FINAL 07/06/2020ORGANISM STAPHYLOCOCCUS, COAGULASE NEGATIVEMETHOD MICNITROFURANTOIN <=16 SUSCEPTIBLELEVOFLOXACIN <=0.12 SUSCE PTIBLELINEZOLID 1 SUSCEPTIBLEOXACILLIN <=0.25 SUSCEPTIBLE OXACILLIN PREDICTS RESULTS FOR PENICILLINASE RESISTANT PENICILLINS, BETA LACTAM/BETALACTAMASE INHIBITOR COMBINATIONS,CEPHALOSPORINS (WITH THE EXCEPTION OF CEPHALOSPORINS WITH ANTI MRSA ACTIVITY), AND CARBAPENEMS PER CLSI STANDARDS.TETRACYCLINE <=1 SUSCEPTIBLE ISOLATES SUSCEPTIBLE TO TETRACYCLINE ARE ALSO SUSCEPTIBLE TO DOXYCYCLINE AND MINOCYCLINE.VANCOMYCIN 1 SUSCEPTIBLETRIMETH/SULFA <=.5/9.5 SUSCEPTIBLECIPROFLOXACIN <=0.5 SUSCEPTIBLE Name Value Range Interpretation Code Description Data Fadumo rce(s) Supporting Document(s) ID Date Data Source [id number] 07/05/2020 12:49:38 PM EDT [facility] - CORE SPEC EXP DATE 07/07/2020ATI ENT ABO/Rh O POSITIVEANTIBODY SCREEN NEGATIVETESTING SITE PERFORMED AT [address] [place] [address] COMMENT BLOOD TYPE CONFIRMED. SPECIMEN DESCRIPTION MIDSTREAM UR INE,CLEAN CATCHCULTURE RESULTS >100,000 CFU/ML STAPHYLOCOCCUS, COAGULASE NEGATIVEREPORT STATUS FINAL 07/06/2020ORGANISM STAPHYLOCOCCUS, COAGULASE NEGATIVEMETHOD MICNITROFURANTOIN <=16 SUSCEPTIBLELEVOFLOXACIN <=0.12 SUSCE PTIBLELINEZOLID 1 SUSCEPTIBLEOXACILLIN <=0.25 SUSCEPTIBLE OXACILLIN PREDICTS RESULTS FOR PENICILLINASE RESISTANT PENICILLINS, BETA LACTAM/BETALACTAMASE INHIBITOR COMBINATIONS,CEPHALOSPORINS (WITH THE EXCEPTION OF CEPHALOSPORINS WITH ANTI MRSA ACTIVITY), AND CARBAPENEMS PER CLSI STANDARDS.TETRACYCLINE <=1 SUSCEPTIBLE ISOLATES SUSCEPTIBLE TO TETRACYCLINE ARE ALSO SUSCEPTIBLE TO DOXYCYCLINE AND MINOCYCLINE.VANCOMYCIN 1 SUSCEPTIBLETRIMETH/SULFA <=.5/9.5 SUSCEPTIBLECIPROFLOXACIN <=0.5 SUSCEPTIBLE Name Value Range Interpretation Code Description Data Fadumo rce(s) Supporting Document(s) RUBELLA IGG AB @ [facility] [place] IgG antibody to Rubella detected. IgGan tibody levels are at a level consideredto indicate positive immunity. ID Date Data Source [id number] 07/05/2020 12:49:38 PM EDT [facility] - CORE SPEC EXP DATE 07/07/2020ATI ENT ABO/Rh O POSITIVEANTIBODY SCREEN NEGATIVETESTING SITE PERFORMED AT [address] [place] [address] COMMENT BLOOD TYPE CONFIRMED. SPECIMEN DESCRIPTION MIDSTREAM UR INE,CLEAN CATCHCULTURE RESULTS >100,000 CFU/ML STAPHYLOCOCCUS, COAGULASE NEGATIVEREPORT STATUS FINAL 07/06/2020ORGANISM STAPHYLOCOCCUS, COAGULASE NEGATIVEMETHOD MICNITROFURANTOIN <=16 SUSCEPTIBLELEVOFLOXACIN <=0.12 SUSCE PTIBLELINEZOLID 1 SUSCEPTIBLEOXACILLIN <=0.25 SUSCEPTIBLE OXACILLIN PREDICTS RESULTS FOR PENICILLINASE RESISTANT PENICILLINS, BETA LACTAM/BETALACTAMASE INHIBITOR COMBINATIONS,CEPHALOSPORINS (WITH THE EXCEPTION OF CEPHALOSPORINS WITH ANTI MRSA ACTIVITY), AND CARBAPENEMS PER CLSI STANDARDS.TETRACYCLINE <=1 SUSCEPTIBLE ISOLATES SUSCEPTIBLE TO TETRACYCLINE ARE ALSO SUSCEPTIBLE TO DOXYCYCLINE AND MINOCYCLINE.VANCOMYCIN 1 SUSCEPTIBLETRIMETH/SULFA <=.5/9.5 SUSCEPTIBLECIPROFLOXACIN <=0.5 SUSCEPTIBLE Name Value Range Interpretation Code Description Data Fadumo rce(s) Supporting Document(s) VARICELLA ZOST IGG @ [facility] [place] [facility] No IgG antibodies specific to VZV detect ed.Patient is presumed NOT to have had a previous exposure to VZV through infectionor vaccination. ID Date Data Source [id number] 07/05/2020 04:07:16 PM EDT [facility] SPEC EXP DATE 07/07/2020ATI ENT ABO/Rh O POSITIVEANTIBODY SCREEN NEGATIVETESTING SITE PERFORMED AT [address] [place] [address] COMMENT BLOOD TYPE CONFIRMED. SPECIMEN DESCRIPTION MIDSTREAM UR INE,CLEAN CATCHCULTURE RESULTS >100,000 CFU/ML STAPHYLOCOCCUS, COAGULASE NEGATIVEREPORT STATUS FINAL 07/06/2020ORGANISM STAPHYLOCOCCUS, COAGULASE NEGATIVEMETHOD MICNITROFURANTOIN <=16 SUSCEPTIBLELEVOFLOXACIN <=0.12 SUSCE PTIBLELINEZOLID 1 SUSCEPTIBLEOXACILLIN <=0.25 SUSCEPTIBLE OXACILLIN PREDICTS RESULTS FOR PENICILLINASE RESISTANT PENICILLINS, BETA LACTAM/BETALACTAMASE INHIBITOR COMBINATIONS,CEPHALOSPORINS (WITH THE EXCEPTION OF CEPHALOSPORINS WITH ANTI MRSA ACTIVITY), AND CARBAPENEMS PER CLSI STANDARDS.TETRACYCLINE <=1 SUSCEPTIBLE ISOLATES SUSCEPTIBLE TO TETRACYCLINE ARE ALSO SUSCEPTIBLE TO DOXYCYCLINE AND MINOCYCLINE.VANCOMYCIN 1 SUSCEPTIBLETRIMETH/SULFA <=.5/9.5 SUSCEPTIBLECIPROFLOXACIN <=0.5 SUSCEPTIBLE Name Value Range Interpretation Code Description Data Fadumo rce(s) Supporting Document(s) LEAD,VENOUS WB @ <2.0 ug/dL (0.0-4.9) [facility] Testing performed by graphite furnaceato monie absorption spectroscopy. Information for health careproviders on lead poisoningprevention and management isavailable on the [facility] website. ID Date Data Source [id number] 07/06/2020 07:52:55 AM EDT Laboratory [facility] - CORE SPEC EXP DATE 07/07/2020ATI ENT ABO/Rh O POSITIVEANTIBODY SCREEN NEGATIVETESTING SITE PERFORMED AT [address] [place] [address] COMMENT BLOOD TYPE CONFIRMED. SPECIMEN DESCRIPTION MIDSTREAM UR INE,CLEAN CATCHCULTURE RESULTS >100,000 CFU/ML STAPHYLOCOCCUS, COAGULASE NEGATIVEREPORT STATUS FINAL 07/06/2020ORGANISM STAPHYLOCOCCUS, COAGULASE NEGATIVEMETHOD MICNITROFURANTOIN <=16 SUSCEPTIBLELEVOFLOXACIN <=0.12 SUSCE PTIBLELINEZOLID 1 SUSCEPTIBLEOXACILLIN <=0.25 SUSCEPTIBLE OXACILLIN PREDICTS RESULTS FOR PENICILLINASE RESISTANT PENICILLINS, BETA LACTAM/BETALACTAMASE INHIBITOR COMBINATIONS,CEPHALOSPORINS (WITH THE EXCEPTION OF CEPHALOSPORINS WITH ANTI MRSA ACTIVITY), AND CARBAPENEMS PER CLSI STANDARDS.TETRACYCLINE <=1 SUSCEPTIBLE ISOLATES SUSCEPTIBLE TO TETRACYCLINE ARE ALSO SUSCEPTIBLE TO DOXYCYCLINE AND MINOCYCLINE.VANCOMYCIN 1 SUSCEPTIBLETRIMETH/SULFA <=.5/9.5 SUSCEPTIBLECIPROFLOXACIN <=0.5 SUSCEPTIBLE Name Value Range Interpretation Code Description Data Fadumo rce(s) Supporting Document(s) ID Date Data Source [id number] 07/06/2020 12:37:08 PM EDT [facility] SPEC EXP DATE 07/07/2020ATI ENT ABO/Rh O POSITIVEANTIBODY SCREEN NEGATIVETESTING SITE PERFORMED AT [address] [place] [address] COMMENT BLOOD TYPE CONFIRMED. SPECIMEN DESCRIPTION MIDSTREAM UR INE,CLEAN CATCHCULTURE RESULTS >100,000 CFU/ML STAPHYLOCOCCUS, COAGULASE NEGATIVEREPORT STATUS FINAL 07/06/2020ORGANISM STAPHYLOCOCCUS, COAGULASE NEGATIVEMETHOD MICNITROFURANTOIN <=16 SUSCEPTIBLELEVOFLOXACIN <=0.12 SUSCE PTIBLELINEZOLID 1 SUSCEPTIBLEOXACILLIN <=0.25 SUSCEPTIBLE OXACILLIN PREDICTS RESULTS FOR PENICILLINASE RESISTANT PENICILLINS, BETA LACTAM/BETALACTAMASE INHIBITOR COMBINATIONS,CEPHALOSPORINS (WITH THE EXCEPTION OF CEPHALOSPORINS WITH ANTI MRSA ACTIVITY), AND CARBAPENEMS PER CLSI STANDARDS.TETRACYCLINE <=1 SUSCEPTIBLE ISOLATES SUSCEPTIBLE TO TETRACYCLINE ARE ALSO SUSCEPTIBLE TO DOXYCYCLINE AND MINOCYCLINE.VANCOMYCIN 1 SUSCEPTIBLETRIMETH/SULFA <=.5/9.5 SUSCEPTIBLECIPROFLOXACIN <=0.5 SUSCEPTIBLE Name Value Range Interpretation Code Description Data Fadumo rce(s) Supporting Document(s) HGB A1 95.6 % (94.3-98.5) Laboratory [facility] HGB A2 3.1 % (1.5-3.7) Laboratory [facility] HGB F 1.3 % (0.0-2.0) [facility] HGB EVALUATION Laboratory [facility] HGB EVALUATION BY HPLC PLEASE NOTE:PA TIENTS WITH A COMBINATION OF IRONDEFICIENCY ANEMIA AND BETA-THALASSEMIATRAIT MAY CLINICALLY PRESENT WITH ANORMAL HGB A2 LEVEL. ID Date Data Source [id number] 07/08/2020 10:21:58 PM EDT [facility] SPEC EXP DATE 07/07/2020ATI ENT ABO/Rh O POSITIVEANTIBODY SCREEN NEGATIVETESTING SITE PERFORMED AT [address] [place] [address] BANK COMMENT BLOOD TYPE CONFIRMED. SPECIMEN DESCRIPTION MIDSTREAM UR INE,CLEAN CATCHCULTURE RESULTS >100,000 CFU/ML STAPHYLOCOCCUS, COAGULASE NEGATIVEREPORT STATUS FINAL 07/06/2020ORGANISM STAPHYLOCOCCUS, COAGULASE NEGATIVEMETHOD MICNITROFURANTOIN <=16 SUSCEPTIBLELEVOFLOXACIN <=0.12 SUSCE PTIBLELINEZOLID 1 SUSCEPTIBLEOXACILLIN <=0.25 SUSCEPTIBLE OXACILLIN PREDICTS RESULTS FOR PENICILLINASE RESISTANT PENICILLINS, BETA LACTAM/BETALACTAMASE INHIBITOR COMBINATIONS,CEPHALOSPORINS (WITH THE EXCEPTION OF CEPHALOSPORINS WITH ANTI MRSA ACTIVITY), AND CARBAPENEMS PER CLSI STANDARDS.TETRACYCLINE <=1 SUSCEPTIBLE ISOLATES SUSCEPTIBLE TO TETRACYCLINE ARE ALSO SUSCEPTIBLE TO DOXYCYCLINE AND MINOCYCLINE.VANCOMYCIN 1 SUSCEPTIBLETRIMETH/SULFA <=.5/9.5 SUSCEPTIBLECIPROFLOXACIN <=0.5 SUSCEPTIBLE Name Value Range Interpretation Code Description Data Fadumo rce(s) Supporting Document(s) DIAZEPAM,URINE <20 Laboratory [facility] Unit: ng/mL Cutoff: 20 ng/mL NORDIAZEPAM,URINE <20 [facility] Unit: ng/mL Cutoff: 20 ng/mL OXAZEPAM,URINE <20 Laboratory [facility] Unit: ng/mL Cutoff: 20 ng/mL TEMAZEPAM,URINE <20 Laboratory [facility] Unit: ng/mL Cutoff: 20 ng/mL LORAZEPAM,URINE <20 [facility] Unit: ng/mL Cutoff: 20 ng/mL ALPRAZOLAM,URINE 405 [facility] Unit: ng/mL Consistent with use of a lópez g containing alprazolam, such as Xanax. Cutoff: 5 ng/mL ALPHA [place] ALPRAZOLAM >1000 Laboratory [facility] Unit: ng/mL Alprazolam metabolite; consi stent with use of a drug containing alprazolam, such as Xanax. Cutoff: 5 ng/mL CLONAZEPAM,URINE <5 [facility] Unit: ng/mL Cutoff: 5 ng/mL 7 AMINOCLONAZEPAM U 43 Laboratory [place] [facility] Unit: ng/mL Clonazepam metabolite; consi stent with use of a drug containing clonazepam, such as Klonopin. Cutoff: 5 ng/mL MIDAZOLAM,URINE <20 Laboratory [facility] Unit: ng/mL Cutoff: 20 ng/mL CHLORDIAZEPOXIDE <20 Laboratory [facility] Unit: ng/mL Cutoff: 20 ng/mL ALPHA [place] MIDAZOLAM <20 [facility] [place] [facility] Unit: ng/mL Cutoff: 20 ng/mL INTERPRETIV E INFORMATION: Benzodiazepines, Urine, Quantitative Methodology: Quantitative Liquid Chromatography-Tandem Mass Spectrometry For medical purposes only; not valid for forensic use. Identification of specific drug(s) taken by specimen donor is problematic due to common metabolites, some of which are prescription drugs themselves. The absence of expected drug(s) and/or drug metabolite(s) may indicate non-compliance, inappropriate timing of specimen collection relative to drug administration, poor drug absorption, diluted/adulterated urine, or limitations of testing. The concentration value must be greater than or equal to the cutoff to be reported as positive. Interpretive questions should be directed to the laboratory. This test was developed and its performance characteristics determined by [facility]. It has not been cleared or approved by the [place] Food and Drug Administration. This test was performed in a CLIA certified laboratory and is intended for clinical purposes. Performed By: [facility] [address] [place] [id number] [employer] Consultant: Sunita Vaca MD ID Date Data Source [id number] 04/21/2020 12:37:00 AM EST [facility] Name Value Range Interpretation Code Description Data Fadumo rce(s) Supporting Document(s) COLOR,UR SONJA YELLOW A [facility] APPEARANCE,UR SL CLOUDY CLEAR [facility] PH,UR 5.0 5.0-8.0 [facility] SPECIFIC GRAVITY,UR 1.026 1.002-1.035 N [facility] PROTEIN,UR NEGATIVE MG/DL NEGATIVE [facility] GLUCOSE, UR NEGATIVE MG/DL NEGATIVE [facility] KETONES,UR NEGATIVE MG/DL NEGATIVE [facility] OCCULT BLOOD,UR NEGATIVE NEGATIVE [facility] NITRATE,UR NEGATIVE NEGATIVE [facility] LEUKOCYTE ESTERASE ,UR NEGATIVE NEGATIVE [facility] BILIRUBIN,UR SMALL NEGATIVE A [facility] UROBILINOGEN,UR 4.0 EU MG/DL NEG-0-1.0 A [facility] ID Date Data Source [id number] 04/21/2020 12:44:00 AM EST [facility] Name Value Range Interpretation Code Description Data Fadumo rce(s) Supporting Document(s) OPIATE SCREEN NEG NEGATIVE [facility] Minimum Detectable Limit is 300 ng/mL. BARBITURATE SCREEN NEG NEGATIVE [facility] Minimum Detectable Limit is 300 ng/mL. PHENCYCLIDINE SCREEN NEG NEGATIVE [facility] Minimum Detectable Limit is 25 ng/mL. AMPHETAMINE SCREEN NEG NEGATIVE [facility] Minimum Detectable Limit is 1000 mg/mL. BENZODIAZEPINE SCREEN POS NEGATIVE [facility] Mininum Detectable Limit is 300 ng/mL. COCAINE SCREEN NEG NEGATIVE [facility] Minimum Detectable Limit is 300 ng/mL. CANNABINOID SCREEN NEG NEGATIVE [facility] Minimum Detectable limit is 50 ng/dL. HEROIN SCREEN NEG NEGATIVE [facility] Minimum Detectable limit is 10 ng/dL. A ll POSITIVE or BORDER results are unconfirmed. Please contact the laboratory if a reference testing confirmation is needed. ID Date Data Source [id number] 04/20/2020 10:08:22 PM EST [facility] Name Value Range Interpretation Code Description Data Fadumo rce(s) Supporting Document(s) EKG/ECG IN ED [facility] [file] V0BvueyeUDCRFxNSXKYYPIGPENKNPCQTDVPYZJSJGAGGZEPNRFGGEBDOQTWCZSMJSSMPKKCHVCVXGGCO ORLJICXHMYIIQGZXAZJFt9tr3159sb7G6KfDiU2UhbRuozVVdfodcYcWBUTfSmdLlvFskehb0gn9+yXU lNJQkc85nEjS4MBqeMs0Rj3ZCNdfwrkc5Qgrij4rk+ qzT2xkcjIhD+YDdRfj0eUcbWS3YgA/8ACwP+q4f+Wn/7oNF0Jkd1ujBtYJhcC6RoCgdB2aote7Kg3bTL jqXja2Ckwnd/6DqkjS4mCdbp23l9nAX0fKpdAuhbjnGtX7Iu7AWPM9cXuiAWmxLICZLFfLwqvf1B9oS7 efgxqDhsVb0N0LMby5z/ANGtzmPP+xAAVl2rTmRs+z 2+MJQcaIkYt04PW+CyAdJ7d/nYvDE66ikHIg5DHHhbsxcbtPPj8gWa7rwF6OMiBx/1FayLZ7bGKBz5qI YLwswj4KXUWsFUEDAM4/a54KORHcedmkmAFG61YroZBxniK09EzaunX14TuzFVXId08r2R8R6RAstUij nv+T3j1125Zart8ronTE8efsymJLViH/6s7Vwp ESujkgWPl1ZZJBqgvbotG3ov201Ob/xDjd/i4hBM3xYvrsMoUDdh5hMgqznGt4RbKpuuwEq/ter57ItN D7LmnF3zoaipJZUkzMBtAWfFui9zQgbwzy/7DyeoH9vRhrx63rG+DBpr2z8I12V7oyZ9vbpLXF7bxlER XZs80G90PKPAlMC6fP0+V+5iIW03fe842TFesBdlbV D5RqWNKBRsVjkekp2tcFFm5z9QrutvucxZ99Vvp1YizlV52VnsvwI28DxaFccziI/prfVmvL53u8PW8k JFnxH/QKMoeGze4DunpM8hDjOL6ue5DvFPdFGTYxsVK7xZoESbY+1fBGf155UgxT2afei1/xGgNMXK46 KuxXF7QQXk4b6XadmawndY45Wxt3CIdXzK/r4PVeU9 1p75dd32fRmA1+V+1xLX86my877EDmTseT6CDeGj0GKiqvuCUje7NFFywMR6u5rTdSoybtjPijkphFd7 K8Y4RjniP/865WDMUCbjpTJVPG3e98gVPvhZuEVUnhDIGa286nbu390bJE124++3kY5acCzTxfbzp7PO 72c50K2s2F2g77ayPlwZn9Pif0RRAWZN2wT6qIMGvr OavoeTeUui06snkM5A9ifJ5+wJqNywMuEOV5yubFtkQe0HY3uILnZk/jIl26gAdqH60Cmk4ubwjq4/dR cHFEY45VetZmR76a5wMgz64XBnx3fpW9kTFqIoS/z9ZBsB56w78pl25yCzXLyQ/tADxauH8lElxc65mF ulBuqzwbRdtbgC71Agxbt2E3iU6fsaxfPyaNUXWfn4 [file] delivery specialist+BJeEx6w+c29uxuPTx27+9SZqMiSjAW7P2U5XNqBr98Nd8Pm8qWaaE7FudWfvzCq+pyAaQmjH+DTNN [file] PQYyp09e3HKreOMo9F3uM1ijgiiMatYutohx3/[facility] [file] ujWtvI3B7ackNTRHGqUNOXDIWEMIMOIOIPQHFRLPKRQMOTOWMYVLEDNMUKARCMPEATDICXLPWZNSOXGB TADUDMEGBFVUKEDZHEOWMNHHYPMKk00m+/bp2HNu1WcXPSzga3JJ/DQUUUVRuFeTfG/wD1Oi/Wb/2Sii plsY1/4nAInIWLiVUGtielP6O3Vg8ILt7U/r2H/oQr 3qhtlT9Ln4l2WZCJFZurXs4su/1Oi/Wb/wBkooqZbGNf+Crf6giLSKJ2TYUINBvlfBP/AJDuo/8AXsP/ EAAR6PFUMzlk00H8KUwicwFlqbe25/6nRfrN/wCyUUVMtjGv/CA98V5EQrfEDKYLVV1M+Cn/ACHdR/69 h/8YR7ntszWFw0FJ+AHYILCY8W4K1d/9Tov1m/8AZK KKmWxjX/mt4jb79KNwnXWMXOSBsliYD/kO6j/17D/7WU2JCJWvuo30M4JIjhugWgfby82/CIw8T4az+y GESDgiUg0Yy8pE9u5DEjTCRcCQJXKEAut/yHdR/sVbPb3TtDp2lilcC6Hp4w9TIRAYDlqGr7aj/wBTov 1m/wDZKKKmWxjX/it1aaeQKnOVFlzptI9C+Cn/ACHd R/69h/5EZ1rvwwVPx7mJ+WYTHITB9Xl+G/8AkJP/ANcj/MZQEH4Kz/5CQgwOQHVTI4ITYUOLKHCIZQCC RQAUUUUAFFFFABRRRQAUUUUAFFFFABRRRQAUUUUAFFFFABRRRQAUUUUAFFFFABRRRQAUUUUAf//ZDQpl uzHkrRRuHS9GLbToCN0tuw7QFPXvYHYeUczZXla4N4 F6kTQhM6AxZ6AvG37qJq2TtLZfhHG8HD5PoEz0PFWfJgfnfYHNLKHbGZCwHXFnO5PnCIT3Wc3+DQpzdH DkMQ3CPpuxpSGhU5EvCJD3pm6tFfbAvdy5lLDiLJWAd2NQSE5EXmWR2f0ylnuxmQEza7+99xKMIABMIE sTOQ6TaPvXWEc1LCSXzFSpLqASADfSlnACMcABXTM5 EfD9QGX8jgf4D2eTjFbSi1Tgmms0biqU2Pi6UTXAPvKYsn2P8sVjzXYIx2qFG7G22o7Lw4HmgagPKqqo Nb0PDqI2ivgzBdjadP/pBmUIq3MWb6K02vlJe0puwn0o+8lkJqUR1tmw6ohWNF5OOB5dd1WeMXUpNUrm rpUeHrhMJyL0VDGwj7LgIVk5RO7Xqt7paIDhmdt+/w OXONcDWiGeUH7AmmUmJXVHxZBdUKUUJbUpFGWNmOKuKJOWWZFDLD9AliZdINCXPuPkSPPLEszeZ2AdWX Rvcij+/oILHJnICbRaBU9CtvRjRJEUiRDvUHXJHhZbBHNPdABjHOTXMDBERI1MxlBwCEVYQaQqCRQSFd hmD2OrDWFwg74YWUKxSMI5VbZaZRQqGpRpYfR3BhQg XS3Sy5ZRVFInDQK5BaBlPFXkGcUbBaF3LbQcLP6+EGeweuXpEamJGfJ6TUVbo8LsFQdtFNG5BN3sDNex zlGcGykPHjUrOMHmb0XkINmtICM4QN2vXBxrftPtLysOVzIsZHAlg3VbZUp3UR9LcLCkH6nPUENgK0r0 ZDGwNK6AJiBeFCBxOc4kN4Ekj7OpOWCkXTNjAP3azl KxKPFfBOUoAIXxMDTOVxX1RaXwQ6SgKeBRUQy7HSTML1YkMKS5OYlqIxJbCfh3VsLJREA6NSnDDWFRZG R2BMiIJBIHPWQZNZg2OcGDYO6rHB0OdYq6RSJkOlhgkYWIPEWoJKXkZVHpT6JrLLr4Uh7VJgO2qqKeeT 0KeJxjYACC//7MumQfDlRIvpWPW1YY76LleMZjXCCS TLTeqXIFNG5LoohB5PZoHBjDLYBxrESHAGtKUzkVaYPJHlI7hErR0SzRs8rn8rvAwtIGBYhTDF8Lte0J SM3hf2DyRSZgDAcywuHwXscMBzseLFKYScGqLwFYJqIdOSVySYWoJLJuGlJ5ZdZiGh6MGNDwCYNuIWHo EeAwYKIqGFWlVXjgOJQeSPJqMMP2UNLwHYQgXO2TMt UhRAYdAGMbPDYmXJSvLZExtn8LMTBbMXRqVCW1AGIzJVQzTXDfZPprJMJwLMMrBqK0EYLhIVVgXV4CXi AlGYCpQCO1AZNlBLJzEQFxqs0HXHFdUGCbETO0GXCqJAYdUSBkRVajIWXxZSSeJrY1ONSaJOKwCX7AZa VwEVVvQIN7DbXaMLQrVUKrrw4SERVvBZPsJLFrRLX7 EPYlWJKzZLxwAXPtKFIyOIGnNQU0QDI4FQYOCtDgVBHyYOIvSVKkHgN7HkFxYh3RKXZuQKXiOBGwHIY9 CIZrPBTnBYubHHCwCGAoQWV7WVH9YVI0WFROJaIxNFPhDWNfINEhOkL9YgRcQi0FLOGwVCFdBLZsDuE2 QCLdBCHiJYsuZRRmRASvTOAdWMT1SCO8EJTAUpFyBN YuCXexSgqqAPAjXXOuic7SYTGlKXNuLbI4NHTkLSMoIBGzFOciPJHcDcN9FaYqCJLcLKRvXX7EJjKyAL NyBAv5XRrtQRDwKKJqng5LbRHyeUtetj3RTDjxS5k7HTLxYl4Vk743PIBbXFEIL3uvGh4yLCqoBZLFH9 dQTct7ZkLMNIG6PToEPDENBSX5QRtHZNKVHHAATQk8 GoOWCS36RLY3WnsPIED5JdHBYcI3ROn1WPIRMgPjPvY4CHFAYzL+XSA+Ss7Ks7BmscH2yxYdZHzdEWr5 MpvGEyXdHW6LOQh0afOzZPinXARGHlPhDAfbKMOUPeh8F1ZqzxKqPsQlUx0foZBbIOYgQy6CkuGiOOB8 XRMjRc8LNSz7YDQ6IwyZGWF5RdYSIqN6NMv2WTDFCx JeAdD4BNTGDxU+WNGJEgA1CbRoD4XhGqZQVSz6QHHDL4VdZUI9WOobApPoXg5gT5NvTDCnCuG5NTC8M6 yGAEWApC3wWnX5UhJ0Ud0ALpQ9EXY5aJWlDj1AReV5JIJ2JNizZFISGi== ID Date Data Source "" 04/20/2020 10:08:00 PM EST [address] [address] Patient Name: Carlos Aguilar Exam Date: 04/20/20 : 1990 CC: EKG/ECG in ED Ordering Doctor: Missy Cheung MD Attending Doctor: Missy Cheung MD CC: EKG/ECG in ED APPROVED REPORT ECG MEASUREMENT Heart Rate 61 AXES [place] 158 P 48 QRSd 86 QRS 73 QT 434 T 55 QTc 438 INTERPRETATION SINUS RHYTHM NO ACUTE ISCHEMIA NORMAL ECG <Conclusion> SINUS RHYTHM NO ACUTE ISCHEMIA NORMAL ECG End of diagnostic report for accession: [id number] Interpreted: Missy Cheung MD 04/20/202207 Transcribed: Signed: Missy Cheung MD 04/20/202207 Interpreted by: Missy CheungTranscribed by: Missy Cheung Name Value Range Interpretation Code Description Data [facility](s) Supporting Document(s) ID Date Data Source [id number] 04/24/2020 08:39:00 AM EST [facility] Name Value Range Interpretation Code Description Data Fadumo rce(s) Supporting Document(s) HEPATITIS A ANTIBODY, IgM,S Negative Negative [facility] HEPATITIS A ANTIBODY, Total,S Negative Negative [facility] HEPATITIS B SURF ANTIGEN SCRN Negative Negative [facility] HEPATITIS B CORE ANTIBODY,IGM Negative Negative [facility] HEP [facility] CORE [facility]TIBODY,TOTAL Negative [facility]FACE [facility]TIBODY Non Reactive . [facility] Non Reactive: Inconsisten t with immunity, less than 10 mIU/mL Reactive: Consistent with immunity, greater than 9.9 mIU/mL Verified by repeat analysis HCV Ab,S >11.0 s/co ratio 0.0-0.9 A [facility] HCV COMMENT [facility] Strong reactive antibody screen (s/c ra renetta >10.9) is consistent with past or present HCV infection. Follow-up testing by HCV, Quantitative, Real time PCR (#[id number]) is recommended to determine viral load/diagnosis of current HCV infection. Performed at: RN - [facility] [id number] [employer] Worker: Helene Mccoy MD, Phone: [phone] ID Date Data Source [id number] 04/20/2020 08:20:00 PM EST [facility] Name Value Range Interpretation Code Description Data Fadumo rce(s) Supporting Document(s) Coronavirus 2 (SARS-CoV-2) NOT-DETECTED [facility] and reported by [facility]. ID Date Data Source [id number] 04/20/2020 10:31:00 PM EST [facility] Name Value Range Interpretation Code Description Data Afdumo rce(s) Supporting Document(s) ADENOVIRUS Not Detected NotDetected [facility] CORONAVIRUS 229E Not Detected [facility]Detected [facility] This is NOT the novel coronavirus COVID -19 CORONAVIRUS HKU1 Not Detected [facility]Detected [facility] This is NOT the novel coronavirus COVID -19 CORONAVIRUS NL63 Not Detected NotDetected [facility] This is NOT the novel coronavirus COVID -19 CORONAVIRUS OC43 Not Detected NotDetected [facility] This is NOT the novel coronavirus COVID -19 HUMAN METAPNEUMOVIRUS Not Detected [facility]Detected [facility] H[facility] RHINOVIRUS/ENT Not Detected [facility] INFLUENZA A Not Detected NotDetected [facility] INFLUENZA B Not Detected NotDetected [facility] PARAINFLUENZA VIRUS 1 Not Detected [facility] PARAINFLUENZA VIRUS 2 Not Detected [facility]Detected [facility] PARAINFLUENZA VIRUS 3 Not Detected NotDetected [facility] PARAINFLUENZA VIRUS 4 Not Detected [facility]Detected [facility] RESPIRATORY SYNCY VIR Not Detected NotDetected [facility] BORDETELLA PARAPERTUS Not Detected NotDetected [facility] BORDETELLA PERTUSSIS Not Detected [facility]Detected [facility] CHLAMYDIA PNEUMONIAE Not Detected NotDetected [facility] MYCOPLASMA PNEUMONIAE Not Detected [facility]Detected [facility] The Respiratory Panel is a multiplexed nucleic acid/PCR test. A negative result does not rule out the presence of PCR inhibitors in the patient sample or assay-specific nucleic acid concentrations below the level of detection by the assay. Coronavirus 2 (SARS-CoV-2) NOT-DETECTED NOTDETECTED [facility] THIS IS THE NOVEL CORONAVIRUS COVID-19 ID Date Data Source [id number] 04/20/2020 09:24:00 PM EST [facility] Has Patient Fasted For The Past 12 Hour s? N Has Patient Fasted For The Past 12 Hour s? N Has Patient Fasted For The Past 12 Hour s? N Has Patient Fasted For The Past 12 Hour s? N Name Value Range Interpretation Code Description Data Fadumo rce(s) Supporting Document(s) WHITE BLOOD COUNT 6.90 10^3/uL 4.00-10.50 N [facility]alth RED BLOOD COUNT 4.24 10^6/uL 3.90-5.20 N [facility] th HEMOGLOBIN 12.6 G/DL 11.5-15.6 N [facility] HEMATOCRIT 38.4 % 35.0-46.0 N [facility] MCV 90.6 FL 80.0-100.0 [facility] MCH 29.7 PG 27.0-34.0 N [facility] MCHC 32.8 G/DL 32-36 N [facility] RDW 14.2 % 11.5-14.5 N [facility] PLATELET COUNT 182 10^3/uL 130-400 [facility] MPV 10.2 FL 8.7-13.2 [facility] GRAN % (AUTO) 37.5 % 42.0-75.0 L [facility] LYMPH % (AUTO) 45.2 % 20.0-51.0 N [facility] MONO % (AUTO) 9.3 % 2.0-15.0 N [facility] EOS % (AUTO) 7.5 % 0.0-11.0 N [facility] BASO % (AUTO) 0.4 % 0.0-2.0 N [facility] IG % (AUTO) 0.1 % 1.00-5.00 [facility] IG # (AUTO) 0.0 10^3/uL <0.5 [facility] GRAN # (AUTO) 2.58 10^3/uL 1.50-6.50 N [facility] LYMPH # (AUTO) 3.1 k/uL 1.0-5.0 N [facility] MONO # (AUTO) 0.64 k/uL 0.20-1.50 N [facility] EOS # (AUTO) 0.52 10^3/uL 0.00-1.10 N [facility] BASO # (AUTO) 0.03 10^3/uL 0.00-0.20 N [facility] ID Date Data Source [id number] 04/20/2020 09:30:00 PM EST [facility] Has Patient Fasted For The Past 12 Hour s? N Has Patient Fasted For The Past 12 Hour s? N Has Patient Fasted For The Past 12 Hour s? N Has Patient Fasted For The Past 12 Hour s? N Name Value Range Interpretation Code Description Data Fadumo rce(s) Supporting Document(s) HCG QUALITATIVE SPECIMEN SERUM [facility] ID Date Data Source [id number] 04/20/2020 09:42:00 PM [facility] Has Patient Fasted For The Past 12 Hour s? N Has Patient Fasted For The Past 12 Hour s? N Has Patient Fasted For The Past 12 Hour s? N Has Patient Fasted For The Past 12 Hour s? N Name Value Range Interpretation Code Description Data Fadumo rce(s) Supporting Document(s) SODIUM 142 MEQ/L 135-145 [facility] POTASSIUM 3.5 MEQ/L 3.5-5.3 [facility] CHLORIDE 108 MEQ/L 94-110 [facility] CARBON DIOXIDE 31 MEQ/L 22-33 [facility] ANION GAP 7 5-16 N [facility] BLOOD UREA NITRO 9 MG/DL 7-25 N [facility] CREATININE 0.7 MG/DL 0.6-1.4 N [facility] GFR > 90.0 ML/MIN [facility] Stage G1 - Normal or high kidney functi on The GFR is an estimate of the Glomerular Filtration Rate. It is an aid to assess a patient's renal function. It is not a conclusive diagnosis of kidney disease. GFR normal is >=90 The MDRD GFR calculation is considered valid between the ages of 18 and 75 years only. BUN/CREAT RATIO 12 8-36 N [facility] GLUCOSE 79 MG/DL 70-100 N [facility] CA 9.1 MG/DL 8.7-10.5 N [facility] BILIRUBIN,TOTAL 0.3 MG/DL 0.1-1.3 N [facility] AST 248 U/L 5-40 [facility] ALT 242 U/L 5-48 H [facility] ALKALINE PHOSPHATASE 84 U/L 40-140 N [facility] alth TOTAL PROTEIN 7.7 G/DL 5.9-8.3 N [facility] ALBUMIN 4.3 G/DL 3.0-5.1 N [facility] GLOBULIN 3.4 G/DL 1.5-3.5 N [facility] ALB/GLOB RATIO 1.3 G/DL 1.0-3.0 N [facility] ID Date Data Source [id number] 04/20/2020 09:30:00 PM [facility] Has Patient Fasted For The Past 12 Hour s? N Has Patient Fasted For The Past 12 Hour s? N Has Patient Fasted For The Past 12 Hour s? N Has Patient Fasted For The Past 12 Hour s? N Name Value Range Interpretation Code Description Data Fadumo rce(s) Supporting Document(s) HCG RESULT,S NEGATIVE [facility] Reference range is Negative "Extreme" early may have low levels of HCG present. If is suspected, repeat testing with a new specimen in 48-72 hours ID Date Data Source [id number] 04/20/2020 09:42:00 PM [facility] Has Patient Fasted For The Past 12 Hour s? N Has Patient Fasted For The Past 12 Hour s? N Has Patient Fasted For The Past 12 Hour s? N Has Patient Fasted For The Past 12 Hour s? N Name Value Range Interpretation Code Description Data Fadumo rce(s) Supporting Document(s) SALICYLATE < 3.0 MG/DL 2.8-20.0 N [facility] ID Date Data Source [id number] 04/20/2020 09:42:00 PM [facility] Has Patient Fasted For The Past 12 Hour s? N Has Patient Fasted For The Past 12 Hour s? N Has Patient Fasted For The Past 12 Hour s? N Has Patient Fasted For The Past 12 Hour s? N Name Value Range Interpretation Code Description Data Fadumo rce(s) Supporting Document(s) ACETAMINOPHEN < 2.0 UG/ML 10-30 L [facility] High levels of N-acetylcysteine (used t o treat Acetaminophen overdose) may cause interference and cause a negative bias in the Acetaminophen result. ID Date Data Source [id number] 04/20/2020 09:42:00 PM EST [facility] Has Patient Fasted For The Past 12 Hour s? N Has Patient Fasted For The Past 12 Hour s? N Has Patient Fasted For The Past 12 Hour s? N Has Patient Fasted For The Past 12 Hour s? N Name Value Range Interpretation Code Description Data Fadumo rce(s) Supporting Document(s) BLOOD ALCOHOL < 0.03 % <0.03 [facility] ID Date Data Source [id number] 01/25/2020 04:35:00 PM EDT [facility] Name Value Range Interpretation Code Description Data Fadumo rce(s) Supporting Document(s) Creatinine [Moles/volume] in Vitreous fluid 139.4 mg/dL No rmal Creatinine [facility] ([facility]) Nitrite [Presence] in Urine by Test strip 47.6 mcg/mL Norm al Nitrite [facility] ([facility]) pH of Vaginal fluid by Test strip 6.8 Normal pH [facility] ([facility]) Amphetamines [Presence] in Unknown substance by Confirmatory met hod 0 ng/mL Normal Amphetamines [facility] ([facility]) Barbiturates [Mass/volume] in Saliva (oral fluid) by Screen meth od 0 ng/mL Normal Barbiturates [facility]) Cocaine Metabolites 0 ng/mL Normal Cocaine Metabolites [facility]) Meprobamate [Mass/volume] in Blood by Confirmatory method 0 ng/mL Normal Meprobamate [facility]) Tramadol [Presence] in Blood by Screen method 0 ng/mL N ormal Tramadol [facility]) Meperidine Metabolite 0 ng/mL Normal Meperidine Met abolite [facility]) Methadone [Moles/volume] in Unspecified specimen 0 ng/mL Normal Methadone [facility]) Fentanyl [Z-score] in Urine 0 ng/mL Normal Fentanyl [place] ([facility]) Oxycodone/Oxymorphone 0 ng/mL Normal Oxycodone/Oxym orphone [facility] ([facility]) Opiates - Basic 0 ng/mL Normal Opiates - Basic [facility] ([facility]) 6-Acetylmorphine (Heroin) 0 ng/mL Normal 6-Acetylmo rphine (Heroin) [facility] ([facility]) Phencyclidine (PCP) 0 ng/mL Normal Phencyclidine (PCP) [facility]) Propoxyphene [Presence] in Meconium by Screen method 0 ng/mL Normal Propoxyphene [facility]) Ecstasy Analogs 0 ng/mL Normal Ecstasy Analogs [facility]) Marijuana Metabolite 0 ng/mL Normal Marijuana Metab olite [facility]) Oxazepam [Moles/volume] in Unspecified specimen 0 ng/mL Normal Oxazepam [facility]) Lorazepam [Moles/volume] in Unspecified specimen 0 ng/mL Normal Lorazepam [facility]) Nordiazepam [Moles/volume] in Unspecified specimen 0 ng/mL Normal Nordiazepam [facility]) Temazepam [Moles/volume] in Unspecified specimen 0 ng/mL Normal Temazepam [facility]) Nitrazepam Metabolite 0 ng/mL Normal Nitrazepam Met abolite [facility] ([facility]) Flunitrazepam Metabolite 0 ng/mL Normal Flunitrazep am Metabolite [facility]) Clonazepam Metabolite 0 ng/mL Normal Clonazepam Met abolite [facility]) Flurazepam Metabolite 0 ng/mL Normal Flurazepam Met abolite [facility]) Triazolam Metabolite 0 ng/mL Normal Triazolam Metab olite [facility] ([facility]) Alprazolam Metabolite See Note ng/mL Normal Alprazolam Metabolite [facility] ([facility]) Note: Consistent Present below cut off.P rescribed drug was detected. Midazolam Metabolite 0 ng/mL Normal Midazolam Metab olite [facility] ([facility]) Estazolam [Mass/volume] in Urine by Confirmatory method 0 ng/mL Normal Estazolam [facility]) Methylphenidate Metabolite >1500 ng/mL Normal Methylph enidate Metabolite [facility] ([facility]) Note: Consistent Prescribed drug was det ected. Gabapentin [Mass/volume] in Urine by Confirmatory method 599 ng/ mL Abnormal (applies to non-numeric results) Gabapentin [facility] ([facility]) Note: Inconsistent Unprescribed drug was detected. Pregabalin [Presence] in Urine by Screen method 0 ng/mL Normal Pregabalin [facility] ([facility]) Tapentadol [Presence] in Blood by Screen method 0 ng/mL Normal Tapentadol [facility]) Norbuprenorphine [Mass/mass] in Meconium by Confirmatory method 1462.7 ng/mL Normal Norbuprenorphine [facility] ([facility]) Note: Consistent Prescribed drug was det ected. Buprenorphine [Presence] in Blood by Screen method 251.3 ng/mL Normal Buprenorphine [facility] ([facility]) Note: Consistent Prescribed drug was det ected. ID Date Data Source [id number] 01/02/2020 06:44:00 PM EDT [facility]) Name Value Range Interpretation Code Description Data Fadumo rce(s) Supporting Document(s) Creatinine [Moles/volume] in Vitreous fluid 64.8 mg/dL Nor mal Creatinine [facility] ([facility]) pH of Vaginal fluid by Test strip 6.5 Normal pH [place] ([facility]) Nitrite [Presence] in Urine by Test strip 49.5 mcg/mL Norm al Nitrite [facility] ([facility]) Amphetamines [Presence] in Unknown substance by Confirmatory met hod 0 ng/mL Normal Amphetamines [facility] ([facility]) Cocaine Metabolites 0 ng/mL Normal Cocaine Metabolites [place] ([facility]) Barbiturates [Mass/volume] in Saliva (oral fluid) by Screen meth od 0 ng/mL Normal Barbiturates [facility]) Tramadol [Presence] in Blood by Screen method 0 ng/mL N ormal Tramadol [facility]) Meprobamate [Mass/volume] in Blood by Confirmatory method 0 ng/mL Normal Meprobamate [facility]) Fentanyl [Z-score] in Urine 0 ng/mL Normal Fentanyl [facility] [place] ([facility]) Meperidine Metabolite 0 ng/mL Normal Meperidine Met abolite [facility] ([facility]) Opiates - Basic 0 ng/mL Normal Opiates - Basic [facility]) Methadone [Moles/volume] in Unspecified specimen 0 ng/mL Normal Methadone [facility] ([facility]) 6-Acetylmorphine (Heroin) 0 ng/mL Normal 6-Acetylmo rphine (Heroin) [facility]) Oxycodone/Oxymorphone 0 ng/mL Normal Oxycodone/Oxym orphone [facility] ([facility]) Propoxyphene [Presence] in Meconium by Screen method 0 ng/mL Normal Propoxyphene [facility]) Phencyclidine (PCP) 0 ng/mL Normal Phencyclidine (PCP) [facility]) Ecstasy Analogs 0 ng/mL Normal Ecstasy Analogs [facility]) Marijuana Metabolite 0 ng/mL Normal Marijuana Metab olite [facility]) Oxazepam [Moles/volume] in Unspecified specimen 0 ng/mL Normal Oxazepam [facility]) Lorazepam [Moles/volume] in Unspecified specimen 0 ng/mL Normal Lorazepam [facility]) Nordiazepam [Moles/volume] in Unspecified specimen 0 ng/mL Normal Nordiazepam [facility]) Temazepam [Moles/volume] in Unspecified specimen 0 ng/mL Normal Temazepam [facility]) Clonazepam Metabolite 0 ng/mL Normal Clonazepam Met abolite [facility]) Nitrazepam Metabolite 0 ng/mL Normal Nitrazepam Met abolite [facility]) Triazolam Metabolite 0 ng/mL Normal Triazolam Metab olite [facility]) Flunitrazepam Metabolite 0 ng/mL Normal Flunitrazep am Metabolite [facility] ([facility]) Alprazolam Metabolite See Note ng/mL Normal Alprazolam Metabolite [facility] ([facility]) Note: Consistent Present below cut off.P rescribed drug was detected. Flurazepam Metabolite 0 ng/mL Normal Flurazepam Met abolite [facility] ([facility]) Midazolam Metabolite 0 ng/mL Normal Midazolam Metab olite [facility]) Gabapentin [Mass/volume] in Urine by Confirmatory method 1373 ng /mL Abnormal (applies to non-numeric results) Gabapentin [facility]) Note: Inconsistent Unprescribed drug was detected. Estazolam [Mass/volume] in Urine by Confirmatory method 0 ng/mL Normal [facility]azolam [facility] Tapentadol [Presence] in Blood by Screen method 0 ng/mL Normal [facility]adol [facility] Pregabalin [Presence] in Urine by Screen method 0 ng/mL Normal Pregabalin [facility]) Norbuprenorphine [Mass/mass] in Meconium by Confirmatory method 673.3 ng/mL Normal Norbuprenorphine [facility] ([facility] Note: Consistent Prescribed drug was det ected. Buprenorphine [Presence] in Blood by Screen method 116.1 ng/mL Normal Buprenorphine [facility] ([facility]) Note: Consistent Prescribed drug was det ected. ID Date Data Source [id number] 12/29/2019 09:11:00 PM EDT [address] [address] HEALTH INFORMATION MANAGEMENT ED/UC Physician Report : [id number] Signed Patient: Carlos Aguilar Acct:[id number] Unit: [id number] : 1990 Arrival Date: 12/29/19 Age/Sex: 29 / F Arrival Time: 2034 Copies to: Genet Lange NP General Adult HPI/ROS General Chief Complaint: Medication Refill Stated Complaint: Withdrawals Source: Patient Mode of arrival: Ambulatory Limitations: Reports No limitations History of Present Illness Initial Comments: Patient presents the emergency room requesting prescriptions for Suboxone and Xanax. States that 2 days ago her toddler must have throwing them out of the car. She states that she has made a police report. She states that she has no prescriptions until the of the month. She is requesting a bridge prescription. The patient says that all of her prescribing physicians are in [facility]. She has never had [id number] contact with them and does tele medicine consult. She has no local physician. She states that 2 days ago her toddler must have thrown her medications out of the car. She attempted to get medications represcribed by her [facility] physicians but they requested a police report be made. She states that she did this but the police report was not return until this evening. Shestates that her providers in [facility] are no longer available to prescribe her medications. She has had no nausea or vomiting. She has had no diarrhea. She has no fevers or chills. Related Data Home Medications Medication Instructions Recorded alprazolam [Xanax] 1 mg PO TID PRN 12/29/19 buprenorphine HCl 8 mg SUBLINGUAL QID 12/29/19 methylphenidate HCl 40 mg PO BID 12/29/19 Allergies No Known Allergies Allergy (Verified 12/09/17 22:28) Review of Systems Review of Systems All systems: Reviewed and negative except as stated in HPI. 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 No tachycardia. No piloerection. No nausea. No vomiting. No evidence of withdrawal. Pupils 4 mm and reactive. No tremor General appearance: Alert and In no apparent distress Head Head Exam: Atraumatic and Normcephalic Eye Eye Exam: Conjunctiva normal and Sclera normal ENT ENT Exam: External ear normal and Nose normal Neck Neck Exam: Full ROM, Supple and Trachea Midline Cardiac Cardiac: Present: Regular rate and rhythm and Radial pulses normal equal Murmur: Present: None; Absent: Diastolic and Systolic Heart Sounds: Absent: Gallops and Rubs Lung/Chest Lung/Chest Exam: Clear, Normal Exchange and No chest wall tenderness Abdomen Abdominal Exam: Soft, Nondistended, Nontender and No guarding Back Back Exam: Full ROM, No Deformity and Skin Normal Upper Extremity Upper Extremity Exam: moving upper extremity with no deformities, swellings or pain. Full range of movement Vascular: capillary refill Lower Extremity Lower Extermity Normal: Full ROM and Nontender Neuro Neuro Normal: Alert, Oriented x 3, Fluent speech, Gait normal and Strength 5/5 all extremities Psych Psych Normal: Normal Affect Skin Skin exam: Dry, Intact, Epworth and Warm Course Vital Signs Vital signs: Vital Signs 12/29/19 20:49 Temperature 98.3 F Pulse Rate 102 H Respiratory Rate 18 Blood Pressure 113/69 O2 Sat by Pulse Oximetry 98 Medical Decision Making/CCT EKG Interpretation Complete If EKG was done has it been read?: N/A Medical Decision Making Medical Decision Making: Initially the patient stated that she was requesting a prescription that we do her through to the when she could refill her prescriptions. She then stated that she was on a wanting to days of medications to be dispensed by the emergency room. During this conversation which lasted approximately 15 minutes she incidentally mentioned that she had been in [place] emergency room yesterday. I asked her what had happened up there and she stated that they had also refused to prescribe her medications. I advised her that she would have to discuss with her prescribing physicians in [facility] about ongoing prescribing of her controlled substances and that we would not provide a bridge prescription. The patient currently has no signs of withdrawal. Nursing staff did check with [facility] and some of the medications that she was requesting were higher doses than previously refilled by the pharmacy. the patient states that her doses were changed by her prescribing physician in [facility] however the prescriptions had not yet been filled. During this interaction which lasted approximately 20 minutes the patient was frequently changing her story. The patient did advise me that she was not requiring a prescribing of her noncontrolled substances. She stated that she had an aunt who was a nurse and told her that [facility] would prescribe her medications even though [place] had not. Based on her constantly changing story, inconsistencies in her dosing of her medications and not telling me that she had previously been in [place] the patient was advised that I did not feel comfortable prescribing medications. Given that she had no signs of withdrawal I did not feel there was any treatment required at the current time. I have recommended that she contact and follow up with her [facility] physicians. Critical Care Time Critical Care Time: No Discharge Plan Disposition Clinical Impression: Encounter for medical screening examination Provider stated Dispo: Discharged Condition: Stable Instructions: Normal Exam (ED) Activity Restrictions/Additional Instructions: Please contact your prescribing physician for your control substances to discuss whether they are comfortable with prescribing your medications. We do not provide controlled substance prescriptions for lost prescriptions in this emergency room. Prescriptions: No Action buprenorphine HCl 8 mg tablet, sublingual 8 mg SUBLINGUAL QID RF: 0 alprazolam [Xanax] 1 mg Tablet 1 mg PO TID PRN (Reason: Anxiety) RF: 0 methylphenidate HCl 40 mg Capsule, Er Biphasic 30-70 40 mg PO BID RF: 0 Referrals: Genet Lange I, [employer] IN[employer]CTOR [Primary Care Provider] - Patient agreeable to discharge: Patient/Guardian understands and is agreeable to discharge plan Provider in triage note Vital Signs Vital Signs: I O (Last 24 Hours) 09/29/20 09/30/20 10/01/20 23:59 23:59 23:59 Other: Weight 68 kg Vital Signs (Last 8 Hours) Temp Pulse Resp BP Pulse Ox 12/29/19 20:49 98.3 F 102 H 18 113/69 98 Date/Time <<Signature on File>> Initializing User: Kervin Michele MD 12/29/192110 Signed by: Kervin Michele MD 12/30/19 0659 Name Value Range Interpretation Code Description Data Fadumo rce(s) Supporting Document(s) Procedure Social History Code Duration Value Status Description Data Source(s ) Alcohol intake 12/26/2020 12:00:00 AM EDT Current non-d laura of alcohol (finding) completed Current non-drinker of alcohol (finding) [facility] Tobacco use and exposure 12/25/2020 12:00:00 AM EDT Never used co mpleted Never used [facility] Cigarettes smoked current (pack per day) - Reported 12/26/19 21 12:00:00 AM EDT UNK completed [facility] Smoking 12/25/2020 12:00:00 AM EDT Current every day smoker co mpleted Current every day smoker [facility] Alcohol intake 12/25/2020 12:00:00 AM EDT Current non-d laura of alcohol (finding) completed Current non-drinker of alcohol (finding) [facility] Smoking 12/17/2020 12:00:00 AM EDT Smokes tobacco daily (findi ng) completed Smokes tobacco daily (finding) [facility]) Smoking 11/05/2020 12:00:00 AM EDT Smokes tobacco daily (findi ng) completed Smokes tobacco daily (finding) [facility] Smoking 10/22/2020 12:00:00 AM EDT Smokes tobacco daily (findi ng) completed Smokes tobacco daily (finding) [facility] Smoking 09/03/2020 12:00:00 AM EDT Smokes tobacco daily (findi ng) completed Smokes tobacco daily (finding) [facility] Smoking 09/03/2020 12:00:00 AM EDT Smokes tobacco daily (findi ng) completed Smokes tobacco daily (finding) [facility] Smoking 08/20/2020 12:00:00 AM EDT Smokes tobacco daily (findi ng) completed Smokes tobacco daily (finding) [facility] ([facility] Smoking 07/22/2020 09:58:00 PM EDT Daily Smoker completed Daily [facility] Smoking 07/22/2020 09:58:00 PM EDT Daily Smoker completed Daily [facility] 04/29/2020 12:00:00 AM EST completed [facility] 04/29/2020 12:00:00 AM EST completed [facility] 04/20/2020 10:17:25 PM EST Current Every Day Smoker co mpleted Current Every Day Smoker [facility] 04/20/2020 10:17:25 PM EST Cigarettes completed Cigarette s [facility] 04/20/2020 10:17:25 PM EST Current Every Day Smoker co mpleted Current Every Day Smoker [facility] 04/20/2020 10:17:25 PM EST Cigarettes completed Cigarette s [facility] Smoking 04/20/2020 10:17:00 PM EST Smoker (finding) [facility] 04/20/2020 10:17:00 PM EST Smoker (finding) completed Smo ker (finding) [facility] Smoking 02/01/2020 12:00:00 AM EST Smokes tobacco daily (findi ng) completed Smokes tobacco daily (finding) [facility]) Vital Signs ID Date Data Source UNK Name Value Range Interpretation Code Description Data Source(s) Body height 160 cm 160 cm [facility] Systolic blood pressure 125 mm[Hg] 125 mm[Hg] [facility] Diastolic blood pressure 74 mm[Hg] 74 mm[Hg] [facility] Heart rate 103 /min 103 /min [facility] Body temperature 37.06 Eliana 37.06 Eliana [facility] Systolic blood pressure 100 mm[Hg] 100 mm[Hg] [place] [facility] Diastolic blood pressure 70 mm[Hg] 70 mm[Hg] [facility] ([facility]) Heart rate 76 /min 76 /min [facility] ([facility]) Heart rate rhythm 1 1 [place] ([facility]) Respiratory rate 16 /min 16 /min [facility] ([facility]) Body temperature 97.8 [degF] 97.8 [degF] [place] [facility]) Body height 62 [in_i] 62 [in_i] [facility] ([facility]) Body weight 158 [lb_av] 158 [lb_av] [facility] ([facility]) Body mass index (BMI) [Ratio] 28.9 kg/m2 28.9 k g/m2 [place] ([facility] Body surface area Derived from formula 1.73 m2 1.73 m2 [place] ([facility]) PhenX - pain, abdominal - type and intensity protocol 0 0 [facility] ([facility]) Oxygen saturation in Arterial blood by Pulse oximetry 97 % 97 % [place] ([facility]) Systolic blood pressure 100 mm[Hg] 100 mm[Hg] [facility] Diastolic blood pressure 66 mm[Hg] 66 mm[Hg] [place] ([facility] Heart rate 78 /min 78 /min [place] ([facility]) Heart rate rhythm 1 1 [place] ([facility] [facility]) Respiratory rate 16 /min 16 /min [place] (Formerly [facility]) Body temperature 96.7 [degF] 96.7 [degF] [place] (Formerly [facility]) Body height 62 [in_i] 62 [in_i] [place] (formerly [facility]) Body weight 146 [lb_av] 146 [lb_av] [facility] Body mass index (BMI) [Ratio] 26.7 kg/m2 26.7 k g/m2 [place] (Formerly [facility]) Body surface area Derived from formula 1.67 m2 1.67 m2 [place] (Formerly [facility]) PhenX - pain, abdominal - type and intensity protocol 0 0 [place] ([facility]ly [facility]) Oxygen saturation in Arterial blood by Pulse oximetry 100 % 100 % [place] ([facility]ly [facility]) Systolic blood pressure 104 mm[Hg] 104 mm[Hg] G [place] (Formerly [facility]) Body surface area Derived from formula 1.68 m2 1.68 m2 [place] ([facility]ly [facility]) Diastolic blood pressure 70 mm[Hg] 70 mm[Hg] [place] ([facility]ly [facility]) PhenX - pain, abdominal - type and intensity protocol 0 0 [place] ([facility]ly [facility]) Oxygen saturation in Arterial blood by Pulse oximetry 100 % 100 % [place] ([facility]ly [facility]) Heart rate 98 /min 98 /min [place] ([facility]) Body height 62 [in_i] 62 [in_i] [place] (formerly [facility]) Heart rate rhythm 1 1 [place] (Formerly [facility]) Respiratory rate 16 /min 16 /min [place] ([facility]ly [facility]) Body weight 148 [lb_av] 148 [lb_av] [place] ([facility]) Body temperature 97.3 [degF] 97.3 [degF] [facility] (Formerly [facility]) Body mass index (BMI) [Ratio] 27.1 kg/m2 27.1 k g/m2 [place] ([facility]ly [facility]) Systolic blood pressure 100 mm[Hg] 100 mm[Hg] G [facility] (Formerly [facility]) Diastolic blood pressure 68 mm[Hg] 68 mm[Hg] [place] ([facility]ly [facility]) Heart rate 104 /min 104 /min [place] ([facility]) Heart rate rhythm 1 1 [place] (Formerly [facility]) Respiratory rate 16 /min 16 /min [place] ([facility]ly [facility]) Body temperature 97.6 [degF] 97.6 [degF] [facility] ([facility]ly [facility]) Body height 62 [in_i] 62 [in_i] [place] (formerly [facility]) Body weight 143 [lb_av] 143 [lb_av] [place] ([facility]) Body mass index (BMI) [Ratio] 26.2 kg/m2 26.2 k g/m2 [place] ([facility]ly [facility]) Body surface area Derived from formula 1.66 m2 1.66 m2 [place] ([facility]ly [facility]) PhenX - pain, abdominal - type and intensity protocol 0 0 [place] ([facility]ly [facility]) Oxygen saturation in Arterial blood by Pulse oximetry 97 % 97 % [place] ([facility]ly [facility]) Systolic blood pressure 100 mm[Hg] 100 mm[Hg] G [place] ([facility]ly [facility]) Body temperature 98.6 [degF] 98.6 [degF] [place] ([facility]ly [facility]) Body height 62 [in_i] 62 [in_i] [place] (formerly [facility]) Body weight 134 [lb_av] 134 [lb_av] [place] ([facility]) Body mass index (BMI) [Ratio] 24.5 kg/m2 24.5 k g/m2 [place] ([facility]ly [facility]) Body surface area Derived from formula 1.61 m2 1.61 m2 [place] ([facility]ly [facility]) PhenX - pain, abdominal - type and intensity protocol 0 0 [place] ([facility]) Oxygen saturation in Arterial blood by Pulse oximetry 99 % 99 % [place] ([facility]ly [facility]) Diastolic blood pressure 66 mm[Hg] 66 mm[Hg] [place] ([facility]) Heart rate 98 /min 98 /min [place] Heart rate rhythm 1 1 [place] ([facility]ly [facility]) Respiratory rate 18 /min 18 /min [place] ([facility]ly [facility]) Body height 62 [in_i] 62 [in_i] [place] (formerly [facility]) Body weight 131 [lb_av] 131 [lb_av] [place] ([facility]) Body mass index (BMI) [Ratio] 24.0 kg/m2 24.0 k g/m2 [place] ([facility]ly [facility]) Body surface area Derived from formula 1.60 m2 1.60 m2 [place] ([facility]ly [facility]) PhenX - pain, abdominal - type and intensity protocol 0 0 [place] ([facility]ly [facility]) Oxygen saturation in Arterial blood by Pulse oximetry 99 % 99 % [place] ([facility]ly [facility]) Systolic blood pressure 100 mm[Hg] 100 mm[Hg] [place] ([facility]ly [facility]) Diastolic blood pressure 52 mm[Hg] 52 mm[Hg] [place] ([facility]) Heart rate 135 /min 135 /min [place] ([facility]) Respiratory rate 18 /min 18 /min [place] ([facility]) Body temperature 96.9 [degF] 96.9 [degF] [place] ([facility]ly [facility]) Heart rate 98 min Normal (applies to non-numeric resul ts) 98 min [facility] Respiratory rate 18 min Normal (applies to non-numeric results) 18 min [facility] Body height 162.1536 cm Normal (applies to non-numeric res ults) 162.1536 cm [facility] Body temperature 36.7 eliana Normal (applies to non-numeric results) 36.7 eliana [facility] Systolic blood pressure 107 mm[Hg] Normal (applies t o non-numeric results) 107 mm[Hg] [facility] Diastolic blood pressure 70 mm[Hg] Normal (applies to non-numeric results) 70 mm[Hg] [facility] Body mass index (BMI) [Ratio] 24.0 kg/m2 No rmal (applies to non-numeric results) 24.0 kg/m2 [facility] Deprecated Oxygen saturation in Capillary blood by Oximetry 100 % Normal (applies to non-numeric results) 100 % [facility] Body weight Measured 140 [lb_av] Normal (applies to n on-numeric results) 140 [lb_av] [facility] Heart rate 65 /min 65 /min [facility] Respiratory rate 16 /min 16 /min [facility] Oxygen saturation in Arterial blood by Pulse oximetry 99 % 99 % [facility] Heart rate 65 /min 65 /min [facility] Respiratory rate 16 /min 16 /min [facility] Oxygen saturation in Arterial blood by Pulse oximetry 99 % 99 % [facility] Body weight 65.00 kg 65.00 kg [facility] Body temperature 98.4 [degF] 98.4 [degF] [facility] Systolic blood pressure 130 mm[Hg] 130 mm[Hg] O [facility] Diastolic blood pressure 57 mm[Hg] 57 mm[Hg] [facility].00 [facility] temperature 98.4 [degF] 98.4 [degF] [facility] Systolic blood pressure 130 mm[Hg] 130 mm[Hg] O [facility] Diastolic blood pressure 57 mm[Hg] 57 mm[Hg] [facility] PhenX - pain, abdominal - type and intensity protocol 0 0 [place] ([facility]ly [facility]) Unable to obtain all vitals due to covid 19 pandemic. Heart rate 88 /min 88 /min [place] ([facility]) Systolic blood pressure 98 mm[Hg] 98 mm[Hg] [facility] Diastolic blood pressure 70 mm[Hg] 70 mm[Hg] [place] ([facility]) Heart rate 113 /min 113 /min [place] ([facility]) Heart rate rhythm 1 1 [place] ([facility]ly [facility]) Respiratory rate 16 /min 16 /min [place] ([facility]ly [facility]) Body temperature 97.5 [degF] 97.5 [degF] [place] ([facility]ly [facility]) Body weight 151.125 [lb_av] 151.125 [lb_av] [place] ([facility]ly [facility]) PhenX - pain, abdominal - type and intensity protocol 0 0 [place] ([facility]) Oxygen saturation in Arterial blood by Pulse oximetry 97 % 97 % [place] ([facility]) Inhaled oxygen flow rate 0 L/min 0 L/min [place] ([facility]) Inhaled oxygen concentration 21 % 21 % [place] ([facility]ly [facility]) PhenX - pain, abdominal - type and intensity protocol 6 6 [place] ([facility]) Oxygen saturation in Arterial blood by Pulse oximetry 98 % 98 % [place] ([facility]) Inhaled oxygen flow rate 0 L/min 0 L/min [place] ([facility]) Inhaled oxygen concentration 21 % 21 % [place] ([facility]) Systolic blood pressure 110 mm[Hg] 110 mm[Hg] G [place] ([facility]) Diastolic blood pressure 64 mm[Hg] 64 mm[Hg] [place] ([facility]) Heart rate 132 /min 132 /min [place] ([facility] Heart rate rhythm 1 1 [place] ([facility]ly [facility]) Respiratory rate 18 /min 18 /min [place] ([facility]) Body temperature 97.2 [degF] 97.2 [degF] [place] ([facility]) Body weight 152 [lb_av] 152 [lb_av] [place] ([facility]) Patient Treatment Plan of Care Planned Activity Planned Date Details Description Data Source (s) albuterol (PROVENTIL HFA;VENTOLIN HFA) 108 (90 Base) M CG/ACT inhaler 12/17/2020 12:00:00 AM EDT [facility] Buprenorphine 2 MG Sublingual Tablet 12/17/2020 12:00:00 AM EDT [place] ([facility]) Buprenorphine 8 MG Sublingual Tablet 12/17/2020 12:00:00 AM EDT [place] [facility] Sertraline 100 MG Oral Tablet [Zoloft] 12/17/2020 12:00:00 AM EDT [place] [facility] 200 ACTUAT Albuterol 0.09 MG/ACTUAT Metered Dose Inhal er [ProAir] 12/17/2020 12:00:00 AM EDT [facility] Methylphenidate Hydrochloride 20 MG Oral Tablet 12/04/2020 12:00:00 AM EDT [place] [facility] Alprazolam 1 MG Oral Tablet 11/26/2020 12:00:00 AM EDT [place] ([facility] Alprazolam 1 MG Oral Tablet 11/05/2020 12:00:00 AM EDT [place] ([facility] Methylphenidate Hydrochloride 20 MG Oral Tablet 11/05/2020 12:00:00 AM EDT [place] ([facility] Buprenorphine 8 MG Sublingual Tablet 11/05/2020 12:00:00 AM EDT [place] ([facility] Buprenorphine 2 MG Sublingual Tablet 11/05/2020 12:00:00 AM EDT [place] ([facility] Methylphenidate Hydrochloride 20 MG Oral Tablet 10/25/2020 12:00:00 AM EDT [facility] Buprenorphine 8 MG Sublingual Tablet 10/22/2020 12:00:00 AM EDT [facility] Alprazolam 1 MG Oral Tablet 10/22/2020 12:00:00 AM EDT [facility] Sertraline 100 MG Oral Tablet [Zoloft] 10/22/2020 12:00:00 AM EDT [place] ([facility] Alprazolam 1 MG Oral Tablet 10/22/2020 12:00:00 AM EDT [place] ([facility] Methylphenidate Hydrochloride 20 MG Oral Tablet 10/22/2020 12:00:00 AM EDT [place] ([facility] Buprenorphine 8 MG Sublingual Tablet 10/22/2020 12:00:00 AM EDT [place] ([facility] Sertraline 100 MG Oral Tablet 10/09/2020 12:00:00 AM EDT [facility] Methylphenidate Hydrochloride 20 MG Oral Tablet 10/08/2020 12:00:00 AM EDT [place] ([facility]) Buprenorphine 8 MG Sublingual Tablet 10/08/2020 12:00:00 AM EDT [place] ([facility]ly [facility]) Alprazolam 1 MG Oral Tablet 10/08/2020 12:00:00 AM EDT [place] ([facility]) Methylphenidate Hydrochloride 20 MG Oral Tablet 09/03/2020 12:00:00 AM EDT [place] ([facility]ly [facility]) Buprenorphine 8 MG Sublingual Tablet 09/03/2020 12:00:00 AM EDT [place] ([facility]) Alprazolam 1 MG Oral Tablet 09/03/2020 12:00:00 AM EDT [place] ([facility]) Escitalopram 5 MG Oral Tablet [Lexapro] 02/01/2020 12:00:00 AM EST [place] ([facility]) Buprenorphine 8 MG Sublingual Tablet 01/02/2020 12:00:00 AM EDT [place] ([facility]) Ibuprofen 600 MG Oral Tablet 12/06/2017 12:00:00 AM EDT [facility]
--- OUTSIDE RECORDS SUMMARY | 2021-01-13 18:50 | CCD ---
Author Author [facility] Organization [facility] Address Unknown Phone Unavailable Care Team Providers Care Risk Intern Name Role Phone Daniela MENARD Unavailable Unavailable Anisa, I Genet IRON ERECTOR Unavailable Unavailable Anisa, I Genet IRON ERECTOR Unavailable Unavailable Anisa, I Genet IRON ERECTOR Unavailable Unavailable Anisa, I Genet IRON ERECTOR Unavailable Unavailable Anisa, I Genet IRON ERECTOR Unavailable Unavailable Anisa, I Genet IRON ERECTOR Unavailable Unavailable Anisa, I Genet IRON ERECTOR Unavailable Unavailable Anisa, I Genet IRON ERECTOR Unavailable Unavailable Anisa, I Genet IRON ERECTOR Unavailable Unavailable Anisa, I Genet IRON ERECTOR Unavailable Unavailable Anisa, I Genet IRON ERECTOR Unavailable Unavailable Anisa, I Genet IRON ERECTOR Unavailable Unavailable Anisa, I Genet IRON ERECTOR Unavailable Unavailable Anisa, I Genet IRON ERECTOR Unavailable Unavailable Anisa, I Genet IRON ERECTOR Unavailable Unavailable Anisa, I Genet IRON ERECTOR Unavailable Unavailable Anisa, I Genet IRON ERECTOR Unavailable Unavailable Anisa, I Genet IRON ERECTOR Unavailable Unavailable Anisa, I Genet IRON ERECTOR Unavailable Unavailable Anisa, I Genet IRON ERECTOR Unavailable Unavailable Anisa, I Genet IRON ERECTOR Unavailable Unavailable Anisa, I Genet IRON ERECTOR Unavailable Unavailable Anisa, I Genet IRON ERECTOR Unavailable Unavailable Anisa, I Genet IRON ERECTOR Unavailable Unavailable Anisa, I Genet IRON ERECTOR Unavailable Unavailable Anisa, I Genet IRON ERECTOR Unavailable Unavailable Anisa, I Genet IRON ERECTOR Unavailable Unavailable Anisa, I Genet IRON ERECTOR Unavailable Unavailable Anisa, I Genet IRON ERECTOR Unavailable Unavailable Anisa, I Genet IRON ERECTOR Unavailable Unavailable Anisa, I Genet IRON ERECTOR Unavailable Unavailable Anisa, I Genet IRON ERECTOR Unavailable Unavailable Anisa, I Genet IRON ERECTOR Unavailable Unavailable Anisa, I Genet IRON ERECTOR Unavailable Unavailable Anisa, I Genet IRON ERECTOR Unavailable Unavailable Anisa, I Genet IRON ERECTOR Unavailable Unavailable Anisa, I Genet IRON ERECTOR Unavailable Unavailable Anisa, I Genet IRON ERECTOR Unavailable Unavailable Anisa, I Genet IRON ERECTOR Unavailable Unavailable Anisa, I Genet IRON ERECTOR Unavailable Unavailable Anisa, I Genet IRON ERECTOR Unavailable Unavailable Anisa, I Genet IRON ERECTOR Unavailable Unavailable Anisa, I Genet IRON ERECTOR Unavailable Unavailable Anisa, I Genet IRON ERECTOR Unavailable Unavailable Anisa, I Genet IRON ERECTOR Unavailable Unavailable Anisa, I Genet IRON ERECTOR Unavailable Unavailable Anisa, I Genet IRON ERECTOR Unavailable Unavailable Anisa, I Genet IRON ERECTOR Unavailable Unavailable Anisa, I Genet IRON ERECTOR Unavailable Unavailable Anisa, I Genet IRON ERECTOR Unavailable Unavailable Anisa, I Genet IRON ERECTOR Unavailable Unavailable Anisa, I Genet IRON ERECTOR Unavailable Unavailable Naisa, I Genet IRON ERECTOR Unavailable Unavailable Anisa, I Genet IRON ERECTOR Unavailable Unavailable Anisa, I Genet IRON ERECTOR Unavailable Unavailable Anisa, I Genet IRON ERECTOR Unavailable Unavailable Anisa, I Genet IRON ERECTOR Unavailable Unavailable Anisa, I Genet IRON ERECTOR Unavailable Unavailable Anisa, I Genet IRON ERECTOR Unavailable Unavailable Anisa, I Genet IRON ERECTOR Unavailable Unavailable Anisa, I Genet IRON ERECTOR Unavailable Unavailable Anisa, I Genet IRON ERECTOR Unavailable Unavailable Anisa, I Genet IRON ERECTOR Unavailable Unavailable Anisa, I Genet IRON ERECTOR Unavailable Unavailable Anisa, I Genet IRON ERECTOR Unavailable Unavailable Anisa, I Genet IRON ERECTOR Unavailable Unavailable Anisa, I Genet IRON ERECTOR Unavailable Unavailable Anisa, I Genet IRON ERECTOR Unavailable Unavailable Anisa, I Genet IRON ERECTOR Unavailable Unavailable Anisa, I Genet IRON ERECTOR Unavailable Unavailable Anisa, I Genet IRON ERECTOR Unavailable Unavailable Anisa, I Genet IRON ERECTOR Unavailable Unavailable BILAL, AHMAD MD Unavailable Unavailable [...] Unavailable Earl, F Eliseo CALDWELL Unavailable Unavailable Ray, L Carolyn Unavailable Unavailable [...] Unavailable Unavailable Maribel Michele MD Unavailable Unavailable Syrett, Maribel Galeana MD Unavailable Unavailable Syrett, Maribel Galeana MD Unavailable Unavailable Syrett, Maribel Galeana MD Unavailable Unavailable Syrett, Maribel Galeana MD Unavailable Unavailable MANZANARES, BERTHA Unavailable Unavailable GOWDAKABBLI, M GREGG Unavailable Unavailable Dator SR, Yonatan Drake MD Unavailable Unavailable Dator SR, Yonatan Drake MD Unavailable Unavailable Dator SR, Yoantan Drake MD Unavailable Unavailable Dator SR, Yonatan [...] Yonatan Drake MD Unavailable Unavailable Dator SR, Ynoatan Drake MD Unavailable Unavailable Dator SR, Yonatan [...] Unavailable Unavailable Mason Cheung MD Unavailable Unavailable LissetmedMason MD Unavailable Unavailable Mason Cheung MD Unavailable Unavailable AhmedMason MD Unavailable Unavailable Ahmed, M Mohamed MD [...] Unavailable Ahmed, M Mohamed MD Unavailable Unavailable Seminole, Carmen Isela DO Unavailable Unavailable [place]inole, Carmen Isela DO Unavailable Unavailable Cristine, Carmen Isela DO Unavailable Unavailable Cristine, Carmen Isela DO Unavailable Unavailable Seminole, Carmen Isela DO Unavailable Unavailable Seminole, Carmen Isela DO Unavailable Unavailable [place]in[place], Carmen Isela DO Unavailable Unavailable Seminole, Carmen Isela DO Unavailable Unavailable [place]in[place], Carmen Isela DO Unavailable Unavailable Cristine, Carmen Isela DO Unavailable Unavailable Seminole, Carmen Isela DO Unavailable Unavailable [place]in[place], Carmen Isela DO Unavailable Unavailable [place]in[place], Carmen Isela DO Unavailable Unavailable [place]in[place], Carmen Isela DO Unavailable Unavailable [place]in[place], Carmen Isela DO Unavailable Unavailable [place]in[place], Camren Isela DO Unavailable Unavailable Cristine, Carmen Iesla DO Unavailable Unavailable Cristine, Carmen Isela DO Unavailable Unavailable Cristine, Carmen Isela DO Unavailable Unavailable Cristine, Carmen Isela DO Unavailable Unavailable Semin[place], Carmen Isela DO Unavailable Unavailable Cristine, Carmen Isela DO Unavailable Unavailable Cristine, Carmen Isela DO Unavailable Unavailable Cristine, Carmen Isela DO Unavailable Unavailable Cristine, Carmen Isela DO Unavailable Unavailable Cristine, Carmen Isela DO Unavailable Unavailable Seminole, Carmen Isela DO Unavailable Unavailable CristineCarmen DO Unavailable Unavailable BINA, A RALF MD [...] RALF MD Unavailable Unavailable BINA, A RALF CALDWELL Unavailable Unavailable BINA, A RALF MD Unavailable [...] RALF MD Unavailable Unavailable BINA, A RALF CALDWELL Unavailable Unavailable BINA, A RALF CALDWELL Unavailable Unavailable BINA, A RALF CALDWELL Unavailable Unavailable BINA, A RALF CALDWELL Unavailable Unavailable [place], R EMELYN Unavailable Unavailable Charity, D Karina REVENUE STAMP CUTTER-C Unavailable Unavailable Charity, D Karina REVENUE STAMP CUTTER-C Unavailable Unavailable Charity, D Karina REVENUE STAMP CUTTER-C Unavailable Unavailable Charity, D Karina REVENUE STAMP CUTTER-C Unavailable Unavailable Charity, D Karina REVENUE STAMP CUTTER-C Unavailable Unavailable Charity, D Karina REVENUE STAMP CUTTER-C Unavailable Unavailable Charity, D Karina REVENUE STAMP CUTTER-C Unavailable Unavailable Charity, D Karina REVENUE STAMP CUTTER-C Unavailable Unavailable Charity, D Karina REVENUE STAMP CUTTER-C Unavailable Unavailable Charity, D Karina REVENUE STAMP CUTTER-C Unavailable Unavailable Charity, D Karina REVENUE STAMP CUTTER-C Unavailable Unavailable Charity, D Karina REVENUE STAMP CUTTER-C Unavailable Unavailable Charity, D Karina REVENUE STAMP CUTTER-C Unavailable Unavailable PHYSICIAN, ER Unavailable Unavailable Re-disclosure [...] is protected by Article 27-F of the [facility] Public Health law. If you continue you may have access to information: Regarding HIV / AIDS; Provided by facilities licensed or operated by the [facility] Office of Mental Health; or Provided by the [facility] Office for People With Developmental Disabilities. If such information is present, then the following [facility] mandated warning applies: This information has been [...] law may result in a fine or fci sentence or both. A general authorization for the release of medical or other information is NOT sufficient authorization for further disc losure. 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 -NO Ebola Screening Performed completed Ebol a Screening Performed [place] ([facility]) Note: Within the last month, have you tr aveled outside of the [place]? -NO Allergies and Adverse Reactions Type Description Substance Reaction Status Data Source(s ) Allergy to substance No Known Allergies No known allergies (situation ) [facility] ([facility]) Allergy to substance No Known Allergies No known allergies (situation ) [facility] ([facility]) Allergy to substance No Known Allergies No known allergies (situation ) [facility] ([facility]) Propensity to adverse reactions NO KNOWN ALLERGIES NO KNOWN ALLERGIES [facility] Allergy to substance No Known Allergies No known allergies (situation ) [place] ([facility]) Allergy to substance No Known Allergies No known allergies (situation ) [facility] ([facility]) Allergy to substance No Known Allergies No known allergies (situation ) [facility] ([facility]) Drug allergy No Known Allergies No Known Allergies [facility] Allergy to substance No Known Allergies No known allergies (situation ) [facility] ([facility]) Allergy to substance No Known Allergies No known allergies (situation ) [facility] Family History Family Member Name Family Member Gender Family Member Status Date o f Status Description Data Source(s) Unknown Condition [facility] Unknown Condition [facility] Unknown Unknown Problem [facility] ([facility]) Encounters Encounter Providers Location Date Indications Data Source(s ) Outpatient Attender: GREGG Bedolla: HARDIK ANTHONY ES1-FP 01/10/2021 10:50:06 AM EDT - 01/10/2021 02:43:20 PM EDT [facility] Outpatient Referrer: RALF GONZALEZ1-[email or web address].MED 01/10/2021 12:00:00 AM EDT [facility] ES1-FP 01/04/2021 12:18:00 PM EDT [facility] Outpatient Attender: GREGG AZAR Attender: Isela Colunga DOConsultant: Isela Colunga DO ES1-FP 01/02/2021 03:32:42 PM EDT - 01/02/2021 04:23:57 PM EDT [facility] Outpatient Attender: HARDIK Bradyer: HARDIK BENNETTULTRA 12/26/2020 03:19:56 PM EDT - 12/26/2020 11:59:00 PM EDT [facility] Patient discharged. Outpatient Attender: GREGG Bedolla: HARDIK ANTHONY [id number].OB 12/26/2020 08:43:39 AM EDT - 12/26/2020 10:15:42 AM EDT [facility] Outpatient Attender: EMELYN Rogersitter: EMELYN BARKER CEReferrer: EMELYN [place] ES1-BP 12/25/2020 12:02:00 AM EDT - 12/25/2020 03:25:00 AM EDT [facility] Patient discharged. <td ID="encounterTypeDescriptionID0">SUB OXONE</td><td>Elsieo Elliott MD</td><td>[facility]</td><td>12/17/2020</td><td>11:32AM</td><td>11:59PM</td><td><content ID="encounterDiagnosisID0-0"></content>, <content ID="encounterDiagnosisID0-1">Opioid Dependence</content>, <content ID="encounterDiagnosisID0-2">Nicotine Dependence</content>, <content ID="encounterDiagnosisID0-3">Anxiety Disorder Nos</content>, <content ID="encounterDiagnosisID0-4">Depression</content>, <content ID="encounterDiagnosisID0-5">Hepatitis, C Virus - Chronic</content>, <content ID="encounterDiagnosisID0-6">Assessment of Bipolar Disorder</content>, <content ID="encounterDiagnosisID0-7">Post-traumatic Stress Disorder</content>, <content ID="encounterDiagnosisID0-8">Adult Attention Deficit Hyperactivity Disorder</content></td>Unknown Attender: Eliseo Elliott MD [facility] 12/17/2020 11:32:00 AM EDT - 12/17/2020 11:59:00 PM EDT Hepatitis, C Virus - ChronicPregnancyAdult Attention Deficit Hyperactivity DisorderPost-traumatic Stress DisorderAnxiety Disorder NosNicotine DependenceOpioid DependenceAssessment of Bipolar DisorderDepression [facility] ([facility]) Hepatitis, C Virus - Chronic Adult Attention Deficit Hyperactivity Di sorder Post-traumatic Stress Disorder Anxiety Disorder Nos Nicotine Dependence Opioid Dependence Assessment of Bipolar Disorder Depression <td ID="encounterTypeDescriptionID0">SUB OXONE</td><td>Eliseo Elliott MD</td><td>[facility]</td><td>11/05/2020</td><td>11:07AM</td><td>11:59PM</td><td><content ID="encounterDiagnosisID0-0"></content>, <content ID="encounterDiagnosisID0-1">Opioid Dependence</content>, <content ID="encounterDiagnosisID0-2">Nicotine Dependence</content>, <content ID="encounterDiagnosisID0-3">Anxiety Disorder Nos</content>, <content ID="encounterDiagnosisID0-4">Depression</content>, <content ID="encounterDiagnosisID0-5">Hepatitis, C Virus - Chronic</content>, <content ID="encounterDiagnosisID0-6">Assessment of Bipolar Disorder</content>, <content ID="encounterDiagnosisID0-7">Post-traumatic Stress Disorder</content>, <content ID="encounterDiagnosisID0-8">Adult Attention Deficit Hyperactivity Disorder</content></td>Unknown Attender: Eliseo Elliott MD [facility] 11/05/2020 11:07:00 AM EDT - 11/05/2020 11:59:00 [...] AM EDT - 021 05:39:00 AM EDT [facility] Patient discharged. Unknown<td ID="encounterTypeDescriptionI D0">SUBOXONE</td><td>Eliseo Elliott MD</td><td>[facility]</td><td>10/22/2020</td><td>10:30AM</td><td>11:59PM</td><td><content ID="encounterDiagnosisID0-0"></content>, <content ID="encounterDiagnosisID0-1">Opioid Dependence</content>, <content ID="encounterDiagnosisID0-2">Nicotine Dependence</content>, <content ID="encounterDiagnosisID0-3">Anxiety Disorder Nos</content>, <content ID="encounterDiagnosisID0-4">Depression</content>, <content ID="encounterDiagnosisID0-5">Hepatitis, C Virus - Chronic</content>, <content ID="encounterDiagnosisID0-6">Assessment of Bipolar Disorder</content>, <content ID="encounterDiagnosisID0-7">Post-traumatic Stress Disorder</content>, <content ID="encounterDiagnosisID0-8">Adult Attention Deficit Hyperactivity Disorder</content></td> Attender: Eliseo Elliott MD [facility] 10/23/19 10:30:00 AM EDT - 10/22/2020 11:59:00 PM EDT Hepatitis, C Virus - ChronicPregnancyAdult Attention Deficit Hyperactivity DisorderPost-traumatic Stress DisorderAnxiety Disorder NosNicotine DependenceOpioid DependenceAssessment of Bipolar DisorderDepression [place] ([facility]) Hepatitis, C Virus - Chronic Adult Attention Deficit Hyperactivity Di sorder Post-traumatic Stress Disorder Anxiety Disorder Nos Nicotine Dependence Opioid Dependence Assessment of Bipolar Disorder Depression Outpatient Referrer: Karina DODSONP-C 10/10/2020 12: 00:00 AM T [facility] Outpatient Referrer: Karina BROWN-C 10/10/2020 12: 00:00 AM [facility] <td ID="encounterTypeDescriptionID0">SUB OXONE</td><td>Eliseo Elliott MD</td><td>[facility]</td><td>10/08/2020</td><td>10:54AM</td><td>11:59PM</td><td><content ID="encounterDiagnosisID0-0"></content>, <content ID="encounterDiagnosisID0-1">Opioid Dependence</content>, <content ID="encounterDiagnosisID0-2">Nicotine Dependence</content>, <content ID="encounterDiagnosisID0-3">Anxiety Disorder Nos</content>, <content ID="encounterDiagnosisID0-4">Depression</content>, <content ID="encounterDiagnosisID0-5">Hepatitis, C Virus - Chronic</content>, <content ID="encounterDiagnosisID0-6">Assessment of Bipolar Disorder</content>, <content ID="encounterDiagnosisID0-7">Post-traumatic Stress Disorder</content>, <content ID="encounterDiagnosisID0-8">Adult Attention Deficit Hyperactivity Disorder</content></td>Unknown Attender: Eliseo Elilott MD [facility] 10/08/2020 10:54:00 AM EDT - 10/08/2020 11:59:00 PM EDT Hepatitis, C Virus - ChronicPregnancyAdult Attention Deficit Hyperactivity DisorderPost-traumatic Stress DisorderAnxiety Disorder NosNicotine DependenceOpioid DependenceAssessment of Bipolar DisorderDepression [facility] ([facility]) Hepatitis, C Virus - Chronic Adult Attention Deficit Hyperactivity Di sorder Post-traumatic Stress Disorder Anxiety Disorder Nos Nicotine Dependence Opioid Dependence Assessment of Bipolar Disorder Depression Outpatient Referrer: Karina BERMEO 09/04/2020 12: 00:00 AM T [facility] Outpatient Referrer: Karina BERMEO 09/04/2020 12: 00:00 AM [facility] <td ID="encounterTypeDescriptionID0">SUB OXONE</td><td>Eliseo Elliott MD</td><td>[facility]</td><td>09/03/2020</td><td>2:35PM</td><td>11:59PM</td><td><content ID="encounterDiagnosisID0-0"></content>, <content ID="encounterDiagnosisID0-1">Opioid Dependence</content>, <content ID="encounterDiagnosisID0-2">Nicotine Dependence</content>, <content ID="encounterDiagnosisID0-3">Anxiety Disorder Nos</content>, <content ID="encounterDiagnosisID0-4">Depression</content>, <content ID="encounterDiagnosisID0-5">Hepatitis, C Virus - Chronic</content>, <content ID="encounterDiagnosisID0-6">Assessment of Bipolar Disorder</content>, <content ID="encounterDiagnosisID0-7">Post-traumatic Stress Disorder</content>, <content ID="encounterDiagnosisID0-8">Adult Attention Deficit Hyperactivity Disorder</content></td>Unknown Attender: Eliseo Elliott MD [facility] 09/03/2020 02:35:00 PM EDT - 09/03/2020 11:59:00 PM EDT Hepatitis, C Virus - ChronicPregnancyAdult Attention Deficit Hyperactivity DisorderPost-traumatic Stress DisorderAnxiety Disorder NosNicotine DependenceOpioid DependenceAssessment of Bipolar DisorderDepression [place] ([facility]) Hepatitis, C Virus - Chronic Adult Attention Deficit Hyperactivity Di sorder Post-traumatic Stress Disorder Anxiety Disorder Nos Nicotine Dependence Opioid Dependence Assessment of Bipolar Disorder Depression Outpatient<td ID="encounterTypeDescripti onID0">SUBOXONE</td><td>Eliseo Elliott MD</td><td>[facility]</td><td>08/20/2020</td><td>3:19PM</td><td>11:59PM</td><td><content ID="encounterDiagnosisID0-0">Opioid Dependence</content>, <content ID="encounterDiagnosisID0-1">Nicotine Dependence</content>, <content ID="encounterDiagnosisID0-2">Post-traumatic Stress Disorder</content>, <content ID="encounterDiagnosisID0-3">Depression</content>, <content ID="encounterDiagnosisID0-4">Assessment of Bipolar Disorder</content>, <content ID="encounterDiagnosisID0-5">Anxiety Disorder Nos</content>, <content ID="encounterDiagnosisID0-6">Adult Attention Deficit Hyperactivity Disorder</content>, <content ID="encounterDiagnosisID0-7"></content>, <content ID="encounterDiagnosisID0-8">Hepatitis, C Virus - Chronic</content></td> Attender: Eliseo Elliott MD [facility] 03:19:00 PM EDT - 08/20/2020 11:59:00 PM [...] PHYSICIAN 07/22/2020 10:41:04 PM E DT [facility] Attender: BERTHA Dahlender: ER PHYSICIAN 07/22/2020 09:26:00 PM EDT - 07/22/2020 11:30:00 PM EDT 14WK PREG HEART PRESSURE NUMBNESS LT ARM [facility] 14WK PREG HEART PRESSURE NUMBNESS LT ARM Patient discharged. Outpatient Attender: MIGNON Fortune tter: MIGNON SCHNEIDER MDConsultant: MIGNON SCHNEIDER MD 04/21/2020 01:43:00 AM EST Suicidal ideations R4 5.851 [facility] Suicidal ideations R45.851 Outpatient Attender: MIGNON Fortune tter: MIGNON SCHNEIDER MDConsultant: MIGNON SCHNEIDER MD 04/21/2020 01:43:00 AM EST Suicidal ideations R4 5.851 [facility] Suicidal ideations R45.851 Inpatient Attender: MIGNON Loo nder: Missy Cheung MDAdmitter: MIGNON SCHNEIDER MD 04/21/2020 01:43:00 AM EST - 04/25/2020 09:20:00 AM EST Suicidal ideations R45.851 [facility] Suicidal ideations R45.851 Patient discharged. Outpatient Attender: MIGNON Fortune tter: MIGNON SCHNEIDER MDConsultant: MIGNON SCHNEIDER MD 04/21/2020 01:43:00 AM EST Suicidal ideations R4 5.851 [facility] Suicidal ideations R45.851 Outpatient Attender: MIGNON Fortune tter: MIGNON SCHNEIDER MDConsultant: MIGNON SCHNEIDER MD 04/21/2020 01:43:00 AM EST Suicidal ideations R4 5.851 [facility] Suicidal ideations R45.851 Outpatient Attender: Vidal Sherwood SR 04/20/2020 10:1 3:00 PM EST [facility] Attender: Dede Dickerson er: MIGNON SCHNEIDER MDConsultant: MIGNON SCHNEIDER MD 04/20/2020 09:15:00 PM EST Suicidal ideations [facility] Suicidal ideations Outpatient Attender: Dede Dickerson er: MIGNON SCHNEIDER MDConsultant: MIGNON SCHNEIDER MD 04/20/2020 09:15:00 PM EST Suicidal ideations [facility] Suicidal ideations Outpatient<td ID="encounterTypeDescripti onID0">Suboxone Telehealth FaceTime</td><td>Carolyn Pond DO</td><td>[facility]</td><td>02/01/2020</td><td><content ID="encounterDiagnosisID0-0">Opioid Dependence</content>, <content ID="encounterDiagnosisID0-1">Adjustment Disorder</content>, <content ID="encounterDiagnosisID0-2">Lumbago</content>, <content ID="encounterDiagnosisID0-3">Post-traumatic Stress Disorder</content>, <content ID="encounterDiagnosisID0-4">Anxiety Disorder Nos</content>, <content ID="encounterDiagnosisID0-5">Adult Attention Deficit Hyperactivity Disorder</co ntent></td> Attender: Carolyn Pond [facility] 02/01/2020 12:35:00 PM EST - 02/01/2020 03:24:19 PM EST Adult Attention Deficit Hyperactivity Di sorderAnxiety Disorder NosPost-traumatic Stress DisorderLumbagoAdjustment DisorderOpioid Dependence [facility] ([facility]) Adult Attention Deficit Hyperactivity Di sorder Anxiety Disorder Nos Post-traumatic Stress Disorder Lumbago Adjustment Disorder Opioid Dependence Outpatient<td ID="encounterTypeDescripti onID1">Establish Care</td><td>Carolyn Pond DO</td><td>[facility]</td><td>01/25/2020</td><td><content ID="encounterDiagnosisID1-0">Opioid Dependence</content>, <content ID="encounterDiagnosisID1-1">Benzodiazepine Abuse</content>, <content ID="encounterDiagnosisID1-2">Adjustment Disorder</content></td> Attender: Carolyn Pond [facility] 01/25/2020 04:03:00 PM EDT - 01/25/2020 06:01:44 PM EDT Adjustment DisorderAdjustment DisorderBenzodiazepine AbuseOpioid DependenceBenzodiazepine AbuseOpioid Dependence [facility]) Adjustment Disorder Adjustment Disorder Benzodiazepine Abuse Opioid Dependence Benzodiazepine Abuse Opioid Dependence Unknown<td ID="encounterTypeDescriptionI D2">On-Call</td><td>Genet Lange NP</td><td></td><td>01/24/2020</td><td></td> Attender: Genet Lange NP 01/24/2020 03:48:00 PM EDT - 01/24/2020 11:59:00 PM EDT [facility] Outpatient<td ID="encounterTypeDescripti onID0">SUBOXONE</td><td>Genet Lange NP</td><td>[facility]</td><td>01/02/2020</td><td><content ID="encounterDiagnosisID0-0">Benzodiazepine Abuse</content>, <content ID="encounterDiagnosisID0-1">Assessment of Bipolar Disorder</content>, <content ID="encounterDiagnosisID0-2">Contraceptive Surveillance</content>, <content ID="encounterDiagnosisID0-3">Opioid Dependence</content></td> Attender: Genet Lange IRON ERECTOR [place] [facility] 01/02/2020 06:26:00 PM EDT - 01/02/2020 [...] PM EDT - 12/29/2019 09:20:00 PM [facility]. Immunizations Vaccine Date Status Description Data Source(s) COVID-19 VACCINE Moderna 01/10/2021 12:00:00 AM EDT completed [place] Vaccine Series Complete: NOThis Data was Submitted to [facility] Via [email or web address]. Medications Medication Brand Name Start Date Product [...] DAILY DOSE = 3 TABLETS SOLD: 01/03/2021 [facility] 200 ACTUAT Albuterol 0.09 MG/ACTUAT Mete red Dose Inhaler [ProAir] ProAir HFA 108 (90 Base) MCG/ACT Inhalation Aerosol Solution ProAir HFA 108 (90 Base) MCG/ACT Inhalation Aerosol Solution 12/17/2020 12:00:00 AM EDT active [id number] 200 ACTUAT albuterol 0.09 MG/ACTUAT Metered Dose Inhaler [ProAir] [facility] ([facility]) 100 mg 12/17/2020 12:00:00 AM EDT tablet 60 TAKE TWO TABLETS BY MOUTH EVERY DAY MAXIMUM DAILY DOSE = 2 TAKE TWO TABLETS BY MOUTH EVERY DAY MAXI MUM DAILY DOSE = 2 SOLD: 12/17/2020 [facility] Buprenorphine 8 MG Sublingual Tablet Bup renorphine HCl 8 MG Sublingual Tablet Sublingual Buprenorphine HCl 8 MG Sublingual Tablet Sublingual 12:00:00 AM EDT active buprenor phine 8 MG Sublingual Tablet [facility] ([facility]) albuterol (PROVENTIL HFA;VENTOLIN HFA) 108 (90 Base) M CG/ACT inhaler [id number] 12/17/2020 12:00:00 AM EDT activ e INHALE 2 PUFFS EVERY 4 TO 6 HOURS PRRN FOR COUGH OR WHEEZE [facility] 2 mg 12/17/2020 12:00:00 AM EDT tablet, sublingual 28 DISSOLVE 1 TABLET UNDER THE TONGUE ONCE DAILY MAXIMUM DAILY DOSE = 1 DISSOLVE 1 TABLET UNDER THE TONGUE ONCE DAILY MAXIMUM DAILY DOSE = 1 SOLD: 12/17/2020 [facility] Buprenorphine 2 MG Sublingual Tablet Bup [...] TABLETS BY MOUTH TWICE A DAY. M AXILAUREN DAILY DOSE = 4 SOLD: 11/05/2020 Cristin [...] TWICE A DAY MAXIMUM DAILY DOSE 4 [facility] Alprazolam 1 MG Oral Tablet ALPRAZolam [...] buprenor phine 8 MG Sublingual Tablet [facility]) Buprenorphine 8 MG Sublingual Tablet Buprenorphine HCl 8 MG SUBL Buprenorphine HCl 8 MG SUBL 10/22/2020 12:00:00 AM EDT acti ve DISSOLVE 1 1/2 TABLETS UNDER THE TONGUE ONCE DAILY MAXIMUM DAILY DOSE 1 1/2 TABLETS [facility] Alprazolam 1 MG Oral Tablet ALPRAZolam (XANAX) 1 MG ta blet ALPRAZolam (XANAX) 1 MG tablet 10/22/2020 12:00:00 AM EDT active TAKE ONE TABLET BY MOUTH THREE TIMES A DAY MAXIMUM DAILY DOSE 3 [facility] Methylphenidate Hydrochloride 20 MG Oral Tablet METHYLPHENID [...] active Take 200 mg by mouth daily [facility] Methylphenidate Hydrochloride 20 MG Oral Tablet Methylphenidate [...] buprenor phine 8 MG Sublingual Tablet [facility] ([facility]) Alprazolam 1 MG Oral Tablet ALPRAZolam 1 MG Oral Table t ALPRAZolam 1 MG Oral Tablet 10/08/2020 12:00:00 AM EDT 1 active alprazolam 1 MG Oral Tablet [facility] Methylphenidate Hydrochloride 20 MG Oral Tablet METHYLPHENID [...] methylphenidate hydrochlorid e 20 MG Oral Tablet [place] ([facility]) Alprazolam 1 MG Oral Tablet ALPRAZolam 1 MG Oral Table t ALPRAZolam 1 MG Oral Tablet 09/03/2020 12:00:00 AM EDT 1 active alprazolam 1 MG Oral Tablet [place] ([facility]) 0.75 % 2020 12:00:00 AM EDT gel [...] d escitalopram 5 MG Oral Tablet [Lexapro] [place] ([facility]) gabapentin 800 MG Oral Tablet Gabapentin 800 MG Oral T ablet Gabapentin 800 MG Oral Tablet 01/04/2020 12:00:00 AM EDT aborte d gabapentin 800 MG Oral Tablet [place] ([facility]) Buprenorphine 8 MG Sublingual Tablet Bup renorphine HCl 8 MG Sublingual Tablet Sublingual Buprenorphine HCl 8 MG Sublingual Tablet Sublingual 12:00:00 AM EDT 1 active buprenor phine 8 MG Sublingual Tablet [place] ([facility]) Methylphenidate Hcl 12/29/2019 08:57:46 PM EDT UNASSIGNED 40 MG ORAL active [facility] Methylphenidate Hcl 12/29/2019 08:57:46 PM EDT UNASSIGNED 40 MG ORAL active [facility] Alprazolam 1 MG Oral Tablet Alprazolam (Xanax) 1 mg Ta blet Alprazolam (Xanax) 1 mg Tablet 12/29/2019 08:56:56 PM EDT TABLET 1 MG ORAL active [facility] Alprazolam 1 MG Oral Tablet Alprazolam (Xanax) 1 mg Ta blet Alprazolam (Xanax) 1 mg Tablet 12/29/2019 08:56:56 PM EDT TABLET 1 MG ORAL [facility] Bup[facility]ine 8 MG Sublingual Tablet Buprenorphine Hcl Bupre norphine Hcl 12/29/2019 08:55:19 PM EDT UNASSIGNED 8 MG SUBLINGUALLY active [facility] Buprenorphine 8 MG Sublingual Tablet Buprenorphine Hcl Bupre norphine Hcl 12/29/2019 08:55:19 PM EDT UNASSIGNED 8 MG SUBLINGUALLY active [facility] Alprazolam 1 MG Oral Tablet ALPRAZolam 1 MG Oral Table t ALPRAZolam 1 MG Oral Tablet 12/09/2019 12:00:00 AM EDT active alprazolam 1 MG Oral Tablet [place] ([facility]) Buprenorphine 8 MG Sublingual Tablet Bup renorphine HCl 8 MG Sublingual Tablet Sublingual Buprenorphine HCl 8 MG Sublingual Tablet Sublingual 12:00:00 AM EDT 1 aborted bupreno rphine 8 MG Sublingual Tablet [place] ([facility]) Buprenorphine 8 MG Sublingual Tablet Bup renorphine HCl 8 MG Sublingual Tablet Sublingual Buprenorphine HCl 8 MG Sublingual Tablet Sublingual 12:00:00 AM EDT aborted bupreno rphine 8 MG Sublingual Tablet [place] ([facility]) Famotidine 10 MG Oral Tablet Famotidine 10 MG Oral Tablet 12:00:00 AM EDT 1 active famotidine 10 MG Oral Tablet [place] ([facility]) Buprenorphine 8 MG Sublingual Tablet Bup renorphine HCl 8 MG Sublingual Tablet Sublingual Buprenorphine HCl 8 MG Sublingual Tablet Sublingual 12:00:00 AM EST aborted bupreno rphine 8 MG Sublingual Tablet [place] ([facility]) Comb No.42-Folic Acid (Prena1 C hew Tablet) 1.4 MG tablet,YUNIOR ortega DRbiphase 12/09/2017 10:28:34 PM EDT UNASSIGNED 1 TAB ORAL c ompleted [facility] Amoxicillin 875 MG / Clavulanate 125 MG Oral Tablet Am oxicillin-Pot Clavulanate Amoxicillin-Pot Clavulanate 12/09/2017 10:28:34 PM EDT TABLET 1 TAB ORAL completed [facility] Comb No.42-Folic Acid (Prena1 C hew Tablet) 1.4 MG tablet,jordan,YUNIOR Anguiano DR,biphase 12/09/2017 10:28:34 PM EDT UNASSIGNED 1 TAB ORAL [facility] Amox[facility] 875 MG / Clavulanate 125 MG Oral Tablet Am oxicillin-Pot Clavulanate Amoxicillin-Pot Clavulanate 12/09/2017 10:28:34 PM EDT TABLET 1 TAB ORAL completed [facility] Ibuprofen 600 MG Oral Tablet ibuprofen (ADVIL,MOTRIN) 600 MG tablet ibuprofen (ADVIL,MOTRIN) 600 MG tablet 12/06/2017 12:00:00 AM EDT 600 mg Oral aborted Take 1 tablet (600 m g total) by mouth every 6 (six) hours as needed for pain [facility] Insurance Providers Payer name Policy type / Coverage type Policy ID Covered democrat ID Covered democrat's relationship to david Policy David Plan Information [facility] [facility] [place] Other 0 [id number] Self 0 [place] Other 0 [id number] Self 0 Medicaid S [id number] S [id number] Managed Care [place] P [id number] S [id number] [id number] Samantha [id number] UnitedHealthcare Other 0 [id number] Self 0 UnitedHealthcare Other 0 [id number] Self 0 UnitedHealthcare Other 0 [id number] Self 0 [employer] COMMUNITY PLAN [id number] SP 1 [id number] [facility] MEDICAID [id number] Samantha [id number] [facility] MEDICAID [id number] Samantha [id number] [facility] MEDICAID [id number] Samantha [id number] UnitedHealthcare Other 0 [id number] Self 0 UnitedHealthcare Other 0 [id number] Self 0 UnitedHealthcare Other 0 [id number] Self 0 SELF PAY [facility] PLAN [id number] SP [id number] [place] Other 0 [id number] Self 0 [place] Other 0 [id number] Self 0 [place] Other 0 [id number] Self 0 [place] Other 0 [id number] Self 0 [place] Other 0 [id number] Self 0 [place] Other 0 [id number] Self 0 [place] Other 0 [id number] Self 0 [place] MED[place] [id number] 0 [id number] [place] Other 0 [id number] Self 0 [place] Other 0 [id number] Self 0 [place] Other 0 [id number] Self 0 [place] Other 0 [id number] Self 0 [place] Other 0 [id number] Self 0 [place] Other 0 [id number] Self 0 [place] Other 0 [id number] Self 0 [place] Other 0 [id number] Self 0 [place] Other 0 [id number] Self 0 [place] Other 0 [id number] Self 0 [place] Other 0 [id number] Self 0 [place] Other 0 [id number] Self 0 [place] Other 0 [id number] Self 0 [place] Other 0 [id number] Self 0 [place] Other 0 [id number] Self 0 NETO MEDICAID [id number] NETO MEDICAID [id number] Samantha [id number] [place] Other 0 [id number] Self 0 NETO [id number] SP [id number] SELF PAY NETO [id number] SP [id number] SELF PAY SELF PAY NETO [id number] SP [id number] NETO [id number] SP [id number] SELF PAY SELF PAY NETO [id number] SP [id number] SELF PAY NETO [id number] SP [id number] 600 NETO [id number] SP [id number] 600 SELF PAY SELF PAY [facility] [id number] SP [id number] [facility] [id number] SP [id number] EMEDNY [id number] SP [id number] MEDICAID PI PI [facility] MED[facility] PI PI NF PENDING UNAVAILABLE SP UNAVAIL ABLE [facility] UNAVAILABLE SP UNAVAILABLE [facility] Health Maintenance Organization (HMO) [id number] Self [id number] [facility] Health Maintenance Organization ([facility]) [id number] Self [id number] [facility] Health Maintenance [facility] ([facility]) [id number] Self [id number] [facility] [id number] SP [id number] [facility] [id number] SP [id number] [facility] [id number] Comme ial Insurance [id number] SELF PAY HEA UNAVAILABLE [id number] S UNAVAIL ABLE Medicaid [facility] Other 0 [id number] Self 0 NETO [id number] SP [id number] SELF PAY UNAVAILABLE SP UNAVAILA BLE [facility] PLAN [id number] 0 [id number] NETO CARE HEA [id number] S [id number] NETO [id number] SP [id number] [facility] [id number] 0 [id number] MEDICAID GME [id number] S [id number] [facility] PLAN [id number] SP [id number] [facility] PLAN UNAVAILABLE SP UNAVAILABLE Problems, Conditions, and Diagnoses Code Display Name Description Problem Type Effective Dates Data Source(s) O09.93 Supervision of high risk , unsp ecified, third trimester Supervision of high risk , unsp Diagnosis 01/10/2021 10:50:06 AM EDT [facility] Z86.19 Personal history of other infectious and parasitic diseases Personal history of other infectious and Diagnosis 01/10/2021 10:50:06 AM EDT [facility] R82.5 Elevated urine levels of drugs, medicame nts and biological substances Elevated urine levels of drugs, medicame Diagnosis 01/10/2021 10:50:06 AM EDT [facility] F11.20 Opioid dependence, uncomplicated Opioid dependen ce, uncomplicated Diagnosis 12/26/2020 08:43:39 AM EDT [facility] O99.320 Drug use complicating , unspeci fied trimester Drug use complicating , unspeci Diagnosis 12/26/2020 08:43:39 AM EDT [facility] Z34.80 Encounter for supervision of other normal , unspecified trimester Encounter for supervision of other arpan Diagnosis 12/26/2020 08:43:39 AM EDT [facility] O09.33 Supervision of wit h insufficient care, third trimester Supervision of with insufficie Diagnosis 12/26/2020 08:43:39 AM EDT [facility] O47.9 False labor, unspecified False labor, unspecified Diag nosis 12/25/2020 12:02:00 AM EDT [facility] Z72.0 Tobacco use Z72.0 - Tobacco use Diagnosis 04/21/2020 01:4 3:00 AM [facility] BAC ON TRAC F43.21 Adjustment disorder with depressed mood F43.21 - Adjustment disorder with depressed mood Diagnosis 04/21/2020 01:43:[facility] Encounter for screening, unspecified Z13 .9 - Encounter for screening, unspecified Diagnosis 04/21/2020 01:43:[facility] Encounter for issue of repeat prescripti on Z76.0 - Encounter for issue of repeat prescription Diagnosis 12/29/2019 08:35:00 PM EDT [facility] O99.320 Suboxone maintenance treatment complicat ing , antepartum Suboxone maintenance treatment complicating , antepartum [id number] 12/26/2020 12:00:00 AM EDT [facility] O09.93 , supervision, high-risk, third trimester , supervision, high-risk, third trimester [id number] 12/26/2020 12:00:00 AM EDT [facility] O47.00 Premature uterine contractions Premature uterine contr actions [id number] 12/25/2020 12:00:00 AM EDT [facility] 070.54 Hepatitis, C Virus - Chronic Hepatitis, C Virus - [employer] mat Problem 08/20/2020 05:06:00 PM EDT [facility] ([facility]) 070.54 Hepatitis, C Virus - Chronic Hepatitis, C Virus - [employer] mat Problem 08/20/2020 05:06:00 PM EDT [facility] ([facility]) 070.54 Hepatitis, C Virus - Chronic Hepatitis, C Virus - [employer] mat Problem 08/20/2020 05:06:00 PM EDT [facility] ([facility]) 070.54 Hepatitis, C Virus - Chronic Hepatitis, C Virus - [employer] mat Problem 08/20/2020 05:06:00 PM EDT [facility] ([facility]) 070.54 Hepatitis, C Virus - Chronic Hepatitis, C Virus - [employer] mat Problem 08/20/2020 05:06:00 PM EDT [facility] ([facility]) 070.54 Hepatitis, C Virus - Chronic Hepatitis, C Virus - [employer] mat Problem 08/20/2020 05:06:00 PM EDT [facility] [...] Finding 02/01/2020 12:00:00 AM ES T [facility] 309.81 Post-traumatic Stress Disorder Post-traumatic Stress D isorder Problem 02/01/2020 12:00:00 AM EST [facility] ([facility]) 314.01 Adult Attention Deficit Hyperactivity Di sorder Adult Attention Deficit Hyperactivity Disorder Problem 02/01/2020 12:00:00 AM EST [facility] ( [facility]) 300.00 Anxiety Disorder Nos Anxiety Disorder Nos Problem 02/01/2020 12:00:00 AM EST [facility] ([facility]) 724.2 Lumbago Lumbago Finding 02/01/2020 12:00:00 AM ES T [facility] ([facility]) 309.81 Post-traumatic Stress Disorder Post-traumatic Stress D [...] PM EDT , supervision, high-risk, third trimester [facility] , supervision, high-risk, third trimester Summary provided [...] Report Only 021 12:00:00 AM EDT [facility] ([facility]) History of surgery (situation) No prior surgery 01/25/2020 12:00:00 AM EDT [facility] ([facility]) History of surgery (situation) No prior surgery 01/25/2020 12:00:00 AM EDT [facility] ([facility]) History of surgery (situation) No prior surgery 01/25/2020 12:00:00 AM EDT [facility] ([facility]) History of surgery (situation) No prior [...] trimester 05/11/2017 AT 12 0/7 WKS GE[facility]ATION. [facility] Patient entered care during 1st trimester 05/11/2017 AT 12 0/[address] [facility] 01/25/2020 12:00:00 AM EDT [facility] ([facility]) Past medical history -Please see Problem List [...] diabetes mellitus 01/25/2020 12:00:00 AM EDT [facility] ([facility]) No history of hyperlipidemia No history of hyperlipidemia 12:00:00 AM EDT [facility] ([facility]) No history of essential hypertension No history of essential hypertension 01/25/2020 12:00:00 AM EDT [facility] No history of coronary artery disease No history of coronary artery disease 01/25/2020 12:00:00 AM EDT [facility] ([facility]) First visit was with another provider [facility] First visit was with another provider [facility] 01/25/2020 12:00:00 AM EDT [facility]) weight: was 3497 g 10/25/[address] [facility] [place] AT 41 F1/7 WKS GESTATION VIA VAGINAL DELIVERY OF FEMALE WEIGHT 7 POUNDS 11 [facility] weight: was 3497 g 10/25/2019 [address] DELIVER[address] [facility] [place] AT 41 F1/7 WKS GESTATION VIA VAGINAL DELIVERY OF FEMALE WEIGHT 7 POUNDS 11 [facility] 01/25/2020 12:00:00 AM EDT [facility]) PSHx: No prior surgery PSHx: No prior surgery 01/25/2020 12:00:00 A M EDT [facility] ([facility]) No prior surgery No prior surgery 01/25/2020 12:00:00 AM EDT [facility] ([facility]) Patient entered care during 2nd trimester 05/28 22 0/7 WKS Patient entered care during 2nd trimester 06/13/2019 22 0/7 WKS 12/10/2019 12:00:00 AM EDT [facility] ([facility]) [facility] visit [facility] with [facility] provider [facility] First visit was with another provider [facility] 12/10/2019 12:00:00 AM EDT [facility] ([facility]) weight: was 3497 g 10/25/2019 [address] DELIVERED AT [facility] [place] AT 41 F1/7 WKS GESTATION VIA VAGINAL DELIVERY OF FEMALE WEIGHT 7 POUNDS 11 [facility] KIM SHERIFF weight: was 3497 g 10/25/2019 [address] DELIVER[address] AT [facility] [place] AT 41 F1/7 WKS GESTATION VIA VAGINAL DELIVERY OF FEMALE WEIGHT 7 POUNDS 11 [facility] NAM[facility] KIM SHERIFF 12/10/2019 12:00:00 AM EDT [facility] ([facility]) Results ID Date Data Source [id number] 01/10/2021 04:03:35 PM EDT [facility] INFORMATIONPatient MRN Name Date of Age Gend*PT [id number] Carlos Aguilar AE 1990 30 years F OPPT Location Admission Date/Time Visit ID Attending Provider --- --- --- Gregg Azar MD([id number]) EPI ID CSN Admitting Provider [id number] ---Carlos presents today for her routine visit [...] therapy and states that she has a [facility] with her family. Lab work, sono [...] manage anxiety. Inquired about DSS case in [place]Son was removed from the home on 01/09/20- [...] of legal/logisticalsituation. She is actively working with [facility] ans the plan is forher son to come home to her and her . Her son is living with her grandparentsand she is able to have visitation SW requesting to see pt today and Carlos is[place]. SW will need see her after and will notify [facility] of thebirth. Pt reports consistent movement. Patient denies bleeding, LOF,cramping, contractions. Covid vaccine #1 today. RTO 1 week SED Name Value Range Interpretation Code Description Data Fadumo rce(s) Supporting Document(s) ID Date Data Source [id number] 01/10/2021 03:17:28 PM EDT [facility] [place] [facility] Name Value Range Interpretation Code Description Data Fadumo rce(s) Supporting Document(s) AMPHETAMINES,URINE (NEG) [facility] BARBITURATES,URINE (NEG) [facility] BENZODIAZEPINE,URINE (NEG) A [facility] SPECIMEN HAS BEEN SENT FOR CONFIRMATION. CANNABINOIDS,URINE (NEG) [facility] COCAINE,URINE (NEG) [facility] [place] [facility] OPIATES,URINE (NEG) [facility] [place] [facility] NOTE: Oxycodone is not sufficientlydetec joel by this screening assay. A moresensitive assay is available upon request. PHENCYCLIDINE,URINE (NEG) [facility] PLEASE NOTE: [facility] [place] [facility] [place] ARE REPORTED POSITIVE WHEN [...] FORMONITORING MEDICATION COMPLIANCE. ID Date Data Source [id number] 01/10/2021 11:13:22 AM EDT [facility] [place] [facility] Name Value Range Interpretation Code Description Data Fadumo rce(s) Supporting Document(s) POC URINE COLOR [facility] [place] [facility] POC URINE APPEARANCE [facility] POC SPEC GRAV URINE 1.010 (1.003-1.030) [facility] POC PH URINE 6.5 (5.0-7.5) [facility] [place] [facility] [place] POC LEUK ESTERASE UR 2+ (NEG) A [facility] POC NITRITE URINE (NEG) [facility] [place] [facility] POC PROTEIN URINE (NEG) [facility] [place] [facility] POC GLUCOSE URINE (NEG) [facility] [place] [facility] POC KETONE URINE (NEG) [facility] [place] [facility] POC UROBILINOGEN UR 0.2 EU/dL (0.2-1.0) [facility] POC BILIRUBIN UR (NEG) [facility] [place] [facility] POC BLOOD HGB URINE (NEG) A [facility] PERFORMED BY [facility] CL[facility]ICAL STAFF ID Date Data Source [id number] 01/07/2021 09:31:13 AM EDT [facility] NT INFORMATIONPatient MRN Name Date of Age Gend*PT [id number] Carlos Aguilar AE 1990 30 years F ---PT Location Admission Date/Time Visit ID Attending Provider --- --- --- --- EPI ID CSN Admitting Provider [id number] ---Addended by: KERA BACON on: 01/07/2021 09:31 AM Modules accepted: Orders Name Value Range Interpretation Code Description Data Fadumo rce(s) Supporting Document(s) ID Date Data Source [id number] 01/04/2021 05:12:11 PM EDT [facility] NT INFORMATIONPatient MRN Name Date of Age Gend*PT [id number] Carlos Aguilar AE 1990 30 years F ---PT Location Admission Date/Time Visit ID Attending Provider --- --- --- --- EPI ID CSN Admitting Provider [id number] ---Addended by: EVIE MOLINA on: 01/04/2021 05:12 PM Modules accepted: Orders Name Value Range Interpretation Code Description Data Fadumo rce(s) Supporting Document(s) ID Date Data Source [id number] 01/04/2021 12:18:00 PM EDT [facility] NT INFORMATIONPatient MRN Name Date of Age Gend*PT [id number] Carlos Aguilar AE 1990 30 years F ---PT Location Admission Date/Time Visit ID Attending Provider --- --- --- --- EPI ID CSN Admitting Provider [id number] ---Addended by: KERA BACON on: 01/04/2021 12:17 PM Modules accepted: Orders Name Value Range Interpretation Code Description Data Fadumo rce(s) Supporting Document(s) ID Date Data Source [id number] 01/02/2021 05:27:28 PM EDT [facility] NT INFORMATIONPatient MRN Name Date of Age Gend*PT [id number] Carlos Aguilar AE 1990 30 years F OPPT Location Admission Date/Time Visit ID Attending Provider --- --- --- Gregg Azar MD([id number]) EPI ID CSN Admitting Provider [id number] ---Subjective: Carlos Aguilar is a 30 years female being seen today for her obstetricalvisit. She is at 37w3d gestation. Patient reports good movement. Deniesvaginal bleeding or loss of fluidDenies headaches or blurry visionOB History Gravida3 Para2 Term2 AB Living1 SAB TAB Ectopic Multiple Live Agwyip6Gdjeqetof: BP 116/79 | Ht 1.626 m (5' 4.02") | Wt 76.8 kg (169 lb 6.4 oz) | LMP/ | BMI 29.06 kg/m FHT 150FH 37Ext mild edema no calf tendernessUA 1+ proteinAssessment:IUP @ 37 weeks 3 daysCovid precautions, discussed vaccine, would like to scheduleF/u 1 weekPEC labs todayUrine cultureUrine protein/creatinine ratioJodi Seminole DO Name Value Range Interpretation Code Description Data Fadumo rce(s) Supporting Document(s) ID Date Data Source [id number] 01/05/2021 11:23:09 AM EDT [facility] [place] [facility] SPECIMEN DESCRIPTION MIDSTREAM UR INE,CLEAN [...] rce(s) Supporting Document(s) ID Date Data Source [id number] 01/02/2021 10:59:31 PM EDT [facility] [place] [facility] Name Value Range Interpretation Code Description Data Fadumo rce(s) Supporting Document(s) SODIUM 139 mmol/L (136-145) [facility] [place] [facility] POTASSIUM 3.8 mmol/L (3.6-5.2) Lab [facility] CHLORIDE 109 mmol/L (100-108) H [facility] CO2 21 mmol/L (22-31) L [facility] ANION GAP 9 mmol/L (7-16) [facility] UREA NITROGEN 9 mg/dL (7-24) [facility] CREATININE 0.63 mg/dL (0.60-1.00) [facility] BUN/CREAT RATIO 14.3 RATIO (10.0-20.0) [facility] GLUCOSE 39 mg/dL (70-99) L [facility] UNSPUNRESULT(S) CALLED TO AND READ BACK BYDR MONROE AT [id number] ON [id number] AT 2250 BY 61774. CALCIUM 7.6 mg/dL (8.4-10.2) L [facility] TOTAL PROTEIN 5.9 g/dL (6.4-8.2) L [facility] ALBUMIN 2.0 g/dL (3.5-4.6) L [facility] GLOBULIN 3.9 g/dL (2.7-4.3) [facility] ALB/GLOB RATIO 0.5 RATIO [facility] ALKALINE PHOSPHATASE 121 U/L (45-117) H [facility] BILIRUBIN,TOTAL 0.2 mg/dL (0.0-1.0) [facility] PLEASE NOTE:Total bilirubin results may be falselyelevated in patients taking Eltrombopag. AST (SGOT) 20 U/L (11-39) [facility] ALT (SGPT) 17 U/L (12-78) [facility] GFR >60 ml/min/1.73m2 (>59) [facility] GFR ( AMER) >60 ml/min/1.73m2 (>59) [facility] GFR INTERPRETATION [facility] --NORMAL KIDNEY FUNCTION OR MILD DISEASE - GFR >OR= 60CHRONIC KIDNEY DISEASE - GFR 15 - 59RENAL FAILURE - GFR <15 Est. GFR calculation based on the MDRDstudy equation, which assumes a steadystate for creatinine. Est. GFR should notbe used for medication dosing. ID Date Data Source [id number] 01/02/2021 10:39:01 PM EDT [facility] Name Value Range Interpretation Code Description Data Fadumo rce(s) Supporting Document(s) URIC ACID 4.6 mg/dL (2.6-6.0) [facility] ID Date Data Source [id number] 01/02/2021 10:39:01 PM EDT [facility] Name Value Range Interpretation Code Description Data Fadumo rce(s) Supporting Document(s) LDH 190 U/L (84-246) [facility] ID Date Data Source [id number] 01/02/2021 08:59:21 PM EDT [facility] Name Value Range Interpretation Code Description Data Fadumo rce(s) Supporting Document(s) WBC 9.2 10*3/uL (4.1-11.0) [facility] [place] RBC 3.16 10*6/uL (4.00-5.40) L [facility] HGB 8.6 g/dL (12.0-16.0) L [facility] HCT 25.5 % (36.0-47.0) L [facility] MCV 80.7 fL (80.0-95.0) [facility] MCH 27.3 pg (27.0-32.0) [facility] MCHC 33.8 g/dL (32.0-36.0) [facility] RDW 14.9 % (10.5-14.5) H [facility] PLT 166 10*3/uL (150-450) [facility] MPV 10.0 fL (7.1-10.7) [facility] ID Data Source [id number] 01/02/2021 09:27:43 PM EDT [facility] Name Value Range Interpretation Code Description Data Fadumo rce(s) Supporting Document(s) PROTEIN,URINE 46 mg/dL [facility] URINE PROTEIN MAY BE FALSELY ELEVATEDDUR ING TREATMENT WITH AMINOGLYCOSIDESDUE TO METHOD INTERFERENCE. CREATININE,URINE 257.00 mg/dL [facility] URINE TP/CR RATIO 0.18 RATIO (0.00-0.20) [facility] ID Date Data Source [id number] 01/02/2021 04:00:42 PM EDT [facility] Name Value Range Interpretation Code Description Data Fadumo rce(s) Supporting Document(s) POC URINE COLOR [facility] POC URINE APPEARANCE [facility] POC SPEC GRAV URINE 1.025 (1.003-1.030) [facility] P[facility] PH URINE 6.5 (5.0-7.5) [facility] [place] POC LEUK ESTERASE UR 1+ (NEG) A [facility] POC NITRITE URINE (NEG) A [facility] POC PROTEIN URINE 1+ mg/dL (NEG) A [facility] POC GLUCOSE URINE (NEG) [facility] POC KETONE URINE (NEG) A [facility] POC UROBILINOGEN UR 1.0 EU/dL (0.2-1.0) [facility] POC BILIRUBIN UR 1+ (NEG) A [facility] POC BLOOD HGB URINE (NEG) [facility] PERFORMED BY [facility] CLINICAL STAFF ID Date Data Source [id number] 12/26/2020 05:24:09 PM EDT [address] [address]Oed[place]mi Name: CARLOS EDUARD AGUILARDOB: 1990Sex: FOrdering Provider: HARDIK Velásquez Prov: HARDIK WILHELMeferrzaria Provider: HARDIK Melendez Performed: / US OB 14 + WEEKS SINGLE OR FIRST GESTATIONExam Date: 12/26/2020 16:02MRN: [id number] Number: [id number] Class: OutpatientAccount #: [id number] for Exam: anatomicTechnique: Real time sonographic images were obtained.Comparison: NoneFindings:GESTATION: SinglePRESENTATION: CephalicHEART RATE: 130 BPMAMNIOTIC FLUID INDEX (6-25 varies by GA): 16 cm NormalPLACENTA: Anterior WallAVERAGE ULTRASOUND AGE: 35 wks 5 dESTIMATED WEIGHT: 2784 grams Percentile: 37MATERNAL CERVIX: 3.3 cmFetal measurements are as follows:Biparietal diameter: 8.59 cm 34 wks weeks 5 [id number] circumference: 31.92 cm 36 weeks 0 [id number] circumference: 32.40 cm 36 weeks 3 [id number] length : 6.89 cm 35 weeks 3 wbik78FZ/AC: .99FL/BPD: 80 %FL/AC: 21 %MANISHA (AUA): 01/25/21NEURAL [...] DENIS BARRIENTOS On 12/26/2020 5:24 PMWorkstation ID: [id number] Name Value Range Interpretation Code Description Data Fadumo rce(s) Supporting Document(s) ID Date Data Source [id number] 12/26/2020 10:55:55 AM EDT [facility] INFORMATIONPatient MRN Name Date of Age Gend*PT [id number] Carlos Aguilar AE 1990 30 years F OPPT Location Admission Date/Time Visit ID Attending Provider --- --- --- Gregg Azar MD([id number]) EPI ID [facility] Admitting Provider [phone] ---Assessment/Plan:Diagnoses and all orders for this visit:History [...] [facility] for what Carlos reports missing appointments.LMP [...] months. Thisis prescribed by Dr Elliott [facility] [place] PR[place] dailyMethylphenidate 40mg BIDSertraline 200mg [...] nursing note reviewed. Exam conducted with a reeling operator present.Constitutional: Appearance: Normal appearance. She is normal [...] rce(s) Supporting Document(s) ID Date Data Source [id number] 12/28/2020 02:23:54 PM EDT [facility] SPECIMEN DESCRIPTION VAGINAL/RECT ALCULTURE RESULTS NEGATIVE: BETA HEMOLYTIC STREPTOCOCCI GROUP B B Y PCRREPORT STATUS FINAL 12/28/2020 Name Value Range Interpretation Code Description Data Fadumo rce(s) Supporting Document(s) ID Date Data Source [id number] 12/27/2020 03:08:16 PM EDT [facility] Name Value Range Interpretation Code Description Data Fadumo rce(s) Supporting Document(s) SPECIMEN DESCRIPTION [facility] Corrected on 12/26 AT 1616: Previously r eported as CERVICAL C. TRACHOMATIS (NEG) [facility] THIS ASSAY AMPLIFIES AND DETECTS TARGETD NA USING SENIOR AUDIT MANAGER-MEDIATEDAMPLIFICATION N. GONORRHOEAE (NEG) [facility] THIS ASSAY AMPLIFIES AND DETECTS TARGETD NA USING SENIOR AUDIT MANAGER-MEDIATEDAMPLIFICATION COMMENT Lab [facility] [place] KIT IS ONLY APPROVED FOR VAGINAL, THROAT ,AND RECTAL SOURCES. ID Date Data Source [id number] 12/27/2020 01:04:13 PM EDT Lab [facility] [place] SPECIMEN DESCRIPTION MIDSTREAM UR INE,CLEAN CATCHCULTURE RESULTS NO GROWTHREPORT STATUS FINAL 12/27/2020 Name Value Range Interpretation Code Description Data Fadumo rce(s) Supporting Document(s) ID Date Data Source [id number] 12/30/2020 08:03:19 PM EDT [facility] Name Value Range Interpretation Code Description Data Fadumo rce(s) Supporting Document(s) DIAZEPAM,URINE <20 [facility] Unit: ng/mL Cutoff: 20 ng/mL NORDIAZEPAM,URINE <20 [facility] Unit: ng/mL Cutoff: 20 ng/mL OXAZEPAM,URINE <20 [facility] Unit: ng/mL Cutoff: 20 ng/mL TEMAZEPAM,URINE <20 [facility] Unit: ng/mL Cutoff: 20 ng/mL LORAZEPAM,URINE <20 [facility] Unit: ng/mL Cutoff: 20 ng/mL ALPRAZOLAM,URINE 146 Lab [place] Unit: ng/mL Consistent with use of a lópez g containing alprazolam, such as Xanax. Cutoff: 5 ng/mL ALPHA OH ALPRAZOLAM 312 [facility] Unit: ng/mL Alprazolam metabolite; consi stent with use of a drug containing alprazolam, such as Xanax. Cutoff: 5 ng/mL CLONAZEPAM,URINE <5 Lab [place] [facility] Unit: ng/mL Cutoff: 5 ng/mL 7 AMINOCLONAZEPAM U 8 Lab [facility] Unit: ng/mL Clonazepam metabolite; consi stent with use of a drug containing clonazepam, such as Klonopin. Cutoff: 5 ng/mL MIDAZOLAM,URINE <20 [facility] Unit: ng/mL Cutoff: 20 ng/mL CHLORDIAZEPOXIDE <20 Lab [facility] Unit: ng/mL Cutoff: 20 ng/mL ALPHA OH [...] developed and its performance characteristics determined by [facility]. It has not been cleared or approved by the US Food and Drug Administration. This test was performed in a CLIA certified laboratory and is intended for clinical purposes. Performed By: [facility] [address] [place] [id number] Utility Locator: Sunita Vaca MD ID Date Data Source [id number] 12/26/2020 07:53:51 PM EDT Lab [facility] SPECIMEN DESCRIPTION VAGINAL SPEC IMENRESULT NEGATIVE FOR TRICHOMONAS VAGINALIS BY DNA PROBE POSITIVE FOR GARDNERELLA VAGINALIS BY DNA PROBE NEGATIVE FOR KWASI SPECIES BY DNA PROBEREPORT STATUS FINAL 12/26/2020 Name Value Range Interpretation Code Description Data Fadumo rce(s) Supporting Document(s) ID Date Data Source [id number] 12/26/2020 06:08:05 PM EDT Lab [facility] Name Value Range Interpretation Code Description Data Fadumo rce(s) Supporting Document(s) AMPHETAMINES,URINE (NEG) [facility] BARBITURATES,URINE (NEG) [facility] BENZODIAZEPINE,URINE (NEG) A [facility] SPECIMEN HAS BEEN SENT FOR CONFIRMATION. CANNABINOIDS,URINE (NEG) [facility] COCAINE,URINE (NEG) Lab [facility] OPIATES,URINE (NEG) [facility] NOTE: Oxycodone is not sufficientlydetec joel by this screening assay. A moresensitive assay is available upon request. PHENCYCLIDINE,URINE (NEG) [facility] PLEASE NOTE: Lab [facility] [place] ARE REPORTED POSITIVE WHEN THE RESULT SEXCEED THE THRESHOLD (CUTOFF) INDICATED. ALIST OF POTENTIAL INTERFERENCES FOR EACHMETHOD CAN BE MADE AVAILABLE UPON REQUEST.A CONFIRMATORY ANALYSIS IS ORDERED ONALL DRUG CLASSES SCREENING POSITIVE BYTHIS METHOD.* * * * * * * * * * * * * * *THIS ASSAY IS NOT INTENDED TO BE USED FORMONITORING MEDICATION COMPLIANCE. ID Date Data Source [id number] 12/31/2020 11:33:38 AM EDT [facility] Name Value Range Interpretation Code Description [facility] Supporting Document(s) HCV QUANT BY NAAT [facility] 1,312,601 HCV QUANT BY NAAT 6.12 [facility] Unit: log IU/mL HCV QNT NAAT INTERP A Lab [facility] Reference range: Not Detected INTERPRETI VE INFORMATION: [...] and Cellular Tissue-Based Products (HCT/P). Performed by [facility], [address] [place] [id number] [email or web address], Sunita Vaca MD, Lab. Director ID Date Data Source [id number] 12/27/2020 01:51:24 PM EDT Lab [facility] Name Value Range Interpretation Code Description Data Fadumo rce(s) Supporting Document(s) TREPONEMA IGG/IGM @ (NEG) Lab [facility] ID Date Data Source [id number] 12/27/2020 12:31:12 PM EDT Lab [facility] Name Value Range Interpretation Code Description Data Fadumo rce(s) Supporting Document(s) HEPATITIS C AB @ (NEG) A Lab [facility] PROBABLY IND ICATES PAST OR PRESENTHCV INFECTION. IF INDICATED, HCV QUANTITATIVERNA SHOULD BE REQUESTED.CALLED RESULTS TO [facility] AT [phone] ON 12/27/2020 AT 1214 BY [id number] RESULTS TO [facility] ON 12/27/2020 AT 1228 [place] [id number] ID Date Data Source [id number] 12/26/2020 10:39:28 PM EDT Lab [facility] SPEC EXP DATE 12/29/2020ATI ENT ABO/Rh O POSITIVEANTIBODY SCREEN NEGATIVETESTING SITE PERFORMED AT [address] [place] [address] BANK COMMENT BLOOD TYPE CONFIRMED. Name Value Range Interpretation Code Description Data Fadumo rce(s) Supporting Document(s) TYPE AND SCREEN [facility] [place] ID Date Data Source [id number] 12/26/2020 06:42:58 PM EDT [facility] Name Value Range Interpretation Code Description Data Fadumo rce(s) Supporting Document(s) HIV 1/2 SCREEN @ (NEG) [facility] Testing performed using Siemens ADVIACen taur 4th gen CHIV combo assay.This assay detects the HIV1 p24 antigenin addition to antibodies to HIV1 and HIV2. ID Date Data Source [id number] 12/26/2020 06:00:43 PM EDT [facility] Name Value Range Interpretation Code Description Data Fadumo rce(s) Supporting Document(s) GLU CHALLENGE TEST @ 96 mg/dL (<140) [facility] [place] LITERATURE SUGGESTS RESULTS <140 MG/DL I N A FEMALE RULE OUT GESTATIONAL DIABETES.PATIENTS WITH RESULTS > OR = 140 MAY NEED AGLUCOSE TOLERANCE TEST FOLLOW UP. NOREFERENCE RANGE FOR NON- PATIENTS. ID Date Data Source [id number] 12/26/2020 05:20:23 PM EDT [facility] Name Value Range Interpretation Code Description Data Fadumo rce(s) Supporting Document(s) WBC 9.9 10*3/uL (4.1-11.0) [facility] [place] [facility] [place] RBC 3.60 10*6/uL (4.00-5.40) L [facility] HGB 9.9 g/dL (12.0-16.0) L [facility] HCT 29.6 % (36.0-47.0) L [facility] MCV 82.3 fL (80.0-95.0) [facility] MCH 27.6 pg (27.0-32.0) [facility] MCHC 33.6 g/dL (32.0-36.0) [facility] RDW 14.7 % (10.5-14.5) H [facility] PLT 186 10*3/uL (150-450) [facility] MPV 9.2 fL (7.1-10.7) [facility] [place] ID Date Data Source [id number] 12/30/2020 06:46:24 AM EDT [facility] Name Value Range Interpretation Code Description Data Fadumo rce(s) Supporting Document(s) BUPRENORPHINE UR 3 ng/mL [facility] [place] INTERPRETIVE INFORMATION: Buprenorphine and Metabolites, [...] developed and its performance characteristics determined by [facility]. It has not been cleared or approved [...] [place] Unit: ng/mL NALOXONE,URINE <100 ng/mL [facility] [place] [facility] Performed By: [facility] [address] [place] [address] Utility Locator: Sunita Vaca MD ID Date Data Source [id number] 12/26/2020 10:06:52 PM EDT [facility] [place] Name Value Range Interpretation Code Description Data Fadumo rce(s) Supporting Document(s) BUPRENORPH SCREEN UR (NEG) A [facility] THIS IS A SCREENING IMMUNOASSAYTEST THAT IS REPORTED POSITIVEWHEN THE RESULT EXCEEDS THETHRESHOLD (CUTOFF) INDICATED. ACONFIRMATORY ANALYSIS ISREFLEXIVELY ORDERED ON SPECIMENSSCREENING POSITIVE AND MAYBE ADDED FOR UNEXPECTED NEGATIVERESULTS IF REQUESTED WITHIN 72 HRS.A LIST OF POTENTIAL INTERFERENCESIS AVAILABLE UPON REQUEST. ID Date Data Source [id number] 12/26/2020 09:29:44 AM EDT [facility] [place] Name Value Range Interpretation Code Description Data Fadumo rce(s) Supporting Document(s) POC URINE COLOR [facility] [place] [facility] POC URINE APPEARANCE [facility] POC SPEC GRAV URINE 1.015 (1.003-1.030) [facility] POC PH URINE 7.0 (5.0-7.5) [facility] [place] [facility] [place] POC LEUK ESTERASE UR 3+ (NEG) A [facility] POC NITRITE URINE (NEG) [facility] POC PROTEIN URINE (NEG) [facility] POC GLUCOSE URINE (NEG) [facility] POC KETONE URINE (NEG) [facility] POC UROBILINOGEN UR 0.2 EU/dL (0.2-1.0) [facility] POC BILIRUBIN UR (NEG) [facility] POC BLOOD HGB URINE (NEG) A [facility] PERFORMED BY [facility] CLINICAL STAFF ID Date Data Source [id number] 12/25/2020 03:31:35 AM EDT [address] [address]Gdnqpzo Name: Carlos AguilarDOB: 1990Sex: FOrdering Provider: HAILEY GROETZAuthorizing Prov: HAILEY GROETZReferring Provider: Procedure Performed: US BIOPHYSICAL PROFILE WO NON STRESS TESTINGExam Date: 12/25/2020 01:35MRN: [id number] Number: [id number] Class: INFORMATION: Exam: US Biophysical Profile Without [...] rce(s) Supporting Document(s) ID Date Data Source [id number] 12/25/2020 03:31:11 AM EDT [address] [address]Sobctut Name: Carlos AguilarDOB: 1990Sex: FOrdering Provider: HAILEY GARCIAAutrebeca Prov: HAILEY GARCIARefsiri Provider: Procedure Performed: US OB FOLLOW UP TRANSABDOMINAL APPROACHExam Date: 12/25/2020 01:35MRN: [id number] Number: [id number] Class: INFORMATION: Exam: US , Limited Exam [...] rce(s) Supporting Document(s) ID Date Data Source [id number] 08/18/2020 08:24:08 PM EDT [facility] Name Value Range Interpretation Code Description Data Fadumo rce(s) Supporting Document(s) HCV QUANT BY NAAT [facility] 2,977,621 HCV QUANT BY NAAT 6.47 [facility] Unit: log IU/mL HCV QNT NAAT INTERP A [facility] Reference range: Not [...] and Cellular Tissue-Based Products (HCT/P). Performed by [facility], [address] [place] [id number] [email or web address], Sunita Vaca MD, Lab. Director ID Date Data Source [id number] 2020 10:06:01 PM EDT [facility] Ofelia Feliz [facility] Name Value Range Interpretation Code Description Data Fadumo rce(s) Supporting Document(s) AMPHETAMINES,URINE (NEG) [facility] BARBITURATES,URINE (NEG) Laboratory [facility] BENZODIAZEPINE,URINE (NEG) A Laborator y [facility] SPECIMEN HAS BEEN SENT FOR CONFIRMATION. CANNABINOIDS,URINE (NEG) [facility] [place] [facility] COCAINE,URINE (NEG) [facility] OPIATES,URINE (NEG) [facility] NOTE: Oxycodone is not sufficientlydetec joel by this screening assay. A moresensitive assay is available upon request. PHENCYCLIDINE,URINE (NEG) Laboratory [facility] PLEASE NOTE: Laboratory [facility] ARE REPORTED POSITIVE WHEN THE RESULT SEXCEED THE THRESHOLD (CUTOFF) INDICATED. ALIST OF POTENTIAL INTERFERENCES FOR EACHMETHOD CAN BE MADE AVAILABLE UPON REQUEST.A CONFIRMATORY ANALYSIS IS ORDERED ONALL DRUG CLASSES SCREENING POSITIVE BYTHIS METHOD.* * * * * * * * * * * * * * *THIS ASSAY IS NOT INTENDED TO BE USED FORMONITORING MEDICATION COMPLIANCE. ID Date Data Source [id number] 08/16/2020 12:19:26 AM EDT [facility] Back& Name Value Range Interpretation Code Description Data Fadumo rce(s) Supporting Document(s) BUPRENORPH SCREEN UR (NEG) A Laborator [facility] [place] [facility] THIS IS A SCREENING IMMUNOASSAYTEST THAT IS REPORTED POSITIVEWHEN THE RESULT EXCEEDS THETHRESHOLD (CUTOFF) INDICATED. ACONFIRMATORY ANALYSIS ISREFLEXIVELY ORDERED ON SPECIMENSSCREENING POSITIVE AND MAYBE ADDED FOR UNEXPECTED NEGATIVERESULTS IF REQUESTED WITHIN 72 HRS.A LIST OF POTENTIAL INTERFERENCESIS AVAILABLE UPON REQUEST. ID Date Data Source [id number] 08/19/2020 09:37:52 AM EDT Laboratory [facility] Name Value Range Interpretation Code Description Data Fadumo rce(s) Supporting Document(s) DIAZEPAM,URINE <20 Laboratory Ángel ance of [facility] Unit: ng/mL Cutoff: 20 ng/mL NORDIAZEPAM,URINE <20 Laboratory [facility] Unit: ng/mL Cutoff: 20 ng/mL OXAZEPAM,URINE <20 Laboratory Á[facility] an[facility] of [facility] Unit: ng/mL Cutoff: 20 ng/mL TEMAZEPAM,URINE <20 Laboratory [facility] Unit: ng/mL Cutoff: 20 ng/mL LORAZEPAM,URINE <20 [facility] Unit: ng/mL Cutoff: 20 ng/mL ALPRAZOLAM,URINE 734 [facility] Unit: ng/mL Consistent with use of a lópez g containing alprazolam, such as Xanax. Cutoff: 5 ng/mL ALPHA OH ALPRAZOLAM >1000 Laboratory [place] [facility] Unit: ng/mL Alprazolam metabolite; consi stent with use of a drug containing alprazolam, such as Xanax. Cutoff: 5 ng/mL CLONAZEPAM,URINE <5 [facility] Unit: ng/mL Cutoff: 5 ng/mL 7 AMINOCLONAZEPAM U 25 Laboratory [place] [facility] Unit: ng/mL Clonazepam metabolite; consi stent with use of a drug containing clonazepam, such as Klonopin. Cutoff: 5 ng/mL MIDAZOLAM,URINE <20 Laboratory [facility] Unit: ng/mL Cutoff: 20 ng/mL CHLORDIAZEPOXIDE <20 Laboratory [facility] Unit: ng/mL Cutoff: 20 ng/mL ALPHA OH MIDAZOLAM <20 Laboratory [place] [facility] Unit: ng/mL Cutoff: 20 ng/mL INTERPRETIV E [...] developed and its performance characteristics determined by [facility]. It has not been cleared or approved by the US Food and Drug Administration. This test was performed in a CLIA certified laboratory and is intended for clinical purposes. Performed By: [facility] [address] [place] [id number] Utility Locator: Sunita Vaca MD ID Date Data Source [id number] 08/19/2020 02:39:08 PM EDT [facility] Name Value Range Interpretation Code Description Data Fadumo rce(s) Supporting Document(s) BUPRENORPHINE UR 53 ng/mL [facility] INTERPRETIVE INFORMATION: Buprenorphine and Metabolites, Urine, Quantitative [...] developed and its performance characteristics determined by [facility]. It has not been cleared or approved by the US Food and Drug Administration. This test was performed in a CLIA certified laboratory and is intended for clinical purposes. NORBUPRENORPHINE UR 539 ng/mL Laboratory [place] [facility] BUPRENORPHINE GLUCU >1000 Laboratory [facility] Unit: ng/mL Consistent with use of a bup renorphine-containing drug. Glucuronide concentrations are semi-quantitative. NORBUPR GLUCURONIDE >1000 Laboratory [facility] Unit: ng/mL NALOXONE,URINE <100 ng/mL Laboratory [facility] Performed By: [facility] [address] [place] [address] Utility Locator: Sunita Vaca MD ID Date Data Source [id number] 07/24/2020 08:26:12 AM EDT Lab [facility] SPECIMEN DESCRIPTION URINE, COLLE CTION METHOD NOT SPECIFIEDCULTURE RESULTS NO GROWTHREPORT STATUS FINAL 07/24/2020 Name Value Range Interpretation Code Description Data Fadumo rce(s) Supporting Document(s) ID Date Data Source [id number] 07/22/2020 11:09:50 PM EDT Lab [facility] Name Value Range Interpretation Code Description Data Fadumo rce(s) Supporting Document(s) AMPHETAMINES,URINE (NEG) [facility] BARBITURATES,URINE (NEG) [facility] BENZODIAZEPINE,URINE (NEG) A [facility] CANNABINOIDS,URINE (NEG) [facility] COCAINE,URINE (NEG) A [facility] [place] [facility] OPIATES,URINE (NEG) [facility] [place] [facility] NOTE: Oxycodone is not sufficientlydetec joel by this screening assay. A moresensitive assay is available upon request. PHENCYCLIDINE,URINE (NEG) [facility] PLEASE NOTE: [facility] [place] [facility] [place] ARE REPORTED POSITIVE WHEN THE [...] FORMONITORING MEDICATION COMPLIANCE. ID Date Data Source [id number] 07/22/2020 10:59:08 PM EDT Lab [facility] Name Value Range Interpretation Code Description Data Fadumo rce(s) Supporting Document(s) URINE WBC (0-5) [facility] [place] [facility] URINE RBC (0-2) [facility] [place] [facility] EPITHELIAL CELLS 2+ [HPF] [facility] [place] [facility] BACTERIA 1+ [HPF] [facility] [place] [facility] MUCUS 1+ [HPF] [facility] [place] [facility] ID Date Data Source [id number] 07/22/2020 10:42:22 PM EDT Lab [facility] Name Value Range Interpretation Code Description Data Fadumo rce(s) Supporting Document(s) COLOR [facility] APPEARANCE [facility] SPEC GRAV URINE 1.028 (1.003-1.030) [facility] PH URINE 6.0 (5.0-7.5) [facility] LEUK ESTERASE 1+ (NEG) A [facility] NITRITE URINE (NEG) [facility] PROTEIN URINE (NEG) [facility] GLUCOSE URINE (NEG) [facility] KETONE URINE (NEG) [facility] UROBILINOGEN 1.0 mg/dL (0-1.0) [facility] BILIRUBIN URINE 1+ (NEG) A [facility] INTERFERING SUBSTANCES MAY CAUSE FALSEPO SITIVE BILIRUBIN, WHICH HAS BEENSHOWN TO BE CLINICALLY INSIGNIFICANT.CORRELATE WITH OTHER TESTING. BLOOD/HGB URINE (NEG) [facility] ID Date Data Source [id number] 07/22/2020 11:13:55 PM EDT [facility] Name Value Range Interpretation Code Description Data Fadumo rce(s) Supporting Document(s) SODIUM 139 mmol/L (136-145) [facility] POTASSIUM 3.8 mmol/L (3.6-5.2) [facility] CHLORIDE 108 mmol/L (100-108) [facility] CO2 25 mmol/L (22-31) [facility] ANION GAP 6 mmol/L (7-16) L [facility] UREA NITROGEN 6 mg/dL (7-24) L [facility] CREATININE 0.55 mg/dL (0.60-1.00) L [facility] BUN/CREAT RATIO 10.9 RATIO (10.0-20.0) [facility] GLUCOSE 79 mg/dL (70-99) [facility] CALCIUM 8.2 mg/dL (8.4-10.2) L [facility] GFR >60 ml/min/1.73m2 (>59) [facility] GFR ( AMER) >60 ml/min/1.73m2 (>59) [facility] GFR INTERPRETATION [facility] --NORMAL KIDNEY FUNCTION OR MILD DISEASE - GFR >OR= 60CHRONIC KIDNEY DISEASE - GFR 15 - 59RENAL FAILURE - GFR <15 Est. GFR calculation based on the MDRDstudy equation, which assumes a steadystate for creatinine. Est. GFR should notbe used for medication dosing. ID Date Data Source [id number] 07/22/2020 11:13:55 PM EDT [facility] Name Value Range Interpretation Code Description Data Fadumo rce(s) Supporting Document(s) TROPONIN I <0.05 ng/mL (<0.05) [facility] [place] Less than 0.05: Myocardial injury unlike lyGreater than or equal to 0.05: Highly suggestive of myocardial injuryCorrelation with rise and/or fall ofserial troponins, clinical symptomsand ECG changes is necessary. ID Date Data Source [id number] 07/22/2020 10:41:02 PM EDT [facility] Name Value Range Interpretation Code Description Data Fadumo rce(s) Supporting Document(s) WBC 6.4 10*3/uL (4.1-11.0) [facility] RBC 3.65 10*6/uL (4.00-5.40) L [facility] HGB 10.9 g/dL (12.0-16.0) L [facility] HCT 31.9 % (36.0-47.0) L [facility] MCV 87.5 fL (80.0-95.0) [facility] MCH 30.0 pg (27.0-32.0) [facility] MCHC 34.2 g/dL (32.0-36.0) [facility] RDW 14.3 % (10.5-14.5) [facility] PLT 156 10*3/uL (150-450) [facility] MPV 8.5 fL (7.1-10.7) [facility] NEUT % 56.4 % (35.0-75.0) [facility] LYMPH % 31.7 % (16.0-52.0) [facility] MONO % 7.0 % (0.0-8.0) [facility] EOS % 4.6 % (0.0-5.0) [facility] BASO % 0.3 % (0.0-4.0) [facility] NEUT # 3.6 10*3/uL (1.8-7.7) [facility] LYMPH # 2.0 10*3/uL (1.2-4.8) [facility] MONO # 0.4 10*3/uL (0.0-0.8) [facility] Eosinophils [#/volume] in Blood by Automated count 0.3 10*3/uL (0.0-0 .5) [facility] BASO # 0.0 10*3/uL (0.0-0.2) [facility] ID Date Data Source [id number] 07/18/2020 11:36:36 PM EDT [facility] Name Value Range Interpretation Code Description Data Fadumo rce(s) Supporting Document(s) BUPRENORPH SCREEN UR (NEG) A [facility]ator y [facility] THIS IS A SCREENING IMMUNOASSAYTEST THAT IS REPORTED POSITIVEWHEN THE RESULT EXCEEDS THETHRESHOLD (CUTOFF) INDICATED. ACONFIRMATORY ANALYSIS ISREFLEXIVELY ORDERED ON SPECIMENSSCREENING POSITIVE AND MAYBE ADDED FOR UNEXPECTED NEGATIVERESULTS IF REQUESTED WITHIN 72 HRS.A LIST OF POTENTIAL INTERFERENCESIS AVAILABLE UPON REQUEST. ID Date Data Source [id number] 07/22/2020 03:52:18 PM EDT [facility] Name Value Range Interpretation Code Description Data Fadumo rce(s) Supporting Document(s) BUPRENORPHINE UR 23 ng/mL [facility] INTERPRETIVE INFORMATION: Buprenorphine and Metabolites, Urine, Quantitative [...] developed and its performance characteristics determined by [facility]. It has not been cleared or approved by the US Food and Drug Administration. This test was performed in a CLIA certified laboratory and is intended for clinical purposes. NORBUPRENORPHINE UR 667 ng/mL Laboratory [facility] BUPRENORPHINE GLUCU >1000 Laboratory [facility] Unit: ng/mL Consistent with use of a bup renorphine-containing drug. Glucuronide concentrations are semi-quantitative. NORBUPR GLUCURONIDE >1000 Laboratory [facility] Unit: ng/mL NALOXONE,URINE <100 ng/mL Laboratory [facility] Performed By: [facility] [address] [place] [id number] Utility Locator: Sunita Vaca MD ID Date Data Source [id number] 07/18/2020 10:42:03 PM EDT [facility] SPECIMEN DESCRIPTION MIDSTREAM UR INE,CLEAN CATCHCULTURE RESULTS <10,000 CFU/ML REPRESENTING URETHRAL [place] STATUS FINAL 07/20/2020 Name Value Range Interpretation Code Description Data Fadumo rce(s) Supporting Document(s) COLOR [facility] APPEARANCE [facility] SPEC GRAV URINE 1.030 (1.003-1.030) [facility] PH URINE 5.5 (5.0-7.5) [facility] LEUK ESTERASE (NEG) A Laboratory [facility] [...] [facility] - CORE URINE WBC (0-5) [facility] - CORE URINE RBC (0-2) [facility] - CORE EPITHELIAL CELLS 4+ [HPF] [facility] - CORE BACTERIA 1+ [HPF] [facility] - CORE MUCUS 2+ [HPF] [facility] - CORE ID Date Data Source [id number] 07/20/2020 07:56:28 AM EDT [facility] - CORE SPECIMEN DESCRIPTION MIDSTREAM UR INE,CLEAN CATCHCULTURE RESULTS <10,000 CFU/ML REPRESENTING URETHRAL [place] STATUS FINAL 07/20/2020 Name Value Range Interpretation Code Description Data Fadumo rce(s) Supporting Document(s) ID Date Data Source [id number] 07/13/2020 12:00:00 AM EDT [facility] Name Value Range Interpretation Code Description Data Fadumo rce(s) Supporting Document(s) 2019 Novel Coronavirus RNA Negative [facility] This lab was ordered by [facility] are and reported by [facility]. ID Date Data Source [id number] 07/04/2020 06:55:22 PM EDT [facility] - CORE SPEC EXP DATE 07/07/2020ATI ENT ABO/Rh O POSITIVEANTIBODY SCREEN NEGATIVETESTING SITE PERFORMED AT [address] [place], [place] [address]BLOOD BANK COMMENT BLOOD TYPE CONFIRMED. SPECIMEN DESCRIPTION [...] Fadumo rce(s) Supporting Document(s) TEST NAME Laboratory [facility] Laboratory [place] [facility] [address] [facility] [place] [address] RESULT Laboratory [facility] ID Date Data Source [id number] 07/04/2020 06:55:27 PM EDT [facility] SPEC EXP DATE 07/07/2020ATI ENT ABO/Rh O POSITIVEANTIBODY SCREEN NEGATIVETESTING SITE PERFORMED AT [address] [place] [address] BANK COMMENT BLOOD TYPE CONFIRMED. SPECIMEN DESCRIPTION [...] 5.2 10*3/uL (4.1-11.0) [facility] RBC 3.82 10*6/uL (4.00-5.40) L [facility] - CORE HGB 11.5 g/dL (12.0-16.0) L [facility] - CORE HCT 33.5 % (36.0-47.0) L [facility] - CORE MCV 87.7 fL (80.0-95.0) [facility] - CORE MCH 30.1 pg (27.0-32.0) [facility] - CORE MCHC 34.3 g/dL (32.0-36.0) [facility] - CORE RDW 14.0 % (10.5-14.5) [facility] - CORE PLT 161 10*3/uL (150-450) [facility] - CORE MPV 9.6 fL (7.1-10.7) [facility] - CORE NEUT % 66.1 % (35.0-75.0) [facility] - CORE LYMPH % 25.4 % (16.0-52.0) [facility] - CORE MONO % 4.8 % (0.0-8.0) [facility] - CORE EOS % 3.2 % (0.0-5.0) [facility] - CORE BASO % 0.5 % (0.0-4.0) [facility] - CORE NEUT # 3.4 10*3/uL (1.8-7.7) [facility] - CORE LYMPH # 1.3 10*3/uL (1.2-4.8) [facility] - CORE MONO # 0.2 10*3/uL (0.0-0.8) [facility] - CORE Eosinophils [#/volume] in Blood by Automated count 0.2 10*3/uL (0.0-0 .5) [facility] - CORE BASO # 0.0 10*3/uL (0.0-0.2) [facility] - C[facility] ID Date Data Source [id number] 07/04/2020 07:55:40 PM EDT [facility] SPEC EXP DATE 07/07/2020ATI ENT ABO/Rh O POSITIVEANTIBODY SCREEN NEGATIVETESTING SITE PERFORMED AT [address] [place] [address] COMMENT BLOOD TYPE CONFIRMED. SPECIMEN DESCRIPTION MIDSTREAM [...] HEPATITIS B S AG @ (NEG) Laboratory [facility] ID Date Data Source [id number] 07/04/2020 08:00:05 PM EDT [facility] SPEC EXP DATE 07/07/2020ATI ENT ABO/Rh O POSITIVEANTIBODY SCREEN NEGATIVETESTING SITE PERFORMED AT [address] [place] [address] COMMENT BLOOD TYPE CONFIRMED. SPECIMEN DESCRIPTION MIDSTREAM [...] SCREEN @ (NEG) [facility] Testing performed using Siemens WHATTn taur 4th gen CHIV combo assay.This assay detects the HIV1 p24 antigenin addition to antibodies to HIV1 and HIV2. ID Date Data Source [id number] 07/04/2020 08:06:53 PM EDT [facility] SPEC EXP DATE 07/07/2020ATI ENT ABO/Rh O POSITIVEANTIBODY SCREEN NEGATIVETESTING SITE PERFORMED AT [address] [place] [address] COMMENT BLOOD TYPE CONFIRMED. SPECIMEN DESCRIPTION MIDSTREAM [...] Supporting Document(s) TREPONEMA IGG/IGM @ (NEG) [facility] [place] ID Date Data Source [id number] 07/04/2020 08:07:03 PM EDT [facility] SPEC EXP DATE 07/07/2020ATI ENT ABO/Rh O POSITIVEANTIBODY SCREEN NEGATIVETESTING SITE PERFORMED AT [address] [place] [address] COMMENT BLOOD TYPE CONFIRMED. SPECIMEN DESCRIPTION MIDSTREAM [...] Supporting Document(s) GLUCOSE 73 mg/dL (70-99) Laboratory [facility] ID Date Data Source [id number] 07/04/2020 08:07:03 PM EDT [facility] SPEC EXP DATE 07/07/2020ATI ENT ABO/Rh O POSITIVEANTIBODY SCREEN NEGATIVETESTING SITE PERFORMED AT [address] [place] [address] BANK COMMENT BLOOD TYPE CONFIRMED. SPECIMEN DESCRIPTION [...] FREE THYROXINE @ 1.24 ng/dL (0.76-1.46) [facility] ID Date Data Source [id number] 07/04/2020 08:07:03 PM EDT [facility] SPEC EXP DATE 07/07/2020ATI ENT ABO/Rh O POSITIVEANTIBODY SCREEN NEGATIVETESTING SITE PERFORMED AT [address] [place] [address] COMMENT BLOOD TYPE CONFIRMED. SPECIMEN DESCRIPTION MIDSTREAM [...] TSH,ULTRASENSITIVE @ 0.172 mIU/L (0.360-4.170) L [facility] [place] ID Date Data Source [id number] 07/04/2020 08:16:30 PM EDT [facility] SPEC EXP DATE 07/07/2020ATI ENT ABO/Rh O POSITIVEANTIBODY SCREEN NEGATIVETESTING SITE PERFORMED AT [address] [place] [address] COMMENT BLOOD TYPE CONFIRMED. SPECIMEN DESCRIPTION MIDSTREAM [...] Fadumo rce(s) Supporting Document(s) AMPHETAMINES,URINE (NEG) [facility] BARBITURATES,URINE (NEG) Laboratory [facility] BENZODIAZEPINE,URINE (NEG) A Laborator y [facility] SPECIMEN HAS BEEN SENT FOR CONFIRMATION. CANNABINOIDS,URINE (NEG) [facility] COCAINE,URINE (NEG) Laboratory [facility] OPIATES,URINE (NEG) [facility] NOTE: Oxycodone is not sufficientlydetec joel by this screening assay. A moresensitive assay is available upon request. PHENCYCLIDINE,URINE (NEG) [facility] PLEASE NOTE: Laboratory [facility] ARE REPORTED POSITIVE WHEN THE RESULT SEXCEED THE THRESHOLD (CUTOFF) INDICATED. ALIST OF POTENTIAL INTERFERENCES FOR EACHMETHOD CAN BE MADE AVAILABLE UPON REQUEST.A CONFIRMATORY ANALYSIS IS ORDERED ONALL DRUG CLASSES SCREENING POSITIVE BYTHIS METHOD.* * * * * * * * * * * * * * *THIS ASSAY IS NOT INTENDED TO BE USED FORMONITORING MEDICATION COMPLIANCE. ID Date Data Source [id number] 07/04/2020 09:12:57 PM EDT [facility] SPEC EXP DATE 07/07/2020ATI ENT ABO/Rh O POSITIVEANTIBODY SCREEN NEGATIVETESTING SITE PERFORMED AT [address] [place] [address] BANK COMMENT BLOOD TYPE CONFIRMED. SPECIMEN DESCRIPTION [...] Data Fadumo rce(s) Supporting Document(s) COLOR [facility] - CORE APPEARANCE [facility] - CORE SPEC GRAV URINE 1.027 (1.003-1.030) [facility] - CORE PH URINE 6.0 (5.0-7.5) [facility] - CORE LEUK ESTERASE 2+ [...] CNY - CORE URINE WBC (0-5) [facility] - CORE URINE RBC (0-2) [facility] - CORE EPITHELIAL CELLS 2+ [HPF] [facility] - CORE BACTERIA 2+ [HPF] [facility] - CORE MUCUS 2+ [HPF] [facility] - [facility] ID Date Data Source [id number] 07/05/2020 12:27:31 AM EDT [facility] - CORE SPEC EXP DATE 07/07/2020ATI ENT ABO/Rh O POSITIVEANTIBODY SCREEN NEGATIVETESTING SITE PERFORMED AT [address] [place] [address] BANK COMMENT BLOOD TYPE CONFIRMED. SPECIMEN DESCRIPTION [...] rce(s) Supporting Document(s) ID Date Data Source [id number] 07/05/2020 12:49:38 PM EDT [facility] - CORE SPEC EXP DATE 07/07/2020ATI ENT ABO/Rh O POSITIVEANTIBODY SCREEN NEGATIVETESTING SITE PERFORMED AT [address] [place] [address] COMMENT BLOOD TYPE CONFIRMED. SPECIMEN DESCRIPTION MIDSTREAM [...] IGG AB @ [facility] IgG antibody to Rubella detected. IgGan tibody levels are at a level consideredto indicate positive immunity. ID Date Data Source [id number] 07/05/2020 12:49:38 PM EDT [facility] - CORE SPEC EXP DATE 07/07/2020ATI ENT ABO/Rh O POSITIVEANTIBODY SCREEN NEGATIVETESTING SITE PERFORMED AT [address] [place] [address] COMMENT BLOOD TYPE CONFIRMED. SPECIMEN DESCRIPTION MIDSTREAM [...] Document(s) VARICELLA ZOST IGG @ [facility]ator [facility] [place] [facility] No IgG antibodies specific to VZV detect ed.Patient is presumed NOT to have had a previous exposure to VZV through infectionor vaccination. ID Date Data Source [id number] 07/05/2020 04:07:16 PM EDT Laboratory [facility] SPEC EXP DATE 07/07/2020ATI ENT ABO/Rh O POSITIVEANTIBODY SCREEN NEGATIVETESTING SITE PERFORMED AT [address] [place] [address] COMMENT BLOOD TYPE CONFIRMED. SPECIMEN DESCRIPTION MIDSTREAM [...] <2.0 ug/dL (0.0-4.9) Laboratory [facility] Testing performed by graphite furnaceato monei absorption spectroscopy. Information for health careproviders on lead poisoningprevention and management isavailable on the [facility] website. ID Date Data Source [id number] 07/06/2020 07:52:55 AM EDT Laboratory [facility] - CORE SPEC EXP DATE 07/07/2020 ENT ABO/Rh O POSITIVEANTIBODY SCREEN NEGATIVETESTING SITE PERFORMED AT [address] [place] [address] COMMENT BLOOD TYPE CONFIRMED. SPECIMEN DESCRIPTION MIDSTREAM [...] rce(s) Supporting Document(s) ID Date Data Source [id number] 07/06/2020 12:37:08 PM EDT Laboratory [facility] SPEC EXP DATE 07/07/2020ATI ENT ABO/Rh O POSITIVEANTIBODY SCREEN NEGATIVETESTING SITE PERFORMED AT [address] [place] [address] COMMENT BLOOD TYPE CONFIRMED. SPECIMEN DESCRIPTION MIDSTREAM [...] Document(s) HGB A1 95.6 % (94.3-98.5) Laboratory [facility] HGB A2 3.1 % (1.5-3.7) [facility] HGB F 1.3 % (0.0-2.0) Laboratory [place] HGB EVALUATION Laboratory [facility] HGB EVALUATION BY HPLC PLEASE NOTE:PA TIENTS WITH A COMBINATION OF IRONDEFICIENCY ANEMIA AND BETA-THALASSEMIATRAIT MAY CLINICALLY PRESENT WITH ANORMAL HGB A2 LEVEL. ID Date Data Source [id number] 07/08/2020 10:21:58 PM EDT [facility] SPEC EXP DATE 07/07/2020ATI ENT ABO/Rh O POSITIVEANTIBODY SCREEN NEGATIVETESTING SITE PERFORMED AT [address] [place] [address] BANK COMMENT BLOOD TYPE CONFIRMED. SPECIMEN DESCRIPTION [...] Document(s) DIAZEPAM,URINE <20 Laboratory [facility] Unit: ng/mL Cutoff: 20 ng/mL NORDIAZEPAM,URINE <20 [facility] Unit: ng/mL Cutoff: 20 ng/mL OXAZEPAM,URINE <20 [facility] Unit: ng/mL Cutoff: 20 ng/mL TEMAZEPAM,URINE <20 [facility] Unit: ng/mL Cutoff: 20 ng/mL LORAZEPAM,URINE <20 [facility] Unit: ng/mL Cutoff: 20 ng/mL ALPRAZOLAM,URINE 405 [facility] Unit: ng/mL Consistent with use of a lópez g containing alprazolam, such as Xanax. Cutoff: 5 ng/mL ALPHA OH ALPRAZOLAM >1000 Laboratory [place] [facility] Unit: ng/mL Alprazolam metabolite; consi stent with use of a drug containing alprazolam, such as Xanax. Cutoff: 5 ng/mL CLONAZEPAM,URINE <5 [facility] Unit: ng/mL Cutoff: 5 ng/mL 7 AMINOCLONAZEPAM U 43 Laboratory [place] [facility] Unit: ng/mL Clonazepam metabolite; consi stent with use of a drug containing clonazepam, such as Klonopin. Cutoff: 5 ng/mL MIDAZOLAM,URINE <20 Laboratory [facility] Unit: ng/mL Cutoff: 20 ng/mL CHLORDIAZEPOXIDE <20 [facility] Unit: ng/mL Cutoff: 20 ng/mL ALPHA [place] MIDAZOLAM <20 Laboratory [place] [facility] Unit: ng/mL Cutoff: 20 ng/mL INTERPRETIV E [...] developed and its performance characteristics determined by [facility]. It has not been cleared or approved by the [place] Food and Drug Administration. This test was performed in a CLIA certified laboratory and is intended for clinical purposes. Performed By: [facility] [address] [place] [id number] Utility Locator: Sunita Vaca MD ID Date Data Source [id number] 04/21/2020 12:37:00 AM EST [facility] Name Value Range Interpretation Code Description Data Fadumo rce(s) Supporting Document(s) COLOR,UR SONJA YELLOW A [facility] APPEARANCE,UR SL CLOUDY CLEAR [facility] PH,UR 5.0 5.0-8.0 [facility] SPECIFIC GRAVITY,UR 1.026 1.002-1.035 N [facility] PROTEIN,UR NEGATIVE MG/DL NEGATIVE [facility] GLUCOSE, UR NEGATIVE MG/DL NEGATIVE [facility] KETONES,UR NEGATIVE MG/DL NEGATIVE [facility] OCCULT BLOOD,UR NEGATIVE NEGATIVE [facility] NITRATE,UR NEGATIVE NEGATIVE [facility] LEUKOCYTE ESTERASE ,UR NEGATIVE NEGATIVE [facility] BILIRUBIN,UR SMALL NEGATIVE A [facility] UROBILINOGEN,UR 4.0 EU MG/DL NEG-0-1.0 A [facility] ID Date Data Source [id number] 04/21/2020 12:44:00 AM EST [facility] Name Value Range Interpretation Code Description Data Fadumo rce(s) Supporting Document(s) OPIATE SCREEN NEG NEGATIVE [facility] Minimum Detectable Limit is 300 ng/mL. BARBITURATE SCREEN NEG NEGATIVE [facility] Minimum Detectable Limit is 300 ng/mL. PHENCYCLIDINE SCREEN NEG NEGATIVE [facility] Minimum Detectable Limit is 25 ng/mL. AMPHETAMINE SCREEN NEG NEGATIVE [facility] Minimum Detectable Limit is 1000 mg/mL. BENZODIAZEPINE SCREEN POS NEGATIVE [facility] Mininum Detectable Limit is 300 ng/mL. COCAINE SCREEN NEG NEGATIVE [facility] Minimum Detectable Limit is 300 ng/mL. CANNABINOID SCREEN NEG NEGATIVE [facility] Minimum Detectable limit is 50 ng/dL. HEROIN SCREEN NEG NEGATIVE [facility] Minimum Detectable limit is 10 ng/dL. A ll POSITIVE or BORDER results are unconfirmed. Please contact the laboratory if a reference testing confirmation is needed. ID Date Data Source [id number] 04/20/2020 10:08:22 PM EST [facility] Name Value Range Interpretation Code Description Data Fadumo rce(s) Supporting Document(s) EKG/ECG IN ED [facility] [file] H1OwkldxNFDOLxWABXFZOFJEUZGVADQPPKBWGDHQHWTHVSWFFUWDVYIFURJCLQBFDJKHHMOYYYDAFRHN XEVKQUBHIVFJLJLHESTAs5is2513nd2U3GfLyI1HvaMvqyPCujazgXjKQWNeRavSosLsemla6yg6+yXU wGJMro02jKtX6KNatUy5Rt4JMSlethaf5Nlpsc2wq+ btB1uxjnAdL+DKoJbt5wDxxSD3MzM/8ACwP+q4f+Wn/8yGI2Nik6ygIxEJglH9CzIiiW9cpuy9Ym6lCB opPhj0Qexyf/5DlxqR6lWdex47n6fDF9dOqfMfvdgaCkS6Gs6PGYX0uZvhMVspEYDGAKcVhnjz0C3yZ9 fhtisFyyBy6C0AKss8f/ANGtzmPP+sCNMl2xFsLi+z 2+HFOljGfEr38EC+FzFpJ4n/kGjVY10kvCFc5MARwdkaupaUVy4dXv3khD2XWwGy/7ApuQO0qCZZm9oF ZCvvvo4LYXCePXLHNN3/w93RVNJonlzcuYXN16SamFOrrnB23SgsuxA04IglGNXKc61g8T3L1HFlgGnr nv+Q5d2812Hzyp2cjaKN6sruzsDXXeH/6s7Vwp VCchioKWs9QNMUaxyntcK3sw082Ky/xDjd/p9aVJ0hJggxDrSZhj7dLacliHb3QyXftnrEs/lba70DiU C4FazK9osfgyHROwlYQgXFkLok5cKjuxow/9UhhtI6gZjtc73oQ+OAyu8b9A89R5jqY0kruWSW8rojKM HQk49W61CWUHdST9nE2+V+6iTB37rg867SMdpDppqU L2CgCEQOEcKpvmnu2iwGNp6e7GlymckqcC51Qug4VifpC01SopvmI15VxwNfgqhV/hacUhzB31z2VL9l JFnxH/JAQjxEas0MumpG5zPxQP8fp3VxFEqTTWCokBB9mEeYGdX+8qIFd019XqbZ9tpca5/tKnBMGR46 DfuXX7TQFo3t3FaoubqvkD65Stj6USqYqU/x7XUwA1 6e09hv64nJfY5+V+3mFR51it250RIiWatI7KZvOz1HGetmaHWje1OXNnyEY6f4mSdXosdbkBnaudoAz2 W6W6GmmaM/937QLDZGjgfJREIU9m68zRXwqPaJWYggJJTz152ozg887mZJ768++2zS6ptNhRynylx9BI 75s26B0j1H5h50kwTbxPd9Iki9AAYEUS6wP1pBYRla ThvnjMpGxh36khwP9S8biJ4+qIoObgHdBTV3skjQipEq5ZA5mGCgKl/sBg52jZsjN12Nhd1bnsuh0/dR lLDJR31AbtVtB27e2oGmw22PBfc8uyA7bVZsXdF/g2BFoV10s70ez40gZrGXmO/wVZugdW0fFdhb19cW qfAkwbfvZsnoyO21Dnnda7X4dE0omeioAfkAGONfq5 [file] production support developer+TBcDv9i+z31mzeKBd56+6KReTtEmCB3J9T8HSpPf32Xl2Nk4zRffR3VwfTxdyMk+pyAaQmjH+DTNN [file] VJItm57z8LCuuHRk2F8jO1lrqqmTnqSwmmac0/[facility] [file] fxOfnV5Q5pltIHEOIqWFBPTVWUMHHMCXVVRWSNAYLSOUXAQCTOHMJHKLUWZJXYNZWHCUKVRFJKGNAMLT SQRXWKEDMNKIHLDKECOOANMGIBTTu57c+/ei4ESc4JsGYRtwk5OA/DQUUUVRuFeTfG/wD1Oi/Wb/2Sii plsY1/9eZKpUEKtHOVlhmsM9K8Sn4BNj2H/r2H/oQr 1wqoqI5Gp8o1PGFVSBtiEy4ak/1Oi/Wb/wBkooqZbGNf+Uqi0dtXFRB5JTCYFTxcxLJ/AJDuo/8AXsP/ PKXS3UAFMsio50E6CQcabwVnixw10/6nRfrN/wCyUUVMtjGv/IQ98O4RMfyBMIBPMG7Y+Cn/ACHdR/69 h/2SX2tbnkKRp7WA+UDXYAJT4E1F8u/9Tov1m/8AZK KKmWxjX/ig8on94QNmrUZZDTLJsesCS/kO6j/17D/9WD9WIALuwj76M0WJpszrIidhd85/AOx0Q1tn+y UTFTyoVi8Py8mQ2o3GXqWAXrYVSQSNLjh/yHdR/bZrQy9PzSr1samzR2Rd3h1KBISKDbnUx4jh/wBTov 1m/wDZKKKmWxjX/it3snqCCiNRShtwwL9D+Cn/ACHd R/69h/7XO8fyxkELy9hY+GHHOBJO9Yb+G/8AkJP/ANcj/BZDPU3Pa/1RTizIAJKDG9FVYZLDHSLSXGBE RQAUUUUAFFFFABRRRQAUUUUAFFFFABRRRQAUUUUAFFFFABRRRQAUUUUAFFFFABRRRQAUUUUAf//ZDQpl ubRnuZQxHA9CLpPpHL1bul5ALMCsXNAqIhbEKms4Z3 I4gMAiU9QwA9XwI88bNd9ZnAUvlIQ0GS1ApWu3PIUjWwydfHPLNRBuIWVwTJPeB9NaGSA3To8+DQpzdH LaBP2LWefbtMHgY9MwVHS3ur5wXnsOtao5xAWeICVUf8ZRYC4PDkCH6y6iewtcgIYpk5+99xKMIABMIE zJGB7EdBoMUQy9JGTJuKUoDjQSXGiGzoOAHuWNPDE7 SeC4YXI9ysy5W1xUuOzMx1Imekd4jwfA0Ai1ORQJXuMXpb5G1yFiiUVZo6qVG4N29g6Gk6MxcnfANhoj Ob7HFeQ9hpgqRlefaT/pJfSQz3RYs1L14eqYd8pwmd5n+7qkGdYB4qsp6sgMDP1NMD2rx3GvGCYtUXuf woPlQmkULoJ6IZIvx1ExGBx9WO9Eok3vkBIjsul+/w WTJXpTNwMuYC6RdjImWBMMyWSyLBROUqBnISPJaEIlKMMVMLSNIH6CidEsNANRFxVrZOXILuoyI0KqOF Rvcij+/vTFONmUIzFqFB7FsvJcBNVTiPOaWLXLAgOuQZWEmRQmHMBAYWDDOR2MbjLgJHITWfSqPJDGOe dfY6KyHOGch63NPXTuRPL4IiDhWDGqSyLaVfV1PwNu EH1Dn3EXNLRyPLR4CjRsBAZgTlZnPwQ8VqFgVR2+IYlxqwBhHdgUPzN4PMGmw0VyIOkkOYP1IM4sMUin jgBlCqrQMkSaBMYpm7DuQGxuCVR4VA6xLIimfpUwOdqSBqBwZMEkt3VgTQg8VT4ItHTvL8hZPISnY4d0 IUSsFQ7HKiGwDFBsZr9vO2Fah0KsHPYyVVVxRX6czo SiFVItJHKkBTAaPBLBJtY5VfOuS6SpJzCJEWx5NBIRY0SgDLT8TFqqEoXjXve1UgUGMGS3MCwUTOJINF Z0YUwGMDPRZMQENLz6FsNDXR1mSL5TpJs2HWVgNyodqFPGPGLiGBJmVWJxV9EjVVh2Rq2RAsO5gdIhvR 0KeJxjYACC//8MhfXjIhWJpeALC4HS83YtwUFaZWWC DALdoESUAA5JnlsD5BQoFWeQZAVbnNRVVTpSGmpFzARAXfT7qGwT3TtZy4hd3gxAmkZFUKkNZF1Jih6M CK7jm3GfVKAiMSbaevSbOlzGSlwoLRHXHrOqFiPEVwPyKMVhDRYoODZjIiR5HoGlPm4ZCIZzOKDcEWMb RaKsWOKcNKUvWCfcHZLhEAUrSPT7AKTvSCYaNN9FCy HoCCVnUJGcBNRnJOHiOFOcdt6IYMRnUOXhCQI5JPMqMUQoDMPpEUoxQZZfWCUxHgD8MENwWWPbSV9GAk VcBQVnJYV6YHBaFGMtBCAheb1HTARqLTAkJGQ2PZEgSQImYNQkPTwxEXGfUQJyZaC5ABYeNYUaDR7IRa YdEGGwFSL6RoRhGURjVXKpem9ZXSOaUIVbCCAaWPE7 GOEzOUStNHwrVETkJYGtIJVhDJE3OTH6UXALJwTeDTVkBAApTFKiCbZ2KjMgDy3KWSKqHGIvOWJcPPG7 THOiIEJxBWljNEBlRRVbDJM8XCV3AKT6TWBERoYzOOWaHJMpVVCgSrC6DeQiTy7ZCLCnVHTjPIWeLaY5 YGDiVKDyZBwcJYIlLEJyTDVjNHX2DVD1ZHFNDxStUH NiYIivWqdkPFDcHNVtxo3KQLSqUMHkNhQ2HLGjHDZfSZSlJGbbKBNhMrD9XpVuEARuUBTvGT7QCsWiQB WmFSu7BVqeIJKqKRGhxj6GoQVelTeotw3YUMgzI9t4NILxDj7Lb150GDIuDOXYY7cnWp5gEAdrYSLZO3 qZLxg8PdJBMYA5EDmIGCIXNJT5BNoJIDAIHFHJWGv8 TyRYLY58PEQ3QyfUVPR9IhTMBtB9VUf6TPLNVrIlPxD4ZPIEWrD+XSA+Il5El0OsxbA8xoRlAKnzCYu7 IdyQKgFqDV9TEIn0arNbZSabQJUBPeFgJUkeQKQRVdp4R8WutlXsTdGnYv8aeJClSWLmSn0FbqZsAXY2 QPWuNv5GPTb4YNB1FwvMWNQ2GfTDAgX5INd6AWEHFy OgRfH1WQZQWzP+YXKHNeL1BfEzL5IdHrUUGWg7AKEND6BrSLH2RPpdGoIhKq3qM1ZlNJSmZcV1EDW0P8 eXSUUBsL0sQcK1MiI9Ja1UZoP5AEH3yPQvMr9UYoF1QWG9IPuvZPJVTq== ID Date Data Source "" 04/20/2020 10:08:00 PM EST [address] [address] Patient Name: Carlos Aguilar Exam Date: 04/20/20 : 1990 CC: EKG/ECG in ED Ordering Doctor: Missy Cheung MD Attending Doctor: Missy Cheung MD CC: EKG/ECG in ED APPROVED REPORT ECG MEASUREMENT Heart Rate 61 AXES DC 158 P 48 QRSd 86 QRS 73 QT 434 T 55 QTc 438 INTERPRETATION SINUS RHYTHM NO ACUTE ISCHEMIA NORMAL ECG <Conclusion> SINUS RHYTHM NO ACUTE ISCHEMIA NORMAL ECG End of diagnostic report for accession: [id number] Interpreted: Missy Cheung MD 04/20/202207 Transcribed: Signed: Missy Cheung MD 04/20/202207 Interpreted by: Missy CheungTranscribed by: Missy Cheung Name Value Range Interpretation Code Description Data Fadumo rce(s) Supporting Document(s) ID Date Data Source [id number] 04/24/2020 08:39:00 AM EST [facility] Name Value Range Interpretation Code Description Data Fadumo rce(s) Supporting Document(s) HEPATITIS A ANTIBODY, IgM,S Negative Negative [facility] HEPATITIS A ANTIBODY, Total,S Negative Negative [facility] HEPATITIS B SURF ANTIGEN SCRN Negative Negative [facility] HEPATITIS B CORE ANTIBODY,IGM Negative Negative [facility] HEP B CORE ANTIBODY,TOTAL Negative [facility] SURFACE ANTIBODY Non Reactive . [facility] Non Reactive: Inconsisten t with immunity, less than 10 mIU/mL Reactive: Consistent with immunity, greater than 9.9 mIU/mL Verified by repeat analysis HCV Ab,S >11.0 s/co ratio 0.0-0.9 A [facility] HCV COMMENT [facility] Strong reactive antibody screen (s/c ra renetta >10.9) is consistent with past or present HCV infection. Follow-up testing by HCV, Quantitative, Real time PCR (#[id number]) is recommended to determine viral load/diagnosis of current HCV infection. Performed at: RN - [facility] [address] [id number] [employer] Specialist: Helene Mccoy MD, Phone: [phone] ID Date Data Source [id number] 04/20/2020 08:20:00 PM EST [facility] Name Value Range Interpretation Code Description Data Fadumo rce(s) Supporting Document(s) Coronavirus 2 (SARS-CoV-2) NOT-DETECTED [facility] This lab [facility] and reported by [facility]. ID Date Data Source [id number] 04/20/2020 10:31:00 PM EST [facility] Name Value Range Interpretation Code Description Data Fadumo rce(s) Supporting Document(s) ADENOVIRUS Not Detected NotDetected [facility] CORONAVIRUS 229E [facility]ed [facility] This is NOT the novel coronavirus COVID -19 CORONAVIRUS HKU1 Not Detected [facility]Detected [facility] This is NOT the novel coronavirus COVID -19 CORONAVIRUS NL63 Not Detected [facility]Detected [facility] This is NOT the novel coronavirus COVID -19 CORONAVIRUS OC43 Not Detected [facility]Detected [facility] This is NOT the novel coronavirus COVID -19 HUMAN METAPNEUMOVIRUS Not Detected [facility]Detected [facility] HUMAN RHINOVIRUS/ENT Not Detected [facility]Detected [facility] INFLUENZA A Not Detected NotDetected [facility] INFLUENZA B Not Detected NotDetected [facility] PARAINFLUENZA VIRUS 1 Not Detected [facility]Detected [facility] PARAINFLUENZA VIRUS 2 Not Detected NotDetected [facility] PARAINFLUENZA VIRUS 3 Not Detected NotDetected [facility] PARAINFLUENZA VIRUS 4 Not Detected NotDetected [facility] RESPIRATORY SYNCY VIR Not Detected NotDetected [facility] BORDETELLA PARAPERTUS Not Detected NotDetected [facility] BORDETELLA PERTUSSIS Not Detected [facility]Detected [facility] CHLAMYDIA PNEUMONIAE Not Detected NotDetected [facility] MYCOPLASMA PNEUMONIAE Not Detected [facility]Detected [facility] The Respiratory Panel is a multiplexed nucleic acid/PCR test. A negative result does not rule out the presence of PCR inhibitors in the patient sample or assay-specific nucleic acid concentrations below the level of detection by the assay. Coronavirus 2 (SARS-CoV-2) NOT-DETECTED NOTDETECTED [facility] THIS IS THE NOVEL CORONAVIRUS COVID-19 ID Date Data Source [id number] 04/20/2020 09:24:00 PM EST [facility] Has Patient Fasted For The Past 12 Hour s? N Has Patient Fasted For The Past 12 Hour s? N Has Patient Fasted For The Past 12 Hour s? N Has Patient Fasted For The Past 12 Hour s? N Name Value Range Interpretation Code Description Data Fadumo rce(s) Supporting Document(s) WHITE BLOOD COUNT 6.90 10^3/uL 4.00-10.50 N [facility] ealth RED BLOOD COUNT 4.24 10^6/uL 3.90-5.20 N [facility] th HEMOGLOBIN 12.6 G/DL 11.5-15.6 [facility] HEMATOCRIT 38.4 % 35.0-46.0 [facility] MCV 90.6 FL 80.0-100.0 [facility] MCH 29.7 PG 27.0-34.0 N [facility] MCHC 32.8 G/DL 32-36 N [facility] RDW 14.2 % 11.5-14.5 N [facility] PLATELET COUNT 182 10^3/uL 130-400 [facility] MPV 10.2 FL 8.7-13.2 [facility] GRAN % (AUTO) 37.5 % 42.0-75.0 L [facility] LYMPH % (AUTO) 45.2 % 20.0-51.0 N [facility] MONO % (AUTO) 9.3 % 2.0-15.0 N [facility] EOS % (AUTO) 7.5 % 0.0-11.0 N [facility] BASO % (AUTO) 0.4 % 0.0-2.0 N [facility] IG % (AUTO) 0.1 % 1.00-5.00 [facility] IG # (AUTO) 0.0 10^3/uL <0.5 [facility] GRAN # (AUTO) 2.58 10^3/uL 1.50-6.50 N [facility] LYMPH # (AUTO) 3.1 k/uL 1.0-5.0 N [facility] MONO # (AUTO) 0.64 k/uL 0.20-1.50 N [facility] EOS # (AUTO) 0.52 10^3/uL 0.00-1.10 [facility] BASO # (AUTO) 0.03 10^3/uL 0.00-0.20 [facility] ID Date Data Source [id number] 04/20/2020 09:30:00 PM EST [facility] Has Patient Fasted For The Past 12 Hour s? N Has Patient Fasted For The Past 12 Hour s? N Has Patient Fasted For The Past 12 Hour s? N Has Patient Fasted For The Past 12 Hour s? N Name Value Range Interpretation Code Description Data Fadumo rce(s) Supporting Document(s) HCG QUALITATIVE SPECIMEN SERUM [facility] ID Date Data Source [id number] 04/20/2020 09:42:00 PM [facility] [place] Has Patient Fasted For The Past 12 Hour s? N Has Patient Fasted For The Past 12 Hour s? N Has Patient Fasted For The Past 12 Hour s? N Has Patient Fasted For The Past 12 Hour s? N Name Value Range Interpretation Code Description Data Fadumo rce(s) Supporting Document(s) SODIUM 142 MEQ/L 135-145 [facility] [place] POTASSIUM 3.5 MEQ/L 3.5-5.3 [facility] [place] CHLORIDE 108 MEQ/L 94-110 [facility] [place] CARBON DIOXIDE 31 MEQ/L 22-33 [facility] [place] ANION GAP 7 5-16 N [facility] BLOOD UREA NITRO 9 MG/DL 7-25 N [facility] [place] CREATININE 0.7 MG/DL 0.6-1.4 N [facility] [place] GFR > 90.0 ML/MIN [facility] Stage G1 - Normal or high kidney functi on The GFR is an estimate of the Glomerular Filtration Rate. It is an aid to assess a patient's renal function. It is not a conclusive diagnosis of kidney disease. GFR normal is >=90 The MDRD GFR calculation is considered valid between the ages of 18 and 75 years only. BUN/CREAT RATIO 12 8-36 N [facility] [place] GLUCOSE 79 MG/DL 70-100 N [facility] [place] CA 9.1 MG/DL 8.7-10.5 N [facility] BILIRUBIN,TOTAL 0.3 MG/DL 0.1-1.3 N [facility] AST 248 U/L 5-40 H [facility] ALT 242 U/L 5-48 H [facility] ALKALINE PHOSPHATASE 84 U/L 40-140 N [facility] alth TOTAL PROTEIN 7.7 G/DL 5.9-8.3 N [facility] ALBUMIN 4.3 G/DL 3.0-5.1 N [facility] GLOBULIN 3.4 G/DL 1.5-3.5 N [facility] ALB/GLOB RATIO 1.3 G/DL 1.0-3.0 N [facility] ID Date Data Source [id number] 04/20/2020 09:30:00 PM [facility] Has Patient Fasted For The Past 12 Hour s? N Has Patient Fasted For The Past 12 Hour s? N Has Patient Fasted For The Past 12 Hour s? N Has Patient Fasted For The Past 12 Hour s? N Name Value Range Interpretation Code Description Data Fadumo rce(s) Supporting Document(s) HCG RESULT,S NEGATIVE [facility] Reference range is Negative "Extreme" early may have low levels of HCG present. If is suspected, repeat testing with a new specimen in 48-72 hours ID Date Data Source [id number] 04/20/2020 09:42:00 PM [facility] Has Patient Fasted For The Past 12 Hour s? N Has Patient Fasted For The Past 12 Hour s? N Has Patient Fasted For The Past 12 Hour s? N Has Patient Fasted For The Past 12 Hour s? N Name Value Range Interpretation Code Description Data Fadumo rce(s) Supporting Document(s) SALICYLATE < 3.0 MG/DL 2.8-20.0 N [facility] ID Date Data Source [id number] 04/20/2020 09:42:00 PM [facility] Has Patient Fasted For The Past 12 Hour s? N Has Patient Fasted For The Past 12 Hour s? N Has Patient Fasted For The Past 12 Hour s? N Has Patient Fasted For The Past 12 Hour s? N Name Value Range Interpretation Code Description Data Fadumo rce(s) Supporting Document(s) ACETAMINOPHEN < 2.0 UG/ML 10-30 L [facility] High levels of N-acetylcysteine (used t o treat Acetaminophen overdose) may cause interference and cause a negative bias in the Acetaminophen result. ID Date Data Source [id number] 04/20/2020 09:42:00 PM EST [facility] Has Patient Fasted For The Past 12 Hour s? N Has Patient Fasted For The Past 12 Hour s? N Has Patient Fasted For The Past 12 Hour s? N Has Patient Fasted For The Past 12 Hour s? N Name Value Range Interpretation Code Description Data Fadumo rce(s) Supporting Document(s) BLOOD ALCOHOL < 0.03 % <0.03 [facility] ID Date Data Source [id number] 01/25/2020 04:35:00 PM EDT [facility] Name Value Range Interpretation Code Description Data Fadumo rce(s) Supporting Document(s) Creatinine [Moles/volume] in Vitreous fluid 139.4 mg/dL No rmal Creatinine [facility] ([facility]) Nitrite [Presence] in Urine by Test strip 47.6 mcg/mL Norm al Nitrite [facility] ([facility]) pH of Vaginal fluid by Test strip 6.8 Normal pH [facility] ([facility]) Amphetamines [Presence] in Unknown substance by Confirmatory met hod 0 ng/mL Normal Amphetamines [facility] ([facility]) Barbiturates [Mass/volume] in Saliva (oral fluid) by Screen meth od 0 ng/mL Normal Barbiturates [facility] ([facility]) Cocaine Metabolites 0 ng/mL Normal Cocaine Metabolites [facility] ([facility]) Meprobamate [Mass/volume] in Blood by Confirmatory method 0 ng/mL Normal Meprobamate [facility] ([facility]) Tramadol [Presence] in Blood by Screen method 0 ng/mL N ormal Tramadol [facility] ([facility]) Meperidine Metabolite 0 ng/mL Normal Meperidine Met abolite [facility] ([facility]) Methadone [Moles/volume] in Unspecified specimen 0 ng/mL Normal Methadone [facility] ([facility]) Fentanyl [Z-score] in Urine 0 ng/mL Normal Fentanyl [place] ([facility]) Oxycodone/Oxymorphone 0 ng/mL Normal Oxycodone/Oxym orphone [place] ([facility]) Opiates - Basic 0 ng/mL Normal Opiates - Basic [facility] ([facility]) 6-Acetylmorphine (Heroin) 0 ng/mL Normal 6-Acetylmo rphine (Heroin) [facility] ([facility]) Phencyclidine (PCP) 0 ng/mL Normal Phencyclidine (PCP) [facility] ([facility]) Propoxyphene [Presence] in Meconium by Screen method 0 ng/mL Normal Propoxyphene [facility] ([facility]) Ecstasy Analogs 0 ng/mL Normal Ecstasy Analogs [place] ([facility]) Marijuana Metabolite 0 ng/mL Normal Marijuana Metab olite [facility] ([facility]) Oxazepam [Moles/volume] in Unspecified specimen 0 ng/mL Normal Oxazepam [facility] ([facility]) Lorazepam [Moles/volume] in Unspecified specimen 0 ng/mL Normal Lorazepam [facility] ([facility]) Nordiazepam [Moles/volume] in Unspecified specimen 0 ng/mL Normal Nordiazepam [facility] ([facility]) Temazepam [Moles/volume] in Unspecified specimen 0 ng/mL Normal Temazepam [facility] ([facility]) Nitrazepam Metabolite 0 ng/mL Normal Nitrazepam Met abolite [facility] ([facility]) Flunitrazepam Metabolite 0 ng/mL Normal Flunitrazep am Metabolite [facility] ([facility]) Clonazepam Metabolite 0 ng/mL Normal Clonazepam Met abolite [facility] ([facility]) Flurazepam Metabolite 0 ng/mL Normal Flurazepam Met abolite [facility] ([facility]) Triazolam Metabolite 0 ng/mL Normal Triazolam Metab olite [facility] ([facility]) Alprazolam Metabolite See Note ng/mL Normal Alprazolam Metabolite [facility] ([facility]) Note: Consistent Present below cut off.P rescribed drug was detected. Midazolam Metabolite 0 ng/mL Normal Midazolam Metab olite [facility] ([facility]) Estazolam [Mass/volume] in Urine by Confirmatory method 0 ng/mL Normal Estazolam [facility] ([facility]) Methylphenidate Metabolite >1500 ng/mL Normal Methylph enidate Metabolite [facility] ([facility]) Note: Consistent Prescribed drug was det ected. Gabapentin [Mass/volume] in Urine by Confirmatory method 599 ng/ mL Abnormal (applies to non-numeric results) Gabapentin [facility] ([facility]) Note: Inconsistent Unprescribed drug was detected. Pregabalin [Presence] in Urine by Screen method 0 ng/mL Normal Pregabalin [facility] ([facility]) Tapentadol [Presence] in Blood by Screen method 0 ng/mL Normal Tapentadol [facility] ([facility]) Norbuprenorphine [Mass/mass] in Meconium by Confirmatory method 1462.7 ng/mL Normal Norbuprenorphine [facility] ([facility]) Note: Consistent Prescribed drug was det ected. Buprenorphine [Presence] in Blood by Screen method 251.3 ng/mL Normal Buprenorphine [facility] ([facility]) Note: Consistent Prescribed drug was det ected. ID Date Data Source [id number] 01/02/2020 06:44:00 PM EDT [facility] ([facility]) Name Value Range Interpretation Code Description Data Fadumo rce(s) Supporting Document(s) Creatinine [Moles/volume] in Vitreous fluid 64.8 mg/dL Nor mal Creatinine [facility] ([facility]) pH of Vaginal fluid by Test strip 6.5 Normal pH [place] ([facility]) Nitrite [Presence] in Urine by Test strip 49.5 mcg/mL Norm al Nitrite [facility] ([facility]) Amphetamines [Presence] in Unknown substance by Confirmatory met hod 0 ng/mL Normal Amphetamines [place] ([facility]) Cocaine Metabolites 0 ng/mL Normal Cocaine Metabolites [place] ([facility]) Barbiturates [Mass/volume] in Saliva (oral fluid) by Screen meth od 0 ng/mL Normal Barbiturates [facility] ([facility]) Tramadol [Presence] in Blood by Screen method 0 ng/mL N ormal Tramadol [facility] ([facility]) Meprobamate [Mass/volume] in Blood by Confirmatory method 0 ng/mL Normal Meprobamate [facility] ([facility]) Fentanyl [Z-score] in Urine 0 ng/mL Normal Fentanyl GR [place] ([facility]) Meperidine Metabolite 0 ng/mL Normal Meperidine Met abolite [facility] ([facility]) Opiates - Basic 0 ng/mL Normal Opiates - Basic [facility] ([facility]) Methadone [Moles/volume] in Unspecified specimen 0 ng/mL Normal Methadone [facility] ([facility]) 6-Acetylmorphine (Heroin) 0 ng/mL Normal 6-Acetylmo rphine (Heroin) [facility] ([facility]) Oxycodone/Oxymorphone 0 ng/mL Normal Oxycodone/Oxym orphone [facility] ([facility]) Propoxyphene [Presence] in Meconium by Screen method 0 ng/mL Normal Propoxyphene [place] ([facility]) Phencyclidine (PCP) 0 ng/mL Normal Phencyclidine (PCP) [facility] ([facility]) Ecstasy Analogs 0 ng/mL Normal Ecstasy Analogs [facility] ([facility]) Marijuana Metabolite 0 ng/mL Normal Marijuana Metab olite [facility] ([facility]) Oxazepam [Moles/volume] in Unspecified specimen 0 ng/mL Normal Oxazepam [facility] ([facility]) Lorazepam [Moles/volume] in Unspecified specimen 0 ng/mL Normal Lorazepam [facility] ([facility]) Nordiazepam [Moles/volume] in Unspecified specimen 0 ng/mL Normal Nordiazepam [facility] ([facility]) Temazepam [Moles/volume] in Unspecified specimen 0 ng/mL Normal Temazepam [facility] ([facility]) Clonazepam Metabolite 0 ng/mL Normal Clonazepam Met abolite [place] ([facility]) Nitrazepam Metabolite 0 ng/mL Normal Nitrazepam Met abolite [place] ([facility]) Triazolam Metabolite 0 ng/mL Normal Triazolam Metab olite [place] ([facility]) Flunitrazepam Metabolite 0 ng/mL Normal Flunitrazep am Metabolite [place] ([facility]) Alprazolam Metabolite See Note ng/mL Normal Alprazolam Metabolite [place] ([facility]) Note: Consistent Present below cut off.P rescribed drug was detected. Flurazepam Metabolite 0 ng/mL Normal Flurazepam Met abolite [place] ([facility]) Midazolam Metabolite 0 ng/mL Normal Midazolam Metab olite [place] ([facility]) Gabapentin [Mass/volume] in Urine by Confirmatory method 1373 ng /mL Abnormal (applies to non-numeric results) Gabapentin [facility] ([facility]) Note: Inconsistent Unprescribed drug was detected. Estazolam [Mass/volume] in Urine by Confirmatory method 0 ng/mL Normal [facility]am [facility] Tapentadol [Presence] in Blood by Screen method 0 ng/mL Normal Tapentadol [facility]) Pregabalin [Presence] in Urine by Screen method 0 ng/mL Normal Pregabalin [facility]) Norbuprenorphine [Mass/mass] in Meconium by Confirmatory method 673.3 ng/mL Normal Norbuprenorphine [facility]) Note: Consistent Prescribed drug was det ected. Buprenorphine [Presence] in Blood by Screen method 116.1 ng/mL Normal Buprenorphine [facility]) Note: Consistent Prescribed drug was det ected. ID Date Data Source [id number] 12/29/2019 09:11:00 PM EDT [address] [address] HEALTH INFORMATION MANAGEMENT ED/UC Physician Report : [id number] Signed Patient: Carlos Aguilar Acct:[id number] Unit: [id number] : 1990 Arrival Date: 12/29/19 Age/Sex: 29 / F Arrival Time: 2034 Copies to: Genet Lange NP General Adult HPI/SARAH General Chief Complaint: Medication Refill Stated Complaint: [...] all of her prescribing physicians are in [facility]. She has never had uiiy-vd-grxi contact with them and does tele medicine consult. She has no local physician. She states that 2 days ago her toddler must have thrown her medications out of the car. She attempted to get medications represcribed by her [facility] physicians but they requested a police report be made. She states that she did this but the police report was not return until this evening. 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 I asked her what had happened up there and she stated that they had also refused to prescribe her medications. I advised her that she would have to discuss with her prescribing physicians in [facility] about ongoing prescribing of her controlled substances and that we would not provide a bridge prescription. The patient currently has no signs of withdrawal. Nursing staff did check with [facility] and some of the medications that she was requesting were higher doses than previously refilled by the pharmacy. the patient states that her doses were changed by her prescribing physician in [facility] however the prescriptions had not yet been filled. During this interaction which lasted approximately 20 minutes the patient was frequently changing her story. The patient did advise me that she was not requiring a prescribing of her noncontrolled substances. She stated that she had an aunt who was a nurse and told her that [facility] would prescribe her medications even though [place] had not. Based on her constantly changing story, inconsistencies in her dosing of her medications and not telling me that she had previously been in [place] the patient was advised that I did not feel comfortable prescribing medications. Given that she had no signs of withdrawal I did not feel there was any treatment required at the current time. I have recommended that she contact and follow up with her [facility] physicians. Critical Care Time Critical Care Time: [...] BID RF: 0 Referrals: Genet Lange I, IRON ERECTOR [Primary Care Provider] - Patient agreeable to discharge: Patient/Guardian understands and is agreeable to discharge plan Provider in triage note Vital Signs Vital Signs: I O (Last 24 Hours) 12/27/19 12/28/19 12/29/19 23:59 23:59 23:59 Other: Weight 68 kg Vital Signs (Last 8 Hours) Temp Pulse Resp BP Pulse Ox 12/29/19 20:49 98.3 F 102 H 18 113/69 98 Date/Time <<Signature on File>> Initializing User: Kervin Michele MD 12/29/192110 Signed by: Kervin Michele MD 12/30/19 0659 Name Value Range Interpretation Code Description Data Fadmuo rce(s) Supporting Document(s) Procedure Social History Code Duration Value Status Description Data Source(s ) Alcohol intake 12/26/2020 12:00:00 AM EDT Current non-d laura of alcohol (finding) completed Current non-drinker of alcohol (finding) [facility] Tobacco use and exposure 12/25/2020 12:00:00 AM EDT Never used co mpleted Never used [facility] Cigarettes smoked current (pack per day) - Reported 12/26/19 21 12:00:00 AM EDT UNK completed [facility] Smoking 12/25/2020 12:00:00 AM EDT Current every day smoker co mpleted Current every day smoker [facility] Alcohol intake 12/25/2020 12:00:00 AM EDT Current non-d laura of alcohol (finding) completed Current non-drinker of alcohol (finding) [facility] Smoking 12/17/2020 12:00:00 AM EDT Smokes tobacco [...] Smokes tobacco daily (finding) [place] ([facility]) Smoking 08/20/2020 12:00:00 AM EDT Smokes tobacco daily (findi ng) completed Smokes tobacco daily (finding) [facility] ([facility]) Smoking 07/22/2020 09:58:00 PM EDT Daily Smoker completed Daily [facility] Smoking 07/22/2020 09:58:00 PM EDT Daily Smoker completed Daily [facility] 04/29/2020 12:00:00 AM EST completed [facility] 04/29/2020 12:00:00 AM EST completed [facility] 04/20/2020 10:17:25 PM EST Current Every Day Smoker co mpleted Current Every Day Smoker [facility] 04/20/2020 10:17:25 PM EST Cigarettes completed Cigarette s [facility] 04/20/2020 10:17:25 PM EST Current Every Day Smoker co mpleted Current Every Day Smoker [facility] 04/20/2020 10:17:25 PM EST Cigarettes completed Cigarette s [facility] Smoking 04/20/2020 10:17:00 PM EST Smoker (finding) [facility] 04/20/2020 10:17:00 PM EST Smoker (finding) completed Smo ker (finding) [facility] Smoking 02/01/2020 12:00:00 AM EST Smokes tobacco daily (findi ng) completed Smokes tobacco daily (finding) [place] ([facility]) Vital Signs ID Date Data Source UNK Name Value Range Interpretation Code Description Data Source(s) Body height 160 cm 160 cm [facility] Systolic blood pressure 125 mm[Hg] 125 mm[Hg] [facility] Diastolic blood pressure 74 mm[Hg] 74 mm[Hg] [facility] Heart rate 103 /min 103 /min [facility] Body temperature 37.06 Eliana 37.06 Eliana [facility] Systolic blood pressure 100 mm[Hg] 100 mm[Hg] [place] ([facility]) Diastolic blood pressure 70 mm[Hg] 70 mm[Hg] [place] ([facility]) Heart rate 76 /min 76 /min [place] ([facility]) Heart rate rhythm 1 1 [place] ([facility]) Respiratory rate 16 /min 16 /min [place] ([facility]) Body temperature 97.8 [degF] 97.8 [degF] [place] ([facility]) Body height 62 [in_i] 62 [in_i] [place] ([facility]) Body weight 158 [lb_av] 158 [lb_av] [place] ([facility]) Body mass index (BMI) [Ratio] 28.9 kg/m2 28.9 k g/m2 [place] ([facility]) Body surface area Derived from formula 1.73 m2 1.73 m2 [place] ([facility]) PhenX - pain, abdominal - type and intensity protocol 0 0 [place] ([facility]) Oxygen saturation in Arterial blood by Pulse oximetry 97 % 97 % [place] ([facility]) Systolic blood pressure 100 mm[Hg] 100 mm[Hg] [place] ([facility]) Diastolic blood pressure 66 mm[Hg] 66 mm[Hg] [place] ([facility]) Heart rate 78 /min 78 /min [place] ([facility]) Heart rate rhythm 1 1 [place] ([facility]) Respiratory rate 16 /min 16 /min [place] ([facility]) Body temperature 96.7 [degF] 96.7 [degF] [place] ([facility]) Body height 62 [in_i] 62 [in_i] [place] ([facility]) Body weight 146 [lb_av] 146 [lb_av] [facility] Body mass index (BMI) [Ratio] 26.7 kg/m2 26.7 k g/m2 [place] ([facility]) Body surface area Derived from formula 1.67 m2 1.67 m2 [place] ([facility]) PhenX - pain, abdominal - type and intensity protocol 0 0 [place] ([facility]) Oxygen saturation in Arterial blood by Pulse oximetry 100 % 100 % [place] ([facility]) Body height 62 [in_i] 62 [in_i] [place] ([facility]) Body surface area Derived from formula 1.68 m2 1.68 m2 [place] ([facility]) PhenX - pain, abdominal - type and intensity protocol 0 0 [place] ([facility]) Oxygen saturation in Arterial blood by Pulse oximetry 100 % 100 % [place] ([facility]) Systolic blood pressure 104 mm[Hg] 104 mm[Hg] [place] ([facility]) Diastolic blood pressure 70 mm[Hg] 70 mm[Hg] [place] ([facility]) Heart rate 98 /min 98 /min [place] ([facility]) Heart rate rhythm 1 1 Y ([facility]) Body weight 148 [lb_av] 148 [lb_av] [place] ([facility]) Respiratory rate 16 /min 16 /min [place] ([facility]) Body temperature 97.3 [degF] 97.3 [degF] [place] ([facility]) Body mass index (BMI) [Ratio] 27.1 kg/m2 27.1 k g/m2 [place] ([facility]) Systolic blood pressure 100 mm[Hg] 100 mm[Hg] [place] ([facility]) Diastolic blood pressure 68 mm[Hg] 68 mm[Hg] [place] ([facility]) Heart rate 104 /min 104 /min [place] ([facility]) Heart rate rhythm 1 1 Y ([facility]) Respiratory rate 16 /min 16 /min [place] ([facility]) Body temperature 97.6 [degF] 97.6 [degF] [place] ([facility]) Body height 62 [in_i] 62 [in_i] [place] ([facility]) Body weight 143 [lb_av] 143 [lb_av] [place] ([facility]) Body mass index (BMI) [Ratio] 26.2 kg/m2 26.2 k g/m2 [place] ([facility]) Body surface area Derived from formula 1.66 m2 1.66 m2 [place] ([facility]) PhenX - pain, abdominal - type and intensity protocol 0 0 [place] ([facility]) Oxygen saturation in Arterial blood by Pulse oximetry 97 % 97 % [place] ([facility]) Body temperature 98.6 [degF] 98.6 [degF] [place] ([facility]) Body height 62 [in_i] 62 [in_i] [place] ([facility]) Body weight 134 [lb_av] 134 [lb_av] [place] ([facility]) Body mass index (BMI) [Ratio] 24.5 kg/m2 24.5 k g/m2 [place] ([facility]) Body surface area Derived from formula 1.61 m2 1.61 m2 [place] ([facility]) PhenX - pain, abdominal - type and intensity protocol 0 0 [place] ([facility]) Oxygen saturation in Arterial blood by Pulse oximetry 99 % 99 % [place] ([facility]) Systolic blood pressure 100 mm[Hg] 100 mm[Hg] [place] ([facility]) Diastolic blood pressure 66 mm[Hg] 66 mm[Hg] [place] ([facility]) Heart rate 98 /min 98 /min [place] ([facility] [place] Heart rate rhythm 1 1 [place] ([facility]) Respiratory rate 18 /min 18 /min [place] ([facility]) Body height 62 [in_i] 62 [in_i] [place] ([facility]) Body weight 131 [lb_av] 131 [lb_av] [place] ([facility]) Body mass index (BMI) [Ratio] 24.0 kg/m2 24.0 k g/m2 [place] ([facility]) Body surface area Derived from formula 1.60 m2 1.60 m2 [place] ([facility]) PhenX - pain, abdominal - type and intensity protocol 0 0 [place] ([facility]) Oxygen saturation in Arterial blood by Pulse oximetry 99 % 99 % [place] ([facility]) Systolic blood pressure 100 mm[Hg] 100 mm[Hg] [place] ([facility]) Diastolic blood pressure 52 mm[Hg] 52 mm[Hg] [place] ([facility]) Heart rate 135 /min 135 /min [place] ([facility]) Respiratory rate 18 /min 18 /min [place] ([facility]) Body temperature 96.9 [degF] 96.9 [degF] [place] ([facility]) Deprecated Oxygen saturation in Capillary blood by Oximetry 100 % Normal (applies to non-numeric results) 100 % [facility] Heart rate 98 min Normal (applies to non-numeric resul ts) 98 min [facility] Body temperature 36.7 eliana Normal (applies to non-numeric results) 36.7 eliana [facility] Systolic blood pressure 107 mm[Hg] Normal (applies t o non-numeric results) 107 mm[Hg] [facility] Diastolic blood pressure 70 mm[Hg] Normal (applies to non-numeric results) 70 mm[Hg] [facility] Body mass index (BMI) [Ratio] 24.0 kg/m2 No rmal (applies to non-numeric results) 24.0 kg/m2 [facility] Body height 162.1536 cm Normal (applies to non-numeric res ults) 162.1536 cm [facility] Respiratory rate 18 min Normal (applies to non-numeric results) 18 min [facility] Body weight Measured 140 [lb_av] Normal (applies to n on-numeric results) 140 [lb_av] [facility] Heart rate 65 /min 65 /min [facility] 16 /min 16 /[facility] Oxygen saturation in Arterial blood by Pulse oximetry 99 % 99 % [facility] Heart rate 65 /min 65 /min [facility] Respiratory rate 16 /min 16 /min [place] [facility] Oxygen saturation in Arterial blood by Pulse oximetry 99 % 99 % [facility] Body weight 65.00 kg 65.00 kg [facility] Body temperature 98.4 [degF] 98.4 [degF] [facility] Systolic blood pressure 130 mm[Hg] 130 mm[Hg] O [facility] Diastolic blood pressure 57 mm[Hg] 57 mm[Hg] [facility] Body weight 65.00 kg 65.00 kg [facility] Body temperature 98.4 [degF] 98.4 [degF] [facility] Systolic blood pressure 130 mm[Hg] 130 mm[Hg] O [facility] Diastolic blood pressure 57 mm[Hg] 57 mm[Hg] [facility] PhenX - pain, abdominal - type and intensity protocol 0 0 [place] ([facility]) Unable to obtain all vitals due to covid 19 pandemic. Heart rate 88 /min 88 /min [place] ([facility]) Systolic blood pressure 98 mm[Hg] 98 mm[Hg] [facility] Diastolic blood pressure 70 mm[Hg] 70 mm[Hg] [place] ([facility]) Heart rate 113 /min 113 /min [place] ([facility] [place] Heart rate rhythm 1 1 [place] ([facility]) Respiratory rate 16 /min 16 /min [place] ([facility]) Body temperature 97.5 [degF] 97.5 [degF] [place] ([facility]) Body weight 151.125 [lb_av] 151.125 [lb_av] [place] ([facility]) PhenX - pain, abdominal - type and intensity protocol 0 0 [place] ([facility]) Oxygen saturation in Arterial blood by Pulse oximetry 97 % 97 % [place] ([facility]) Inhaled oxygen flow rate 0 L/min 0 L/min [place] ([facility]) Inhaled oxygen concentration 21 % 21 % [place] ([facility]) PhenX - pain, abdominal - type and intensity protocol 6 6 [place] ([facility]) Oxygen saturation in Arterial blood by Pulse oximetry 98 % 98 % [place] ([facility]) Inhaled oxygen flow rate 0 L/min 0 L/min [place] ([facility]) Inhaled oxygen concentration 21 % 21 % [place] ([facility]) Systolic blood pressure 110 mm[Hg] 110 mm[Hg] [place] ([facility]) Diastolic blood pressure 64 mm[Hg] 64 mm[Hg] [place] ([facility]) Heart rate 132 /min 132 /min [place] ([facility]) Heart rate rhythm 1 1 [place] ([facility]) Respiratory rate 18 /min 18 /min [place] ([facility]) Body temperature 97.2 [degF] 97.2 [degF] [place] ([facility]) Body weight 152 [lb_av] 152 [lb_av] [place] ([facility]) Patient Treatment Plan of Care Planned Activity Planned Date Details Description Data Source (s) albuterol (PROVENTIL HFA;VENTOLIN HFA) 108 (90 Base) M CG/ACT inhaler 12/17/2020 12:00:00 AM EDT [facility] Buprenorphine 2 MG Sublingual Tablet 12/17/2020 12:00:00 AM EDT [place] ([facility]) Buprenorphine 8 MG Sublingual Tablet 12/17/2020 12:00:00 AM EDT [place] ([facility]) Sertraline 100 MG Oral Tablet [Zoloft] 12/17/2020 12:00:00 AM EDT [place] [facility] 200 ACTUAT Albuterol 0.09 MG/ACTUAT Metered Dose Inhal er [ProAir] 12/17/2020 12:00:00 AM EDT [place] [facility] Methylphenidate Hydrochloride 20 MG Oral Tablet 12/04/2020 12:00:00 AM EDT [place] [facility] Alprazolam 1 MG Oral Tablet 11/26/2020 12:00:00 AM EDT [place] [facility] Alprazolam 1 MG Oral Tablet 11/05/2020 12:00:00 AM EDT [place] [facility] Methylphenidate Hydrochloride 20 MG Oral Tablet 11/05/2020 12:00:00 AM EDT [place] [facility] Buprenorphine 8 MG Sublingual Tablet 11/05/2020 12:00:00 AM EDT [place] [facility] Buprenorphine 2 MG Sublingual Tablet 11/05/2020 12:00:00 AM EDT [place] [facility] Methylphenidate Hydrochloride 20 MG Oral Tablet 10/25/2020 12:00:00 AM EDT [facility] Buprenorphine 8 MG Sublingual Tablet 10/22/2020 12:00:00 AM EDT [facility] Alprazolam 1 MG Oral Tablet 10/22/2020 12:00:00 AM EDT [facility] Sertraline 100 MG Oral Tablet [Zoloft] 10/22/2020 12:00:00 AM EDT [place] ([facility] Alprazolam 1 MG Oral Tablet 10/22/2020 12:00:00 AM EDT [place] [facility] Methylphenidate Hydrochloride 20 MG Oral Tablet 10/22/2020 12:00:00 AM EDT [place] [facility] Buprenorphine 8 MG Sublingual Tablet 10/22/2020 12:00:00 AM EDT [place] [facility] Sertraline 100 MG Oral Tablet 10/09/2020 12:00:00 AM EDT [facility] Methylphenidate Hydrochloride 20 MG Oral Tablet 10/08/2020 12:00:00 AM EDT [place] ([facility]) Buprenorphine 8 MG Sublingual Tablet 10/08/2020 12:00:00 AM EDT [place] ([facility]) Alprazolam 1 MG Oral Tablet 10/08/2020 12:00:00 AM EDT [place] ([facility]) Methylphenidate Hydrochloride 20 MG Oral Tablet 09/03/2020 12:00:00 AM EDT [place] ([facility]) Buprenorphine 8 MG Sublingual Tablet 09/03/2020 12:00:00 AM EDT [place] ([facility]) Alprazolam 1 MG Oral Tablet 09/03/2020 12:00:00 AM EDT [place] ([facility]) Escitalopram 5 MG Oral Tablet [Lexapro] 02/01/2020 12:00:00 AM EST [place] ([facility]) Buprenorphine 8 MG Sublingual Tablet 01/02/2020 12:00:00 AM EDT [place] ([facility]) Ibuprofen 600 MG Oral Tablet 12/06/2017 12:00:00 AM EDT [facility]
== END 2021-01-13 18:57 | disposition left against medical advice (07) ==
LOC: M ED 17:13
DX: Z76.0 Encounter for issue of repeat prescription (principal); O26.893 Other specified pregnancy related conditions, third trimester; M54.50 Low back pain, unspecified; Z53.9 Procedure and treatment not carried out, unspecified reason; O99.343 Other mental disorders complicating pregnancy, third trimester; O99.513 Diseases of the respiratory system complicating pregnancy, third trimester; O99.013 Anemia complicating pregnancy, third trimester; Z86.19 Personal history of other infectious and parasitic diseases; O99.323 Drug use complicating pregnancy, third trimester; Z79.899 Other long term (current) drug therapy

== ENCOUNTER 2021-01-20 16:48 | Emergency (ER) | payer OTHER ==
[~2021-01-20] VITALS: Ht 160 cm; Wt 83.6 kg
[2021-01-20 16:49] VITALS: BP 142/90
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
--- OUTSIDE RECORDS SUMMARY | 2021-01-20 17:02 | CCD ---
Author Author [facility] Organization [facility] Address Unknown Phone Unavailable Care Team Providers Care Development And Housing Director Name Role Phone Daniela MENARD Unavailable Unavailable BILOLIMPIA MACEDO MD Unavailable Unavailable BILALOLIMPIA MD Unavailable Unavailable BILOLIMPIA MACEDO MD Unavailable Unavailable BILOLIMPIA MACEDO MD Unavailable Unavailable BILOLIMPIA MACEDO MD Unavailable Unavailable BILOLIMPIA MACEDO MD Unavailable Unavailable BILOLIMPIA MACEDO MD Unavailable Unavailable BILOLIMPIA MACEDO MD Unavailable Unavailable BILOLIMPIA MACEDO MD Unavailable Unavailable BILOLIMPIA MACEDO MD Unavailable Unavailable Daniela Menard Unavailable Curry, C Dede Unavailable Unavailable Curry, [...] Unavailable Unavailable Curry, C Dede Unavailable Unavailable Anisa, I Genet GENOMICS SCIENTIST Unavailable Unavailable Anisa, I Genet GENOMICS SCIENTIST Unavailable Unavailable Anisa, I Genet GENOMICS SCIENTIST Unavailable Unavailable Anisa, I Genet GENOMICS SCIENTIST Unavailable Unavailable Anisa, I Genet GENOMICS SCIENTIST Unavailable Unavailable Anisa, I Genet GENOMICS SCIENTIST Unavailable Unavailable Anisa, I Genet GENOMICS SCIENTIST Unavailable Unavailable Anisa, I Genet GENOMICS SCIENTIST Unavailable Unavailable Anisa, I Genet GENOMICS SCIENTIST Unavailable Unavailable Anisa, I Genet GENOMICS SCIENTIST Unavailable Unavailable Anisa, I Genet GENOMICS SCIENTIST Unavailable Unavailable Anisa, I Genet GENOMICS SCIENTIST Unavailable Unavailable Anisa, I Genet GENOMICS SCIENTIST Unavailable Unavailable Anisa, I Genet GENOMICS SCIENTIST Unavailable Unavailable Anisa, I Genet GENOMICS SCIENTIST Unavailable Unavailable Anisa, I Genet GENOMICS SCIENTIST Unavailable Unavailable Anisa, I Genet GENOMICS SCIENTIST Unavailable Unavailable Anisa, I Genet GENOMICS SCIENTIST Unavailable Unavailable Anisa, I Genet GENOMICS SCIENTIST Unavailable Unavailable Anisa, I Genet GENOMICS SCIENTIST Unavailable Unavailable Anisa, I Genet GENOMICS SCIENTIST Unavailable Unavailable Anisa, I Genet GENOMICS SCIENTIST Unavailable Unavailable Anisa, I Genet GENOMICS SCIENTIST Unavailable Unavailable Anisa, I Genet GENOMICS SCIENTIST Unavailable Unavailable Anisa, I Genet GENOMICS SCIENTIST Unavailable Unavailable Anisa, I Genet GENOMICS SCIENTIST Unavailable Unavailable Anisa, I Genet GENOMICS SCIENTIST Unavailable Unavailable Anisa, I Genet GENOMICS SCIENTIST Unavailable Unavailable Anisa, I Genet GENOMICS SCIENTIST Unavailable Unavailable Anisa, I Genet GENOMICS SCIENTIST Unavailable Unavailable Anisa, I Genet GENOMICS SCIENTIST Unavailable Unavailable Anisa, I Genet GENOMICS SCIENTIST Unavailable Unavailable Anisa, I Genet GENOMICS SCIENTIST Unavailable Unavailable Anisa, I Egnet GENOMICS SCIENTIST Unavailable Unavailable Anisa, I Genet GENOMICS SCIENTIST Unavailable Unavailable Anisa, I Genet GENOMICS SCIENTIST Unavailable Unavailable Anisa, I Genet GENOMICS SCIENTIST Unavailable Unavailable Anisa, I Genet GENOMICS SCIENTIST Unavailable Unavailable Anisa, I Genet GENOMICS SCIENTIST Unavailable Unavailable Anisa, I Genet GENOMICS SCIENTIST Unavailable Unavailable Anisa, I Genet GENOMICS SCIENTIST Unavailable Unavailable Anisa, I Genet GENOMICS SCIENTIST Unavailable Unavailable Anisa, I Genet GENOMICS SCIENTIST Unavailable Unavailable Anisa, I Genet GENOMICS SCIENTIST Unavailable Unavailable Anisa, I Genet GENOMICS SCIENTIST Unavailable Unavailable Anisa, I Genet GENOMICS SCIENTIST Unavailable Unavailable Anisa, I Genet GENOMICS SCIENTIST Unavailable Unavailable Anisa, I Genet GENOMICS SCIENTIST Unavailable Unavailable Anisa, I Genet GENOMICS SCIENTIST Unavailable Unavailable Anisa, I Genet GENOMICS SCIENTIST Unavailable Unavailable Anisa, I Genet GENOMICS SCIENTIST Unavailable Unavailable Anisa, I Genet GENOMICS SCIENTIST Unavailable Unavailable Anisa, I Genet GENOMICS SCIENTIST Unavailable Unavailable Anisa, I Genet GENOMICS SCIENTIST Unavailable Unavailable Anisa, I Genet GENOMICS SCIENTIST Unavailable Unavailable Anisa, I Genet GENOMICS SCIENTIST Unavailable Unavailable Anisa, I Genet GENOMICS SCIENTIST Unavailable Unavailable Anisa, I Genet GENOMICS SCIENTIST Unavailable Unavailable Anisa, I Genet GENOMICS SCIENTIST Unavailable Unavailable Anisa, I Genet GENOMICS SCIENTIST Unavailable Unavailable Anisa, I Genet GENOMICS SCIENTIST Unavailable Unavailable Anisa, I Genet GENOMICS SCIENTIST Unavailable Unavailable Anisa, I Genet GENOMICS SCIENTIST Unavailable Unavailable Anisa, I Genet GENOMICS SCIENTIST Unavailable Unavailable Anisa, I Genet GENOMICS SCIENTIST Unavailable Unavailable Anisa, I Genet GENOMICS SCIENTIST Unavailable Unavailable Anisa, I Genet GENOMICS SCIENTIST Unavailable Unavailable Anisa, I Genet GENOMICS SCIENTIST Unavailable Unavailable Anisa, I Genet GENOMICS SCIENTIST Unavailable Unavailable Anisa, I Genet GENOMICS SCIENTIST Unavailable Unavailable Anisa, I Genet GENOMICS SCIENTIST Unavailable Unavailable Anisa, I Genet GENOMICS SCIENTIST Unavailable Unavailable Anisa, I Genet GENOMICS SCIENTIST Unavailable Unavailable Sarina Elliott MD Unavailable Unavailable Sarina Elliott MD Unavailable Unavailable Sarina Elliott MD Unavailable Unavailable Sarina Elliott MD Unavailable Unavailable Sarina Elliott MD Unavailable Unavailable Sarina Elliott MD Unavailable Unavailable Earl, F Eliseo MD [...] Eliseo MD Unavailable Unavailable Earl, F Eliseo CALDWELL Unavailable Unavailable Earl, Sairna Gomes MD Unavailable Unavailable Earl, F Eliseo CALDWELL Unavailable Unavailable Earl, F Eliseo CALDWELL Unavailable Unavailable Earl, F Eliseo CALDWELL Unavailable Unavailable Earl, F Eliseo CALDWELL Unavailable Unavailable Earl, F Eliseo CALDWELL Unavailable Unavailable Earl, F Eliseo CALDWELL Unavailable Unavailable Earl, F Eliseo CALDWELL Unavailable Unavailable Earl, F Eliseo CALDWELL Unavailable Unavailable Ealr, F Eliseo CALDWELL Unavailable Unavailable Earl, F [...] Unavailable Unavailable Maribel Michele MD Unavailable Unavailable Syredmond, Maribel Galeana MD Unavailable Unavailable SyrMaribel pruitt MD Unavailable Unavailable Maribel Michele MD Unavailable Unavailable Syredmond, Maribel Galeana MD Unavailable Unavailable MANZANARES, BERTHA Unavailable Unavailable BINA, Anibal ARAMBULA MD Unavailable Unavailable BINA, Anibal ARAMBULA MD Unavailable Unavailable BINA, Anibal ARAMBULA MD Unavailable Unavailable BINA, Anibal ARAMBULA MD Unavailable Unavailable BINA, Anibal ARAMBULA MD Unavailable Unavailable BINA, Anibal ARAMBULA MD Unavailable Unavailable BINA, Anibal ARAMBULA MD Unavailable Unavailable BINA, Anibal ARAMBULA MD Unavailable Unavailable BINA, Anibal ARAMBULA MD Unavailable Unavailable BINA, Anibal ARAMBULA MD Unavailable Unavailable BINA, Anibal ARAMBULA MD Unavailable Unavailable BINA, Anibal ARAMBULA MD Unavailable Unavailable BINA, Anibal ARAMBULA MD Unavailable Unavailable BINA, Anibal ARAMBULA MD Unavailable Unavailable BINA, Anibal ARAMBULA MD Unavailable Unavailable BINA, Anibal ARAMBULA MD Unavailable Unavailable BINA, Anibal ARAMBULA MD Unavailable Unavailable BINA, Anibal ARAMBULA MD Unavailable Unavailable BINA, Anibal ARAMBULA MD Unavailable Unavailable BINA, Anibal ARAMBULA MD Unavailable Unavailable BINA, Anibal ARAMBULA MD Unavailable Unavailable BINA, Anibal ARAMBULA MD Unavailable Unavailable BINA, Anibal ARAMBULA MD Unavailable Unavailable BINA, Anibal ARAMBULA MD Unavailable Unavailable BINA, A RALF MD [...] Unavailable BINA, A RALF CALDWELL Unavailable Unavailable Mason AZAR Unavailable Unavailable Dator SR, Yonatan Drake MD [...] Unavailable Unavailable PHYSICIAN, PHYSICIAN ER Unavailable Unavailable Ahmed, Mason Louis MD Unavailable Unavailable Ahmed, Mason Louis MD Unavailable Unavailable Ahmed, Mason Louis MD Unavailable Unavailable Ahmed, M Missy MD Unavailable Unavailable Ahmed, M Missy MD Unavailable Unavailable Ahmed, M Missy MD Unavailable Unavailable Ahmed, M Missy MD Unavailable Unavailable Ahmed, M Missy MD Unavailable Unavailable Ahmed, Mason Louis MD Unavailable Unavailable Ahmed, Mason Louis MD Unavailable Unavailable Ahmed, Mason Louis MD Unavailable Unavailable Ahmed, M Missy MD Unavailable Unavailable Ahmed, Mason Louis MD Unavailable Unavailable Ahmed, Mason Louis MD Unavailable Unavailable Ahmed, Mason Louis MD Unavailable Unavailable Ahmed, Mason Louis MD Unavailable Unavailable Ahmed, Mason Louis MD Unavailable Unavailable Ahmed, M Missy MD Unavailable Unavailable Ahmed, M Missy MD Unavailable Unavailable Ahmed, Mason Louis MD Unavailable Unavailable Ahmed, Mason Louis MD Unavailable Unavailable Ahmed, Mason Louis MD Unavailable Unavailable Ahmed, Mason Louis MD Unavailable Unavailable Ahmed, Mason Louis MD Unavailable Unavailable Ahmed, M Missy MD Unavailable Unavailable Ahmed, M Missy MD Unavailable Unavailable Ahmed, Mason Louis MD Unavailable Unavailable Ahmed, Mason Louis MD Unavailable Unavailable Ahmed, Mason Louis MD Unavailable Unavailable Ahmed, Mason Louis MD Unavailable Unavailable Ahmed, M Missy MD Unavailable Unavailable Ahmed, M Missy MD Unavailable Unavailable Ahmed, M Missy MD Unavailable Unavailable Ahmed, M Missy MD Unavailable Unavailable Ahmed, Mason Louis MD Unavailable Unavailable Ahmed, Mason Louis MD Unavailable Unavailable Ahmed, Mason Louis MD Unavailable Unavailable Ahmed, Mason Louis MD Unavailable Unavailable Ahmed, M Missy MD Unavailable Unavailable Ahmed, Mason Louis MD Unavailable Unavailable Ahmed, M Missy MD Unavailable Unavailable Ahmed, Mason Louis MD Unavailable Unavailable Ahmed, Mason Louis MD Unavailable Unavailable Ahmed, Mason Louis MD Unavailable Unavailable Ahmed, M Missy CALDWELL Unavailable Unavailable Mason Cheung MD Unavailable Unavailable AhmedMason MD Unavailable Unavailable AhmedMason MD Unavailable Unavailable AhmedMason MD Unavailable Unavailable Dallas, Carmen Isela DO Unavailable Unavailable Cristine, Carmen Isela DO Unavailable Unavailable Cristine, Carmen Isela DO Unavailable Unavailable Cristine, Carmen Isela DO Unavailable Unavailable Dallas, Carmen Isela DO Unavailable Unavailable Cristine, Carmen Isela DO Unavailable Unavailable Cristine, Carmen Isela DO Unavailable Unavailable Dallas, Carmen Isela DO Unavailable Unavailable Cristine, Carmen Isela DO Unavailable Unavailable Dallas, Carmen Isela DO Unavailable Unavailable Cristine, Carmen Isela DO Unavailable Unavailable Dallas, Carmen Isela DO Unavailable Unavailable Cristine, Carmen Isela DO Unavailable Unavailable Cristine, Carmen Isela DO Unavailable Unavailable Dallas, Carmen Isela DO Unavailable Unavailable Cristine, Carmen Isela DO Unavailable Unavailable Cristine, Carmen Isela DO Unavailable Unavailable Cristine, Carmen Isela DO Unavailable Unavailable Dallas, Carmen Isela DO Unavailable Unavailable Dallas, Carmen Isela DO Unavailable Unavailable Cristine, Carmen Isela DO Unavailable Unavailable Cristine, Carmen Isela DO Unavailable Unavailable Cristine, Carmen Isela DO Unavailable Unavailable Cristine, Carmen Isela DO Unavailable Unavailable Dallas, Carmen Isela DO Unavailable Unavailable Cristine, Carmen Isela DO Unavailable Unavailable Cristine, Carmen Isela DO Unavailable Unavailable Dallas, Carmen Isela DO Unavailable Unavailable OH, R EMELYN Unavailable Unavailable Charity, D Karina TALEND DEVELOPER-C Unavailable Unavailable Charity, D Karina TALEND DEVELOPER-C Unavailable Unavailable Charity, D Karina TALEND DEVELOPER-C Unavailable Unavailable Charity, D Karina TALEND DEVELOPER-C Unavailable Unavailable Charity, D Karina TALEND DEVELOPER-C Unavailable Unavailable Charity, D Karina TALEND DEVELOPER-C Unavailable Unavailable Charity, D Karina TALEND DEVELOPER-C Unavailable Unavailable Charity, D Karina TALEND DEVELOPER-C Unavailable Unavailable Charity, D Karina TALEND DEVELOPER-C Unavailable Unavailable Charity, D Karina TALEND DEVELOPER-C Unavailable Unavailable Charity, D Karina TALEND DEVELOPER-C Unavailable Unavailable Charity, D Karina TALEND DEVELOPER-C Unavailable Unavailable Charity, D Karina TALEND DEVELOPER-C Unavailable Unavailable PHYSICIAN, ER Unavailable Unavailable Re-disclosure [...] is protected by Article 27-F of the [facility] Public Health law. If you continue you may have access to information: Regarding HIV / AIDS; Provided by facilities licensed or operated by the [facility] Office of Mental Health; or Provided by the [facility] Office for People With Developmental Disabilities. If such information is present, then the following [facility] mandated warning applies: This information has been [...] law may result in a fine or care home sentence or both. A general authorization for the release of medical or other information is NOT sufficient authorization for further disc losure. 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 -NO Ebola Screening Performed completed Ebol a Screening Performed [facility] ([facility]) Note: Within the last month, have you [...] reactions NO KNOWN ALLERGIES NO KNOWN ALLERGIES [facility] Allergy to substance No Known Allergies No known allergies (situation ) [facility] ([facility]) Allergy to substance No Known Allergies No known allergies (situation ) [facility] ([facility]) Allergy to substance No Known Allergies No known allergies (situation ) [facility] ([facility]) Drug allergy No Known Allergies No Known Allergies [facility] Allergy to substance No Known Allergies No known allergies (situation ) [facility] ([facility]) Allergy to substance No Known Allergies No known allergies (situation ) [facility] ([facility]) Family History Family Member Name Family Member Gender Family Member Status Date o f Status Description Data Source(s) Unknown Condition [facility] Unknown Condition [facility] Unknown Unknown Problem [facility] ([facility]) Encounters Encounter Providers Location Date Indications Data Source(s ) Emergency Attender: OLIMPIA TAPIA MD ES1-CP2 021 08:14:00 PM EDT - 01/19/2021 10:48:00 PM EDT [facility] Patient discharged. Emergency ES1-ES1 01/19/2021 07:49:00 PM EDT [facility] Admission cancelled. Disregard status an d admitted date. Outpatient Referrer: Hardik Menard 01/17/2021 12:11:42 PM EDT [facility] Outpatient Attender: GREGG Caputoender: HARDIK ANTHONY ES1-FP 01/17/2021 12:00:00 AM EDT - 01/17/2021 12:08:06 PM EDT [facility] Outpatient Attender: Isela Colunga DOAdmitter: Isela Colunga DO ES1-BP 01/16/2021 07:08:00 PM EDT - 01/16/2021 09:52:00 PM EDT [facility] Patient discharged. Unknown<td ID="encounterTypeDescriptionI D0">SUBOXONE</td><td>Eliseo Elliott MD</td><td>[facility]</td><td>01/14/2021</td><td>10:41AM</td><td>11:59PM</td><td><content ID="encounterDiagnosisID0-0"></content>, <content ID="encounterDiagnosisID0-1">Opioid Dependence</content>, <content ID="encounterDiagnosisID0-2">Nicotine Dependence</content>, <content ID="encounterDiagnosisID0-3">Anxiety Disorder Nos</content>, <content ID="encounterDiagnosisID0-4">Depression</content>, <content ID="encounterDiagnosisID0-5">Hepatitis, C Virus - Chronic</content>, <content ID="encounterDiagnosisID0-6">Assessment of Bipolar Disorder</content>, <content ID="encounterDiagnosisID0-7">Post-traumatic Stress Disorder</content>, <content ID="encounterDiagnosisID0-8">Adult Attention Deficit Hyperactivity Disorder</content></td> Attender: Eliseo Elliott MD [facility] 01/15/20 10:41:00 AM EDT - 01/14/2021 11:59:00 PM EDT Hepatitis, C Virus - ChronicPregnancyAdult Attention Deficit Hyperactivity DisorderPost-traumatic Stress DisorderAnxiety Disorder NosNicotine DependenceOpioid DependenceAssessment of Bipolar DisorderDepression [facility] ([facility]) Hepatitis, C Virus - Chronic Adult Attention Deficit Hyperactivity Di sorder Post-traumatic Stress Disorder Anxiety Disorder Nos Nicotine Dependence Opioid Dependence Assessment of Bipolar Disorder Depression Outpatient Attender: GREGG AZARAttender: HARDIK ANTHONY ES1-FP 01/10/2021 10:50:06 AM EDT - 01/10/2021 02:43:20 PM EDT [facility] Outpatient Referrer: RALF CURRAN MD ES1-FP.MED 01/10/2021 12:00:00 AM EDT [facility] ES1-FP 01/04/2021 12:18:00 PM EDT [facility] Outpatient Attender: GREGG AZAR Attender: Isela Colunga DOConsultant: Isela Colunga DO ES1-FP 01/02/2021 03:32:42 PM EDT - 01/02/2021 04:23:57 PM EDT [facility] Outpatient Attender: HARDIK Laboyerrer: HARDIK Bernstein [facility] 12/26/2020 03:19:56 PM EDT - 12/26/2020 11:59:00 PM EDT [facility] Patient discharged. Outpatient Attender: GREGG AZARAttender: HARDIK ANTHONY ES1-FP.OB 12/26/2020 08:43:39 AM EDT - 12/26/2020 10:15:42 AM EDT [facility] Outpatient Attender: EMELYN LEBLANCdmitter: EMELYN BARKER CEReferrer: EMELYN [place] ES1-BP 12/25/2020 12:02:00 AM EDT - 12/25/2020 03:25:00 AM EDT [facility] Patient discharged. <td ID="encounterTypeDescriptionID0">SUB OXONE</td><td>Eliseo Elliott MD</td><td>[facility]</td><td>12/17/2020</td><td>11:32AM</td><td>11:59PM</td><td><content ID="encounterDiagnosisID0-0"></content>, <content ID="encounterDiagnosisID0-1">Opioid Dependence</content>, <content ID="encounterDiagnosisID0-2">Nicotine Dependence</content>, <content ID="encounterDiagnosisID0-3">Anxiety Disorder Nos</content>, <content ID="encounterDiagnosisID0-4">Depression</content>, <content ID="encounterDiagnosisID0-5">Hepatitis, C Virus - Chronic</content>, <content ID="encounterDiagnosisID0-6">Assessment of Bipolar Disorder</content>, <content ID="encounterDiagnosisID0-7">Post-traumatic Stress Disorder</content>, <content ID="encounterDiagnosisID0-8">Adult Attention Deficit Hyperactivity Disorder</content></td>Unknown Attender: Eliseo Elliott MD [facility] 12/17/2020 11:32:00 AM EDT - 12/17/2020 11:59:00 PM EDT Hepatitis, C Virus - ChronicPregnancyAdult Attention Deficit Hyperactivity DisorderPost-traumatic Stress DisorderAnxiety Disorder NosNicotine DependenceOpioid DependenceAssessment of Bipolar DisorderDepression [facility] Hepatitis, C Virus - Chronic Adult Attention Deficit Hyperactivity Di sorder Post-traumatic Stress Disorder Anxiety Disorder Nos Nicotine Dependence Opioid Dependence Assessment of Bipolar Disorder Depression <td ID="encounterTypeDescriptionID0">SUB OXONE</td><td>Eliseo Elliott MD</td><td>[facility]</td><td>11/05/2020</td><td>11:07AM</td><td>11:59PM</td><td><content ID="encounterDiagnosisID0-0"></content>, <content ID="encounterDiagnosisID0-1">Opioid Dependence</content>, <content ID="encounterDiagnosisID0-2">Nicotine Dependence</content>, <content ID="encounterDiagnosisID0-3">Anxiety Disorder Nos</content>, <content ID="encounterDiagnosisID0-4">Depression</content>, <content ID="encounterDiagnosisID0-5">Hepatitis, C Virus - Chronic</content>, <content ID="encounterDiagnosisID0-6">Assessment of Bipolar Disorder</content>, <content ID="encounterDiagnosisID0-7">Post-traumatic Stress Disorder</content>, <content ID="encounterDiagnosisID0-8">Adult Attention Deficit Hyperactivity Disorder</content></td>Unknown Attender: Eliseo Elliott MD [facility] 11/05/2020 11:07:00 AM EDT - 11/05/2020 11:59:00 PM EDT Hepatitis, C Virus - ChronicPregnancyAdult Attention Deficit Hyperactivity DisorderPost-traumatic Stress DisorderAnxiety Disorder NosNicotine DependenceOpioid DependenceAssessment of Bipolar DisorderDepression [facility] ([facility]) Hepatitis, C Virus - Chronic Adult Attention Deficit Hyperactivity Di sorder Post-traumatic Stress Disorder Anxiety Disorder Nos Nicotine Dependence Opioid Dependence Assessment of Bipolar Disorder Depression Emergency ES1-ES1 10/30/2020 12:41:00 AM EDT - 05:39:00 AM EDT [facility] Patient discharged. Unknown<td ID="encounterTypeDescriptionI D0">SUBOXONE</td><td>Eliseo Elliott MD</td><td>[facility]</td><td>10/22/2020</td><td>10:30AM</td><td>11:59PM</td><td><content ID="encounterDiagnosisID0-0"></content>, <content ID="encounterDiagnosisID0-1">Opioid Dependence</content>, <content ID="encounterDiagnosisID0-2">Nicotine Dependence</content>, <content ID="encounterDiagnosisID0-3">Anxiety Disorder Nos</content>, <content ID="encounterDiagnosisID0-4">Depression</content>, <content ID="encounterDiagnosisID0-5">Hepatitis, C Virus - Chronic</content>, <content ID="encounterDiagnosisID0-6">Assessment of Bipolar Disorder</content>, <content ID="encounterDiagnosisID0-7">Post-traumatic Stress Disorder</content>, <content ID="encounterDiagnosisID0-8">Adult Attention Deficit Hyperactivity Disorder</content></td> Attender: Eliseo Elliott MD [facility] 10/23/19 10:30:00 AM EDT - 10/22/2020 11:59:00 PM EDT Hepatitis, C Virus - ChronicPregnancyAdult Attention Deficit Hyperactivity DisorderPost-traumatic Stress DisorderAnxiety Disorder NosNicotine DependenceOpioid DependenceAssessment of Bipolar DisorderDepression [facility] ([facility]) Hepatitis, C Virus - Chronic Adult Attention Deficit Hyperactivity Di sorder Post-traumatic Stress Disorder Anxiety Disorder Nos Nicotine Dependence Opioid Dependence Assessment of Bipolar Disorder Depression Outpatient Referrer: Karina BROWN-Narda 10/10/2020 12: 00:00 AM [facility] Outpatient Referrer: Karina BROWN-Narda 10/10/2020 12: 00:00 AM [facility] Unknown<td ID="encounterTypeDescriptionI D0">SUBOXONE</td><td>Eliseo Elliott MD</td><td>[facility]</td><td>10/08/2020</td><td>10:54AM</td><td>11:59PM</td><td><content ID="encounterDiagnosisID0-0"></content>, <content ID="encounterDiagnosisID0-1">Opioid Dependence</content>, <content ID="encounterDiagnosisID0-2">Nicotine Dependence</content>, <content ID="encounterDiagnosisID0-3">Anxiety Disorder Nos</content>, <content ID="encounterDiagnosisID0-4">Depression</content>, <content ID="encounterDiagnosisID0-5">Hepatitis, C Virus - Chronic</content>, <content ID="encounterDiagnosisID0-6">Assessment of Bipolar Disorder</content>, <content ID="encounterDiagnosisID0-7">Post-traumatic Stress Disorder</content>, <content ID="encounterDiagnosisID0-8">Adult Attention Deficit Hyperactivity Disorder</content></td> Attender: Eliseo Elliott MD [facility] 10/09/19 10:54:00 AM EDT - 10/08/2020 11:59:00 PM EDT Hepatitis, C Virus - ChronicPregnancyAdult Attention Deficit Hyperactivity DisorderPost-traumatic Stress DisorderAnxiety Disorder NosNicotine DependenceOpioid DependenceAssessment of Bipolar DisorderDepression [facility] ([facility]) Hepatitis, C Virus - Chronic Adult Attention Deficit Hyperactivity Di sorder Post-traumatic Stress Disorder Anxiety Disorder Nos Nicotine Dependence Opioid Dependence Assessment of Bipolar Disorder Depression Outpatient Referrer: Karina DODSONP-Narda 09/04/2020 12: 00:00 AM [facility] Outpatient Referrer: Karnia BERMEO 09/04/2020 12: 00:00 AM EDT [facility] Unknown<td ID="encounterTypeDescriptionI D0">SUBOXONE</td><td>Eliseo Elliott MD</td><td>[facility]</td><td>09/03/2020</td><td>2:35PM</td><td>11:59PM</td><td><content ID="encounterDiagnosisID0-0"></content>, <content ID="encounterDiagnosisID0-1">Opioid Dependence</content>, <content ID="encounterDiagnosisID0-2">Nicotine Dependence</content>, <content ID="encounterDiagnosisID0-3">Anxiety Disorder Nos</content>, <content ID="encounterDiagnosisID0-4">Depression</content>, <content ID="encounterDiagnosisID0-5">Hepatitis, C Virus - Chronic</content>, <content ID="encounterDiagnosisID0-6">Assessment of Bipolar Disorder</content>, <content ID="encounterDiagnosisID0-7">Post-traumatic Stress Disorder</content>, <content ID="encounterDiagnosisID0-8">Adult Attention Deficit Hyperactivity Disorder</content></td> Attender: Eliseo Elliott MD [facility] 09/04/19 02:35:00 PM EDT - 09/03/2020 11:59:00 PM EDT Hepatitis, C Virus - ChronicPregnancyAdult Attention Deficit Hyperactivity DisorderPost-traumatic Stress DisorderAnxiety Disorder NosNicotine DependenceOpioid DependenceAssessment of Bipolar DisorderDepression [facility] ([facility]) Hepatitis, C Virus - Chronic Adult Attention Deficit Hyperactivity Di sorder Post-traumatic Stress Disorder Anxiety Disorder Nos Nicotine Dependence Opioid Dependence Assessment of Bipolar Disorder Depression <td ID="encounterTypeDescriptionID0">SUB OXONE</td><td>Eliseo Elliott MD</td><td>[facility]</td><td>08/20/2020</td><td>3:19PM</td><td>11:59PM</td><td><content ID="encounterDiagnosisID0-0">Opioid Dependence</content>, <content ID="encounterDiagnosisID0-1">Nicotine Dependence</content>, <content ID="encounterDiagnosisID0-2">Post-traumatic Stress Disorder</content>, <content ID="encounterDiagnosisID0-3">Depression</content>, <content ID="encounterDiagnosisID0-4">Assessment of Bipolar Disorder</content>, <content ID="encounterDiagnosisID0-5">Anxiety Disorder Nos</content>, <content ID="encounterDiagnosisID0-6">Adult Attention Deficit Hyperactivity Disorder</content>, <content ID="encounterDiagnosisID0-7"></content>, <content ID="encounterDiagnosisID0-8">Hepatitis, C Virus - Chronic</content></td>Outpatient Attender: Eliseo Elliott MD [facility] 08/20/2020 03:19:00 PM EDT - 08/20/2020 11:59:00 PM EDT Hepatitis, C Virus - ChronicPregnancyAdult Attention Deficit Hyperactivity DisorderAnxiety Disorder NosPost-traumatic Stress DisorderNicotine DependenceOpioid DependenceAssessment of Bipolar DisorderDepression [facility] ([facility] Hepatitis, C Virus - Chronic Adult Attention Deficit Hyperactivity Di sorder Anxiety Disorder Nos Post-traumatic Stress Disorder Nicotine Dependence Opioid Dependence Assessment of Bipolar Disorder Depression Emergency Attender: ER PHYSICIAN 07/22/2020 10:41:04 PM E DT Lab [facility] Emergency Attender: BERTHA MANZANARESAttender: ER PHYSICIAN 07/22/2020 09:26:00 PM EDT - 07/22/2020 11:30:00 PM EDT 14WK PREG HEART PRESSURE NUMBNESS LT ARM [facility] 14WK PREG HEART PRESSURE NUMBNESS LT ARM Patient discharged. Outpatient Attender: OLIMPIA Fortune tter: OLIMPIA TAPIA MDConsultant: OLIMPIA TAPIA MD 04/21/2020 01:43:00 AM EST Suicidal ideations R4 5.851 [facility] Suicidal ideations R45.851 Outpatient Attender: OLIMPIA Fortune tter: OLIMPIA TAPIA MDConsultant: OLIMPIA TAPIA MD 04/21/2020 01:43:00 AM EST Suicidal ideations R4 5.851 [facility] Suicidal ideations R45.851 Inpatient Attender: OLIMPIA Loo nder: Missy Cheung MDAdmitter: OLIMPIA TAPIA MD 04/21/2020 01:43:00 AM EST - 04/25/2020 09:20:00 AM EST [facility] R45.851 Patient discharged. Outpatient Attender: OLIMPIA Fortune tter: OLIMPIA TAPIA MDConsultant: OLIMPIA TAPIA MD 04/21/2020 01:43:00 AM EST Suicidal ideations R[facility] 5.[facility] R45.851 Outpatient Attender: OLIMPIA Fortune tter: OLIMPIA TAPIA MDConsultant: OLIMPIA TAPIA MD 04/21/2020 01:43:00 AM EST Suicidal ideations R[facility] 5.[facility] R45.851 Outpatient Attender: Vidal Sherwood SR 04/20/2020 10:1 3:00 PM EST [facility] Outpatient Attender: Dede Dickerson er: OLIMPIA TAPIA MDConsultant: OLIMPIA TAPIA MD 04/20/2020 09:15:00 PM EST Suicidal ideations [facility] Suicidal ideations Outpatient Attender: Dede Dickerson er: OLIMPIA TAPIA MDConsultant: OLIMPIA TAPIA MD 04/20/2020 09:15:00 PM EST Suicidal ideations [facility] Suicidal ideations Outpatient<td ID="encounterTypeDescripti onID0">Suboxone Telehealth FaceTime</td><td>Carolyn John Pond DO</td><td>[facility]</td><td>02/01/2020</td><td><content ID="encounterDiagnosisID0-0">Opioid Dependence</content>, <content ID="encounterDiagnosisID0-1">Adjustment Disorder</content>, <content ID="encounterDiagnosisID0-2">Lumbago</content>, <content ID="encounterDiagnosisID0-3">Post-traumatic Stress Disorder</content>, <content ID="encounterDiagnosisID0-4">Anxiety Disorder Nos</content>, <content ID="encounterDiagnosisID0-5">Adult Attention Deficit Hyperactivity Disorder</co ntent></td> Attender: Carolyn Pond [facility] 02/01/2020 12:35:00 PM EST - 02/01/2020 03:24:19 PM EST Adult Attention Deficit Hyperactivity Di sorderAnxiety Disorder NosPost-traumatic Stress DisorderLumbagoAdjustment DisorderOpioid Dependence [facility] ([facility]) Adult Attention Deficit Hyperactivity Di sorder Anxiety Disorder Nos Post-traumatic Stress Disorder Lumbago Adjustment Disorder Opioid Dependence Outpatient<td ID="encounterTypeDescripti onID1">Establish Care</td><td>Carolyn John Pond DO</td><td>[facility]</td><td>01/25/2020</td><td><content ID="encounterDiagnosisID1-0">Opioid Dependence</content>, <content ID="encounterDiagnosisID1-1">Benzodiazepine Abuse</content>, <content ID="encounterDiagnosisID1-2">Adjustment Disorder</content></td> Attender: Carolyn Pond [facility] 01/25/2020 04:03:00 PM EDT - 01/25/2020 06:01:44 PM EDT Adjustment DisorderAdjustment DisorderBenzodiazepine AbuseOpioid DependenceBenzodiazepine AbuseOpioid Dependence [facility] ([facility]) Adjustment Disorder Adjustment Disorder Benzodiazepine Abuse Opioid Dependence Benzodiazepine Abuse Opioid Dependence <td ID="encounterTypeDescriptionID2">On- Call</td><td>Genet Lange NP</td><td></td><td>01/24/2020</td><td></td>Unknown Attender: Genet Lange NP 01/24/2020 03:48:00 PM EDT - 01/24/2020 11:59:00 PM EDT [facility] ([facility]) <td ID="encounterTypeDescriptionID0">SUB OXONE</td><td>Genet Lange NP</td><td>[facility]</td><td>01/02/2020</td><td><content ID="encounterDiagnosisID0-0">Benzodiazepine Abuse</content>, <content ID="encounterDiagnosisID0-1">Assessment of Bipolar Disorder</content>, <content ID="encounterDiagnosisID0-2">Contraceptive Surveillance</content>, <content ID="encounterDiagnosisID0-3">Opioid Dependence</content></td>Outpatient Attender: Genet Lange NP [facility] 01/02/2020 06:26:00 PM EDT - 01/02/2020 09:46:25 PM EDT Contraceptive SurveillanceContraceptive SurveillanceContraceptive SurveillanceContraceptive SurveillanceOpioid DependenceBenzodiazepine AbuseOpioid DependenceBenzodiazepine AbuseOpioid DependenceBenzodiazepine AbuseOpioid DependenceBenzodiazepine AbuseAssessment of Bipolar DisorderAssessment of Bipolar DisorderAssessment of Bipolar DisorderAssessment of Bipolar Disorder ANNA ([facility]) Contraceptive Surveillance Contraceptive Surveillance Contraceptive Surveillance Contraceptive Surveillance Opioid Dependence Benzodiazepine Abuse Opioid Dependence Benzodiazepine Abuse Opioid Dependence Benzodiazepine Abuse Opioid Dependence Benzodiazepine Abuse Assessment of Bipolar Disorder Assessment of Bipolar Disorder Assessment of Bipolar Disorder Assessment of Bipolar Disorder Emergency Attender: Kervin Michele MD 2019 08:35:00 PM EDT - 12/29/2019 09:20:00 [facility] [address] [facility] Patient discharged. Immunizations Vaccine Date Status Description Data Source(s) 207 01/10/2021 12:00:00 AM EDT completed <td I D="[id number]">Covid-19 (Moderna)</td><td>01/10/2021</td><td></td> [facility] COVID-19 VACCINE Moderna 01/10/2021 12:00:00 AM EDT completed [facility] Vaccine Series Complete: NOThis Data was Submitted to [facility] Via [employer]. Medications Medication Brand Name Start Date Product Form Dose Route Admi nistrative Instructions Pharmacy Instructions Status Indications Reaction Description Data Source(s) Methylphenidate Hydrochloride 20 MG Oral Tablet Methylphenidate HCl 20 MG Oral Tablet Methylphenidate HCl 20 MG Oral Tablet 01/14/2021 12:00:00 AM EDT 2 active methylphenidate hydrochlorid e 20 MG Oral Tablet [facility] ([facility]) 200 ACTUAT Albuterol 0.09 MG/ACTUAT Mete red Dose Inhaler [ProAir] ProAir HFA 108 (90 Base) MCG/ACT Inhalation Aerosol Solution ProAir HFA 108 (90 Base) MCG/ACT Inhalation Aerosol Solution 01/14/2021 12:00:00 AM EDT active [id number] 200 ACTUAT albuterol 0.09 MG/ACTUAT Metered Dose Inhaler [ProAir] [facility] ([facility]) 100 mg 01/14/2021 12:00:00 AM EDT tablet 60 TAKE TWO TABLETS BY MOUTH EVERY DAY TAKE TWO TABLETS BY MOUTH EVERY DAY SOLD: 01/14/2021 [facility] Sertraline 100 MG Oral Tablet [Zoloft] Zoloft 100 MG O ral Tablet Zoloft 100 MG Oral Tablet 01/14/2021 12:00:00 AM EDT 2 active sertraline 100 MG Oral Tablet [Zoloft] [facility] ([facility]) NITROFURANTOIN, MACROCRYSTALS 100 MG Ora l Capsule Nitrofurantoin Macrocrystal 100 MG Oral Capsule Nitrofurantoin Macrocrystal 100 MG Oral Capsule 2020 12:00:00 AM EDT 1 active nitrofurantoin, macrocrystals 100 MG Oral Capsule [facility] ([facility]) 100 mg 01/14/2021 12:00:00 AM EDT capsule 14 TAKE ONE CAPSULE BY MOUTH TWICE A DAY TAKE ONE CAPSULE BY MOUTH TWICE A DAY SOLD: 01/14/2021 [facility] 1 mg 01/14/2021 12:00:00 AM EDT tablet 15 TAKE ONE TABLET BY MOUTH THREE TIMES A DAY MAXIMUM DAILY DOSE = 3 TAKE ONE TABLET BY MOUTH THREE TIMES A D AY MAXIMUM DAILY DOSE = 3 SOLD: 01/14/2021 [facility] Buprenorphine 2 MG Sublingual Tablet Bup renorphine HCl 2 MG Sublingual Tablet Sublingual Buprenorphine HCl 2 MG Sublingual Tablet Sublingual 12:00:00 AM EDT active buprenor phine 2 MG Sublingual Tablet [facility] ([facility]) 20 mg 01/14/2021 12:00:00 AM EDT tablet 20 TAKE TWO TABLETS BY MOUTH TWICE A DAY MAXIMUM DAILY DOSE = 4 TAKE TWO TABLETS BY MOUTH TWICE A DAY MA SEEMAMUM DAILY DOSE = 4 SOLD: 01/14/2021 [facility] 8 mg 01/14/2021 12:00:00 AM EDT tablet, sublingual 28 DISSOLVE ONE TABLET UNDER THE TONGUE EVERY DAY MAXIMUM DAILY DOSE = 1 DISSOLVE ONE TABLET UNDER THE TONGUE EVERY DAY MAXIMUM DAILY DOSE = 1 SOLD: 01/14/2021 [facility] ferrous sulfate 325 MG Oral Tablet Ferrous Sulfate 325 (65 Fe) MG Oral Tablet Ferrous Sulfate 325 (65 Fe) MG Oral Tablet 01/14/2021 12:00:00 AM EDT 1 active ferrous sulfate 325 MG Oral Tabl et [facility] ([facility]) 90 mcg/actuation 01/14/2021 12:00:00 AM EDT HFA aerosol inha ler 8 INHALE TWO PUFFS BY MOUTH EVERY 4 TO 6 HOURS NEEDED FOR COUGH OR WHEEZE INHALE TWO PUFFS BY MOUTH EVERY 4 TO 6 HOURS NEEDED FOR COUGH OR WHEEZE SOLD: 01/14/2021 [facility] Buprenorphine 8 MG Sublingual Tablet Bup renorphine HCl 8 MG Sublingual Tablet Sublingual Buprenorphine HCl 8 MG Sublingual Tablet Sublingual 12:00:00 AM EDT active buprenor phine 8 MG Sublingual Tablet [facility] ([facility]) Alprazolam 1 MG Oral Tablet ALPRAZolam 1 MG Oral Table t ALPRAZolam 1 MG Oral Tablet 01/14/2021 12:00:00 AM EDT 1 active alprazolam 1 MG Oral Tablet [facility] ([facility]) NITROFURANTOIN, MACROCRYSTALS 25 MG / Ni trofurantoin, Monohydrate 75 MG Oral Capsule 100 mg NITROFURANTOIN MONOHYD/M-[id number] 01/07/2021 12:00:00 AM EDT ca psule 14 TAKE ONE CAPSULE BY MOUTH TWICE A DAY FOR 7 DAYS TAKE ONE CAPSULE BY MOUTH TWICE A DAY FOR 7 DAYS SOLD: 01/10/2021 [facility] 325 mg (65 mg iron) 01/04/2021 12:00:00 AM EDT tablet 60 TAKE ONE TABLET BY MOUTH TWICE A DAY TAKE ONE TABLET BY MOUTH TWICE A DAY SOLD: 01/05/2021 [facility] ferrous sulfate 325 MG Oral Tablet ferrous sulfate 325 (65 FE) MG tablet ferrous sulfate 325 (65 FE) MG tablet 01/04/2021 12:00:00 AM EDT 325 mg Or al active Anemia during in third trimester Take 1 tablet (325 mg total) by mouth 2 (two) times a day [facility] Anemia during in third trimest er Cephalexin 500 MG Oral Capsule CEPHALEXIN 01/04/2021 [...] DAILY DOSE = 3 TABLETS SOLD: 01/03/2021 [facility] 200 ACTUAT Albuterol 0.09 MG/ACTUAT Mete red Dose Inhaler [ProAir] ProAir HFA 108 (90 Base) MCG/ACT Inhalation Aerosol Solution ProAir HFA 108 (90 Base) MCG/ACT Inhalation Aerosol Solution 12/17/2020 12:00:00 AM EDT active [id number] 200 ACTUAT albuterol 0.09 MG/ACTUAT Metered Dose Inhaler [ProAir] [facility] ([facility]) 100 mg 12/17/2020 12:00:00 AM EDT tablet 60 TAKE TWO TABLETS BY MOUTH EVERY DAY MAXIMUM DAILY DOSE = 2 TAKE TWO TABLETS BY MOUTH EVERY DAY MAXI MUM DAILY DOSE = 2 SOLD: 12/17/2020 [facility] Buprenorphine 8 MG Sublingual Tablet Bup renorphine HCl 8 MG Sublingual Tablet Sublingual Buprenorphine HCl 8 MG Sublingual Tablet Sublingual 12:00:00 AM EDT active buprenor phine 8 MG Sublingual Tablet [facility] albuterol (PROVENTIL HFA;VENTOLIN HFA) 108 (90 Base) M CG/ACT inhaler [id number] 12/17/2020 12:00:00 AM EDT activ e INHALE 2 PUFFS EVERY 4 TO 6 HOURS PRRN FOR COUGH OR WHEEZE [facility] 2 mg 12/17/2020 12:00:00 AM EDT tablet, sublingual 28 DISSOLVE 1 TABLET UNDER THE TONGUE ONCE DAILY MAXIMUM DAILY DOSE = 1 DISSOLVE 1 TABLET UNDER THE TONGUE ONCE DAILY MAXIMUM DAILY DOSE = 1 SOLD: 12/17/2020 [facility] Buprenorphine 2 MG Sublingual Tablet Bup [...] DAILY DOSE = 3 SOLD: 12/05/2020 [facility] Methylphenidate Hydrochloride 20 MG Oral Tablet Methylphenidate HCl 20 MG Oral Tablet Methylphenidate HCl 20 MG Oral Tablet 12/04/2020 12:00:00 AM EDT 2 active methylphenidate hydrochlorid e 20 MG Oral Tablet [facility] ([facility]) 20 mg 12/01/2020 12:00:00 AM EDT tablet 16 TAKE TWO TABLETS BY MOUTH TWICE A DAY MAXIMUM DAILY DOSE = 4 TAKE TWO TABLETS BY MOUTH TWICE A DAY MA XIMUM DAILY DOSE = 4 SOLD: 12/01/2020 [facility] Alprazolam 1 MG Oral Tablet ALPRAZolam [...] DAILY DOSE = 1 SOLD: 11/26/2020 [facility] 2 mg 11/26/2020 12:00:00 AM EDT tablet, [...] TABLETS BY MOUTH TWICE A DAY. M AXIMUM DAILY DOSE = 4 SOLD: 11/05/2020 [facility] 8 mg 11/05/2020 12:00:00 AM EDT tablet, sublingual 21 DISSOLVE 1 TABLET UNDER THE TONGUE ONCE A DAY MAXIMUM DAILY DOSE = 1 DISSOLVE 1 TABLET UNDER THE TONGUE ONCE A DAY MAXIMUM DAILY DOSE = 1 SOLD: 11/05/2020 [facility] 2 mg 11/05/2020 12:00:00 AM EDT tablet, sublingual 21 DISSOLVE 1 TABLET UNDER THE TONGUE ONCE A DAY MAXIMUM DAILY DOSE = 1 DISSOLVE 1 TABLET UNDER THE TONGUE ONCE A DAY MAXIMUM DAILY DOSE = 1 SOLD: 11/05/2020 [facility] Alprazolam 1 MG Oral Tablet ALPRAZolam 1 MG Oral Table t ALPRAZolam 1 MG Oral Tablet 11/05/2020 12:00:00 AM EDT 1 active alprazolam 1 MG Oral Tablet [facility] Buprenorphine 8 MG Sublingual Tablet Bup renorphine HCl 8 MG Sublingual Tablet Sublingual Buprenorphine HCl 8 MG Sublingual Tablet Sublingual 12:00:00 AM EDT active buprenor phine 8 MG Sublingual Tablet [facility] ([facility]) Methylphenidate Hydrochloride 20 MG Oral Tablet Methylphenidate HCl 20 MG Oral Tablet Methylphenidate HCl 20 MG Oral Tablet 11/05/2020 12:00:00 AM EDT 2 active methylphenidate hydrochlorid e 20 MG Oral Tablet [facility] 1 mg 11/05/2020 12:00:00 AM EDT tablet 90 TAKE ONE TABLET BY MOUTH THREE TIMES A DAY MAXIMUM DAILY DOSE = 3 TAKE ONE TABLET BY MOUTH THREE TIMES A D AY MAXIMUM DAILY DOSE = 3 SOLD: 11/05/2020 [facility] Methylphenidate Hydrochloride 20 MG Oral Tablet METHYLPHENID ATE HCL 10/25/2020 12:00:00 AM EDT tablet 56 TAKE TWO TABLETS BY MOUTH TWICE A DAY MAXIMUM DAILY DOSE = 4 TAKE TWO TABLETS BY MOUTH TWICE A DAY MAXIMUM DAILY DO SE = 4 SOLD: 11/02/2020 [facility] Methylphenidate Hydrochloride 20 MG Oral Tablet methylphenidate (RITALIN) 20 MG tablet methylphenidate (RITALIN) 20 MG tablet 10/25/2020 12:00:00 AM EDT active TAKE TWO TABLETS BY MOUTH TWICE A DAY MAXIMUM DAILY DOSE 4 [facility] Alprazolam 1 MG Oral Tablet ALPRAZolam 1 MG Oral Table t ALPRAZolam 1 MG Oral Tablet 10/22/2020 12:00:00 AM EDT 1 active alprazolam 1 MG Oral Tablet [facility] Sertraline 100 MG Oral Tablet [Zoloft] Zoloft [...] = 1 & 1/2 TABLETS SOLD: 10/22/2020 [facility] Methylphenidate Hydrochloride 20 MG Oral [...] MAXIMUM DAILY DOSE = 3 SOLD: 10/22/2020 [facility] Buprenorphine 8 MG Sublingual Tablet Bup renorphine HCl 8 MG Sublingual Tablet Sublingual Buprenorphine HCl 8 MG Sublingual Tablet Sublingual 12:00:00 AM EDT active buprenor phine 8 MG Sublingual Tablet [facility] ([facility]) Buprenorphine 8 MG Sublingual Tablet Buprenorphine HCl 8 MG SUBL Buprenorphine HCl 8 MG SUBL 10/22/2020 12:00:00 AM EDT acti ve DISSOLVE 1 1/2 TABLETS UNDER THE TONGUE ONCE DAILY MAXIMUM DAILY DOSE 1 1/2 TABLETS [facility] Alprazolam 1 MG Oral Tablet ALPRAZolam (XANAX) 1 MG ta blet ALPRAZolam (XANAX) 1 MG tablet 10/22/2020 12:00:00 AM EDT active TAKE ONE TABLET BY MOUTH THREE TIMES A DAY MAXIMUM DAILY DOSE 3 [facility] Methylphenidate Hydrochloride 20 MG Oral Tablet METHYLPHENID ATE HCL 10/22/2020 12:00:00 AM EDT tablet 16 TAKE TWO TABLETS BY MOUTH TWICE A DAY MAXIMUM DAILY DOSE = 4 TAKE TWO TABLETS BY MOUTH TWICE A DAY MAXIMUM DAILY DO SE = 4 SOLD: 10/22/2020 [facility] Methylphenidate Hydrochloride 20 MG Oral Tablet [...] MAXIMUM DAILY DOSE = 3 SOLD: 10/14/2020 [facility] 8 mg 10/14/2020 12:00:00 AM EDT [...] active Take 200 mg by mouth daily [facility] Methylphenidate Hydrochloride 20 MG Oral Tablet [...] e 20 MG Oral Tablet [facility] ([facility]) Alprazolam 1 MG Oral Tablet ALPRAZolam 1 MG Oral Table t ALPRAZolam 1 MG Oral Tablet 09/03/2020 12:00:00 AM EDT 1 active alprazolam 1 MG Oral Tablet [facility] ([facility]) 0.75 % 2020 12:00:00 AM EDT gel 70 INSERT 1 APPLICATORFUL VAGINALLY EVERY NIGHT FOR 5 NIGHTS INSERT 1 APPLICATORFUL VAGINALLY EVERY N IGHT FOR 5 NIGHTS SOLD: 08/22/2020 [facility] 100 mg 07/06/2020 12:00:00 AM EDT capsule 14 TAKE ONE CAPSULE BY MOUTH TWICE A DAY TAKE ONE CAPSULE BY MOUTH TWICE A DAY SOLD: 07/06/2020 [facility] Escitalopram 5 MG Oral Tablet ESCITALOPRAM [...] d escitalopram 5 MG Oral Tablet [Lexapro] [facility] ([facility]) gabapentin 800 MG Oral Tablet Gabapentin 800 MG Oral T ablet Gabapentin 800 MG Oral Tablet 01/04/2020 12:00:00 AM EDT aborte d gabapentin 800 MG Oral Tablet [facility] ([facility]) Buprenorphine 8 MG Sublingual Tablet Bup renorphine HCl 8 MG Sublingual Tablet Sublingual Buprenorphine HCl 8 MG Sublingual Tablet Sublingual 12:00:00 AM EDT 1 active buprenor phine 8 MG Sublingual Tablet [facility] ([facility]) Methylphenidate Hcl 12/29/2019 08:57:46 PM EDT UNASSIGNED 40 MG ORAL [facility] Methylphenidate Hcl 12/29/2019 08:57:46 PM EDT UNASSIGNED 40 MG ORAL active [facility] Alprazolam 1 MG Oral Tablet Alprazolam (Xanax) 1 mg Ta blet Alprazolam (Xanax) 1 mg Tablet 12/29/2019 08:56:56 PM EDT TABLET 1 MG ORAL [facility] Alprazolam 1 MG Oral Tablet Alprazolam (Xanax) 1 mg Ta blet Alprazolam (Xanax) 1 mg Tablet 12/29/2019 08:56:56 PM EDT TABLET 1 MG ORAL [facility] Buprenorphine 8 MG Sublingual Tablet Buprenorphine Hcl Bupre norphine Hcl 12/29/2019 08:55:19 PM EDT UNASSIGNED 8 MG SUBLINGUALLY active [facility] Buprenorphine 8 MG Sublingual Tablet Buprenorphine Hcl Bupre norphine Hcl 12/29/2019 08:55:19 PM EDT UNASSIGNED 8 MG SUBLINGUALLY active [facility] Alprazolam 1 MG Oral Tablet ALPRAZolam 1 MG Oral Table t ALPRAZolam 1 MG Oral Tablet 12/09/2019 12:00:00 AM EDT active alprazolam 1 MG Oral Tablet [facility] ([facility]) Buprenorphine 8 MG Sublingual Tablet Bup renorphine HCl 8 MG Sublingual Tablet Sublingual Buprenorphine HCl 8 MG Sublingual Tablet Sublingual 12:00:00 AM EDT 1 aborted bupreno rphine 8 MG Sublingual Tablet [facility] ([facility]) Buprenorphine 8 MG Sublingual Tablet Bup renorphine HCl 8 MG Sublingual Tablet Sublingual Buprenorphine HCl 8 MG Sublingual Tablet Sublingual 12:00:00 AM EDT aborted bupreno rphine 8 MG Sublingual Tablet [facility] ([facility]) Famotidine 10 MG Oral Tablet Famotidine 10 MG Oral Tablet 12:00:00 AM EDT 1 active famotidine 10 MG Oral Tablet [facility] ([facility]) Buprenorphine 8 MG Sublingual Tablet Bup renorphine HCl 8 MG Sublingual Tablet Sublingual Buprenorphine HCl 8 MG Sublingual Tablet Sublingual 12:00:00 AM EST aborted bupreno rphine 8 MG Sublingual Tablet [facility] ([facility]) Comb No.42-Folic Acid (Prena1 C hew Tablet) 1.4 MG tablet,YUNIOR ortega DR,biphase 12/09/2017 10:28:34 PM EDT UNASSIGNED 1 TAB ORAL c ompleted [facility] Amoxicillin 875 MG / Clavulanate 125 MG Oral Tablet Am oxicillin-Pot Clavulanate Amoxicillin-Pot Clavulanate 12/09/2017 10:28:34 PM EDT TABLET 1 TAB ORAL [facility] Comb No.42-Folic Acid (Prena1 C hew Tablet) 1.4 MG tablet,YUNIOR ortega DR,biphase 12/09/2017 10:28:34 PM EDT UNASSIGNED 1 TAB ORAL c ompleted [facility] Amoxicillin 875 MG / Clavulanate 125 MG Oral Tablet Am oxicillin-Pot Clavulanate Amoxicillin-Pot Clavulanate 12/09/2017 10:28:34 PM EDT TABLET 1 TAB ORAL [facility] Ibuprofen 600 MG Oral Tablet ibuprofen (ADVIL,MOTRIN) 600 MG tablet ibuprofen (ADVIL,MOTRIN) 600 MG tablet 12/06/2017 12:00:00 AM EDT 600 mg Oral aborted Take 1 tablet (600 m g total) by mouth every 6 (six) hours as needed for pain [facility] Insurance Providers Payer name Policy type / Coverage type Policy ID Covered alliance party ID Covered alliance party's relationship to david Policy David Plan Information [facility] Other 0 [id number] Self 0 [facility] Other 0 [id number] Self 0 Medicaid S [id number] S [id number] Managed Care [place] P [id number] S [id number] MEDICAID [id number] Samantha [id number] [employer] Other 0 [id number] Self 0 [employer] Other 0 [id number] Self 0 [employer] Other 0 [id number] Self 0 [facility] COMMUNITY PLAN [id number] SP 1 [id number] [facility] MEDICAID [id number] Samantha [id number] [facility] MEDICAID [id number] Samantha [id number] [employer] Other 0 [id number] Self 0 [facility] MEDICAID [id number] Samantha [id number] [employer] Other 0 [id number] Self 0 [employer] Other 0 [id number] Self 0 SELF PAY [facility] COMMUNITY PLAN [id number] SP [id number] [facility] [place] Other 0 [id number] Self 0 [facility] [place] Other 0 [id number] Self 0 [facility] [place] Other 0 [id number] Self 0 [place] [facility] [place] Other 0 [id number] Self 0 [facility] [place] Other 0 [id number] Self 0 [place] [facility] [place] Other 0 [id number] Self 0 [place] [facility] [place] Other 0 [id number] Self 0 [facility] [place] Other 0 [id number] Self 0 [facility] [place] [id number] 0 [id number] [facility] [place] Other 0 [id number] Self 0 [place] [facility] [place] Other 0 [id number] Self 0 [place] [facility] [place] Other 0 [id number] Self 0 [place] [facility] [place] Other 0 [id number] Self 0 [place] [facility] [place] Other 0 [id number] Self 0 [place] [facility] [place] Other 0 [id number] Self 0 [place] [facility] [place] Other 0 [id number] Self 0 [facility] [place] Other 0 [id number] Self 0 [place] [facility] [place] Other 0 [id number] Self 0 [place] [facility] [place] Other 0 [id number] Self 0 [facility] [place] Other 0 [id number] Self 0 [facility] [place] Other 0 [id number] Self 0 [facility] [place] Other 0 [id number] Self 0 [facility] [place] Other 0 [id number] Self 0 [facility] [place] Other 0 [id number] Self 0 [facility] MEDICAID [id number] [facility] MED[place] [id number] Samantha 7 [id number] [place] [facility] [place] Other 0 [id number] Self 0 [facility] [id number] SP [id number] SELF PAY NETO [id number] SP [id number] SELF PAY SELF PAY NETO [id number] SP [id number] 600 NETO [id number] SP [id number] 600 SELF PAY SELF PAY NETO [id number] SP [id number] 600 SELF PAY NETO [id number] SP [id number] 600 NETO [id number] SP [id number] 600 SELF PAY SELF PAY [facility] [id number] [facility] [id number] SP [id number] [facility] [id number] SP [id number] MEDICAID PI PI [facility] MEDICAID PI PI NF PENDING UNAVAILABLE SP UNAVAIL ABLE [facility] UNAVAILABLE SP UNAVAILABLE [facility] Maintenance Organization ([facility]) [id number] Self [id number] [facility] Maintenance Organization ([facility]) [id number] Self [id number] [facility] Maintenance Organization ([facility]) [id number] Self [id number] [facility] [id number] SP [id number] [facility] [id number] SP [id number] [facility] [id number] Comme rcial Insurance [id number] SELF PAY HEA UNAVAILABLE [id number] S UNAVAIL ABLE Medicaid [facility] Other 0 [id number] Self 0 NETO [id number] SP [id number] SELF PAY UNAVAILABLE SP UNAVAILA BLE [facility] [id number] [facility] [id number] S [id number] [facility] [id number] SP [id number] 600 [facility] [id number] 0 [id number] MEDICAID GME [id number] S [id number] [facility] PLAN [id number] SP [id number] [facility] PLAN UNAVAILABLE SP UNAVAILABLE Problems, Conditions, and Diagnoses Code Display Name Description Problem Type Effective Dates Data Source(s) F41.9 Anxiety disorder, unspecified Anxiety disorder, unspec ified Diagnosis 01/19/2021 08:42:00 PM EDT [facility] R82.5 Elevated urine levels of drugs, medicame nts and biological substances Elevated urine levels of drugs, medicame Diagnosis 01/16/2021 07:08:00 PM EDT [facility] F11.20 Opioid dependence, uncomplicated Opioid dependen ce, uncomplicated Diagnosis 01/16/2021 07:08:00 PM EDT [facility] O99.320 Drug use complicating , unspeci fied trimester Drug use complicating , unspeci Diagnosis 01/16/2021 07:08:00 PM EDT [facility] O09.93 Supervision of high risk , unsp ecified, third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 [facility] POC BILIRUBIN UR (NEG) [facility] POC BLOOD HGB URINE (NEG) A [facility] PER[facility]MED BY [facility] ID Date Data Source [id number] 01/07/2021 09:31:13 AM EDT [facility] NT INFORMATIONPatient MRN Name Date of Age Gend*PT [id number] Carlos Aguilar AE 1990 30 years F ---PT Location Admission Date/Time Visit ID Attending Provider --- --- --- --- EPI ID CSN Admitting Provider [id number] ---Addended by: KERA BACON on: 01/07/2021 09:31 AM Modules accepted: Orders Name Value Range Interpretation Code Description Data Fadumo rce(s) Supporting Document(s) ID Date Data Source [id number] 01/04/2021 05:12:11 PM EDT [facility] NT INFORMATIONPatient MRN Name Date of Age Gend*PT [id number] Carlos Aguilar AE 1990 30 years F ---PT Location Admission Date/Time Visit ID Attending Provider --- --- --- --- EPI ID CSN Admitting Provider [id number] ---Addended by: EVIE MOLINA on: 01/04/2021 05:12 PM Modules accepted: Orders Name Value Range Interpretation Code Description Data Fadumo rce(s) Supporting Document(s) ID Date Data Source [id number] 01/04/2021 12:18:00 PM EDT [facility] NT INFORMATIONPatient MRN Name Date of Age Gend*PT [id number] Carlos Aguilar AE 1990 30 years F ---PT Location Admission Date/Time Visit ID Attending Provider --- --- --- --- EPI ID CSN Admitting Provider [id number] ---Addended by: KERA BACON on: 01/04/2021 12:17 PM Modules accepted: Orders Name Value Range Interpretation Code Description Data Fadumo rce(s) Supporting Document(s) ID Date Data Source [id number] 01/02/2021 05:27:28 PM [facility] Name Date of Age Gend*PT [id number] Carlos Aguilar AE 1990 30 years F OPPT Location Admission Date/Time Visit ID Attending Provider --- --- --- Gregg Azar MD([id number]) EPI ID CSN Admitting Provider [id number] ---Subjective: Carlos Aguilar is a 30 years female being seen today for her obstetricalvisit. She is at 37w3d gestation. Patient reports good movement. Deniesvaginal bleeding or loss of fluidDenies headaches or blurry visionOB History Gravida3 Para2 Term2 AB Living1 SAB TAB Ectopic Multiple Live Prbcyx2Dffcwbwle: BP 116/79 | Ht 1.626 m (5' 4.02") | Wt 76.8 kg (169 lb 6.4 oz) | LMP04/15/2020 | BMI 29.06 kg/m FHT 150FH 37Ext mild edema no calf tendernessUA 1+ proteinAssessment:IUP @ 37 weeks 3 daysCovid precautions, discussed vaccine, would like to scheduleF/u 1 weekPEC labs todayUrine cultureUrine protein/creatinine ratioJodi Dallas DO Name Value Range Interpretation Code Description Data Fadumo rce(s) Supporting Document(s) ID Date Data Source [id number] 01/05/2021 11:23:09 AM EDT [facility] SPECIMEN DESCRIPTION MIDSTREAM UR INE,CLEAN CATCHCULTURE RESULTS [...] rce(s) Supporting Document(s) ID Date Data Source [id number] 01/02/2021 10:59:31 PM EDT [facility] Name Value Range Interpretation Code Description Data Fadumo rce(s) Supporting Document(s) SODIUM 139 mmol/L (136-145) [facility] POTASSIUM 3.8 mmol/L (3.6-5.2) [facility] CHLORIDE 109 mmol/L (100-108) H [facility] CO2 21 mmol/L (22-31) L [facility] ANION GAP 9 mmol/L (7-16) [facility] UREA NITROGEN 9 mg/dL (7-24) [facility] CREATININE 0.63 mg/dL (0.60-1.00) [facility] BUN/CREAT RATIO 14.3 RATIO (10.0-20.0) [facility] GLUCOSE 39 mg/dL (70-99) L [facility] UNSPUNRESULT(S) CALLED TO AND READ BACK BYDR MONROE AT [id number] ON [id number] AT 2250 [place] [address]. CALCIUM 7.6 mg/dL (8.4-10.2) L [facility] TOTAL PROTEIN 5.9 g/dL (6.4-8.2) L [facility] ALBUMIN 2.0 g/dL (3.5-4.6) L [facility] GLOBULIN 3.9 g/dL (2.7-4.3) [facility] ALB/GLOB RATIO 0.5 RATIO [facility] ALKALINE PHOSPHATASE 121 U/L (45-117) H [facility] BILIRUBIN,TOTAL 0.2 mg/dL (0.0-1.0) [facility] PLEASE NOTE:Total bilirubin results may be falselyelevated in patients taking Eltrombopag. AST (SGOT) 20 U/L (11-39) [facility] ALT (SGPT) 17 U/L (12-78) [facility] GFR >60 ml/min/1.73m2 (>59) [facility] GFR ( AMER) >60 ml/min/1.73m2 (>59) [facility] GFR INTERPRETATION [facility] --NORMAL KIDNEY FUNCTION OR MILD DISEASE - GFR >OR= 60CHRONIC KIDNEY DISEASE - GFR 15 - 59RENAL FAILURE - GFR <15 Est. GFR calculation based on the MDRDstudy equation, which assumes a steadystate for creatinine. Est. GFR should notbe used for medication dosing. ID Date Data Source [id number] 01/02/2021 10:39:01 PM EDT [facility] Name Value Range Interpretation Code Description Data Fadumo rce(s) Supporting Document(s) URIC ACID 4.6 mg/dL (2.6-6.0) [facility] ID Date Data Source [id number] 01/02/2021 10:39:01 PM EDT [facility] Name Value Range Interpretation Code Description Data Fadumo rce(s) Supporting Document(s) LDH 190 U/L (84-246) [facility] ID Date Data Source [id number] 01/02/2021 08:59:21 PM EDT [facility] Name Value Range Interpretation Code Description Data Fadumo rce(s) Supporting Document(s) WBC 9.2 10*3/uL (4.1-11.0) [facility] [place] RBC 3.16 10*6/uL (4.00-5.40) L [facility] HGB 8.6 g/dL (12.0-16.0) L [facility] HCT 25.5 % (36.0-47.0) L [facility] MCV 80.7 fL (80.0-95.0) [facility] MCH 27.3 pg (27.0-32.0) [facility] MCHC 33.8 g/dL (32.0-36.0) [facility] RDW 14.9 % (10.5-14.5) H [facility] PLT 166 10*3/uL (150-450) [facility] MPV 10.0 fL (7.1-10.7) [facility] ID Date Data Source [id number] 01/02/2021 09:27:43 PM EDT [facility] Name Value Range Interpretation Code Description Data Fadumo rce(s) Supporting Document(s) PROTEIN,URINE 46 mg/dL [facility] URINE PROTEIN MAY BE FALSELY ELEVATEDDUR ING TREATMENT WITH AMINOGLYCOSIDESDUE TO METHOD INTERFERENCE. CREATININE,URINE 257.00 mg/dL [facility] URINE TP/CR RATIO 0.18 RATIO (0.00-0.20) [facility] ID Date Data Source [id number] 01/02/2021 04:00:42 PM EDT [facility] Name Value Range Interpretation Code Description Data Fadumo rce(s) Supporting Document(s) POC URINE COLOR [facility] POC URINE APPEARANCE [facility] POC SPEC GRAV URINE 1.025 (1.003-1.030) [facility] POC PH URINE 6.5 (5.0-7.5) [facility] [place] POC LEUK ESTERASE UR 1+ (NEG) A [facility] POC NITRITE URINE (NEG) A [facility] POC PROTEIN URINE 1+ mg/dL (NEG) A [facility] POC GLUCOSE URINE (NEG) [facility] POC KETONE URINE (NEG) A [facility] POC UROBILINOGEN UR 1.0 EU/dL (0.2-1.0) [facility] POC BILIRUBIN UR 1+ (NEG) A [facility] POC BLOOD HGB URINE (NEG) [facility] PER[facility]MED BY [facility] ID Date Data Source [id number] 12/26/2020 05:24:09 PM EDT [address] [address]Lgwcsjh Name: CARLOS CHAPA JEFFDOB: 1990Sex: FOrdering Provider: HARDIK Velásquez Prov: HARDIK CHAUDHRYYReferring Provider: HARDIK Melendez Performed: / US OB 14 + WEEKS SINGLE OR FIRST GESTATIONExam Date: 12/26/2020 16:02MRN: [id number] Number: [id number] Class: OutpatientAccount #: [id number] for Exam: anatomicTechnique: Real time sonographic images were obtained.Comparison: NoneFindings:GESTATION: SinglePRESENTATION: CephalicHEART RATE: 130 BPMAMNIOTIC FLUID INDEX (6-25 varies by GA): 16 cm NormalPLACENTA: Anterior WallAVERAGE ULTRASOUND AGE: 35 wks 5 dESTIMATED WEIGHT: 2784 grams Percentile: 37MATERNAL CERVIX: 3.3 cmFetal measurements are as follows:Biparietal diameter: 8.59 cm 34 wks weeks 5 lohm48Aqpo circumference: 31.92 cm 36 weeks 0 ppwk96Xlwdvyjep circumference: 32.40 cm 36 weeks 3 dlyg26Wcmwf length : 6.89 cm 35 weeks 3 dvck29XK/AC: .99FL/BPD: 80 %FL/AC: 21 %MANISHA (AUA): 01/25/21NEURAL [...] DENIS BARRIENTOS On 12/26/2020 5:24 PMWorkstation ID: [id number] Name Value Range Interpretation Code Description Data Fadumo rce(s) Supporting Document(s) ID Date Data Source [id number] 12/26/2020 10:55:55 AM EDT [facility] INFORMATIONPatient MRN Name Date of Age Gend*PT [id number] Carlos Aguilar AE 1990 30 years F OPPT Location Admission Date/Time Visit ID Attending Provider --- --- --- Gregg Azar MD([id number]) EPI ID CSN Admitting Provider [id number] ---Assessment/Plan:Diagnoses and all orders for this visit:History of hepatitis C (Primary)Comments:Hep C antibody and rna quant collectedReferral to GI for treatment ppPregnancy, supervision, high-risk, third trimesterComments:1. [...] [facility] for what Carlos reports missing appointments.LMP [...] months. Thisis [facility] by Dr Elliott [facility] [place] PRN dailyMethylphenidate [...] forsuicidal ideas. The patient is nervous/anxious.Objective:Vitals: LMP 04/15/2020hysical ExamVitals and nursing note reviewed. Exam conducted with a flux tube attendant present.Constitutional: Appearance: Normal appearance. She is [...] rce(s) Supporting Document(s) ID Date Data Source [id number] 12/28/2020 02:23:54 PM EDT Lab [facility] SPECIMEN DESCRIPTION VAGINAL/RECT ALCULTURE RESULTS NEGATIVE: BETA HEMOLYTIC STREPTOCOCCI GROUP B B Y PCRREPORT STATUS FINAL 12/28/2020 Name Value Range Interpretation Code Description Data Fadumo rce(s) Supporting Document(s) ID Date Data Source [id number] 12/27/2020 03:08:16 PM EDT [facility] Name Value Range Interpretation Code Description Data [facility] rce(s) Supporting Document(s) SPECIMEN DESCRIPTION [facility] Corrected on 12/26 AT 1616: Previously r eported as CERVICAL C. TRACHOMATIS (NEG) [facility] THIS ASSAY AMPLIFIES AND DETECTS TARGETD NA USING CABINET AND TRIM INSTALLER-MEDIATEDAMPLIFICATION N. GONORRHOEAE (NEG) [facility] THIS ASSAY AMPLIFIES AND DETECTS TARGETD NA USING CABINET AND TRIM INSTALLER-MEDIATEDAMPLIFICATION COMMENT [facility] IS ONLY APPROVED FOR VAGINAL, THROAT ,AND RECTAL SOURCES. ID Date Data Source [id number] 12/27/2020 01:04:13 PM EDT [facility] SPECIMEN DESCRIPTION MIDSTREAM UR INE,CLEAN CATCHCULTURE RESULTS NO GROWTHREPORT STATUS FINAL 12/27/2020 Name Value Range Interpretation Code Description Data Fadumo rce(s) Supporting Document(s) ID Date Data Source [id number] 12/30/2020 08:03:19 PM EDT [facility] Name Value Range Interpretation Code Description Data Fadumo rce(s) Supporting Document(s) DIAZEPAM,URINE <20 [facility] Unit: ng/mL Cutoff: 20 ng/mL NORDIAZEPAM,URINE <20 [facility] Unit: ng/mL Cutoff: 20 ng/mL OXAZEPAM,URINE <20 [facility] Unit: ng/mL Cutoff: 20 ng/mL TEMAZEPAM,URINE <20 [facility] Unit: ng/mL Cutoff: 20 ng/mL LORAZEPAM,URINE <20 [facility] Unit: ng/mL Cutoff: 20 ng/mL ALPRAZOLAM,URINE 146 [facility] Unit: ng/mL Consistent with use of a lópez g containing alprazolam, such as Xanax. Cutoff: 5 ng/mL ALPHA OH ALPRAZOLAM 312 [facility] Unit: ng/mL Alprazolam metabolite; consi stent with use of a drug containing alprazolam, such as Xanax. Cutoff: 5 ng/mL CLONAZEPAM,URINE <5 [facility] Unit: ng/mL Cutoff: 5 ng/mL 7 AMINOCLONAZEPAM U 8 [facility] Unit: ng/mL Clonazepam metabolite; consi stent with use of a drug containing clonazepam, such as Klonopin. Cutoff: 5 ng/mL MIDAZOLAM,URINE <20 [facility] Unit: ng/mL Cutoff: 20 ng/mL CHLORDIAZEPOXIDE <20 [facility] Unit: ng/mL Cutoff: 20 ng/mL [...] developed and its performance characteristics determined by [employer]. It has not been cleared or approved by the [place] Food and Drug Administration. This test was performed in a CLIA certified laboratory and is intended for clinical purposes. Performed By: [facility] [address] [place] [address] [employer] Supervisor: Sunita Vaca MD ID Date Data Source [id number] 12/26/2020 07:53:51 PM EDT [facility] SPECIMEN DESCRIPTION VAGINAL SPEC IMENRESULT NEGATIVE FOR TRICHOMONAS VAGINALIS BY DNA PROBE POSITIVE FOR GARDNERELLA VAGINALIS BY DNA PROBE NEGATIVE FOR KWAIS SPECIES BY DNA PROBEREPORT STATUS FINAL 12/26/2020 Name Value Range Interpretation Code Description Data Fadumo rce(s) Supporting Document(s) ID Date Data Source [id number] 12/26/2020 06:08:05 PM EDT [facility] Name Value Range Interpretation Code Description Data Fadumo rce(s) Supporting Document(s) AMPHETAMINES,URINE (NEG) [facility] BARBITURATES,URINE (NEG) [facility] BENZODIAZEPINE,URINE (NEG) A [facility] SPECIMEN HAS BEEN SENT FOR CONFIRMATION. CANNABINOIDS,URINE (NEG) [facility] COCAINE,URINE (NEG) [facility] OPIATES,URINE (NEG) [facility] NOTE: Oxycodone is not sufficientlydetec joel by this screening assay. A moresensitive assay is available upon request. PHENCYCLIDINE,URINE (NEG) [facility] PLEASE NOTE: [facility] [place] ARE REPORTED POSITIVE WHEN THE [...] FORMONITORING MEDICATION COMPLIANCE. ID Date Data Source [id number] 12/31/2020 11:33:38 AM EDT [facility] Name Value Range Interpretation Code Description Data Fadumo rce(s) Supporting Document(s) HCV QUANT BY NAAT [facility] 1,312,601 HCV QUANT BY NAAT 6.12 [facility] Unit: log IU/mL HCV QNT NAAT INTERP A [facility] Reference range: Not Detected INTERPRETI VE [...] and Cellular Tissue-Based Products (HCT/P). Performed by [facility], [address] [place] [id number] [email or web address], Sunita Vaca MD, Lab. Director ID Date Data Source [id number] 12/27/2020 01:51:24 PM EDT [facility] [place] Name Value Range Interpretation Code Description Data Fadumo rce(s) Supporting Document(s) TREPONEMA IGG/IGM @ (NEG) [facility] [place] ID Date Data Source [id number] 12/27/2020 12:31:12 PM EDT [facility] [place] Name Value Range Interpretation Code Description Data Fadumo rce(s) Supporting Document(s) HEPATITIS C AB @ (NEG) A [facility] PROBABLY IND ICATES PAST OR PRESENTHCV INFECTION. IF INDICATED, HCV QUANTITATIVERNA SHOULD BE REQUESTED.CALLED RESULTS TO NIALL AT [id number] ON 12/27/2020 AT 1214 [address] [id number] RESULTS TO [facility] ON 12/27/2020 AT 1228 BY [id number] ID Date Data Source [id number] 12/26/2020 10:39:28 PM EDT [facility] SPEC EXP DATE 12/29/2020ATI ENT ABO/Rh O POSITIVEANTIBODY SCREEN NEGATIVETESTING SITE PERFORMED AT [address] [place] [id number] BANK COMMENT BLOOD TYPE CONFIRMED. Name Value Range Interpretation Code Description Data Fadumo rce(s) Supporting Document(s) TYPE AND SCREEN [facility] [place] ID Date Data Source [id number] 12/26/2020 06:42:58 PM EDT [facility] Name Value Range Interpretation Code Description Data Fadumo rce(s) Supporting Document(s) HIV 1/2 SCREEN @ (NEG) [facility] Testing performed using Siemens ADVIACen taur 4th gen CHIV combo assay.This assay detects the HIV1 p24 antigenin addition to antibodies to HIV1 and HIV2. ID Date Data Source [id number] 12/26/2020 06:00:43 PM EDT [facility] Name Value Range Interpretation Code Description Data F[facility]umo rce(s) Supporting Document(s) GLU CHALLENGE TEST @ 96 mg/dL (<140) [facility] LITERATURE SUGGESTS RESULTS <140 MG/DL I N A FEMALE RULE OUT GESTATIONAL DIABETES.PATIENTS WITH RESULTS > OR = 140 MAY NEED AGLUCOSE TOLERANCE TEST FOLLOW UP. NOREFERENCE RANGE FOR NON- PATIENTS. ID Date Data Source [id number] 12/26/2020 05:20:23 PM EDT [facility] Name Value Range Interpretation Code Description Data F[facility]umo rce(s) Supporting Document(s) WBC 9.9 10*3/uL (4.1-11.0) [facility] [place] RBC 3.60 10*6/uL (4.00-5.40) L [facility] HGB 9.9 g/dL (12.0-16.0) L [facility] HCT 29.6 % (36.0-47.0) L [facility] MCV 82.3 fL (80.0-95.0) [facility] MCH 27.6 pg (27.0-32.0) [facility] MCHC 33.6 g/dL (32.0-36.0) [facility] RDW 14.7 % (10.5-14.5) H [facility] PLT 186 10*3/uL (150-450) [facility] MPV 9.2 fL (7.1-10.7) [facility] ID Date Data Source [id number] 12/30/2020 06:46:24 AM EDT [facility] Name Value Range Interpretation Code Description Data Fadumo rce(s) Supporting Document(s) BUPRENORPHINE UR 3 ng/mL [facility] [place] INTERPRETIVE INFORMATION: Buprenorphine and Metabolites, Urine, Quantitative [...] developed and its performance characteristics determined by [employer]. It has not been cleared or approved by the US Food and Drug Administration. This test was performed in a CLIA certified laboratory and is intended for clinical purposes. NORBUPRENORPHINE UR 195 ng/mL [facility] [place] BUPRENORPHINE GLUCU 672 [facility] Unit: ng/mL Consistent with use of a bup renorphine-containing drug. Glucuronide concentrations are semi-quantitative. NORBUPR GLUCURONIDE >1000 [facility] Unit: ng/mL NALOXONE,URINE <100 ng/mL [facility] [place] Performed By: [facility] [address] [place] [address] [employer] Supervisor: Sunita Vaca MD ID Date Data Source [id number] 12/26/2020 10:06:52 PM EDT [facility] Name Value Range Interpretation Code Description Data [facility] rce(s) Supporting Document(s) BUPRENORPH SCREEN UR (NEG) A [facility] THIS IS A SCREENING IMMUNOASSAYTEST THAT IS REPORTED POSITIVEWHEN THE RESULT EXCEEDS THETHRESHOLD (CUTOFF) INDICATED. ACONFIRMATORY ANALYSIS ISREFLEXIVELY ORDERED ON SPECIMENSSCREENING POSITIVE AND MAYBE ADDED FOR UNEXPECTED NEGATIVERESULTS IF REQUESTED WITHIN 72 HRS.A LIST OF POTENTIAL INTERFERENCESIS AVAILABLE UPON REQUEST. ID Date Data Source [id number] 12/26/2020 09:29:44 AM EDT [facility] [place] Name Value Range Interpretation Code Description Data [facility] rce(s) Supporting Document(s) POC URINE COLOR [facility] POC URINE APPEARANCE [facility] POC SPEC GRAV URINE 1.015 (1.003-1.030) [facility] POC PH URINE 7.0 (5.0-7.5) [facility] [place] POC LEUK ESTERASE UR 3+ (NEG) A [facility] POC NITRITE URINE (NEG) [facility] POC PROTEIN URINE (NEG) [facility] POC GLUCOSE URINE (NEG) [facility] POC KETONE URINE (NEG) [facility] POC UROBILINOGEN UR 0.2 EU/dL (0.2-1.0) [facility] POC BILIRUBIN UR (NEG) [facility] POC BLOOD HGB URINE (NEG) A [facility] PER[facility] BY [facility] ID Date Data Source [id number] 12/25/2020 03:31:35 AM EDT [address] [address]Euzxrbt Name: Carlos AguilarDOB: 1990Sex: FOrdering Provider: HAILEY GROETZAuthorizing Prov: HAILEY GROETZReferring Provider: Procedure Performed: US BIOPHYSICAL PROFILE WO NON STRESS TESTINGExam Date: 12/25/2020 01:35MRN: [id number] Number: [id number] Class: INFORMATION: Exam: US Biophysical Profile Without [...] rce(s) Supporting Document(s) ID Date Data Source [id number] 12/25/2020 03:31:11 AM EDT [address] [address]Gzintda Name: Carlos AguilarDOB: 1990Sex: FOrdering Provider: HAILEY GARCIAAuthorihayde Prov: HAILEY GARCIAETZReferrzaria Provider: Procedure Performed: US OB FOLLOW UP TRANSABDOMINAL APPROACHExam Date: 12/25/2020 01:35MRN: [id number] Number: [id number] Class: INFORMATION: Exam: US , Limited Exam [...] intrauterine in cephalic position, biophysical profile measures 11/04.Report electronically signed by: SAPNA SIN MD on 12/25/2020 03:31:11 Name Value Range Interpretation Code Description Data [facility] rce(s) Supporting Document(s) ID Date Data Source [id number] 08/18/2020 08:24:08 PM EDT [facility] - CORE Name Value Range Interpretation Code Description Data Fadumo rce(s) Supporting Document(s) HCV QUANT BY NAAT [facility] [place] - CORE 2,977,621 HCV QUANT BY NAAT 6.47 [facility] - [facility] Unit: log IU/mL HCV QNT NAAT INTERP A [facility] [place] [facility] [place] - CORE Reference range: Not [...] and Cellular Tissue-Based Products (HCT/P). Performed by [employer], [address] [place] [id number] [email or web address], Sunita aVca MD, Lab. Director ID Date Data Source [id number] 2020 10:06:01 PM EDT Laboratory [facility] [employer] Name Value Range Interpretation Code Description Data Fadumo rce(s) Supporting Document(s) AMPHETAMINES,URINE (NEG) [facility] [place] [facility] [email or web address] BARBITURATES,URINE (NEG) [facility] [place] [facility] - CORE BENZODIAZEPINE,URINE (NEG) A Laborator y [place] [facility] [employer] SPECIMEN HAS BEEN SENT FOR CONFIRMATION. CANNABINOIDS,URINE (NEG) [facility] [place] [facility] [email or web address] COCAINE,URINE (NEG) Laboratory [facility] OPIATES,URINE (NEG) Laboratory [facility] of [facility] NOTE: Oxycodone is not sufficientlydetec joel by this screening assay. A moresensitive assay is available upon request. PHENCYCLIDINE,URINE (NEG) [facility] [place] [facility] PLEASE NOTE: Laboratory [facility] ARE REPORTED POSITIVE WHEN THE RESULT SEXCEED THE THRESHOLD (CUTOFF) INDICATED. ALIST OF POTENTIAL INTERFERENCES FOR EACHMETHOD CAN BE MADE AVAILABLE UPON REQUEST.A CONFIRMATORY ANALYSIS IS ORDERED ONALL DRUG CLASSES SCREENING POSITIVE BYTHIS METHOD.* * * * * * * * * * * * * * *THIS ASSAY IS NOT INTENDED TO BE USED FORMONITORING MEDICATION COMPLIANCE. ID Date Data Source [id number] 08/16/2020 12:19:26 AM EDT Laboratory [facility] Name Value Range Interpretation Code Description Data Fadumo rce(s) Supporting Document(s) BUPRENORPH SCREEN UR (NEG) A Laborator y [facility] THIS IS A SCREENING IMMUNOASSAYTEST THAT IS REPORTED POSITIVEWHEN THE RESULT EXCEEDS THETHRESHOLD (CUTOFF) INDICATED. ACONFIRMATORY ANALYSIS ISREFLEXIVELY ORDERED ON SPECIMENSSCREENING POSITIVE AND MAYBE ADDED FOR UNEXPECTED NEGATIVERESULTS IF REQUESTED WITHIN 72 HRS.A LIST OF POTENTIAL INTERFERENCESIS AVAILABLE UPON REQUEST. ID Date Data Source [id number] 08/19/2020 09:37:52 AM EDT Laboratory [facility] Name Value Range Interpretation Code Description Data Fadumo rce(s) Supporting Document(s) DIAZEPAM,URINE <20 Laboratory Ángel an[facility] of [facility] Unit: ng/mL Cutoff: 20 ng/mL NORDIAZEPAM,URINE <20 Laboratory [facility] Unit: ng/mL Cutoff: 20 ng/mL OXAZEPAM,URINE <20 Laboratory [facility] of [facility] Unit: ng/mL Cutoff: 20 ng/mL TEMAZEPAM,URINE <20 Laboratory [facility] of [facility] Unit: ng/mL Cutoff: 20 ng/mL LORAZEPAM,URINE <20 Laboratory [facility] of [facility] Unit: ng/mL Cutoff: 20 ng/mL ALPRAZOLAM,URINE 734 Laboratory [facility] of [facility] Unit: ng/mL Consistent with use of a lópez g containing alprazolam, such as Xanax. Cutoff: 5 ng/mL ALPHA [place] ALPRAZOLAM >1000 [facility] [place] [facility] Unit: ng/mL Alprazolam metabolite; consi stent with use of a drug containing alprazolam, such as Xanax. Cutoff: 5 ng/mL CLONAZEPAM,URINE <5 Laboratory [facility] Unit: ng/mL Cutoff: 5 ng/mL 7 AMINOCLONAZEPAM U 25 [facility] [place] [facility] Unit: ng/mL Clonazepam metabolite; consi stent with use of a drug containing clonazepam, such as Klonopin. Cutoff: 5 ng/mL MIDAZOLAM,URINE <20 Laboratory [facility] of [facility] Unit: ng/mL Cutoff: 20 ng/mL CHLORDIAZEPOXIDE <20 Laboratory [facility] Unit: ng/mL Cutoff: 20 ng/mL ALPHA [place] MIDAZOLAM <20 Laboratory [facility] Unit: ng/mL Cutoff: 20 ng/mL INTERPRETIV E [...] developed and its performance characteristics determined by [employer]. It has not been cleared or approved by the US Food and Drug Administration. This test was performed in a CLIA certified laboratory and is intended for clinical purposes. Performed By: [facility] [facility] [address] [place] [id number] [employer] Supervisor: Sunita Vaca MD ID Date Data Source [id number] 08/19/2020 02:39:08 PM EDT Laboratory [facility] Name Value Range Interpretation Code Description Data Fadumo rce(s) Supporting Document(s) BUPRENORPHINE UR 53 ng/mL Laboratory [facility] INTERPRETIVE INFORMATION: Buprenorphine and Metabolites, Urine, [...] developed and its performance characteristics determined by [employer]. It has not been cleared or approved by the US Food and Drug Administration. This test was performed in a CLIA certified laboratory and is intended for clinical purposes. NORBUPRENORPHINE UR 539 ng/mL Laboratory [facility] BUPRENORPHINE GLUCU >1000 [facility] Unit: ng/mL Consistent with use of a bup renorphine-containing drug. Glucuronide concentrations are semi-quantitative. NORBUPR GLUCURONIDE >1000 [facility] Unit: ng/mL NALOXONE,URINE <100 ng/mL Laboratory [facility] Performed By: [employer] [address] [place] [address] [employer] Supervisor: Sunita Vaca MD ID Date Data Source [id number] 07/24/2020 08:26:12 AM EDT [facility] SPECIMEN DESCRIPTION URINE, COLLE CTION METHOD NOT SPECIFIEDCULTURE RESULTS NO GROWTHREPORT STATUS FINAL 07/24/2020 Name Value Range Interpretation Code Description Data Fadumo rce(s) Supporting Document(s) ID Date Data Source [id number] 07/22/2020 11:09:50 PM EDT [facility] Name Value Range Interpretation Code Description Data Fadumo rce(s) Supporting Document(s) AMPHETAMINES,URINE (NEG) Lab [facility] BARBITURATES,URINE (NEG) [facility] [place] BENZODIAZEPINE,URINE (NEG) A [facility] [place] CANNABINOIDS,URINE (NEG) [facility] [place] COCAINE,URINE (NEG) A [facility] [place] [facility] OPIATES,URINE (NEG) [facility] [place] [facility] NOTE: Oxycodone is not sufficientlydetec joel by this screening assay. A moresensitive assay is available upon request. PHENCYCLIDINE,URINE (NEG) [facility] PLEASE NOTE: [facility] [place] [facility] ARE REPORTED POSITIVE WHEN THE RESULT SEXCEED [...] FORMONITORING MEDICATION COMPLIANCE. ID Date Data Source [id number] 07/22/2020 10:59:08 PM EDT [facility] [place] [facility] Name Value Range Interpretation Code Description Data Fadumo rce(s) Supporting Document(s) URINE WBC (0-5) [facility] [place] [facility] URINE RBC (0-2) [facility] EPITHELIAL CELLS 2+ [HPF] [facility] [facility] BACTERIA 1+ [HPF] [facility] MUCUS 1+ [HPF] [facility] [facility] ID Date Data Source [id number] 07/22/2020 10:42:22 PM EDT [facility] [place] [facility] Name Value Range Interpretation Code Description Data Fadumo rce(s) Supporting Document(s) COLOR [facility] [place] [facility] APPEARANCE [facility] SPEC GRAV URINE 1.028 (1.003-1.030) [facility] PH URINE 6.0 (5.0-7.5) [facility] [place] [facility] LEUK ESTERASE 1+ (NEG) A [facility] [place] [facility] NITRITE URINE (NEG) [facility] [place] [facility] PROTEIN URINE (NEG) [facility] GLUCOSE URINE (NEG) [facility] [place] [facility] KETONE URINE (NEG) [facility] [place] [facility] [place] UROBILINOGEN 1.0 mg/dL (0-1.0) [facility] [place] [facility] [place] BILIRUBIN URINE 1+ (NEG) A [facility] [place] [facility] [place] INTERFERING SUBSTANCES MAY CAUSE FALSEPO SITIVE BILIRUBIN, WHICH HAS BEENSHOWN TO BE CLINICALLY INSIGNIFICANT.CORRELATE WITH OTHER TESTING. BLOOD/HGB URINE (NEG) [facility] [place] [facility] [place] ID Date Data Source [id number] 07/22/2020 11:13:55 PM EDT [facility] [place] [facility] Name Value Range Interpretation Code Description Data Fadumo rce(s) Supporting Document(s) SODIUM 139 mmol/L (136-145) [facility] [place] [facility] POTASSIUM 3.8 mmol/L (3.6-5.2) [facility] [place] [facility] CHLORIDE 108 mmol/L (100-108) [facility] [place] [facility] CO2 25 mmol/L (22-31) [facility] [place] [facility] ANION GAP 6 mmol/L (7-16) L [facility] [place] [facility] UREA NITROGEN 6 mg/dL (7-24) L [facility] [place] [facility] CREATININE 0.55 mg/dL (0.60-1.00) L [facility] [place] [facility] BUN/CREAT RATIO 10.9 RATIO (10.0-20.0) [facility] GLUCOSE 79 mg/dL (70-99) [facility] [place] [facility] CALCIUM 8.2 mg/dL (8.4-10.2) L [facility] [place] [facility] GFR >60 ml/min/1.73m2 (>59) [facility] [place] [facility] GFR ( AMER) >60 ml/min/1.73m2 (>59) [facility] [place] [facility] GFR INTERPRETATION [facility] [place] --NORMAL KIDNEY FUNCTION OR MILD DISEASE - GFR >OR= 60CHRONIC KIDNEY DISEASE - GFR 15 - 59RENAL FAILURE - GFR <15 Est. GFR calculation based on the MDRDstudy equation, which assumes a steadystate for creatinine. Est. GFR should notbe used for medication dosing. ID Date Data Source [id number] 07/22/2020 11:13:55 PM EDT [facility] [place] [facility] Name Value Range Interpretation Code Description Data Fadumo rce(s) Supporting Document(s) TROPONIN I <0.05 ng/mL (<0.05) [facility] [place] [facility] [place] Less than 0.05: Myocardial injury unlike lyGreater than or equal to 0.05: Highly suggestive of myocardial injuryCorrelation with rise and/or fall ofserial troponins, clinical symptomsand ECG changes is necessary. ID Date Data Source [id number] 07/22/2020 10:41:02 PM EDT [facility] [place] [facility] Name Value Range Interpretation Code Description Data Fadumo rce(s) Supporting Document(s) WBC 6.4 10*3/uL (4.1-11.0) [facility] [place] [facility] [place] RBC 3.65 10*6/uL (4.00-5.40) L [facility] [place] [facility] HGB 10.9 g/dL (12.0-16.0) L [facility] [place] [facility] [place] HCT 31.9 % (36.0-47.0) L [facility] [place] [facility] [place] MCV 87.5 fL (80.0-95.0) [facility] [place] [facility] [place] MCH 30.0 pg (27.0-32.0) [facility] [place] [facility] [place] MCHC 34.2 g/dL (32.0-36.0) [facility] [place] [facility] [place] RDW 14.3 % (10.5-14.5) [facility] [place] [facility] [place] PLT 156 10*3/uL (150-450) [facility] [place] [facility] [place] MPV 8.5 fL (7.1-10.7) [facility] [place] [facility] NEUT % 56.4 % (35.0-75.0) [facility] [place] [facility] [place] LYMPH % 31.7 % (16.0-52.0) [facility] [place] [facility] [place] MONO % 7.0 % (0.0-8.0) [facility] [place] [facility] EOS % 4.6 % (0.0-5.0) [facility] [place] [facility] BASO % 0.3 % (0.0-4.0) [facility] [place] [facility] NEUT # 3.6 10*3/uL (1.8-7.7) [facility] [place] [facility] [place] LYMPH # 2.0 10*3/uL (1.2-4.8) [facility] [place] [facility] [place] MONO # 0.4 10*3/uL (0.0-0.8) [facility] [place] [facility] [place] Eosinophils [#/volume] in Blood by Automated count 0.3 10*3/uL (0.0-0 .5) [facility] BASO # 0.0 10*3/uL (0.0-0.2) Lab [facility] Y ID Date Data Source [id number] 07/18/2020 11:36:36 PM EDT Laboratory [facility] Name Value Range Interpretation Code Description Data Fadumo rce(s) Supporting Document(s) BUPRENORPH SCREEN UR (NEG) A Laborator y [facility] THIS IS A SCREENING IMMUNOASSAYTEST THAT IS REPORTED POSITIVEWHEN THE RESULT EXCEEDS THETHRESHOLD (CUTOFF) INDICATED. ACONFIRMATORY ANALYSIS ISREFLEXIVELY ORDERED ON SPECIMENSSCREENING POSITIVE AND MAYBE ADDED FOR UNEXPECTED NEGATIVERESULTS IF REQUESTED WITHIN 72 HRS.A LIST OF POTENTIAL INTERFERENCESIS AVAILABLE UPON REQUEST. ID Date Data Source [id number] 07/22/2020 03:52:18 PM EDT Laboratory [facility] Name Value Range Interpretation Code Description Data Fadumo rce(s) Supporting Document(s) BUPRENORPHINE UR 23 ng/mL Laboratory [facility] INTERPRETIVE INFORMATION: Buprenorphine and Metabolites, Urine, Quantitative [...] developed and its performance characteristics determined by [employer]. It has not been cleared or approved by the US Food and Drug Administration. This test was performed in a CLIA certified laboratory and is intended for clinical purposes. NORBUPRENORPHINE UR 667 ng/mL [facility] BUPRENORPHINE GLUCU >1000 [facility] [place] [facility] [facility] Unit: ng/mL Consistent with use of a bup renorphine-containing drug. Glucuronide concentrations are semi-quantitative. NORBUPR GLUCURONIDE >1000 [facility] [place] [facility] [facility] Unit: ng/mL NALOXONE,URINE <100 ng/mL [facility] [place] - CORE Performed By: [facility] [address] [place] [address] [employer] Supervisor: Sunita Vaca MD ID Date Data Source [id number] 07/18/2020 10:42:03 PM EDT [facility] [place] - C[facility] SPECIMEN DESCRIPTION MIDSTREAM UR INE,CLEAN CATCHCULTURE RESULTS <10,000 CFU/ML REPRESENTING URETHRAL FLORAREPORT STATUS FINAL 07/20/2020 Name Value Range Interpretation Code Description Data Fadumo rce(s) Supporting Document(s) COLOR [facility] [place] [facility] - [facility] APPEARANCE [facility] [place] [facility] - [facility] SPEC GRAV URINE 1.030 (1.003-1.030) [facility] [place] [facility] - [facility] PH URINE 5.5 (5.0-7.5) [facility] [place] [facility] - CORE LEUK ESTERASE (NEG) A Laboratory Allia nce [...] CNY - CORE URINE WBC (0-5) [facility] [place] [facility] - C[facility] URINE RBC (0-2) [facility] [place] [facility] - CORE EPITHELIAL CELLS 4+ [HPF] [facility] - [facility] BACTERIA 1+ [HPF] [facility] [place] [facility] - CORE MUCUS 2+ [HPF] [facility] [place] [facility] ID Date Data Source [id number] 07/20/2020 07:56:28 AM EDT [facility] - [facility] SPECIMEN DESCRIPTION MIDSTREAM UR INE,CLEAN CATCHCULTURE RESULTS <10,000 CFU/ML REPRESENTING URETHRAL FLORAREPORT STATUS FINAL 07/20/2020 Name Value Range Interpretation Code Description Data Fadumo rce(s) Supporting Document(s) ID Date Data Source [id number] 07/13/2020 12:00:00 AM EDT [facility] Name Value Range Interpretation Code Description Data Fadumo rce(s) Supporting Document(s) [address] [facility] This lab was ordered by [facility] are and reported by [facility]. ID Date Data Source [id number] 07/04/2020 06:55:22 PM EDT Laboratory [facility] [employer] SPEC EXP DATE 07/07/2020ATI ENT ABO/Rh O POSITIVEANTIBODY SCREEN NEGATIVETESTING SITE PERFORMED AT [address] [place] [address] COMMENT BLOOD TYPE CONFIRMED. SPECIMEN DESCRIPTION MIDSTREAM [...] Fadumo rce(s) Supporting Document(s) TEST NAME [facility] [place] [facility] [employer] [facility] [place] [facility] [employer] [place] [address] RESULT [facility] [place] [facility] [employer] ID Date Data Source [id number] 07/04/2020 06:55:27 PM EDT [facility] [employer] SPEC EXP DATE 07/07/2020ATI ENT ABO/Rh O POSITIVEANTIBODY SCREEN NEGATIVETESTING SITE PERFORMED AT [address] [place] [address] COMMENT BLOOD TYPE CONFIRMED. SPECIMEN DESCRIPTION [...] 5.2 10*3/uL (4.1-11.0) [facility] [place] - CORE RBC 3.82 10*6/uL (4.00-5.40) L Laboratory [facility] [place] - CORE HGB 11.5 g/dL (12.0-16.0) L [facility] [place] - CORE HCT 33.5 % (36.0-47.0) L [facility] [place] - CORE MCV 87.7 fL (80.0-95.0) [facility] [place] - CORE MCH 30.1 pg (27.0-32.0) [facility] [place] - CORE MCHC 34.3 g/dL (32.0-36.0) [facility] [place] - CORE RDW 14.0 % (10.5-14.5) [facility] [place] - CORE PLT 161 10*3/uL (150-450) [facility] [place] - CORE MPV 9.6 fL (7.1-10.7) [facility] [place] [facility] [place] - CORE NEUT % 66.1 % (35.0-75.0) [facility] [place] - CORE LYMPH % 25.4 % (16.0-52.0) [facility] [place] - CORE MONO % 4.8 % (0.0-8.0) [facility] [place] [facility] [place] - CORE EOS % 3.2 % (0.0-5.0) [facility] [place] [facility] [place] - CORE BASO % 0.5 % (0.0-4.0) [facility] [place] [facility] [place] - CORE NEUT # 3.4 10*3/uL (1.8-7.7) [facility] - CORE LYMPH # 1.3 10*3/uL (1.2-4.8) [facility] [place] - CORE MONO # 0.2 10*3/uL (0.0-0.8) Laboratory [facility] e of [place] - CORE Eosinophils [#/volume] in Blood by Automated count 0.2 10*3/uL (0.0-0 .5) [facility] [place] [facility] [place] - CORE BASO # 0.0 10*3/uL (0.0-0.2) Laboratory [facility] e of [place] - CORE ID Date Data Source [id number] 07/04/2020 07:55:40 PM EDT Laboratory [facility] - CORE SPEC EXP DATE 1PATI ENT ABO/Rh O POSITIVEANTIBODY SCREEN NEGATIVETESTING SITE PERFORMED AT [address] [place] [address] BANK COMMENT BLOOD TYPE CONFIRMED. SPECIMEN DESCRIPTION [...] HEPATITIS B S AG @ (NEG) [facility] [place] [facility] [place] - [facility] ID Date Data Source [id number] 07/04/2020 08:00:05 PM EDT Laboratory [facility] SPEC EXP DATE 07/07/2020[facility] ENT ABO/Rh O POSITIVEANTIBODY SCREEN NEGATIVETESTING SITE PERFORMED AT [address] [place] [address] COMMENT BLOOD TYPE CONFIRMED. SPECIMEN DESCRIPTION MIDSTREAM [...] SCREEN @ (NEG) Laboratory [facility] Testing performed using Siemens ADVIACen taur 4th gen CHIV combo assay.This assay detects the HIV1 p24 antigenin addition to antibodies to HIV1 and HIV2. ID Date Data Source [id number] 07/04/2020 08:06:53 PM EDT Laboratory [facility] SPEC EXP DATE 07/07/2020ATI ENT ABO/Rh O POSITIVEANTIBODY SCREEN NEGATIVETESTING SITE PERFORMED AT [address] [place] [address] COMMENT BLOOD TYPE CONFIRMED. SPECIMEN DESCRIPTION MIDSTREAM [...] Supporting Document(s) TREPONEMA IGG/IGM @ (NEG) [facility] [place] [facility] ID Date Data Source [id number] 07/04/2020 08:07:03 PM EDT Laboratory [facility] [email or web address] SPEC EXP DATE 07/07/2020ATI ENT ABO/Rh O POSITIVEANTIBODY SCREEN NEGATIVETESTING SITE PERFORMED AT [address] COMMENT BLOOD TYPE CONFIRMED. SPECIMEN DESCRIPTION MIDSTREAM [...] Supporting Document(s) GLUCOSE 73 mg/dL (70-99) [facility] [place] [facility] ID Date Data Source [id number] 07/04/2020 08:07:03 PM EDT Laboratory [facility] [email or web address] SPEC EXP DATE 07/07/2020ATI ENT ABO/Rh O POSITIVEANTIBODY SCREEN NEGATIVETESTING SITE PERFORMED AT [address] COMMENT BLOOD TYPE CONFIRMED. SPECIMEN DESCRIPTION MIDSTREAM [...] FREE THYROXINE @ 1.24 ng/dL (0.76-1.46) [facility] [place] [facility] ID Date Data Source [id number] 07/04/2020 08:07:03 PM EDT Laboratory [facility] SPEC EXP DATE 07/07/2020ATI ENT ABO/Rh O POSITIVEANTIBODY SCREEN NEGATIVETESTING SITE PERFORMED AT [address] [place] [address] BANK COMMENT BLOOD TYPE CONFIRMED. SPECIMEN DESCRIPTION [...] TSH,ULTRASENSITIVE @ 0.172 mIU/L (0.360-4.170) L [facility] [place] [facility] ID Date Data Source [id number] 07/04/2020 08:16:30 PM EDT Laboratory [facility] SPEC EXP DATE 1PATI ENT ABO/Rh O POSITIVEANTIBODY SCREEN NEGATIVETESTING SITE PERFORMED AT [address] [place] [address] BANK COMMENT BLOOD TYPE CONFIRMED. SPECIMEN DESCRIPTION [...] Fadumo rce(s) Supporting Document(s) AMPHETAMINES,URINE (NEG) [facility] [place] [facility] BARBITURATES,URINE (NEG) [facility] [place] [facility] BENZODIAZEPINE,URINE (NEG) A Laborator y [facility] SPECIMEN HAS BEEN SENT FOR CONFIRMATION. CANNABINOIDS,URINE (NEG) [facility] [place] [facility] COCAINE,URINE (NEG) Laboratory [facility] OPIATES,URINE (NEG) Laboratory [facility] NOTE: Oxycodone is not sufficientlydetec joel by this screening assay. A moresensitive assay is available upon request. PHENCYCLIDINE,URINE (NEG) [facility] [place] [facility] PLEASE NOTE: Laboratory [facility] of [facility] ARE REPORTED POSITIVE WHEN THE RESULT SEXCEED THE THRESHOLD (CUTOFF) INDICATED. ALIST OF POTENTIAL INTERFERENCES FOR EACHMETHOD CAN BE MADE AVAILABLE UPON REQUEST.A CONFIRMATORY ANALYSIS IS ORDERED ONALL DRUG CLASSES SCREENING POSITIVE BYTHIS METHOD.* * * * * * * * * * * * * * *THIS ASSAY IS NOT INTENDED TO BE USED FORMONITORING MEDICATION COMPLIANCE. ID Date Data Source [id number] 07/04/2020 09:12:57 PM EDT [facility] [place] - C[place] SPEC EXP DATE 1PATI ENT ABO/Rh O POSITIVEANTIBODY SCREEN NEGATIVETESTING SITE PERFORMED AT [address] [place] [address] BANK COMMENT BLOOD TYPE CONFIRMED. SPECIMEN DESCRIPTION [...] Data Fadumo rce(s) Supporting Document(s) COLOR [facility] [place] [facility] [place] - CORE APPEARANCE [facility] [place] [facility] - CORE SPEC GRAV URINE 1.027 (1.003-1.030) [facility] [place] [facility] - CORE PH URINE 6.0 (5.0-7.5) [facility] [place] [facility] - CORE LEUK ESTERASE 2+ [...] CNY - CORE URINE WBC (0-5) [facility] [place] [facility] - CORE URINE RBC (0-2) [facility] [place] [facility] [place] - CORE EPITHELIAL CELLS 2+ [HPF] Laboratory [facility] of [facility] CORE BACTERIA 2+ [HPF] [facility] [place] [facility] MUCUS 2+ [HPF] [facility] [place] [facility] - CORE ID Date Data Source [id number] 07/05/2020 12:27:31 AM EDT Laboratory [facility] - CORE SPEC EXP DATE 07/07/2020ATI ENT ABO/Rh O POSITIVEANTIBODY SCREEN NEGATIVETESTING SITE PERFORMED AT [address] [place] [address] COMMENT BLOOD TYPE CONFIRMED. SPECIMEN DESCRIPTION MIDSTREAM [...] rce(s) Supporting Document(s) ID Date Data Source [id number] 07/05/2020 12:49:38 PM EDT Laboratory [facility] - CORE SPEC EXP DATE 07/07/2020ATI ENT ABO/Rh O POSITIVEANTIBODY SCREEN NEGATIVETESTING SITE PERFORMED AT [address] [place] [address] COMMENT BLOOD TYPE CONFIRMED. SPECIMEN DESCRIPTION MIDSTREAM [...] Name Value Range Interpretation Code Description Data [facility] rce(s) Supporting Document(s) RUBELLA IGG AB @ Laboratory [facility] of [facility] IgG antibody to Rubella detected. IgGan tibody levels are at a level consideredto indicate positive immunity. ID Date Data Source [id number] 07/05/2020 12:49:38 PM EDT Laboratory [facility] SPEC EXP DATE 07/07/2020ATI ENT ABO/Rh O POSITIVEANTIBODY SCREEN NEGATIVETESTING SITE PERFORMED AT [address] COMMENT BLOOD TYPE CONFIRMED. SPECIMEN DESCRIPTION MIDSTREAM [...] Name Value Range Interpretation Code Description Data [facility] rce(s) Supporting Document(s) VARICELLA ZOST IGG @ Laborator [facility] [place] [facility] No IgG antibodies specific to VZV detect ed.Patient is presumed NOT to have had a previous exposure to VZV through infectionor vaccination. ID Date Data Source [id number] 07/05/2020 04:07:16 PM EDT Laboratory [facility] SPEC EXP DATE 07/07/2020ATI ENT ABO/Rh O POSITIVEANTIBODY SCREEN NEGATIVETESTING SITE PERFORMED AT [address] COMMENT BLOOD TYPE CONFIRMED. SPECIMEN DESCRIPTION MIDSTREAM [...] <2.0 ug/dL (0.0-4.9) [facility] [place] - CORE Testing performed by graphite [employer] monie absorption spectroscopy. Information for health careproviders on lead poisoningprevention and management isavailable on the [facility] website. ID Date Data Source [id number] 07/06/2020 07:52:55 AM EDT [facility] [place] - C[facility] SPEC EXP DATE 07/07/2020ATI ENT ABO/Rh O POSITIVEANTIBODY SCREEN NEGATIVETESTING SITE PERFORMED AT [address] [place] [address] COMMENT BLOOD TYPE CONFIRMED. SPECIMEN DESCRIPTION MIDSTREAM [...] rce(s) Supporting Document(s) ID Date Data Source [id number] 07/06/2020 12:37:08 PM EDT Laboratory [facility] - CORE SPEC EXP DATE 07/07/2020ATI ENT ABO/Rh O POSITIVEANTIBODY SCREEN NEGATIVETESTING SITE PERFORMED AT [address] [place] [address] COMMENT BLOOD TYPE CONFIRMED. SPECIMEN DESCRIPTION MIDSTREAM [...] Name Value Range Interpretation Code Description Data [facility] rce(s) Supporting Document(s) HGB A1 95.6 % (94.3-98.5) Laboratory [facility] e [facility] HGB A2 3.1 % (1.5-3.7) Laboratory [facility] HGB F 1.3 % (0.0-2.0) [facility] [place] [facility] HGB EVALUATION Laboratory [facility] of [facility] HGB EVALUATION BY HPLC PLEASE NOTE:PA TIENTS WITH A COMBINATION OF IRONDEFICIENCY ANEMIA AND BETA-THALASSEMIATRAIT MAY CLINICALLY PRESENT WITH ANORMAL HGB A2 LEVEL. ID Date Data Source [id number] 07/08/2020 10:21:58 PM EDT Laboratory [facility] - CORE SPEC EXP DATE 07/07/2020ATI ENT ABO/Rh O POSITIVEANTIBODY SCREEN NEGATIVETESTING SITE PERFORMED AT [address] [place] [address] COMMENT BLOOD TYPE CONFIRMED. SPECIMEN DESCRIPTION MIDSTREAM [...] Document(s) DIAZEPAM,URINE <20 Laboratory Ángel ance of [facility] Unit: ng/mL Cutoff: 20 ng/mL NORDIAZEPAM,URINE <20 Laboratory A lliance of [facility] Unit: ng/mL Cutoff: 20 ng/mL OXAZEPAM,URINE <20 Laboratory Ángel ance of [facility] Unit: ng/mL Cutoff: 20 ng/mL TEMAZEPAM,URINE <20 Laboratory All iance of [facility] Unit: ng/mL Cutoff: 20 ng/mL LORAZEPAM,URINE <20 Laboratory All iance of [facility] Unit: ng/mL Cutoff: 20 ng/mL ALPRAZOLAM,URINE 405 Laboratory Al liance of [facility] Unit: ng/mL Consistent with use of a lópez g containing alprazolam, such as Xanax. Cutoff: 5 ng/mL ALPHA [place] ALPRAZOLAM >1000 Laboratory [facility] Unit: ng/mL Alprazolam metabolite; consi stent with use of a drug containing alprazolam, such as Xanax. Cutoff: 5 ng/mL CLONAZEPAM,URINE <5 Laboratory Al liance of [facility] Unit: ng/mL Cutoff: 5 ng/mL 7 AMINOCLONAZEPAM U 43 Laboratory [facility] Unit: ng/mL Clonazepam metabolite; consi stent with use of a drug containing clonazepam, such as Klonopin. Cutoff: 5 ng/mL MIDAZOLAM,URINE <20 Laboratory All [facility]ance of [facility] Unit: ng/mL Cutoff: 20 ng/mL CHLORDIAZEPOXIDE <20 Laboratory Al liance of [facility] Unit: ng/mL Cutoff: 20 ng/mL ALPHA [place] MIDAZOLAM <20 Laboratory [place] [facility] Unit: ng/mL Cutoff: 20 ng/mL INTERPRETIV E [...] developed and its performance characteristics determined by [employer]. It has not been cleared or approved by the US Food and Drug Administration. This test was performed in a CLIA certified laboratory and is intended for clinical purposes. Performed By: [employer] [address] [place] [id number] [employer] Supervisor: Sunita Vaca MD ID Date Data Source [id number] 04/21/2020 12:37:00 AM EST [facility] Name Value Range Interpretation Code Description Data Fadumo rce(s) Supporting Document(s) COLOR,UR SONJA YELLOW A [facility] APPEARANCE,UR SL CLOUDY CLEAR [facility] PH,UR 5.0 5.0-8.0 [facility] SPECIFIC GRAVITY,UR 1.026 1.002-1.035 N [facility] PROTEIN,UR NEGATIVE MG/DL NEGATIVE [facility] GLUCOSE, UR NEGATIVE MG/DL NEGATIVE [facility] KETONES,UR NEGATIVE MG/DL NEGATIVE [facility] OCCULT BLOOD,UR NEGATIVE NEGATIVE [facility] NITRATE,UR NEGATIVE NEGATIVE [facility] LEUKOCYTE ESTERASE ,UR NEGATIVE NEGATIVE [facility] BILIRUBIN,UR SMALL NEGATIVE A [facility] UROBILINOGEN,UR 4.0 EU MG/DL NEG-0-1.0 A [facility] ID Date Data Source [id number] 04/21/2020 12:44:00 AM EST [facility] Name Value Range Interpretation Code Description Data Fadumo rce(s) Supporting Document(s) OPIATE SCREEN NEG NEGATIVE [facility] Minimum Detectable Limit is 300 ng/mL. BARBITURATE SCREEN NEG NEGATIVE [facility] Minimum Detectable Limit is 300 ng/mL. PHENCYCLIDINE SCREEN NEG NEGATIVE [facility] Minimum Detectable Limit is 25 ng/mL. AMPHETAMINE SCREEN NEG NEGATIVE [facility] Minimum Detectable Limit is 1000 mg/mL. BENZODIAZEPINE SCREEN POS NEGATIVE [facility] Mininum Detectable Limit is 300 ng/mL. COCAINE SCREEN NEG NEGATIVE [facility] Minimum Detectable Limit is 300 ng/mL. CANNABINOID SCREEN NEG NEGATIVE [facility] Minimum Detectable limit is 50 ng/dL. HEROIN SCREEN NEG NEGATIVE [facility] Minimum Detectable limit is 10 ng/dL. A ll POSITIVE or BORDER results are unconfirmed. Please contact the laboratory if a reference testing confirmation is needed. ID Date Data Source [id number] 04/20/2020 10:08:22 PM [facility] Name Value Range Interpretation Code Description Data Fadumo rce(s) Supporting Document(s) [facility] [file] E4PszhlwRDPINbQQIIFUSCCIQOYUYOWRYLIDOKUUPSZAQFSSWTEZXCWEGCQXZOJDOVUAFWFGZFWGHJHR WGJVIWHXMWUVZEDEWXCAw5vv9168tc2Y0IxXrE7TltBdzoWZwskbfCoOZNUwLehCzcIylesg1rm7+yXU fUVZyn29nToT9JLtlMq0Ie5QAHyvrsrc5Srahk1xa+ hyO5ehzjCsM+WUgBnf6nXvdIH0HgS/8ACwP+q4f+Wn/0nFU4Gdw1fhKjCDjgP7QtMbrO6qkgp9Qs2zAY vsNfl5Xslph/0LhbmE4gZxgl97t8mAI0sXofHfkqkaAhM1Xi6TMYW6cGrbWDwoHXXIIWwPohcp2M7cM2 yhkqnLmqMg0U4JCuz9h/ANGtzmPP+tBAJp1gCiHf+z 2+ATQxqAbDv39XV+YoAiI4j/oIhOJ86efUVz4RVWhmuhnwdWJg5wDp1rkP0AVkDf/5ByjTG6iWVSi4vU PNmmti6XKDYeODDTKM2/j74AUXZsyknboZGZ43VayWFcjwG10UsgbzI88VmvEBXGp96z2X3V0FCobSvl nv+H6r4150Yoqh7klrFR3jahmiWHQsB/6s7Vwp XRfdwbTJp8SBWNsrzwziY8dp971Cy/xDjd/g6lXI5yEdbsKtLZjz3cQmndtQx5EoYezumWc/eiq82UtN P9RusJ1mlufrRVPamESlUBrMle9rFfnjsc/2WfnqU9kEaiv63gF+JTti3u2E20P7dhQ4blrXGH4teqDG NZp65L14MILPcWF3aF2+V+1oRK01gr921WVknYpjoK Q8XtQITWKtNfiqjj0zwJOy8a3TlhojrdmV80Jpc2JhbiR72HpesfY53NhwSbiaxY/jraEyeU89s5GQ0i JFnxH/SJFqwJgy1KsygC6mFzAS3ha7SxBOvLQAFacLP1xWjXQfX+3yTTr652VzmT4xmsh9/gExMGKD27 WjbJL6KLPp8o9VitwualjI99Orj7CHeYfO/a2YXaZ0 1z53ip96sToJ1+V+3iGW34lz266MZlFlvN7QBtGs4YGkavzHXxy7KBFijJU1b6kDeWyiodoHehlgiVy3 E4D5LkfnA/585SMBZIkunAVXMK8m82kZGctHdSGKtfUSOh131ruy509hKE500++5oQ1leAxCjqyap9WA 78x29F0q0O0h99clVlxTq2Eti8RMOEYT9fH3dIDUpx BtfpgWnNox98yzeH7B9fhL7+xCfAcnBgHYO6kkdKodDg3XX6lRSiMo/sQq48uRdpG01Gke1zxziq1/dR cOAQL89OznUkP14w0qRsz76XKti9efV3aDKvGsX/b8GKtL20s13jx37fJkCMaP/pWYarbH2bPsof61oY mzWwbrpiNzmqyN04Nlzmh2D5pK7idqblVzuMWSCzl7 [file] metal fitter+BYmAd3u+i62wjkRIl72+9WAwWaXmSQ2A5B7QBqOt68Ax4Bl8pMecL1SuxXzvyJy+pyAaQmjH+DTNN [file] lnHfqO6H2kydNAFSNlVSNLKIKZSNAWQIVCMCNPRWOHFTPFVMHLWENPUAVYSNJHENPYRBWTVLPWLLPGYL XUGYZBRGVAWJPWEKYPAYEGTSXTHCt65y+/ja7KIw9FcTDSlgk8WA/DQUUUVRuFeTfG/wD1Oi/Wb/2Sii plsY1/4tPVlETBaSIVscfoN1G8Kj6VGv6A/r2H/oQr 3skisT2Mp2m2UUSJMDdeVn0vm/1Oi/Wb/wBkooqZbGNf+Tqi4vxJYJD4INNNRUuozGR/AJDuo/8AXsP/ BLLK4HODZfft50L0ZLzxhiOkymz73/6nRfrN/wCyUUVMtjGv/GS93D5RWpgESKBZDP5D+Cn/ACHdR/69 h/6PY6dcorOEt2JH+OQCARXQ8K4H7m/9Tov1m/8AZK KKmWxjX/xz3ec45NVfeICMEYJJnwfRE/kO6j/17D/7PP7APNIbfv32J3CPcekpExjrm34/BHh5P6jk+y HUFEyiYf2Pq6mR2j1RMrNQBdTWOWQNEng/yHdR/oDhGz1BzYe1fmnkE2Eg2c3PQGSFZelOi2wm/wBTov 1m/wDZKKKmWxjX/we6tnxAWvUCSulseP6Q+Cn/ACHd R/69h/4JO6rcxyYEr0kX+NOFZAMC2Ft+G/8AkJP/ANcj/ATAKM7Wc/1DRhwYIYMVE3JDGHVVNTBBKMXM RQAUUUUAFFFFABRRRQAUUUUAFFFFABRRRQAUUUUAFFFFABRRRQAUUUUAFFFFABRRRQAUUUUAf//ZDQpl rcJndOZgLW0KWpStLV5nul7HRHRtMZIpMwrSHqv3H2 E4lMHkL6DjD2TwI43qTs3IoRFihTE3JC8PqHv7RGHoOerrgMWIQBQcDVMnODUmU5HwJDL9Wg8+DQpzdH JoIB9CMgbhzBCtI9TcPIO0su7fXrvJyim3lKTzOZDTh2QUWN1TTjXQ3w1ruligcRVeh3+99xKMIABMIE kZZA5GfPhWBFj7QCLFdZWqDuDRSCoNapZTAsEUYLZ5 NjS9ODE7fjc9F8yHoJrXp7Ajopk1uibR0Eq9PCAAEoAQpj4N5hQilCHRa8dEK0T07b0Pl4GmpwxVVjwr Kb0JJdW5vkdcUrgrrI/uPaXRw3VJa0B30ycPw2baup7f+0ghWgHR1boq6fnAAJ0JQZ4lu7TbNBTfUMtw mqOmDokQKjK4VGOis6PjHQo5JD3God5phBYtqjj+/w WUGGtNViElYA3XfoOuSHANrKThQOJNQnTcESSDkSEeRUIAIXFMCX8FinNuQBTLRiJwZGYOPfdrA6LpXQ Rvcij+/zGYXGgFLvHjES9TwrZeOILCdNJtYYTJRoGyGSPSdSHxVAXPBFYJTK0HtmXgWNLELyFoMJFNJr lxR9HyURAzs25ZVLOcHIQ1MwYjPHEtGhYdFlT6RxLz UT7As9RPUPOuYHW2TbIgGWGrGaGkLqC6CfIhJT9+ICmlmmRdZckBLuV9QDOrr1MkJWfbYNU4SN1wZNrf nlHeGimGPpGwACXfs8SbBHzxLHL5WP4xUDhoeoNzBycPGrNrAJHlq6UmEYa0AF9AnOIwI5jDJFZfA6w3 ODKmRI0YXqLlXBBrOe1zR1Jno2TbEFVpGVFzNM2tdf DoAVTiYSMwUVViSHUDUyB5HnCoF4XjObZXFFg0RXTNN6GbHXV8KXsjKiSaVwx1JiLQAMM0VAzTXVYUQH Y3YZrRLHOIQUYIETd2IsGHVP4gSK3BuMy3FKUrWhykwNEEFHAkVFOuRJVyC0AlRLz1Fa6UHbL4jnQnnT 0KeJxjYACC//8TwoRcGgPEkaQZP3BN76CttUTkPIGM MOYxjXQFHT4EafsN0TGxWNqODAUklIEYAWeQIesHaKIDReT8mPxS3RsRr5yl1ggDlmDIESaCHQ8Sbu3M HP1xi9UdRCRjZYavtcBuTyqKUxxgHRMKAhFtRgAHAaRcKKHvRRLhRKEuRcH1BiDsCe4GWZFnVIIaIYLj UvNtGATpBDMtWJcyCHZxXATlMKQ9FPOfPTXpLL3MQv GoVYDjSYQfYMGnJMBoKEJqqk6NVFLeHDDmVNC8YTFuKBUvTYDyTJekJFRyMRAyEdV5VXOqZLAaQG5BIl XfLQQxZZP2KGMySQBwZOJbng6KGAGnQOUsCWQ2ODXgKTVuXSSzDJovMABgHOWkOjO6WXKhGJUaDW2CIz KfZWGxPTJ7IjNqINWbSFTsag3XDAEgTXHrDZKjCMR7 ZFCtWGWnJRcxDJUpYIWnAUQpDTP6TIZ7MGSYJgOxKKRpHAGkDHAiNyY2BmIhEh7UKAKcUDLcRDYuEUV2 CSGmTRYbSVysHBFaSJZbNOI8VAY8LAC7EZVOOiArWTOsYLZfEMIhPnU2CrKoPj4ZKLWrCSEzIQRhTuP5 YVHaQHXrGHrtGMAlNAUmRYTzRBZ7NRY4ATVOBaFgRQ KrTCtsCwsuVQXoGTIatx3CJRQuAHPpBwO0SSCxFAVnWDJkRJebKQGrHeB0WnErHUSxCIBvEU3FSbBzMA JfDLm7VZwfJDInGOCvzr5ZkBSghGvket2BSAvlA4n1DZDlWv6Sc189IYAxJKADJ6zkOe2hOJbwCBTLI4 hAOlu3EhQKEKP1QYrOJNMZSXE6HXiXILEUANSKXVk8 TbTMYA85VCX7SeoEPND9KsSRUfB3HJj9QXFPDoTfNsE3DMGKUwE+XSA+Pu7Pf1LwedU6hcZuFKhhFKq3 AsoFThDdLQ8TYCe8izIbVGerLMAWEwCnPClnPCHVIev4C2LgobStFoGfZo9vqINqVKHrFt2IawGoRVC7 WDNxEo3VWSz9GNH5NalSFXT7GhLGUzT0MKw9UFXAHy MoIyW4NEMCYiM+HJHNIwI4MhRaT2PiLxKCNCg5MOBSG0UcLII2FZcnWuKoOs2oT1QaWDKeUvQ5AIE3M0 pWEQZToY7oRsP2UwH6Xp3CSmS9WHO0rNSgVd8VOfH7BUJ8RAjkJVUXKw== ID Date Data Source "" 04/20/2020 10:08:00 [place] [address] Patient Name: Carlos Aguilar Exam Date: 04/20/20 : 1990 CC: EKG/ECG in ED Ordering Doctor: Missy Cheung MD Attending Doctor: Missy Cheung MD CC: EKG/ECG in ED APPROVED REPORT ECG MEASUREMENT Heart Rate 61 AXES GA 158 P 48 QRSd 86 QRS 73 QT 434 T 55 QTc 438 INTERPRETATION SINUS RHYTHM NO ACUTE ISCHEMIA NORMAL ECG <Conclusion> SINUS RHYTHM NO ACUTE ISCHEMIA NORMAL ECG End of diagnostic report for accession: [id number] Interpreted: Missy Cheung MD 04/20/202207 Transcribed: Signed: Missy Cheung MD 04/20/202207 Interpreted by: Missy CheungTranscribed by: Missy Cheung Name Value Range Interpretation Code Description Data Fadumo rce(s) Supporting Document(s) ID Date Data Source [id number] 04/24/2020 08:39:00 AM [facility] Name Value Range Interpretation Code Description Data Fadumo rce(s) Supporting Document(s) HEPATITIS A ANTIBODY, IgM,S Negative Negative [facility] HEPATITIS A ANTIBODY, Total,S Negative Negative [facility] HEPATITIS B SURF ANTIGEN SCRN Negative Negative [facility] HEPATITIS B CORE ANTIBODY,IGM Negative Negative [facility] HEP B CORE ANTIBODY,TOTAL Negative [facility] SURFACE ANTIBODY Non Reactive . [facility] Non Reactive: Inconsisten t with immunity, less than 10 mIU/mL Reactive: Consistent with immunity, greater than 9.9 mIU/mL Verified by repeat analysis HCV Ab,S >11.0 s/co ratio 0.0-0.9 A [facility] HCV COMMENT [facility] Strong reactive antibody screen (s/c ra renetta >10.9) is consistent with past or present HCV infection. Follow-up testing by HCV, Quantitative, Real time PCR (#[id number]) is recommended to determine viral load/diagnosis of current HCV infection. Performed at: - [facility] [id number] Class B Driver: Helene Mccoy MD, Phone: [phone] ID Date Data Source [id number] 04/20/2020 08:20:00 PM EST [facility] Name Value Range Interpretation Code Description Data Fadumo rce(s) Supporting Document(s) Coronavirus 2 (SARS-CoV-2) NOT-DETECTED [facility] This lab was ordered by [facility] and reported by [facility]. ID Date Data Source [id number] 04/20/2020 10:31:00 PM EST [facility] Name Value Range Interpretation Code Description Data Fadumo rce(s) Supporting Document(s) ADENOVIRUS Not Detected NotDetected [facility] CORONAVIRUS 229E Not Detected [facility]Detected [facility] This is NOT the novel coronavirus COVID -19 CORONAVIRUS HKU1 Not Detected [facility] This is NOT the novel coronavirus COVID -19 CORONAVIRUS NL63 Not Detected [facility]Detected [facility] This is NOT the novel coronavirus COVID -19 CORONAVIRUS OC43 Not Detected [facility]Detected [facility] This is NOT the novel coronavirus COVID -19 HUMAN METAPNEUMOVIRUS Not Detected NotDetected [facility] HUMAN RHINOVIRUS/ENT Not Detected NotDetected [facility] INFLUENZA A Not Detected NotDetected [facility] INFLUENZA B Not Detected NotDetected [facility] PARAINFLUENZA VIRUS 1 Not Detected NotDetected [facility] PARAINFLUENZA VIRUS 2 Not Detected NotDetected [facility] PARAINFLUENZA VIRUS 3 Not Detected NotDetected [facility] PARAINFLUENZA VIRUS 4 Not Detected NotDetected [facility] RESPIRATORY SYNCY VIR Not Detected NotDetected [facility] BORDETELLA PARAPERTUS Not Detected NotDetected [facility] BORDETELLA PERTUSSIS Not Detected NotDetected [facility] CHLAMYDIA PNEUMONIAE Not Detected NotDetected [facility] MYCOPLASMA PNEUMONIAE Not Detected NotDetected [facility] The Respiratory Panel is a multiplexed nucleic acid/PCR test. A negative result does not rule out the presence of PCR inhibitors in the patient sample or assay-specific nucleic acid concentrations below the level of detection by the assay. Coronavirus 2 (SARS-CoV-2) NOT-DETECTED NOTDETECTED [facility] THIS IS THE NOVEL CORONAVIRUS COVID-19 ID Date Data Source [id number] 04/20/2020 09:24:00 PM [facility] Has Patient Fasted For The Past 12 Hour s? N Has Patient Fasted For The Past 12 Hour s? N Has Patient Fasted For The Past 12 Hour s? N Has Patient Fasted For The Past 12 Hour s? N Name Value Range Interpretation Code Description Data Fadumo rce(s) Supporting Document(s) WHITE BLOOD COUNT 6.90 10^3/uL 4.00-10.50 N [facility] RED BLOOD COUNT 4.24 10^6/uL 3.90-5.20 N [facility] th HEMOGLOBIN 12.6 G/DL 11.5-15.6 [facility] HEMATOCRIT 38.4 % 35.0-46.0 [facility] MCV 90.6 FL 80.0-100.0 [facility] MCH 29.7 PG 27.0-34.0 [facility] MCHC 32.8 G/DL 32-36 N [facility] RDW 14.2 % 11.5-14.5 N [facility] PLATELET COUNT 182 10^3/uL 130-400 N [facility] MPV 10.2 FL 8.7-13.2 N [facility] GRAN % (AUTO) 37.5 % 42.0-75.0 L [facility] LYMPH % (AUTO) 45.2 % 20.0-51.0 N [facility] MONO % (AUTO) 9.3 % 2.0-15.0 N [facility] EOS % (AUTO) 7.5 % 0.0-11.0 N [facility] BASO % (AUTO) 0.4 % 0.0-2.0 N [facility] IG % (AUTO) 0.1 % 1.00-5.00 [facility] IG # (AUTO) 0.0 10^3/uL <0.5 [facility] GRAN # (AUTO) 2.58 10^3/uL 1.50-6.50 N [facility] LYMPH # (AUTO) 3.1 k/uL 1.0-5.0 N [facility] MONO # (AUTO) 0.64 k/uL 0.20-1.50 N [facility] EOS # (AUTO) 0.52 10^3/uL 0.00-1.10 N [facility] BASO # (AUTO) 0.03 10^3/uL 0.00-0.20 N [facility] ID Date Data Source [id number] 04/20/2020 09:30:00 PM EST [facility] Has Patient Fasted For The Past 12 Hour s? N Has Patient Fasted For The Past 12 Hour s? N Has Patient Fasted For The Past 12 Hour s? N Has Patient Fasted For The Past 12 Hour s? N Name Value Range Interpretation Code Description Data Fadumo rce(s) Supporting Document(s) HCG QUALITATIVE SPECIMEN SERUM [place] [employer] ID Date Data Source [id number] 04/20/2020 09:42:00 PM [facility] Has Patient Fasted For The Past 12 Hour s? N Has Patient Fasted For The Past 12 Hour s? N Has Patient Fasted For The Past 12 Hour s? N Has Patient Fasted For The Past 12 Hour s? N Name Value Range Interpretation Code Description Data Fadumo rce(s) Supporting Document(s) SODIUM 142 MEQ/L 135-145 [facility] POTASSIUM 3.5 MEQ/L 3.5-5.3 N [facility] CHLORIDE 108 MEQ/L 94-110 [facility] CARBON DIOXIDE 31 MEQ/L 22-33 [facility] ANION GAP 7 5-16 N [facility] BLOOD UREA NITRO 9 MG/DL 7-25 N [facility] CREATININE 0.7 MG/DL 0.6-1.4 N [facility] GFR > 90.0 ML/MIN [facility] Stage G1 - Normal or high kidney functi on The GFR is an estimate of the Glomerular Filtration Rate. It is an aid to assess a patient's renal function. It is not a conclusive diagnosis of kidney disease. GFR normal is >=90 The MDRD GFR calculation is considered valid between the ages of 18 and 75 years only. BUN/CREAT RATIO 12 8-36 [facility] GLUCOSE 79 MG/DL 70-100 [facility] CA 9.1 MG/DL 8.7-10.5 [facility] BILIRUBIN,TOTAL 0.3 MG/DL 0.1-1.3 [facility] AST 248 U/L 5-40 H [facility] ALT 242 U/L 5-48 H [facility] ALKALINE PHOSPHATASE 84 U/L 40-140 [facility] alth TOTAL PROTEIN 7.7 G/DL 5.9-8.3 [facility] ALBUMIN 4.3 G/DL 3.0-5.1 [facility] GLOBULIN 3.4 G/DL 1.5-3.5 [facility] ALB/GLOB RATIO 1.3 G/DL 1.0-3.0 [facility] ID Date Data Source [id number] 04/20/2020 09:30:00 PM EST [facility] Has Patient Fasted For The Past 12 Hour s? N Has Patient Fasted For The Past 12 Hour s? N Has Patient Fasted For The Past 12 Hour s? N Has Patient Fasted For The Past 12 Hour s? N Name Value Range Interpretation Code Description Data Fadumo rce(s) Supporting Document(s) HCG RESULT,S NEGATIVE [facility] Reference range is Negative "Extreme" early may have low levels of HCG present. If is suspected, repeat testing with a new specimen in 48-72 hours ID Date Data Source [id number] 04/20/2020 09:42:00 PM [facility] Has Patient Fasted For The Past 12 Hour s? N Has Patient Fasted For The Past 12 Hour s? N Has Patient Fasted For The Past 12 Hour s? N Has Patient Fasted For The Past 12 Hour s? N Name Value Range Interpretation Code Description Data Fadumo rce(s) Supporting Document(s) SALICYLATE < 3.0 MG/DL 2.8-20.0 N [facility] ID Date Data Source [id number] 04/20/2020 09:42:00 PM EST [facility] Has Patient Fasted For The Past 12 Hour s? N Has Patient Fasted For The Past 12 Hour s? N Has Patient Fasted For The Past 12 Hour s? N Has Patient Fasted For The Past 12 Hour s? N Name Value Range Interpretation Code Description Data Fadumo rce(s) Supporting Document(s) ACETAMINOPHEN < 2.0 UG/ML 10-30 L [facility] High levels of N-acetylcysteine (used t o treat Acetaminophen overdose) may cause interference and cause a negative bias in the Acetaminophen result. ID Date Data Source [id number] 04/20/2020 09:42:00 PM [facility] Has Patient Fasted For The Past 12 Hour s? N Has Patient Fasted For The Past 12 Hour s? N Has Patient Fasted For The Past 12 Hour s? N Has Patient Fasted For The Past 12 Hour s? N Name Value Range Interpretation Code Description Data Fadumo rce(s) Supporting Document(s) BLOOD ALCOHOL < 0.03 % <0.03 [facility] ID Date Data Source [id number] 01/25/2020 04:35:00 PM EDT [facility] ([facility]) Name Value Range Interpretation Code Description Data Fadumo rce(s) Supporting Document(s) Creatinine [Moles/volume] in Vitreous fluid 139.4 mg/dL No rmal Creatinine [facility] ([facility]) Nitrite [Presence] in Urine by Test strip 47.6 mcg/mL Norm al Nitrite [facility] ([facility]) pH of Vaginal fluid by Test strip 6.8 Normal pH [facility] ([facility]) Amphetamines [Presence] in Unknown substance by Confirmatory met hod 0 ng/mL Normal Amphetamines [facility] ([facility]) Barbiturates [Mass/volume] in Saliva (oral fluid) by Screen meth od 0 ng/mL Normal Barbiturates [facility] ([facility]) Cocaine Metabolites 0 ng/mL Normal Cocaine Metabolites [facility] ([facility]) Meprobamate [Mass/volume] in Blood by Confirmatory method 0 ng/mL Normal Meprobamate [facility] ([facility]) Tramadol [Presence] in Blood by Screen method 0 ng/mL N ormal Tramadol [facility] ([facility]) Meperidine Metabolite 0 ng/mL Normal Meperidine Met abolite [facility] ([facility]) Methadone [Moles/volume] in Unspecified specimen 0 ng/mL Normal Methadone [facility] ([facility]) Fentanyl [Z-score] in Urine 0 ng/mL Normal Fentanyl GR [place] ([facility]) Oxycodone/Oxymorphone 0 ng/mL Normal Oxycodone/Oxym orphone [facility] ([facility]) Opiates - Basic 0 ng/mL Normal Opiates - Basic [facility] ([facility]) 6-Acetylmorphine (Heroin) 0 ng/mL Normal 6-Acetylmo rphine (Heroin) [facility] ([facility]) Phencyclidine (PCP) 0 ng/mL Normal Phencyclidine (PCP) [facility] ([facility]) Propoxyphene [Presence] in Meconium by Screen method 0 ng/mL Normal Propoxyphene [facility] ([facility]) Ecstasy Analogs 0 ng/mL Normal Ecstasy Analogs [facility] ([facility]) Marijuana Metabolite 0 ng/mL Normal Marijuana Metab olite [facility] ([facility]) Oxazepam [Moles/volume] in Unspecified specimen 0 ng/mL Normal Oxazepam [facility] ([facility]) Lorazepam [Moles/volume] in Unspecified specimen 0 ng/mL Normal Lorazepam [facility] ([facility]) Nordiazepam [Moles/volume] in Unspecified specimen 0 ng/mL Normal Nordiazepam [facility] ([facility]) Temazepam [Moles/volume] in Unspecified specimen 0 ng/mL Normal Temazepam [facility] ([facility]) Nitrazepam Metabolite 0 ng/mL Normal Nitrazepam Met abolite [facility] ([facility]) Flunitrazepam Metabolite 0 ng/mL Normal Flunitrazep am Metabolite [facility] ([facility]) Clonazepam Metabolite 0 ng/mL Normal Clonazepam Met abolite [facility] ([facility]) Flurazepam Metabolite 0 ng/mL Normal Flurazepam Met abolite [facility] ([facility]) Triazolam Metabolite 0 ng/mL Normal Triazolam Metab olite [facility] ([facility]) Alprazolam Metabolite See Note ng/mL Normal Alprazolam Metabolite [facility] ([facility]) Note: Consistent Present below cut off.P rescribed drug was detected. Midazolam Metabolite 0 ng/mL Normal Midazolam Metab olite [facility] ([facility]) Estazolam [Mass/volume] in Urine by Confirmatory method 0 ng/mL Normal Estazolam [facility] ([facility]) Methylphenidate Metabolite >1500 ng/mL Normal Methylph enidate Metabolite [facility] ([facility]) Note: Consistent Prescribed drug was det ected. Gabapentin [Mass/volume] in Urine by Confirmatory method 599 ng/ mL Abnormal (applies to non-numeric results) Gabapentin [facility] ([facility]) Note: Inconsistent Unprescribed drug was detected. Pregabalin [Presence] in Urine by Screen method 0 ng/mL Normal Pregabalin [facility] ([facility]) Tapentadol [Presence] in Blood by Screen method 0 ng/mL Normal Tapentadol [facility] ([facility]) Norbuprenorphine [Mass/mass] in Meconium by Confirmatory method 1462.7 ng/mL Normal Norbuprenorphine [facility] ([facility]) Note: Consistent Prescribed drug was det ected. Buprenorphine [Presence] in Blood by Screen method 251.3 ng/mL Normal Buprenorphine [facility] ([facility]) Note: Consistent Prescribed drug was det ected. ID Date Data Source [id number] 01/02/2020 06:44:00 PM EDT [facility] ([facility]) Name Value Range Interpretation Code Description Data Fadumo rce(s) Supporting Document(s) Creatinine [Moles/volume] in Vitreous fluid 64.8 mg/dL Nor mal Creatinine [facility] ([facility]) pH of Vaginal fluid by Test strip 6.5 Normal pH [facility] ([facility]) Nitrite [Presence] in Urine by Test strip 49.5 mcg/mL Norm al Nitrite [facility] ([facility]) Amphetamines [Presence] in Unknown substance by Confirmatory met hod 0 ng/mL Normal Amphetamines [facility] ([facility]) Cocaine Metabolites 0 ng/mL Normal Cocaine Metabolites [facility] ([facility]) Barbiturates [Mass/volume] in Saliva (oral fluid) by Screen meth od 0 ng/mL Normal Barbiturates [facility] ([facility]) Tramadol [Presence] in Blood by Screen method 0 ng/mL N ormal Tramadol [facility] ([facility]) Meprobamate [Mass/volume] in Blood by Confirmatory method 0 ng/mL Normal Meprobamate HUGO ([facility]) Fentanyl [Z-score] in Urine 0 ng/mL Normal Fentanyl GR EENWAY ([facility]) Meperidine Metabolite 0 ng/mL Normal Meperidine Met abolite ANNA ([facility]) Opiates - Basic 0 ng/mL Normal Opiates - Basic HUGO ([facility]) Methadone [Moles/volume] in Unspecified specimen 0 ng/mL Normal Methadone HUGO ([facility]) 6-Acetylmorphine (Heroin) 0 ng/mL Normal 6-Acetylmo rphine (Heroin) HUGO ([facility]) Oxycodone/Oxymorphone 0 ng/mL Normal Oxycodone/Oxym orphone HUGO ([facility]) Propoxyphene [Presence] in Meconium by Screen method 0 ng/mL Normal Propoxyphene ANNA ([facility]) Phencyclidine (PCP) 0 ng/mL Normal Phencyclidine (PCP) HUGO ([facility]) Ecstasy Analogs 0 ng/mL Normal Ecstasy Analogs HUGO ([facility]) Marijuana Metabolite 0 ng/mL Normal Marijuana Metab olite HUGO ([facility]) Oxazepam [Moles/volume] in Unspecified specimen 0 ng/mL Normal Oxazepam HUGO ([facility]) Lorazepam [Moles/volume] in Unspecified specimen 0 ng/mL Normal Lorazepam HUGO ([facility]) Nordiazepam [Moles/volume] in Unspecified specimen 0 ng/mL Normal Nordiazepam HUGO ([facility]) Temazepam [Moles/volume] in Unspecified specimen 0 ng/mL Normal Temazepam HUGO ([facility]) Clonazepam Metabolite 0 ng/mL Normal Clonazepam Met abolite HUGO ([facility]) Nitrazepam Metabolite 0 ng/mL Normal Nitrazepam Met abolite HUGO ([facility]) Triazolam Metabolite 0 ng/mL Normal Triazolam Metab olite HUGO ([facility]) Flunitrazepam Metabolite 0 ng/mL Normal Flunitrazep am Metabolite HUGO ([facility]) Alprazolam Metabolite See Note ng/mL Normal Alprazolam Metabolite HUGO ([facility]) Note: Consistent Present below cut off.P rescribed drug was detected. Flurazepam Metabolite 0 ng/mL Normal Flurazepam Met abolite HUGO ([facility]) Midazolam Metabolite 0 ng/mL Normal Midazolam Metab olite HUGO ([facility]) Gabapentin [Mass/volume] in Urine by Confirmatory method 1373 ng /mL Abnormal (applies to non-numeric results) Gabapentin HUGO ([facility]) Note: Inconsistent Unprescribed drug was detected. Estazolam [Mass/volume] in Urine by Confirmatory method 0 ng/mL Normal Estazolam HUGO ([facility]) Tapentadol [Presence] in Blood by Screen method 0 ng/mL Normal Tapentadol HUGO ([facility]) Pregabalin [Presence] in Urine by Screen method 0 ng/mL Normal Pregabalin HUGO ([facility]) Norbuprenorphine [Mass/mass] in Meconium by Confirmatory method 673.3 ng/mL Normal Norbuprenorphine HUGO ([facility]) Note: Consistent Prescribed drug was det ected. Buprenorphine [Presence] in Blood by Screen method 116.1 ng/mL Normal Buprenorphine HUGO ([facility]) Note: Consistent Prescribed drug was det ected. ID Date Data Source [id number] 12/29/2019 09:11:00 [place] [address] HEALTH INFORMATION MANAGEMENT ED/UC Physician Report : [id number] Signed Patient: Carlos Aguilar Acct:[id number] Unit: [id number] : 1990 Arrival Date: 12/29/19 Age/Sex: 29 / F Arrival Time: 2034 to: Genet Lange I GENOMICS SCIENTIST General Adult HPI/ROS General Chief Complaint: Medication [...] all of her prescribing physicians are in [facility]. She has never had [id number] contact with them and does tele medicine consult. She has no local physician. She states that 2 days ago her toddler must have thrown her medications out of the car. She attempted to get medications represcribed by her [facility] physicians but they requested a police report be made. She states that she did this but the police report was not return until this evening. Shestates that her providers in [facility] are no longer available to prescribe her [...] Reports None Drug use: Reports None Occupation: [employer] Lives with: Reports Family Physical Exam Physical [...] Normal Affect Skin Skin exam: Dry, Intact, [place] and Warm Course Vital Signs Vital signs: [...] incidentally mentioned that she had been in [place] emergency room yesterday. I asked her what had happened up there and she stated that they had also refused to prescribe her medications. I advised her that she would have to discuss with her prescribing physicians in [facility] about ongoing prescribing of her controlled substances and that we would not provide a bridge prescription. The patient currently has no signs of withdrawal. Nursing staff did check with [facility] and some of the medications that she was requesting were higher doses than previously refilled by the pharmacy. the patient states that her doses were changed by her prescribing physician in [facility] however the prescriptions had not yet been filled. During this interaction which lasted approximately 20 minutes the patient was frequently changing her story. The patient did advise me that she was not requiring a prescribing of her noncontrolled substances. She stated that she had an aunt who was a nurse and told her that [place] would prescribe her medications even though [place] had not. Based on her constantly changing story, inconsistencies in her dosing of her medications and not telling me that she had previously been in [place] the patient was advised that I did not feel comfortable prescribing medications. Given that she had no signs of withdrawal I did not feel there was any treatment required at the current time. I have recommended that she contact and follow up with her [facility] physicians. Critical Care Time Critical Care Time: [...] BID RF: 0 Referrals: Genet Lange I, GENOMICS SCIENTIST [Primary Care Provider] - Patient agreeable to [...] Duration Value Status Description Data Source(s ) Smoking 01/14/2021 12:00:00 AM EDT Smokes tobacco daily (findi ng) completed Smokes tobacco daily (finding) HUGO ([facility]) Alcohol intake 01/02/2021 12:00:00 AM EDT Current non-d laura of alcohol (finding) completed Current non-drinker of alcohol (finding) [facility] Alcohol intake 12/26/2020 12:00:00 AM EDT Current non-d laura of alcohol (finding) completed Current non-drinker of alcohol (finding) [facility] Tobacco use and exposure 12/25/2020 12:00:00 AM EDT Never used co mpleted Never used [facility] Cigarettes smoked current (pack per day) - Reported 12/26/19 12:00:00 AM EDT UNK completed [facility] Smoking 12/25/2020 12:00:00 AM EDT Current every day smoker co mpleted Current every day smoker [facility] Alcohol intake 12/25/2020 12:00:00 AM EDT Current non-d laura of alcohol (finding) completed Current non-drinker of alcohol (finding) [facility] Smoking 12/17/2020 12:00:00 AM EDT Smokes tobacco daily (findi ng) completed Smokes tobacco daily (finding) [facility] Smoking 11/05/2020 12:00:00 AM EDT Smokes tobacco [...] Smokes tobacco daily (finding) HUGO ([facility]) Smoking 07/22/2020 09:58:00 PM EDT Daily Smoker completed Daily [facility] Smoking 07/22/2020 09:58:00 PM EDT Daily Smoker completed Daily [facility] 04/29/2020 12:00:00 AM EST completed [facility] 04/29/2020 12:00:00 AM EST completed [facility] 04/20/2020 10:17:25 PM EST Current Every Day Smoker co mpleted Current Every Day Smoker [facility] 04/20/2020 10:17:25 PM EST Cigarettes completed Cigarette s [facility] 04/20/2020 10:17:25 PM EST Current Every Day Smoker co mpleted Current Every Day Smoker [facility] 04/20/2020 10:17:25 PM EST Cigarettes completed Cigarette s [facility] Smoking 04/20/2020 10:17:00 PM EST Smoker (finding) completed Smo ker (finding) [facility] Smoking 04/20/2020 10:17:00 PM EST Smoker (finding) completed Smo ker (finding) [place] [facility] Smoking 02/01/2020 12:00:00 AM EST Smokes tobacco daily (findi ng) completed Smokes tobacco daily (finding) [facility] Vital Signs ID Date Data Source UNK Name Value Range Interpretation Code Description Data Source(s) Systolic blood pressure 119 mm[Hg] 119 mm[Hg] [facility] Diastolic blood pressure 84 mm[Hg] 84 mm[Hg] [facility] Heart rate 112 /min 112 /min [facility] Body temperature 37.11 Eliana 37.11 Eliana [facility] Respiratory rate 18 /min 18 /min [facility] Body height 160 cm 160 cm [facility] Body weight 77.111 kg 77.111 kg [facility] Body mass index (BMI) [Ratio] 30.11 kg/m2 30.11 kg/m2 [facility] Body temperature 96.5 [degF] 96.5 [degF] [facility] [facility] ([facility] Systolic blood pressure 100 mm[Hg] 100 mm[Hg] G RE[facility]AY ([facility] Heart rate 86 /min 86 /min [facility] Heart rate rhythm 1 1 [place] Y ([facility]) Respiratory rate 18 /min 18 /min HUGO ([facility]) Body height 62 [in_i] 62 [in_i] [facility] ([facility]) Body weight 178 [lb_av] 178 [lb_av] HU[facility] ([facility] Body mass index (BMI) [Ratio] 32.6 kg/m2 32.6 k g/m2 HUGO ([facility]) Body surface area Derived from formula 1.82 m2 1.82 m2 HUGO ([facility]) PhenX - pain, abdominal - type and intensity protocol 0 0 HUGO ([facility]) Oxygen saturation in Arterial blood by Pulse oximetry 100 % 100 % ANNA ([facility]) Body height 160 cm 160 cm [facility] Systolic blood pressure 125 mm[Hg] 125 mm[Hg] [facility] Diastolic blood pressure 74 mm[Hg] 74 mm[Hg] [facility] Heart rate 103 /min 103 /min [facility] Body temperature 37.06 Eliana 37.06 Eliana [facility] Systolic blood pressure 100 mm[Hg] 100 mm[Hg] G REENWAY ([facility]) Diastolic blood pressure 70 mm[Hg] 70 mm[Hg] HUGO ([facility]) Heart rate 76 /min 76 /min [facility] Heart rate rhythm 1 1 GREEN[place] Y ([facility]) Respiratory rate 16 /min 16 /min HUGO ([facility]) Body temperature 97.8 [degF] 97.8 [degF] [facility] ([facility]) Body height 62 [in_i] 62 [in_i] HU[facility] Body weight 158 [lb_av] 158 [lb_av] [facility] Body mass index (BMI) [Ratio] 28.9 kg/m2 28.9 k g/m2 HUGO ([facility]) Body surface area Derived from formula 1.73 m2 1.73 m2 HUGO ([facility]) PhenX - pain, abdominal - type and intensity protocol 0 0 HUGO ([facility]) Oxygen saturation in Arterial blood by Pulse oximetry 97 % 97 % HUGO ([facility]) Systolic blood pressure 100 mm[Hg] 100 mm[Hg] G REENWAY ([facility] Diastolic blood pressure 66 mm[Hg] 66 mm[Hg] HUGO ([facility]) Heart rate 78 /min 78 /min HUGO ([facility]) Heart rate rhythm 1 1 GREEN Y ([facility]) Respiratory rate 16 /min 16 /min HUGO ([facility]) Body temperature 96.7 [degF] 96.7 [degF] GREENW AY ([facility]) Body height 62 [in_i] 62 [in_i] HUGO ([facility]) Body weight 146 [lb_av] 146 [lb_av] HUGO ([facility]) Body mass index (BMI) [Ratio] 26.7 kg/m2 26.7 k g/m2 HUGO ([facility]) Body surface area Derived from formula 1.67 m2 1.67 m2 HUGO ([facility]) PhenX - pain, abdominal - type and intensity protocol 0 0 HUGO ([facility]) Oxygen saturation in Arterial blood by Pulse oximetry 100 % 100 % ANNA ([facility]) Body surface area Derived from formula 1.68 m2 1.68 m2 HUGO ([facility]) Systolic blood pressure 104 mm[Hg] 104 mm[Hg] G REEN[place]AY ([facility]) Diastolic blood pressure 70 mm[Hg] 70 mm[Hg] HUGO ([facility]) Heart rate 98 /min 98 /min HUGO ([facility]) Heart rate rhythm 1 1 Y ([facility]) Respiratory rate 16 /min 16 /min HUGO ([facility]) Body temperature 97.3 [degF] 97.3 [degF] GRE[place] AY ([facility]) Body height 62 [in_i] 62 [in_i] HUGO ([facility]) Body weight 148 [lb_av] 148 [lb_av] HUGO ([facility]) Body mass index (BMI) [Ratio] 27.1 kg/m2 27.1 k g/m2 HUGO ([facility]) PhenX - pain, abdominal - type and intensity protocol 0 0 HUGO ([facility]) Oxygen saturation in Arterial blood by Pulse oximetry 100 % 100 % ANNA ([facility]) Systolic blood pressure 100 mm[Hg] 100 mm[Hg] G REENWAY ([facility]) Diastolic blood pressure 68 mm[Hg] 68 mm[Hg] HUGO ([facility]) Heart rate 104 /min 104 /min HUGO ([facility]) Heart rate rhythm 1 1 GREENWA Y ([facility]) Respiratory rate 16 /min 16 /min HUGO ([facility]) Body temperature 97.6 [degF] 97.6 [degF] [place]W AY ([facility]) Body height 62 [in_i] 62 [in_i] HUGO ([facility]) Body weight 143 [lb_av] 143 [lb_av] HUGO ([facility]) Body mass index (BMI) [Ratio] 26.2 kg/m2 26.2 k g/m2 HUGO ([facility]) Body surface area Derived from formula 1.66 m2 1.66 m2 HUGO ([facility]) PhenX - pain, abdominal - type and intensity protocol 0 0 ANNA ([facility]) Oxygen saturation in Arterial blood by Pulse oximetry 97 % 97 % HUGO ([facility]) Systolic blood pressure 100 mm[Hg] 100 mm[Hg] G REENWAY ([facility]) Diastolic blood pressure 66 mm[Hg] 66 mm[Hg] HUGO ([facility]) Heart rate 98 /min 98 /min HUGO ([facility]) Heart rate rhythm 1 1 [place] Y ([facility]) Respiratory rate 18 /min 18 /min HUGO ([facility]) Body temperature 98.6 [degF] 98.6 [degF] MARIONW AY ([facility]) Body height 62 [in_i] 62 [in_i] HUGO ([facility]) Body weight 134 [lb_av] 134 [lb_av] HUGO ([facility]) Body mass index (BMI) [Ratio] 24.5 kg/m2 24.5 k g/m2 HUGO ([facility]) Body surface area Derived from formula 1.61 m2 1.61 m2 HUGO ([facility]) PhenX - pain, abdominal - type and intensity protocol 0 0 HUGO ([facility]) Oxygen saturation in Arterial blood by Pulse oximetry 99 % 99 % HUGO ([facility]) Body height 62 [in_i] 62 [in_i] HUGO ([facility]) Body weight 131 [lb_av] 131 [lb_av] HUGO ([facility]) Body mass index (BMI) [Ratio] 24.0 kg/m2 24.0 k g/m2 ANNA ([facility]) Body surface area Derived from formula 1.60 m2 1.60 m2 [facility]) PhenX - pain, abdominal - type and intensity protocol 0 0 ANNA ([facility]) Oxygen saturation in Arterial blood by Pulse oximetry 99 % 99 % ANNA ([facility]) Systolic blood pressure 100 mm[Hg] 100 mm[Hg] G REENWAY ([facility]) Diastolic blood pressure 52 mm[Hg] 52 mm[Hg] ANNA ([facility]) Heart rate 135 /min 135 /min ANNA ([facility]) Respiratory rate 18 /min 18 /min ANNA ([facility]) Body temperature 96.9 [degF] 96.9 [degF] [facility] ([facility]) Body height 162.1536 cm Normal (applies to non-numeric res ults) 162.1536 cm [facility] Respiratory rate 18 min Normal (applies to non-numeric results) 18 min [facility] Deprecated Oxygen saturation in Capillary blood by Oximetry 100 % Normal (applies to non-numeric results) 100 % [facility] Body temperature 36.7 eliana Normal (applies to non-numeric results) 36.7 eliana [facility] Systolic blood pressure 107 mm[Hg] Normal (applies t o non-numeric results) 107 mm[Hg] [facility] Diastolic blood pressure 70 mm[Hg] Normal (applies to non-numeric results) 70 mm[Hg] [facility] Heart rate 98 min Normal (applies to non-numeric resul ts) 98 min [facility] Body weight Measured 140 [lb_av] Normal (applies to n on-numeric results) 140 [lb_av] [facility] Body mass index (BMI) [Ratio] 24.0 kg/m2 No rmal (applies to non-numeric results) 24.0 kg/m2 [facility] Heart rate 65 /min 65 /min [facility] Respiratory rate 16 /min 16 /min [place] [facility] Oxygen saturation in Arterial blood by Pulse oximetry 99 % 99 % [facility] Heart rate 65 /min 65 /[facility] Res[facility] rate 16 /min 16 /min [place] [facility] Oxygen saturation in Arterial blood by Pulse oximetry 99 % 99 % [facility] Body weight 65.00 kg 65.00 kg [facility] Body temperature 98.4 [degF] 98.4 [degF] [facility] Systolic blood pressure 130 mm[Hg] 130 mm[Hg] [facility] Diastolic blood pressure 57 mm[Hg] 57 mm[Hg] [facility] Body weight 65.00 kg 65.00 kg [facility] Body temperature 98.4 [degF] 98.4 [degF] [facility] Systolic blood pressure 130 mm[Hg] 130 mm[Hg] [facility] Diastolic blood pressure 57 mm[Hg] 57 mm[Hg] [facility] PhenX - pain, abdominal - type and intensity protocol 0 0 ANNA ([facility]) Unable to obtain all vitals due to covid 19 pandemic. Heart rate 88 /min 88 /min ANNA ([facility]) Systolic blood pressure 98 mm[Hg] 98 mm[Hg] [facility] ([facility]) Diastolic blood pressure 70 mm[Hg] 70 mm[Hg] ANNA ([facility]) Heart rate 113 /min 113 /min ANNA ([facility]) Heart rate rhythm 1 1 [facility] Y ([facility]) Respiratory rate 16 /min 16 /min ANNA ([facility]) Body temperature 97.5 [degF] 97.5 [degF] [place] [facility] ([facility]) Body weight 151.125 [lb_av] 151.125 [lb_av] [facility] PhenX - pain, abdominal - type and intensity protocol 0 0 ANNA ([facility]) Oxygen saturation in Arterial blood by Pulse oximetry 97 % 97 % ANNA ([facility]) Inhaled oxygen flow rate 0 L/min 0 L/min ANNA ([facility]) Inhaled oxygen concentration 21 % 21 % ANNA ([facility]) PhenX - pain, abdominal - type and intensity protocol 6 6 ANNA ([facility]) Oxygen saturation in Arterial blood by Pulse oximetry 98 % 98 % ANNA ([facility]) Inhaled oxygen flow rate 0 L/min 0 L/min ANNA ([facility]) Inhaled oxygen concentration 21 % 21 % ANNA ([facility]) Systolic blood pressure 110 mm[Hg] 110 mm[Hg] [facility] Diastolic blood pressure 64 mm[Hg] 64 mm[Hg] ANNA ([facility]) Heart rate 132 /min 132 /min ANNA ([facility]) Heart rate rhythm 1 1 [place] Y ([facility]) Respiratory rate 18 /min 18 /min ANNA ([facility]) Body temperature 97.2 [degF] 97.2 [degF] GREENW AY ([facility]) Body weight 152 [lb_av] 152 [lb_av] [facility] Patient Treatment Plan of Care Planned Activity Planned Date Details Description Data Source (s) Buprenorphine 2 MG Sublingual Tablet 01/14/2021 12:00:00 AM EDT ANNA ([facility]) Alprazolam 1 MG Oral Tablet 01/14/2021 12:00:00 AM EDT ANNA ([facility]) Methylphenidate Hydrochloride 20 MG Oral Tablet 01/14/2021 12:00:00 AM EDT ANNA ([facility]) ferrous sulfate 325 MG Oral Tablet 01/14/2021 12:00:00 AM EDT ANNA ([facility]) Buprenorphine 8 MG Sublingual Tablet 01/14/2021 12:00:00 AM EDT ANNA ([facility]) Sertraline 100 MG Oral Tablet [Zoloft] 01/14/2021 12:00:00 AM EDT ANNA ([facility]) 200 ACTUAT Albuterol 0.09 MG/ACTUAT Metered Dose Inhal er [ProAir] 01/14/2021 12:00:00 AM EDT [facility] NITROFURANTOIN, MACROCRYSTALS 100 MG Oral Capsule 01/14/2021 12: 00:00 AM EDT ANNA ([facility]) ferrous sulfate 325 MG Oral Tablet 01/04/2021 12:00:00 AM EDT [facility] albuterol (PROVENTIL HFA;VENTOLIN HFA) 108 (90 Base) M CG/ACT inhaler 12/17/2020 12:00:[address] [facility] Buprenorphine 2 MG Sublingual Tablet 12/17/2020 12:00:00 AM EDT ANNA ([facility]) Buprenorphine 8 MG Sublingual Tablet 12/17/2020 12:00:00 AM EDT HUGO [facility] Sertraline 100 MG Oral Tablet [Zoloft] 12/17/2020 12:00:00 AM EDT HUGO [facility] 200 ACTUAT Albuterol 0.09 MG/ACTUAT Metered Dose Inhal er [ProAir] 12/17/2020 12:00:00 AM EDT HUGO [facility] Methylphenidate Hydrochloride 20 MG Oral Tablet 12/04/2020 12:00:00 AM EDT HUGO [facility] Alprazolam 1 MG Oral Tablet 11/26/2020 12:00:00 AM EDT HUGO [facility] Alprazolam 1 MG Oral Tablet 11/05/2020 12:00:00 AM EDT ANNA [facility] Methylphenidate Hydrochloride 20 MG Oral Tablet 11/05/2020 12:00:00 AM EDT HUGO [facility] Buprenorphine 8 MG Sublingual Tablet 11/05/2020 12:00:00 AM EDT ANNA [facility] Buprenorphine 2 MG Sublingual Tablet 11/05/2020 12:00:00 AM EDT HUGO [facility] Methylphenidate Hydrochloride 20 MG Oral Tablet 10/25/2020 12:00:00 AM EDT [facility] Buprenorphine 8 MG Sublingual Tablet 10/22/2020 12:00:00 AM EDT [facility] Alprazolam 1 MG Oral Tablet 10/22/2020 12:00:00 AM EDT [facility] Sertraline 100 MG Oral Tablet [Zoloft] 10/22/2020 12:00:00 AM EDT HUGO [facility] Alprazolam 1 MG Oral Tablet 10/22/2020 12:00:00 AM EDT HU[facility] Methylphenidate Hydrochloride 20 MG Oral Tablet 10/22/2020 12:00:00 AM EDT HU[facility] Buprenorphine 8 MG Sublingual Tablet 10/22/2020 12:00:00 AM EDT HUGO [facility] Sertraline 100 MG Oral Tablet 10/09/2020 12:00:00 AM EDT [facility] Methylphenidate Hydrochloride 20 MG Oral Tablet 10/08/2020 12:00:00 AM EDT HUGO ([facility]) Buprenorphine 8 MG Sublingual Tablet 10/08/2020 12:00:00 AM EDT HUGO ([facility]) Alprazolam 1 MG Oral Tablet 10/08/2020 12:00:00 AM EDT HUGO ([facility]) Methylphenidate Hydrochloride 20 MG Oral Tablet 09/03/2020 12:00:00 AM EDT HU[facility] Buprenorphine 8 MG Sublingual Tablet 09/03/2020 12:00:00 AM EDT HU[facility] Alprazolam 1 MG Oral Tablet 09/03/2020 12:00:00 AM EDT [facility] Escitalopram 5 MG Oral Tablet [Lexapro] 02/01/2020 12:00:00 AM EST [facility] Buprenorphine 8 MG Sublingual Tablet 01/02/2020 12:00:00 AM EDT HU[facility] Ibuprofen 600 MG Oral Tablet 12/06/2017 12:00:00 AM EDT [facility]
[2021-01-20] MEDS ORDERED: SERT50TA29 PO (17:12)
[2021-01-20] MEDS ORDERED: NITR-67 PO (17:12)
--- OUTSIDE RECORDS SUMMARY | 2021-01-20 17:52 | CCD ---
Author Author [facility] Organization [facility] Address Unknown Phone Unavailable Care Team Providers Care Manager Retail Name Role Phone Daniela MENARD Unavailable Unavailable [...] C Dede Unavailable Unavailable Anisa, I Genet PROJECT MANAGER INTERIOR DESIGN Unavailable Unavailable Anisa, I Genet PROJECT MANAGER INTERIOR DESIGN Unavailable Unavailable Anisa, I Genet PROJECT MANAGER INTERIOR DESIGN Unavailable Unavailable Anisa, I Genet PROJECT MANAGER INTERIOR DESIGN Unavailable Unavailable Anisa, I Genet PROJECT MANAGER INTERIOR DESIGN Unavailable Unavailable Anisa, I Genet PROJECT MANAGER INTERIOR DESIGN Unavailable Unavailable Anisa, I Genet PROJECT MANAGER INTERIOR DESIGN Unavailable Unavailable Anisa, I Genet PROJECT MANAGER INTERIOR DESIGN Unavailable Unavailable Anisa, I Genet PROJECT MANAGER INTERIOR DESIGN Unavailable Unavailable Anisa, I Genet PROJECT MANAGER INTERIOR DESIGN Unavailable Unavailable Anisa, I Genet PROJECT MANAGER INTERIOR DESIGN Unavailable Unavailable Anisa, I Genet PROJECT MANAGER INTERIOR DESIGN Unavailable Unavailable Anisa, I Genet PROJECT MANAGER INTERIOR DESIGN Unavailable Unavailable Anisa, I Genet PROJECT MANAGER INTERIOR DESIGN Unavailable Unavailable Anisa, I Genet PROJECT MANAGER INTERIOR DESIGN Unavailable Unavailable Anisa, I Genet PROJECT MANAGER INTERIOR DESIGN Unavailable Unavailable Anisa, I Genet PROJECT MANAGER INTERIOR DESIGN Unavailable Unavailable Anisa, I Genet PROJECT MANAGER INTERIOR DESIGN Unavailable Unavailable Anisa, I Genet PROJECT MANAGER INTERIOR DESIGN Unavailable Unavailable Anisa, I Genet PROJECT MANAGER INTERIOR DESIGN Unavailable Unavailable Anisa, I Genet PROJECT MANAGER INTERIOR DESIGN Unavailable Unavailable Anisa, I Genet PROJECT MANAGER INTERIOR DESIGN Unavailable Unavailable Anisa, I Genet PROJECT MANAGER INTERIOR DESIGN Unavailable Unavailable Anisa, I Genet PROJECT MANAGER INTERIOR DESIGN Unavailable Unavailable Anisa, I Genet PROJECT MANAGER INTERIOR DESIGN Unavailable Unavailable Anisa, I Genet PROJECT MANAGER INTERIOR DESIGN Unavailable Unavailable Anisa, I Genet PROJECT MANAGER INTERIOR DESIGN Unavailable Unavailable Anisa, I Genet PROJECT MANAGER INTERIOR DESIGN Unavailable Unavailable Anisa, I Genet PROJECT MANAGER INTERIOR DESIGN Unavailable Unavailable Anisa, I Genet PROJECT MANAGER INTERIOR DESIGN Unavailable Unavailable Anisa, I Genet PROJECT MANAGER INTERIOR DESIGN Unavailable Unavailable Anisa, I Genet PROJECT MANAGER INTERIOR DESIGN Unavailable Unavailable Anisa, I Genet PROJECT MANAGER INTERIOR DESIGN Unavailable Unavailable Anisa, I Genet PROJECT MANAGER INTERIOR DESIGN Unavailable Unavailable Anisa, I Genet PROJECT MANAGER INTERIOR DESIGN Unavailable Unavailable Anisa, I Genet PROJECT MANAGER INTERIOR DESIGN Unavailable Unavailable Anisa, I Genet PROJECT MANAGER INTERIOR DESIGN Unavailable Unavailable Anisa, I Genet PROJECT MANAGER INTERIOR DESIGN Unavailable Unavailable Anisa, I Genet PROJECT MANAGER INTERIOR DESIGN Unavailable Unavailable Anisa, I Genet PROJECT MANAGER INTERIOR DESIGN Unavailable Unavailable Anisa, I Genet PROJECT MANAGER INTERIOR DESIGN Unavailable Unavailable Anisa, I Genet PROJECT MANAGER INTERIOR DESIGN Unavailable Unavailable Anisa, I Genet PROJECT MANAGER INTERIOR DESIGN Unavailable Unavailable Anisa, I Genet PROJECT MANAGER INTERIOR DESIGN Unavailable Unavailable Anisa, I Genet PROJECT MANAGER INTERIOR DESIGN Unavailable Unavailable Anisa, I Genet PROJECT MANAGER INTERIOR DESIGN Unavailable Unavailable Anisa, I Genet PROJECT MANAGER INTERIOR DESIGN Unavailable Unavailable Anisa, I Genet PROJECT MANAGER INTERIOR DESIGN Unavailable Unavailable Anisa, I Genet PROJECT MANAGER INTERIOR DESIGN Unavailable Unavailable Anisa, I Genet PROJECT MANAGER INTERIOR DESIGN Unavailable Unavailable Anisa, I Genet PROJECT MANAGER INTERIOR DESIGN Unavailable Unavailable Anisa, I Genet PROJECT MANAGER INTERIOR DESIGN Unavailable Unavailable Anisa, I Genet PROJECT MANAGER INTERIOR DESIGN Unavailable Unavailable Anisa, I Genet PROJECT MANAGER INTERIOR DESIGN Unavailable Unavailable Anisa, I Genet PROJECT MANAGER INTERIOR DESIGN Unavailable Unavailable Anisa, I Genet PROJECT MANAGER INTERIOR DESIGN Unavailable Unavailable Anisa, I Genet PROJECT MANAGER INTERIOR DESIGN Unavailable Unavailable Anisa, I Genet PROJECT MANAGER INTERIOR DESIGN Unavailable Unavailable Anisa, I Genet PROJECT MANAGER INTERIOR DESIGN Unavailable Unavailable Anisa, I Genet PROJECT MANAGER INTERIOR DESIGN Unavailable Unavailable Anisa, I Genet PROJECT MANAGER INTERIOR DESIGN Unavailable Unavailable Anisa, I Genet PROJECT MANAGER INTERIOR DESIGN Unavailable Unavailable Anisa, I Genet PROJECT MANAGER INTERIOR DESIGN Unavailable Unavailable Anisa, I Genet PROJECT MANAGER INTERIOR DESIGN Unavailable Unavailable Anisa, I Genet PROJECT MANAGER INTERIOR DESIGN Unavailable Unavailable Anisa, I Genet PROJECT MANAGER INTERIOR DESIGN Unavailable Unavailable Anisa, I Genet PROJECT MANAGER INTERIOR DESIGN Unavailable Unavailable Anisa, I Genet PROJECT MANAGER INTERIOR DESIGN Unavailable Unavailable Anisa, I Genet PROJECT MANAGER INTERIOR DESIGN Unavailable Unavailable Anisa, I Genet PROJECT MANAGER INTERIOR DESIGN Unavailable Unavailable Anisa, I Genet PROJECT MANAGER INTERIOR DESIGN Unavailable Unavailable Anisa, I Genet PROJECT MANAGER INTERIOR DESIGN Unavailable Unavailable Anisa, I Genet PROJECT MANAGER INTERIOR DESIGN Unavailable Unavailable Sarina Elliott MD Unavailable Unavailable [...] F Eliseo MD Unavailable Unavailable Earl, F Elsieo MD Unavailable Unavailable Earl, F Eliseo MD [...] Unavailable BINA, Anibal ARAMBULA MD Unavailable Unavailable IBNA, Anibal ARAMBULA MD Unavailable Unavailable BINA, Anibal [...] MD Unavailable Unavailable AhmedMason MD Unavailable Unavailable Monroe, Carmen Isela DO Unavailable Unavailable Cristine, Carmen Isela DO Unavailable Unavailable Cristine, Carmen Isela DO Unavailable Unavailable Cristine, Carmen Isela DO Unavailable Unavailable Monroe, Carmen Isela DO Unavailable Unavailable Cristine, Carmen Isela DO Unavailable Unavailable Cristine, Carmen Isela DO Unavailable Unavailable Monroe, Carmen Isela DO Unavailable Unavailable Cristine, Carmen Isela DO Unavailable Unavailable Monroe, Carmen Isela DO Unavailable Unavailable Cristine, Carmen Isela DO Unavailable Unavailable Monroe, Carmen Isela DO Unavailable Unavailable Cristine, Carmen Isela DO Unavailable Unavailable Cristine, Carmen Isela DO Unavailable Unavailable Monroe, Carmen Isela DO Unavailable Unavailable Cristine, Carmen Isela DO Unavailable Unavailable Cristine, Carmen Isela DO Unavailable Unavailable Cristine, Carmen Isela DO Unavailable Unavailable Monroe, Carmen Isela DO Unavailable Unavailable Monroe, Carmen Isela DO Unavailable Unavailable Cristine, Carmen Isela DO Unavailable Unavailable Cristine, Carmen Isela DO Unavailable Unavailable Cristine, Carmen Isela DO Unavailable Unavailable Cristine, Carmen Isela DO Unavailable Unavailable Monroe, Carmen Isela DO Unavailable Unavailable Cristine, Carmen Isela DO Unavailable Unavailable Cristine, Carmen Isela DO Unavailable Unavailable Monroe, Carmen Isela DO Unavailable Unavailable OH, R EMELYN Unavailable Unavailable Charity, D Karina SALES RELATIONSHIP MANAGER-C Unavailable Unavailable Charity, D Karina SALES RELATIONSHIP MANAGER-C Unavailable Unavailable Charity, D Karina SALES RELATIONSHIP MANAGER-C Unavailable Unavailable Charity, D Karina SALES RELATIONSHIP MANAGER-C Unavailable Unavailable Charity, D Karina SALES RELATIONSHIP MANAGER-C Unavailable Unavailable Charity, D Karina SALES RELATIONSHIP MANAGER-C Unavailable Unavailable Charity, D Karina SALES RELATIONSHIP MANAGER-C Unavailable Unavailable Charity, D Karina SALES RELATIONSHIP MANAGER-C Unavailable Unavailable Charity, D Karina SALES RELATIONSHIP MANAGER-C Unavailable Unavailable Charity, D Karina SALES RELATIONSHIP MANAGER-C Unavailable Unavailable Charity, D Karina SALES RELATIONSHIP MANAGER-C Unavailable Unavailable Charity, D Karina SALES RELATIONSHIP MANAGER-C Unavailable Unavailable Charity, D Karina SALES RELATIONSHIP MANAGER-C Unavailable Unavailable PHYSICIAN, ER Unavailable Unavailable Re-disclosure [...] is protected by Article 27-F of the [facility] Public Health law. If you continue you may have access to information: Regarding HIV / AIDS; Provided by facilities licensed or operated by the [facility] Office of Mental Health; or Provided by the [facility] Office for People With Developmental Disabilities. If such information is present, then the following [facility] mandated warning applies: This information has [...] law may result in a fine or [place] health [place] facility sentence or both. A general authorization for the release of medical or other information is NOT sufficient authorization for further disc losure. Advance Directives Directive Description Wildlife Technician Netezza Developer Status Observation Descr iption Data Source(s) packet given Pt Bill of Rights, Priv Prac, Ad Dir completed packet given Pt Bill of Rights, Priv Prac, Ad Dir [facility] ([facility]) Note: Pt declined AD packet COVID Screening Performed completed COVI D Screening Performed [facility] ([facility]) Note: neg Ebola Screening Performed completed Ebol a Screening Performed [facility] ([facility]) Note: Within the last month, have you tr aveled outside of the [place]? -NO Ebola Screening Performed completed Ebol a Screening Performed [facility] ([facility]) Note: Within the last month, have [...] reactions NO KNOWN ALLERGIES NO KNOWN ALLERGIES [facility] Allergy to substance No Known Allergies No known allergies (situation ) [facility] ([facility]) Allergy to substance No Known Allergies No known allergies (situation ) [facility] ([facility]) Allergy to substance No Known Allergies No known allergies (situation ) [facility] ([facility]) Drug allergy No Known Allergies No Known Allergies [facility] Allergy to substance No Known Allergies No known allergies (situation ) [facility] ([facility]) Allergy to substance No Known Allergies No known allergies (situation ) [facility] ([facility]) Family History Family Member Name Family Member Gender Family Member Status Date o f Status Description Data Source(s) Unknown Condition [facility] Unknown Condition [facility] Unknown Unknown Problem [facility] ([facility]) Encounters Encounter Providers Location Date Indications Data Source(s ) Emergency Attender: OLIMPIA TAPIA MD ES1-CP2 021 08:14:00 PM EDT - 01/19/2021 10:48:00 PM EDT [facility] Patient discharged. Emergency ES1-ES1 01/19/2021 07:49:00 PM EDT [facility] Admission cancelled. Disregard status an d admitted date. Outpatient Referrer: Hardik Menard 01/17/2021 12:11:[address] [facility] Outpatient Attender: GREGG Caputoender: HARDIK ANTHONY ES1-FP 01/17/2021 12:00:00 AM EDT - 01/17/2021 12:08:06 PM EDT [facility] Outpatient Attender: Isela Colunga DOAdmitter: Isela Colunga DO ES1-BP 01/16/2021 07:08:00 PM EDT - 01/16/2021 09:52:00 PM EDT [facility] Patient discharged. <td ID="encounterTypeDescriptionID0">SUB OXONE</td><td>Eliseo Elliott MD</td><td>[facility]</td><td>01/14/2021</td><td>10:41AM</td><td>11:59PM</td><td><content ID="encounterDiagnosisID0-0"></content>, <content ID="encounterDiagnosisID0-1">Opioid Dependence</content>, <content ID="encounterDiagnosisID0-2">Nicotine Dependence</content>, <content ID="encounterDiagnosisID0-3">Anxiety Disorder Nos</content>, <content ID="encounterDiagnosisID0-4">Depression</content>, <content ID="encounterDiagnosisID0-5">Hepatitis, C Virus - Chronic</content>, <content ID="encounterDiagnosisID0-6">Assessment of Bipolar Disorder</content>, <content ID="encounterDiagnosisID0-7">Post-traumatic Stress Disorder</content>, <content ID="encounterDiagnosisID0-8">Adult Attention Deficit Hyperactivity Disorder</content></td>Unknown Attender: Eliseo Elliott MD [facility] 01/14/2021 10:41:00 AM EDT - 01/14/2021 11:59:00 PM EDT Hepatitis, C Virus - ChronicPregnancyAdult Attention Deficit Hyperactivity DisorderPost-traumatic Stress DisorderAnxiety Disorder NosNicotine DependenceOpioid DependenceAssessment of Bipolar DisorderDepression [place] ([facility]) Hepatitis, C Virus - Chronic Adult Attention Deficit Hyperactivity Di sorder Post-traumatic Stress Disorder Anxiety Disorder Nos Nicotine Dependence Opioid Dependence Assessment of Bipolar Disorder Depression Outpatient Attender: GREGG AZARAttender: HARDIK ANTHONY ES1-FP 01/10/2021 10:50:06 AM EDT - 01/10/2021 02:43:20 PM EDT [facility] Outpatient Referrer: RALF CURRAN MD ES1-FP.MED 01/10/2021 12:00:00 AM EDT [facility] ES1-FP 01/04/2021 12:18:00 PM EDT [facility] Outpatient Attender: GREGG AZAR Attender: Isela Colunga DOConsultant: Isela Colunga DO ES1-FP 01/02/2021 03:32:42 PM EDT - 01/02/2021 04:23:57 PM EDT [facility] Outpatient Attender: HARDIK Laboyerrer: HARDIK Bernstein S-WS.[facility] 12/26/2020 03:19:56 PM EDT - 12/26/2020 11:59:00 PM EDT [facility] Patient discharged. Outpatient Attender: GREGG AZARAttender: HARDIK ANTHONY ES1-FP.OB 12/26/2020 08:43:39 AM EDT - 12/26/2020 10:15:42 AM EDT [facility] Outpatient Attender: EMELYN LEBLANCdmitter: EMELYN BARKER CEReferrer: EMELYN [place] ES1-BP 12/25/2020 12:02:00 AM EDT - 12/25/2020 03:25:00 AM EDT [facility] Patient discharged. <td ID="encounterTypeDescriptionID0">SUB OXONE</td><td>Eliseo Elliott MD</td><td>[facility]</td><td>12/17/2020</td><td>11:32AM</td><td>11:59PM</td><td><content ID="encounterDiagnosisID0-0"></content>, <content ID="encounterDiagnosisID0-1">Opioid Dependence</content>, <content ID="encounterDiagnosisID0-2">Nicotine Dependence</content>, <content ID="encounterDiagnosisID0-3">Anxiety Disorder Nos</content>, <content ID="encounterDiagnosisID0-4">Depression</content>, <content ID="encounterDiagnosisID0-5">Hepatitis, C Virus - Chronic</content>, <content ID="encounterDiagnosisID0-6">Assessment of Bipolar Disorder</content>, <content ID="encounterDiagnosisID0-7">Post-traumatic Stress Disorder</content>, <content ID="encounterDiagnosisID0-8">Adult Attention Deficit Hyperactivity Disorder</content></td>Unknown Attender: Eliseo Elliott MD [facility] 12/17/2020 11:32:00 AM EDT - 12/17/2020 11:59:00 PM EDT Hepatitis, C Virus - ChronicPregnancyAdult Attention Deficit Hyperactivity DisorderPost-traumatic Stress DisorderAnxiety Disorder NosNicotine DependenceOpioid DependenceAssessment of Bipolar DisorderDepression [facility] ([facility] Hepatitis, C Virus - Chronic Adult Attention Deficit Hyperactivity Di sorder Post-traumatic Stress Disorder Anxiety Disorder Nos Nicotine Dependence Opioid Dependence Assessment of Bipolar Disorder Depression Unknown<td ID="encounterTypeDescriptionI D0">SUBOXONE</td><td>Eliseo Elliott MD</td><td>[facility]</td><td>11/05/2020</td><td>11:07AM</td><td>11:59PM</td><td><content ID="encounterDiagnosisID0-0"></content>, <content ID="encounterDiagnosisID0-1">Opioid Dependence</content>, <content ID="encounterDiagnosisID0-2">Nicotine Dependence</content>, <content ID="encounterDiagnosisID0-3">Anxiety Disorder Nos</content>, <content ID="encounterDiagnosisID0-4">Depression</content>, <content ID="encounterDiagnosisID0-5">Hepatitis, C Virus - Chronic</content>, <content ID="encounterDiagnosisID0-6">Assessment of Bipolar Disorder</content>, <content ID="encounterDiagnosisID0-7">Post-traumatic Stress Disorder</content>, <content ID="encounterDiagnosisID0-8">Adult Attention Deficit Hyperactivity Disorder</content></td> Attender: Eliseo Elliott MD [facility] 11/06/19 11:07:00 AM EDT - 11/05/2020 11:59:00 PM [...] 12:41:00 AM EDT - 05:39:00 AM EDT [facility] Patient discharged. <td ID="encounterTypeDescriptionID0">SUB OXONE</td><td>Eliseo Elliott MD</td><td>[facility]</td><td>10/22/2020</td><td>10:30AM</td><td>11:59PM</td><td><content ID="encounterDiagnosisID0-0"></content>, <content ID="encounterDiagnosisID0-1">Opioid Dependence</content>, <content ID="encounterDiagnosisID0-2">Nicotine Dependence</content>, <content ID="encounterDiagnosisID0-3">Anxiety Disorder Nos</content>, <content ID="encounterDiagnosisID0-4">Depression</content>, <content ID="encounterDiagnosisID0-5">Hepatitis, C Virus - Chronic</content>, <content ID="encounterDiagnosisID0-6">Assessment of Bipolar Disorder</content>, <content ID="encounterDiagnosisID0-7">Post-traumatic Stress Disorder</content>, <content ID="encounterDiagnosisID0-8">Adult Attention Deficit Hyperactivity Disorder</content></td>Unknown Attender: Eliseo Elliott MD [facility] 10/22/2020 10:30:00 AM EDT - 10/22/2020 11:59:00 PM EDT Hepatitis, C Virus - ChronicPregnancyAdult Attention Deficit Hyperactivity DisorderPost-traumatic Stress DisorderAnxiety Disorder NosNicotine DependenceOpioid DependenceAssessment of Bipolar DisorderDepression [place] ([facility]) Hepatitis, C Virus - Chronic Adult Attention Deficit Hyperactivity Di sorder Post-traumatic Stress Disorder Anxiety Disorder Nos Nicotine Dependence Opioid Dependence Assessment of Bipolar Disorder Depression Outpatient Referrer: Karina BERMEO 10/10/2020 12: 00:00 AM [facility] Outpatient Referrer: Karina BERMEO 10/10/2020 12: 00:00 AM [facility] Unknown<td ID="encounterTypeDescriptionI D0">SUBOXONE</td><td>Eliseo Elliott MD</td><td>[facility]</td><td>10/08/2020</td><td>10:54AM</td><td>11:59PM</td><td><content ID="encounterDiagnosisID0-0"></content>, <content ID="encounterDiagnosisID0-1">Opioid Dependence</content>, <content ID="encounterDiagnosisID0-2">Nicotine Dependence</content>, <content ID="encounterDiagnosisID0-3">Anxiety Disorder Nos</content>, <content ID="encounterDiagnosisID0-4">Depression</content>, <content ID="encounterDiagnosisID0-5">Hepatitis, C Virus - Chronic</content>, <content ID="encounterDiagnosisID0-6">Assessment of Bipolar Disorder</content>, <content ID="encounterDiagnosisID0-7">Post-traumatic Stress Disorder</content>, <content ID="encounterDiagnosisID0-8">Adult Attention Deficit Hyperactivity Disorder</content></td> Attender: Eliseo Elliott MD [facility] 10/09/19 10:54:00 AM EDT - 10/08/2020 11:59:00 PM EDT Hepatitis, C Virus - ChronicPregnancyAdult Attention Deficit Hyperactivity DisorderPost-traumatic Stress DisorderAnxiety Disorder NosNicotine DependenceOpioid DependenceAssessment of Bipolar DisorderDepression [place] ([facility]) Hepatitis, C Virus - Chronic Adult Attention Deficit Hyperactivity Di sorder Post-traumatic Stress Disorder Anxiety Disorder Nos Nicotine Dependence Opioid Dependence Assessment of Bipolar Disorder Depression Outpatient Referrer: Karina DODSONP-C 09/04/2020 12: 00:00 AM [facility] Outpatient Referrer: Karina BERMEO 09/04/2020 12: 00:00 AM T [facility] Unknown<td ID="encounterTypeDescriptionI D0">SUBOXONE</td><td>Eliseo Elliott MD</td><td>[facility]</td><td>09/03/2020</td><td>2:35PM</td><td>11:59PM</td><td><content ID="encounterDiagnosisID0-0"></content>, <content ID="encounterDiagnosisID0-1">Opioid Dependence</content>, <content ID="encounterDiagnosisID0-2">Nicotine Dependence</content>, <content ID="encounterDiagnosisID0-3">Anxiety Disorder Nos</content>, <content ID="encounterDiagnosisID0-4">Depression</content>, <content ID="encounterDiagnosisID0-5">Hepatitis, C Virus - Chronic</content>, <content ID="encounterDiagnosisID0-6">Assessment of Bipolar Disorder</content>, <content ID="encounterDiagnosisID0-7">Post-traumatic Stress Disorder</content>, <content ID="encounterDiagnosisID0-8">Adult Attention Deficit Hyperactivity Disorder</content></td> Attender: Eliseo Elliott MD [facility] 09/04/19 02:35:00 PM EDT - 09/03/2020 11:59:00 PM EDT Hepatitis, C Virus - ChronicPregnancyAdult Attention Deficit Hyperactivity DisorderPost-traumatic Stress DisorderAnxiety Disorder NosNicotine DependenceOpioid DependenceAssessment of Bipolar DisorderDepression [place] ([facility]) Hepatitis, C Virus - Chronic Adult Attention Deficit Hyperactivity Di sorder Post-traumatic Stress Disorder Anxiety Disorder Nos Nicotine Dependence Opioid Dependence Assessment of Bipolar Disorder Depression <td ID="encounterTypeDescriptionID0">SUB OXONE</td><td>Eliseo Elliott MD</td><td>[facility]</td><td>08/20/2020</td><td>3:19PM</td><td>11:59PM</td><td><content ID="encounterDiagnosisID0-0">Opioid Dependence</content>, <content ID="encounterDiagnosisID0-1">Nicotine Dependence</content>, <content ID="encounterDiagnosisID0-2">Post-traumatic Stress Disorder</content>, <content ID="encounterDiagnosisID0-3">Depression</content>, <content ID="encounterDiagnosisID0-4">Assessment of Bipolar Disorder</content>, <content ID="encounterDiagnosisID0-5">Anxiety Disorder Nos</content>, <content ID="encounterDiagnosisID0-6">Adult Attention Deficit Hyperactivity Disorder</content>, <content ID="encounterDiagnosisID0-7"></content>, <content ID="encounterDiagnosisID0-8">Hepatitis, C Virus - Chronic</content></td>Outpatient Attender: Eliseo Elliott MD [facility] 08/20/2020 03:19:00 PM EDT - 08/20/2020 11:59:00 PM EDT Hepatitis, C Virus - ChronicPregnancyAdult Attention Deficit Hyperactivity DisorderAnxiety Disorder NosPost-traumatic Stress DisorderNicotine DependenceOpioid DependenceAssessment of Bipolar DisorderDepression [facility] ([facility] Hepatitis, C Virus - Chronic Adult Attention Deficit Hyperactivity Di sorder Anxiety Disorder Nos Post-traumatic Stress Disorder Nicotine Dependence Opioid Dependence Assessment of Bipolar Disorder Depression Emergency Attender: ER PHYSICIAN 07/22/2020 10:41:04 PM E DT [facility] Emergency Attender: BERTHA MANZANARESAttender: ER PHYSICIAN 07/22/2020 09:26:00 PM EDT - 07/22/2020 11:30:00 PM EDT 14WK PREG HEART PRESSURE NUMBNESS LT ARM [facility] 14WK PREG HEART PRESSURE NUMBNESS LT ARM Patient discharged. Outpatient Attender: OLIMPIA Fortune tter: OLIMPIA TAPIA MDConsultant: OLIMPIA TAPIA MD 04/21/2020 01:43:00 AM EST Suicidal ideations R4 5.851 [facility] Suicidal ideations R45.851 Outpatient Attender: OLIMPIA Fortune tter: OLIMPIA TAPIA MDConsultant: OLIMPIA TAPIA MD 04/21/2020 01:43:00 AM EST Suicidal ideations R4 5.851 [facility] Suicidal ideations R45.851 Inpatient Attender: OLIMPIA Loo nder: Missy Cheung MDAdmitter: OLIMPIA TAPIA MD 04/21/2020 01:43:00 AM EST - 04/25/2020 09:20:00 AM EST [facility].851 Patient discharged. Outpatient Attender: OLIMPIA Fortune tter: OLIMPIA TAPIA MDConsultant: OLIMPIA TAPIA MD 04/21/2020 01:43:00 AM EST [facility] 5.[facility] R45.851 Outpatient Attender: OLIMPIA Fortune tter: OLIMPIA TAPIA MDConsultant: OLIMPIA TAPIA MD 04/21/2020 01:43:00 AM EST [facility]ations [facility] 5.[facility] R45.851 Outpatient Attender: Vidal Sherwood SR 04/20/2020 10:1 3:00 PM EST [facility] Out[facility] Attender: Dede Dickerson er: OLIMPIA TAPIA MDConsultant: OLIMPIA TAPIA MD 04/20/2020 09:15:00 PM EST Suicidal ideations [facility] Suicidal ideations Outpatient Attender: Dede Dickerson er: OLIMPIA TAPIA MDConsultant: OLIMPIA TAPIA MD 04/20/2020 09:15:00 PM EST Suicidal ideations [facility] Suicidal ideations <td ID="encounterTypeDescriptionID0">Sub oxone Telehealth FaceTime</td><td>Carolyn Lopez Salty NOE</td><td>[place] [facility] [facility]</td><td>02/01/2020</td><td><content ID="encounterDiagnosisID0-0">Opioid Dependence</content>, <content ID="encounterDiagnosisID0-1">Adjustment Disorder</content>, <content ID="encounterDiagnosisID0-2">Lumbago</content>, <content ID="encounterDiagnosisID0-3">Post-traumatic Stress Disorder</content>, <content ID="encounterDiagnosisID0-4">Anxiety Disorder Nos</content>, <content ID="encounterDiagnosisID0-5">Adult Attention Deficit Hyperactivity Disorder</co ntent></td>Outpatient Attender: Carolyn Pond [facility] 02/01/2020 12:35: 00 PM EST - 02/01/2020 03:24:19 PM EST Adult Attention Deficit Hyperactivity DisorderAnxiety Disorder NosPost-traumatic Stress DisorderLumbagoAdjustment DisorderOpioid Dependence [facility] ([facility]) Adult Attention Deficit Hyperactivity Di sorder Anxiety Disorder Nos Post-traumatic Stress Disorder Lumbago Adjustment Disorder Opioid Dependence Outpatient<td ID="encounterTypeDescripti onID1">Establish Care</td><td>Carolyn Lopez Salty NOE</td><td>[facility]</td><td>01/25/2020</td><td><content ID="encounterDiagnosisID1-0">Opioid Dependence</content>, <content ID="encounterDiagnosisID1-1">Benzodiazepine Abuse</content>, <content ID="encounterDiagnosisID1-2">Adjustment Disorder</content></td> Attender: Carolyn Pond [facility] 01/25/2020 04:03:00 PM EDT - 01/25/2020 06:01:44 PM EDT Adjustment DisorderAdjustment DisorderBenzodiazepine AbuseOpioid DependenceBenzodiazepine AbuseOpioid Dependence [facility] ([facility]) Adjustment Disorder Adjustment Disorder Benzodiazepine Abuse Opioid Dependence Benzodiazepine Abuse Opioid Dependence Unknown<td ID="encounterTypeDescriptionI D2">On-Call</td><td>Genet Lange NP</td><td></td><td>01/24/2020</td><td></td> Attender: Genet Lange NP 01/24/2020 03:48:00 PM EDT - 01/24/2020 11:59:00 PM EDT [facility]) Outpatient<td ID="encounterTypeDescripti onID0">SUBOXONE</td><td>Genet Lange NP</td><td>[facility]</td><td>01/02/2020</td><td><content ID="encounterDiagnosisID0-0">Benzodiazepine Abuse</content>, <content ID="encounterDiagnosisID0-1">Assessment of Bipolar Disorder</content>, <content ID="encounterDiagnosisID0-2">Contraceptive Surveillance</content>, <content ID="encounterDiagnosisID0-3">Opioid Dependence</content></td> Attender: Genet Lange NP [facility] 01/02/2020 06:26:00 PM EDT - 01/02/2020 09:46:25 PM EDT Contraceptive SurveillanceContraceptive SurveillanceContraceptive SurveillanceContraceptive SurveillanceOpioid DependenceBenzodiazepine AbuseOpioid DependenceBenzodiazepine AbuseOpioid DependenceBenzodiazepine AbuseOpioid DependenceBenzodiazepine AbuseAssessment of Bipolar DisorderAssessment of Bipolar DisorderAssessment of Bipolar DisorderAssessment of Bipolar Disorder [place] ([facility]) Contraceptive Surveillance Contraceptive Surveillance Contraceptive Surveillance Contraceptive Surveillance Opioid Dependence Benzodiazepine Abuse Opioid Dependence Benzodiazepine Abuse Opioid Dependence Benzodiazepine Abuse Opioid Dependence Benzodiazepine Abuse Assessment of Bipolar Disorder Assessment of Bipolar Disorder Assessment of Bipolar Disorder Assessment of Bipolar Disorder Emergency Attender: Kervin Michele MD 2019 08:35:00 PM EDT - 12/29/2019 09:20:00 PM EDT [facility] Withdraw Patient discharged. Immunizations Vaccine Date Status Description Data Source(s) [facility] 01/10/2021 12:00:00 AM EDT completed <td I D="[id number]">Covid-19 (Moderna)</td><td>01/10/2021</td><td></td> [facility] COVID-19 VACCINE Moderna 01/10/2021 12:00:00 AM EDT completed [facility] Vaccine Series Complete: NOThis Data was Submitted to [facility] Via [employer]. Medications Medication Brand Name Start Date Product [...] Aerosol Solution 01/14/2021 12:00:00 AM EDT active [id number] 200 ACTUAT albuterol 0.09 MG/ACTUAT Metered Dose [...] MAXIMUM DAILY DOSE = 3 SOLD: 01/14/2021 [facility] Buprenorphine 2 MG Sublingual Tablet Bup renorphine HCl 2 MG Sublingual Tablet Sublingual Buprenorphine HCl 2 MG Sublingual Tablet Sublingual 12:00:00 AM EDT active buprenor phine 2 MG Sublingual Tablet [facility] ([facility]) 20 mg 01/14/2021 12:00:00 AM EDT tablet 20 TAKE TWO TABLETS BY MOUTH TWICE A DAY MAXIMUM DAILY DOSE = 4 TAKE TWO TABLETS BY MOUTH TWICE A DAY MA JENNIFER DAILY DOSE = 4 SOLD: 01/14/2021 Am[facility] [...] by mouth 2 (two) times a day [facility] Anemia during in third trimest er Cephalexin [...] DAILY DOSE = 3 TABLETS SOLD: 01/03/2021 [facility] 200 ACTUAT Albuterol 0.09 MG/ACTUAT Mete red Dose Inhaler [ProAir] ProAir HFA 108 (90 Base) MCG/ACT Inhalation Aerosol Solution ProAir HFA 108 (90 Base) MCG/ACT Inhalation Aerosol Solution 12/17/2020 12:00:00 AM EDT active [id number] 200 ACTUAT albuterol 0.09 MG/ACTUAT Metered Dose [...] buprenor phine 8 MG Sublingual Tablet [facility] albuterol (PROVENTIL HFA;VENTOLIN HFA) 108 (90 Base) M CG/ACT inhaler [id number] 12/17/2020 12:00:00 AM EDT activ e INHALE 2 PUFFS EVERY 4 TO 6 HOURS PRRN FOR COUGH OR WHEEZE [facility] 2 mg 12/17/2020 12:00:00 AM EDT tablet, [...] DAILY DOSE = 3 SOLD: 12/05/2020 [facility] Methylphenidate Hydrochloride 20 MG Oral Tablet [...] DAILY DOSE = 1 SOLD: 11/26/2020 [facility] 2 mg 11/26/2020 12:00:00 AM EDT [...] MAXIMUM DAILY DOSE = 1 SOLD: 11/05/2020 [facility] Alprazolam 1 MG Oral Tablet ALPRAZolam 1 MG Oral Table t ALPRAZolam 1 MG Oral Tablet 11/05/2020 12:00:00 AM EDT 1 active alprazolam 1 MG Oral Tablet [place] ([facility]) Buprenorphine 8 MG Sublingual Tablet Bup renorphine HCl 8 MG Sublingual Tablet Sublingual Buprenorphine HCl 8 MG Sublingual Tablet Sublingual 12:00:00 AM EDT active buprenor phine 8 MG Sublingual Tablet [facility] ([facility]) Methylphenidate Hydrochloride 20 MG Oral Tablet Methylphenidate HCl 20 MG Oral Tablet Methylphenidate HCl 20 MG Oral Tablet 11/05/2020 12:00:00 AM EDT 2 active methylphenidate hydrochlorid e 20 MG Oral Tablet [facility] 1 mg 11/05/2020 12:00:00 AM EDT tablet 90 TAKE ONE TABLET BY MOUTH THREE TIMES A DAY MAXIMUM DAILY DOSE = 3 TAKE ONE TABLET BY MOUTH THREE TIMES A D AY MAXIMUM DAILY DOSE = 3 SOLD: 11/05/2020 [facility] Methylphenidate Hydrochloride 20 MG Oral Tablet METHYLPHENID ATE HCL 10/25/2020 12:00:00 AM EDT tablet 56 TAKE TWO TABLETS BY MOUTH TWICE A DAY MAXIMUM DAILY DOSE = 4 TAKE TWO TABLETS BY MOUTH TWICE A DAY MAXIMUM DAILY DO SE = 4 SOLD: 11/02/2020 [facility] Methylphenidate Hydrochloride 20 MG Oral Tablet methylphenidate (RITALIN) 20 MG tablet methylphenidate (RITALIN) 20 MG tablet 10/25/2020 12:00:00 AM EDT active TAKE TWO TABLETS BY MOUTH TWICE A DAY MAXIMUM DAILY DOSE 4 [facility] Alprazolam 1 MG Oral Tablet ALPRAZolam 1 MG Oral Table t ALPRAZolam 1 MG Oral Tablet 10/22/2020 12:00:00 AM EDT 1 active alprazolam 1 MG Oral Tablet [facility] Sertraline 100 MG Oral Tablet [Zoloft] Zoloft [...] = 1 & 1/2 TABLETS SOLD: 10/22/2020 [facility] Methylphenidate Hydrochloride 20 MG Oral [...] MAXIMUM DAILY DOSE = 3 SOLD: 10/22/2020 [facility] Buprenorphine 8 MG Sublingual Tablet Bup [...] DAILY MAXIMUM DAILY DOSE 1 1/2 TABLETS [facility] Alprazolam 1 MG Oral Tablet ALPRAZolam (XANAX) 1 MG ta blet ALPRAZolam (XANAX) 1 MG tablet 10/22/2020 12:00:00 AM EDT active TAKE ONE TABLET BY MOUTH THREE TIMES A DAY MAXIMUM DAILY DOSE 3 [facility] Methylphenidate Hydrochloride 20 MG Oral Tablet METHYLPHENID ATE HCL 10/22/2020 12:00:00 AM EDT tablet 16 TAKE TWO TABLETS BY MOUTH TWICE A DAY MAXIMUM DAILY DOSE = 4 TAKE TWO TABLETS BY MOUTH TWICE A DAY MAXIMUM DAILY DO SE = 4 SOLD: 10/22/2020 [facility] Methylphenidate Hydrochloride 20 MG Oral Tablet [...] active Take 200 mg by mouth daily [facility] Methylphenidate Hydrochloride 20 MG Oral Tablet Methylphenidate [...] escitalopram 5 MG Oral Tablet [Lexapro] [facility] ([facility]) gabapentin 800 MG Oral Tablet Gabapentin 800 MG Oral T ablet Gabapentin 800 MG Oral Tablet 01/04/2020 12:00:00 AM EDT aborte d gabapentin 800 MG Oral Tablet [facility] ([facility]) Buprenorphine 8 MG Sublingual Tablet Bup renorphine HCl 8 MG Sublingual Tablet Sublingual Buprenorphine HCl 8 MG Sublingual Tablet Sublingual 12:00:00 AM EDT 1 active buprenor phine 8 MG Sublingual Tablet [place] ([facility]) Methylphenidate Hcl 12/29/2019 08:57:46 PM EDT UNASSIGNED 40 MG [facility]AL [facility] Methyl[facility]idate Hcl 12/29/2019 08:57:46 PM EDT UNASSIGNED 40 MG ORAL [facility] Alprazolam 1 MG Oral Tablet Alprazolam (Xanax) 1 mg Ta blet Alprazolam (Xanax) 1 mg Tablet 12/29/2019 08:56:56 PM EDT TABLET 1 MG ORAL [facility] Alprazolam 1 MG Oral Tablet Alprazolam (Xanax) 1 mg Ta blet Alprazolam (Xanax) 1 mg Tablet 12/29/2019 08:56:56 PM EDT TABLET 1 MG ORAL [facility] Buprenorphine 8 MG Sublingual Tablet Buprenorphine Hcl Bupre norphine Hcl 12/29/2019 08:55:19 PM EDT UNASSIGNED 8 MG SUBLINGUALLY [facility] Buprenorphine 8 MG Sublingual Tablet Buprenorphine Hcl Bupre norphine Hcl 12/29/2019 08:55:19 PM EDT UNASSIGNED 8 MG SUBLINGUALLY [facility] Alprazolam 1 MG Oral Tablet ALPRAZolam 1 MG Oral Table t ALPRAZolam 1 MG Oral Tablet 12/09/2019 12:00:00 AM EDT active alprazolam 1 MG Oral Tablet [place] ([facility]) Buprenorphine 8 MG Sublingual Tablet Bup renorphine HCl 8 MG Sublingual Tablet Sublingual Buprenorphine HCl 8 MG Sublingual Tablet Sublingual 12:00:00 AM EDT 1 aborted bupreno rphine 8 MG Sublingual Tablet [place] ([facility]) Buprenorphine 8 MG Sublingual Tablet Bup renorphine HCl 8 MG Sublingual Tablet Sublingual Buprenorphine HCl 8 MG Sublingual Tablet Sublingual 12:00:00 AM EDT aborted bupreno rphine 8 MG Sublingual Tablet [place] ([facility]) Famotidine 10 MG Oral Tablet Famotidine 10 MG Oral Tablet 12:00:00 AM EDT 1 active famotidine 10 MG Oral Tablet [place] ([facility]) Buprenorphine 8 MG Sublingual Tablet Bup renorphine HCl 8 MG Sublingual Tablet Sublingual Buprenorphine HCl 8 MG Sublingual Tablet Sublingual 12:00:00 AM EST aborted bupreno rphine 8 MG Sublingual Tablet [place] ([facility]) Comb No.42-Folic Acid (Prena1 C hew Tablet) 1.4 MG tablet,YUNIOR ortega DR,biphase 12/09/2017 10:28:34 PM EDT UNASSIGNED 1 TAB ORAL c ompleted [facility] Amoxicillin 875 MG / Clavulanate 125 MG Oral Tablet Am oxicillin-Pot Clavulanate Amoxicillin-Pot Clavulanate 12/09/2017 10:28:34 PM EDT TABLET 1 TAB ORAL [facility] Comb No.42-Folic Acid (Prena1 C hew Tablet) 1.4 MG tablet,YUNIOR ortega DR,biphase 12/09/2017 10:28:34 PM EDT UNASSIGNED 1 TAB ORAL c ompleted [facility] Amoxicillin 875 MG / Clavulanate 125 MG Oral Tablet Am oxicillin-Pot Clavulanate Amoxicillin-Pot Clavulanate 12/09/2017 10:28:34 PM EDT TABLET 1 TAB ORAL [facility] Ibuprofen 600 MG Oral Tablet ibuprofen (ADVIL,MOTRIN) 600 MG tablet ibuprofen (ADVIL,MOTRIN) 600 MG tablet 12/06/2017 12:00:00 AM EDT 600 mg Oral aborted Take 1 tablet (600 m g total) by mouth every 6 (six) hours as needed for pain [facility] Insurance Providers Payer name Policy type / Coverage type Policy ID Covered libertarian ID Covered libertarian's relationship to david Policy David Plan Information [facility] Other 0 [id number] Self [address] [facility] Other 0 [id number] Self 0 Medicaid S [id number] S [id number] Managed Care Mark[facility] P [id number] S [id number] MEDICAID [id number] Samantha [id number] United[employer] Other 0 [id number] Self 0 [employer] Other 0 [id number] Self 0 [employer] Other 0 [id number] Self 0 [facility] COMMUNITY PLAN [id number] SP [id number] [facility] MEDICAID [id number] Samantha [id number] [facility] MEDICAID [id number] Samantha [id number] [employer] Other 0 [id number] Self 0 [facility] MEDICAID [id number] Samantha [id number] [employer] Other 0 [id number] Self 0 [employer] Other 0 [id number] Self 0 SELF PAY [facility] COMMUNITY PLAN [id number] SP [id number] [facility] Other 0 [id number] Self 0 [facility] Other 0 [id number] Self 0 [facility] Other 0 [id number] Self 0 [facility] Other 0 [id number] Self 0 [facility] Other 0 [id number] Self 0 [facility] [place] Other 0 [id number] Self 0 [facility] Other 0 [id number] Self 0 [facility] [place] Other 0 [id number] Self 0 [facility] [place] MED[facility] [id number] 0 [id number] [facility] [place] Other 0 [id number] Self 0 [facility] Other 0 [id number] Self 0 [facility] Other 0 [id number] Self 0 [facility] [place] Other 0 [id number] Self 0 [facility] [place] Other 0 [id number] Self 0 [facility] Other 0 [id number] Self 0 [facility] [place] Other 0 [id number] Self 0 [facility] [place] Other 0 [id number] Self 0 [facility] Other 0 [id number] Self 0 [facility] [place] Other 0 [id number] Self 0 [facility] [place] Other 0 [id number] Self 0 [facility] [place] Other 0 [id number] Self 0 [facility] [place] Other 0 [id number] Self 0 [facility] Other 0 [id number] Self 0 [facility] [place] Other 0 [id number] Self 0 NETO MEDICAID [id number] NET[facility] MEDICAID [id number] Samantha [id number] [facility] Other 0 [id number] Self 0 NETO [id number] SP [id number] SELF PAY NETO [id number] SP [id number] SELF PAY SELF PAY NETO [id number] SP [id number] 600 NETO [id number] SP [id number] SELF PAY SELF PAY NETO [id number] SP [id number] 600 SELF PAY NETO [id number] SP [id number] 600 NETO [id number] SP [id number] 600 SELF PAY SELF PAY [facility] [id number] SP [id number] [facility] [id number] SP [id number] [id number] SP [id number] MEDICAID PI PI [facility] MEDICAID PI PI NF PENDING UNAVAILABLE SP UNAVAIL ABLE [facility] UNAVAILABLE SP UNAVAILABLE [facility] Maintenance Organization ([facility] [id number] Self [id number] [facility] ([facility] [id number] Self [id number] [facility] ([facility] [id number] Self [id number] [facility] [id number] SP [id number] [facility] [id number] SP [id number] [facility] [id number] Comme rcial Insurance [id number] SELF PAY HEA UNAVAILABLE [id number] S UNAVAIL ABLE Medicaid [facility] Other 0 [id number] Self 0 NETO [id number] SP [id number] 600 SELF PAY UNAVAILABLE SP UNAVAILA BLE [facility] [id number] 0 1 [id number] [facility] [id number] S [id number] [facility] [id number] SP [id number] 600 [facility] [id number] 0 [id number] MEDICAID GME [id number] S [id number] [facility] PLAN [id number] SP [id number] [facility] PLAN UNAVAILABLE SP UNAVAILABLE Problems, Conditions, and Diagnoses Code Display Name Description Problem Type Effective Dates Data Source(s) F41.9 Anxiety disorder, unspecified Anxiety disorder, unspec ified Diagnosis 01/19/2021 08:42:00 PM EDT [facility] R82.5 Elevated urine levels of drugs, medicame nts and biological substances Elevated urine levels of drugs, medicame Diagnosis 01/16/2021 07:08:00 PM EDT [facility] F11.20 Opioid dependence, uncomplicated Opioid dependen ce, uncomplicated Diagnosis 01/16/2021 07:08:00 PM EDT [facility] O99.320 Drug use complicating , unspeci fied trimester Drug use complicating , unspeci Diagnosis 01/16/2021 07:08:00 PM EDT [facility] O09.93 Supervision of high risk , unsp ecified, third trimester Supervision of high risk , unsp Diagnosis 01/10/2021 10:50:06 AM EDT [facility] Z86.19 Personal history of other infectious and parasitic diseases Personal history of other infectious and Diagnosis 01/10/2021 10:50:06 AM EDT [facility] Z34.80 Encounter for supervision of other normal , unspecified trimester Encounter for supervision of other arpan Diagnosis 12/26/2020 08:43:39 AM EDT [facility] O09.33 Supervision of wit h insufficient care, third trimester Supervision of with insufficie Diagnosis 12/26/2020 08:43:39 AM EDT [facility] O47.9 False labor, unspecified False labor, unspecified Diag nosis 12/25/2020 12:02:00 AM EDT [facility] Z72.0 Tobacco use Z72.0 - Tobacco use Diagnosis 04/21/2020 01:4 3:00 AM [facility] F43.21 Adjustment disorder with depressed mood F43.21 - Adjustment disorder with depressed mood Diagnosis 04/21/2020 01:43:00 AM [facility] Z13.9 Encounter for screening, unspecified Z13 .9 - Encounter for screening, unspecified Diagnosis 04/21/2020 01:43:00 AM [facility] Z76.0 Encounter for issue of repeat prescripti on Z76.0 - Encounter for issue of repeat prescription Diagnosis [facility] Anemia during in third trimest er Anemia during in third trimester [id number] 01/04/2021 12:00:00 AM EDT [facility] R82.5 Positive urine drug screen Positive urine drug screen [id number] 12/27/2020 12:00:00 AM EDT [facility] O99.320 Suboxone maintenance treatment complicat ing , antepartum Suboxone maintenance treatment complicating , antepartum [id number] 12/26/2020 12:00:00 AM EDT [facility] O09.93 , supervision, high-risk, third trimester , supervision, high-risk, third trimester [id number] 12/26/2020 12:00:00 AM [facility] O47.00 Premature uterine contractions Premature uterine contr actions [id number] 12/25/2020 12:00:00 AM EDT [facility] 070.54 Hepatitis, C Virus - Chronic 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 Problem 08/20/2020 05:06:00 PM EDT [facility] [...] Finding 02/01/2020 12:00:00 AM ES T [facility] 309.81 Post-traumatic Stress Disorder Post-traumatic Stress D isorder Problem 02/01/2020 12:00:00 AM EST [facility] ([facility]) 314.01 Adult Attention Deficit Hyperactivity Di sorder Adult Attention Deficit Hyperactivity Disorder Problem 02/01/2020 12:00:00 AM EST [facility] ( [facility]) 300.00 Anxiety Disorder Nos Anxiety Disorder Nos Problem 02/01/2020 12:00:00 AM EST [facility] ([facility]) 724.2 Lumbago Lumbago Finding 02/01/2020 12:00:00 AM ES T [facility] 309.81 Post-traumatic Stress Disorder Post-traumatic Stress D isorder Problem 02/01/2020 12:00:00 AM EST [facility] 314.01 Adult Attention Deficit Hyperactivity Di sorder Adult Attention Deficit Hyperactivity Disorder Problem 02/01/2020 12:00:00 AM EST [facility] ( [facility]) 300.00 Anxiety Disorder Nos Anxiety Disorder Nos Problem 02/01/2020 12:00:00 AM EST [facility] 724.2 Lumbago Lumbago Finding 02/01/2020 12:00:00 AM ES T [facility] 309.81 Post-traumatic Stress Disorder Post-traumatic Stress D isorder Problem 02/01/2020 12:00:00 AM EST [facility] 314.01 Adult Attention Deficit Hyperactivity Di sorder Adult Attention Deficit Hyperactivity Disorder Problem 02/01/2020 12:00:00 AM EST [facility] ( [facility]) 300.00 Anxiety Disorder Nos Anxiety Disorder Nos Problem 02/01/2020 12:00:00 AM EST [facility] ([facility]) 724.2 Lumbago Lumbago Finding 02/01/2020 12:00:00 AM ES T [facility] 309.81 Post-traumatic Stress Disorder Post-traumatic Stress D [...] Nos Problem 02/01/2020 12:00:00 AM EST [facility] 724.2 Lumbago Lumbago Finding 02/01/2020 12:00:00 AM ES T [facility] 309.81 Post-traumatic Stress Disorder Post-traumatic Stress D isorder Problem 02/01/2020 12:00:00 AM EST [facility] ([facility]) 314.01 Adult Attention Deficit Hyperactivity Di sorder Adult Attention Deficit Hyperactivity Disorder Problem 02/01/2020 12:00:00 AM EST [facility] ( [facility]) 300.00 Anxiety Disorder Nos Anxiety Disorder Nos Problem 02/01/2020 12:00:00 AM EST [facility] ([facility]) 309.81 Post-traumatic Stress Disorder Post-traumatic Stress D isorder Problem 02/01/2020 12:00:00 AM EST [facility] 724.2 Lumbago Lumbago Finding 02/01/2020 12:00:00 AM ES T [facility] 314.01 Adult Attention Deficit Hyperactivity Di sorder [...] PM EDT , supervision, high-risk, third trimester [facility] , supervision, high-risk, third trimester Summary provided [...] Interpretation & Report Only 12:00:00 AM [facility] History of surgery (situation) No prior [...] trimester 05/11/2017 AT 12 0/[address] [facility] Patient entered care during 1st trimester 05/11/2017 AT 12 0/[address] [facility] 01/25/2020 12:00:00 AM EDT [facility] ([facility]) Past [...] 3497 g 10/25/2019 [facility] DELIVERED AT [facility] AT 41 F1/7 WKS GESTATION VIA VAGINAL DELIVERY OF FEMALE WEIGHT 7 POUNDS 11 [facility] weight: was 3497 g 10/25/2019 JOSEPH ENT DELIVERED AT [facility] AT 41 F1/7 WKS GESTATION VIA VAGINAL DELIVERY OF FEMALE WEIGHT 7 POUNDS 11 [facility] 01/25/2020 12:00:00 AM EDT [place] ([facility]) PSHx: No prior surgery PSHx: No prior surgery 01/25/2020 12:00:00 A M EDT [facility] ([facility]) No prior surgery No prior surgery 01/25/2020 12:00:00 AM EDT [facility] ([facility]) Patient entered care during 2nd trimester 05/28 22 0/7 WKS Patient entered care during 2nd trimester 06/13/2019 22 0/7 WKS 12/10/2019 12:00:00 AM EDT [facility] ([facility]) First visit was with another provider [facility] First visit was with another provider [facility] 12/10/2019 12:00:00 AM EDT [facility] [facility]) weight: was 3497 g 10/25/2019 JOSEPH ENT DELIVERED AT [facility] AT 41 F1/7 WKS GESTATION VIA VAGINAL DELIVERY OF FEMALE WEIGHT 7 POUNDS 11 [facility] NAMED [facility] weight: was 3497 g 10/25/2019 JOSEPH ENT DELIVERED AT [facility] AT 41 F1/7 WKS GESTATION VIA VAGINAL DELIVERY OF FEMALE WEIGHT 7 POUNDS 11 [facility] NAMED [facility] 12/10/2019 12:00:00 AM EDT [facility] ([facility]) Results ID Date Data Source [id number] 01/19/2021 10:35:39 PM EDT [facility] NT INFORMATIONPatient MRN Name Date of Age Gend*PT [id number] Carlos Aguilar AE 1990 30 years F CPEPPT Location Admission Date/Time Visit ID Attending ProviderNONE 01/19/212041 --- Olimpia Tapia MD([id number]) EPI ID CSN Admitting Provider [id number] ---CPEP PSYCHIATRIC ASSESSMENTPatient Name: Carlos AguilarPatient [facility] 01/19/212013Psychiatrist First Contact: Yes (01/19/212138 : Olimpia Tapia MD)Chief ComplaintChief ComplaintPatient presents with Psychiatric Evaluation Pt states she as in [place] last week and lost her purse that had her medsin it. States pcp won't refill two of them and her COUNSELING SPECIALIST also won't fill them.xanax and ritalyn.Current StressorsCurrent Stressors: Pyschiatric SymptomsHistory of Present Zisxmpd79 yo CF, on Subetex 8 mg daily, Xanax 1 mg tid, Ritalin 80 mg daily, lastprescribed 15 pills of Xanax and 20 pills of Ritalin (20 mg each) for 5 days byher prescriber Eliseo Strickland presents as a walk in to get refills forRitalin and Xanax. Also, some incomplete police report sheet which does not showmuch. Also, is . Pt informed data analyst report writer not able to prescribe controlleddrugs in ER, that she needs to contact Eliseo Clayton for herprescriptions. Is not interested in detox tx. No thoughts to hurt self and/ orothers.Patient InfoHistory provided by: patientLanguage aerial photograph interpreter used?: NoHPI: Mental Health ProblemPresenting Symptoms: anxiety, [...] Records Requested? Comments Therapist Navid Finch in [place] 2020 Outpatient individual treatment YesPast Suicide / [...] receiving tutoring or instruction?: NoHighest Grade Achieved: GEDLear Best By: Seeing, Doing, HearingFinancial/EmploymentCurrent Employment Status: UnemployedMilitary HistoryMilitary History: NoLegal HistoryLegal HistoryHistory of Legal Problems: YesCurrent [place] or Probation: YesParole/Nib Assembler's Name/Contact #: drug offense 2017Childhood Abuse/NeglectChildhood Abuse/NeglectWas [...] IntactRecent Memory: IntactInsight: FairJudgment: FairOrientation: Appropriately Oriented z6Aqryuckb Toward Exami ner: CooperativeAssociations: No loosening evidentFund [...] No changes [] No side effectsBilling Code: [id number] signed byOlimpia Tapia MD01/19/212234 Name Value Range Interpretation Code Description Data Fadumo rce(s) Supporting Document(s) ID Date Data Source [id number] 01/17/2021 12:21:42 PM EDT [facility] NT INFORMATIONPatient MRN Name Date of Age Gend*PT [id number] Carlos Aguilar AE 1990 30 years F OPPT Location Admission Date/Time Visit ID Attending Provider --- --- --- Gregg Azar MD([id number]) EPI ID CSN Admitting Provider [id number] ---Carlos presents today for her routine visit. [...] us know as we may send her [facility] ED. Lab work, sono and [...] rce(s) Supporting Document(s) ID Date Data Source [id number] 01/17/2021 05:14:54 PM EDT [facility] Name Value Range Interpretation Code Description Data Fadumo rce(s) Supporting Document(s) AMPHETAMINES,URINE (NEG) [facility] BARBITURATES,URINE (NEG) [facility] BENZODIAZEPINE,URINE (NEG) A [facility] SPECIMEN HAS BEEN SENT FOR CONFIRMATION. CANNABINOIDS,URINE (NEG) [facility] COCAINE,URINE (NEG) [facility] OPIATES,URINE (NEG) [facility] NOTE: Oxycodone is not sufficientlydetec joel by this screening assay. A moresensitive assay is available upon request. PHENCYCLIDINE,URINE (NEG) [facility] PLEASE NOTE: [facility] ARE REPORTED POSITIVE WHEN [...] FORMONITORING MEDICATION COMPLIANCE. ID Date Data Source [id number] 01/17/2021 11:24:48 AM EDT [facility] Name Value Range Interpretation Code Description Data Fadumo rce(s) Supporting Document(s) POC URINE COLOR [facility] POC URINE APPEARANCE [facility] POC SPEC GRAV URINE 1.020 (1.003-1.030) [facility] POC PH URINE 7.0 (5.0-7.5) [facility] [place] POC LEUK ESTERASE UR 2+ (NEG) A [facility] POC NITRITE URINE (NEG) [facility] POC PROTEIN URINE (NEG) A [facility] POC GLUCOSE URINE (NEG) [facility] POC KETONE URINE (NEG) [facility] POC UROBILINOGEN UR 0.2 EU/dL (0.2-1.0) [facility] POC BILIRUBIN UR (NEG) [facility] POC BLOOD HGB URINE (NEG) [facility] PERFORMED BY [facility] CLINICAL STAFF ID Date Data Source [id number] 01/10/2021 04:03:35 PM EDT [facility] NT INFORMATIONPatient MRN Name Date of Age Gend*PT [id number] Carlos Aguilar AE 1990 30 years F OPPT Location Admission Date/Time Visit ID Attending Provider --- --- --- Gregg Azar MD([id number]) EPI ID CSN Admitting Provider [id number] ---Carlos presents today for her routine visit [...] therapy and states that [facility]. Lab work, sono [...] them daily to manage anxiety. Inquired about [facility] case in [place]Son was removed from the home on 01/09/20- [...] of legal/logisticalsituation. She is actively working with [facility] ans the plan is forher son to come home to her and her . Her son is living with her grandparentsand she is able to have visitation requesting to see pt today and Carlos pope. SW will need see her after and will notify [facility] of thebirth. Pt reports consistent movement. Patient denies bleeding, LOF,cramping, contractions. Covid vaccine #1 today. RTO 1 week SED Name Value Range Interpretation Code Description Data Fadumo rce(s) Supporting Document(s) ID Date Data Source [id number] 01/13/2021 07:20:28 PM EDT [facility] Name Value Range Interpretation Code Description Data Fadumo rce(s) Supporting Document(s) DIAZEPAM,URINE <20 [facility] Unit: ng/mL Cutoff: 20 ng/mL NORDIAZEPAM,URINE <20 [facility] Unit: ng/mL Cutoff: 20 ng/mL OXAZEPAM,URINE <20 [facility] Unit: ng/mL Cutoff: 20 ng/mL TEMAZEPAM,URINE <20 [facility] Unit: ng/mL Cutoff: 20 ng/mL LORAZEPAM,URINE <20 [facility] Unit: ng/mL Cutoff: 20 ng/mL ALPRAZOLAM,URINE 98 [facility] Unit: ng/mL Consistent with use of a lópez g containing alprazolam, such as Xanax. Cutoff: 5 ng/mL ALPHA OH ALPRAZOLAM 124 [facility] Unit: ng/mL Alprazolam metabolite; consi stent with use of a drug containing alprazolam, such as Xanax. Cutoff: 5 ng/mL CLONAZEPAM,URINE <5 [facility] Unit: ng/mL Cutoff: 5 ng/mL 7 AMINOCLONAZEPAM U <5 [facility] Unit: ng/mL Cutoff: 5 ng/mL MIDAZOLAM,URINE <20 [facility] Unit: ng/mL Cutoff: 20 ng/mL CHLORDIAZEPOXIDE <20 [facility] Unit: ng/mL Cutoff: 20 ng/mL [...] developed and its performance characteristics determined by [employer]. It has not been cleared or approved by the US Food and Drug Administration. This test was performed in a CLIA certified laboratory and is intended for clinical purposes. Performed By: [facility] [address] [place], [place] [id number] Police Investigator: Sunita Vaca MD ID Date Data Source [id number] 01/10/2021 03:17:28 PM EDT [facility] Name Value Range Interpretation Code Description Data Fadumo rce(s) Supporting Document(s) AMPHETAMINES,URINE (NEG) [facility] BARBITURATES,URINE (NEG) [facility] BENZODIAZEPINE,URINE (NEG) A [facility] SPECIMEN HAS BEEN SENT FOR CONFIRMATION. CANNABINOIDS,URINE (NEG) [facility] COCAINE,URINE (NEG) [facility] OPIATES,URINE (NEG) [facility] NOTE: Oxycodone is not sufficientlydetec joel by this screening assay. A moresensitive assay is available upon request. PHENCYCLIDINE,URINE (NEG) [facility] PLEASE NOTE: [facility] ARE REPORTED POSITIVE WHEN THE [...] FORMONITORING MEDICATION COMPLIANCE. ID Date Data Source [id number] 01/10/2021 11:13:22 AM EDT [facility] [place] Name Value Range Interpretation Code Description Data Fadumo rce(s) Supporting Document(s) POC URINE COLOR [facility] POC URINE APPEARANCE [facility] POC SPEC GRAV URINE 1.010 (1.003-1.030) [facility] POC PH URINE 6.5 (5.0-7.5) [facility] POC LEUK ESTERASE UR 2+ (NEG) A [facility] POC NITRITE URINE (NEG) [facility] POC PROTEIN URINE (NEG) [facility] POC GLUCOSE URINE (NEG) [facility] POC KETONE URINE (NEG) [facility] POC UROBILINOGEN UR 0.2 EU/dL (0.2-1.0) [facility] POC BILIRUBIN UR (NEG) [facility] POC BLOOD HGB URINE (NEG) A [facility] PERFORMED BY [facility] CLINICAL STAFF ID Date Data Source [id number] 01/07/2021 09:31:13 AM EDT [facility] NT INFORMATIONPatient MRN Name Date of Age Gend*PT [id number] Carlos Aguilar AE 1990 30 years F ---PT Location Admission Date/Time Visit ID Attending Provider --- --- --- --- EPI ID CSN Admitting Provider [id number] ---Addended by: KERA BACON on: 01/07/2021 09:31 AM Modules accepted: Orders Name Value Range Interpretation Code Description Data Fadumo rce(s) Supporting Document(s) ID Date Data Source [id number] 01/04/2021 05:12:11 PM EDT [facility] NT INFORMATIONPatient MRN Name Date of Age Gend*PT [id number] Carlos Aguilar AE 1990 30 years F ---PT Location Admission Date/Time Visit ID Attending Provider --- --- --- --- EPI ID CSN Admitting Provider [id number] ---Addended by: EVIE MOLINA on: 01/04/2021 05:12 PM Modules accepted: Orders Name Value Range Interpretation Code Description Data Fadumo rce(s) Supporting Document(s) ID Date Data Source [id number] 01/04/2021 12:18:00 PM EDT [facility] NT INFORMATIONPatient MRN Name Date of Age Gend*PT [id number] Carlos Aguilar AE 1990 30 years F ---PT Location Admission Date/Time Visit ID Attending Provider --- --- --- --- EPI ID CSN Admitting Provider [id number] ---Addended by: KERA BACON on: 01/04/2021 12:17 PM Modules accepted: Orders Name Value Range Interpretation Code Description Data Fadumo rce(s) Supporting Document(s) ID Date Data Source [id number] 01/02/2021 05:27:28 PM EDT [facility] NT INFORMATIONPatient MRN Name Date of Age Gend*PT [id number] Carlos Aguilar AE 1990 30 years F OPPT Location Admission Date/Time Visit ID Attending Provider --- --- --- Gregg Azar MD([id number]) EPI ID CSN Admitting Provider [id number] ---Subjective: Carlos Aguilar is a 30 years female being seen today for her obstetricalvisit. She is at 37w3d gestation. Patient reports good movement. Deniesvaginal bleeding or loss of fluidDenies headaches or blurry visionOB History Gravida3 Para2 Term2 AB Living1 SAB TAB Ectopic Multiple Live Cswvlo1Tfbszfckz: BP 116/79 | Ht 1.626 m (5' 4.02") | Wt 76.8 kg (169 lb 6.4 oz) | LMP/ | BMI 29.06 kg/m FHT 150FH 37Ext mild edema no calf tendernessUA 1+ proteinAssessment:IUP @ 37 weeks 3 daysCovid precautions, discussed vaccine, would like to scheduleF/u 1 weekPEC labs todayUrine cultureUrine protein/creatinine ratioJodi Monroe DO Name Value Range Interpretation Code Description Data Fadumo rce(s) Supporting Document(s) ID Date Data Source [id number] 01/05/2021 11:23:09 AM EDT [facility] SPECIMEN DESCRIPTION MIDSTREAM UR INE,CLEAN CATCHCULTURE [...] rce(s) Supporting Document(s) ID Date Data Source [id number] 01/02/2021 10:59:31 PM EDT [facility] Name Value Range Interpretation Code Description Data Fadumo rce(s) Supporting Document(s) SODIUM 139 mmol/L (136-145) [facility] POTASSIUM 3.8 mmol/L (3.6-5.2) [facility] CHLORIDE 109 mmol/L (100-108) H [facility] CO2 21 mmol/L (22-31) L [facility] ANION GAP 9 mmol/L (7-16) [facility] UREA NITROGEN 9 mg/dL (7-24) [facility] CREATININE 0.63 mg/dL (0.60-1.00) [facility] BUN/CREAT RATIO 14.3 RATIO (10.0-20.0) [facility] GLUCOSE 39 mg/dL (70-99) L [facility] UNSPUNRESULT(S) CALLED TO AND READ BACK BYDR MONROE AT [id number] ON [id number] AT 2250 BY [address]187. CALCIUM 7.6 mg/dL (8.4-10.2) L [facility] TOTAL PROTEIN 5.9 g/dL (6.4-8.2) L [facility] ALBUMIN 2.0 g/dL (3.5-4.6) L [facility] GLOBULIN 3.9 g/dL (2.7-4.3) [facility] ALB/GLOB RATIO 0.5 RATIO [facility] ALKALINE PHOSPHATASE 121 U/L (45-117) H [facility] BILIRUBIN,TOTAL 0.2 mg/dL (0.0-1.0) [facility] PLEASE NOTE:Total bilirubin results may be falselyelevated in patients taking Eltrombopag. AST (SGOT) 20 U/L (11-39) [facility] ALT (SGPT) 17 U/L (12-78) [facility] GFR >60 ml/min/1.73m2 (>59) [facility] GFR ( AMER) >60 ml/min/1.73m2 (>59) [facility] GFR INTERPRETATION [facility] --NORMAL KIDNEY FUNCTION OR MILD DISEASE - GFR >OR= 60CHRONIC KIDNEY DISEASE - GFR 15 - 59RENAL FAILURE - GFR <15 Est. GFR calculation based on the MDRDstudy equation, which assumes a steadystate for creatinine. Est. GFR should notbe used for medication dosing. ID Date Data Source [id number] 01/02/2021 10:39:01 PM EDT [facility] Name Value Range Interpretation Code Description Data Fadumo rce(s) Supporting Document(s) URIC ACID 4.6 mg/dL (2.6-6.0) [facility] ID Date Data Source [id number] 01/02/2021 10:39:01 PM EDT [facility] Name Value Range Interpretation Code Description Data Fadumo rce(s) Supporting Document(s) LDH 190 U/L (84-246) [facility] ID Date Data Source [id number] 01/02/2021 08:59:21 PM EDT [facility] Name Value Range Interpretation Code Description Data Fadumo rce(s) Supporting Document(s) WBC 9.2 10*3/uL (4.1-11.0) [facility] [place] RBC 3.16 10*6/uL (4.00-5.40) L [facility] HGB 8.6 g/dL (12.0-16.0) L [facility] HCT 25.5 % (36.0-47.0) L [facility] MCV 80.7 fL (80.0-95.0) [facility] MCH 27.3 pg (27.0-32.0) [facility] MCHC 33.8 g/dL (32.0-36.0) [facility] RDW 14.9 % (10.5-14.5) H [facility] PLT 166 10*3/uL (150-450) [facility] MPV 10.0 fL (7.1-10.7) [facility] ID Date Data Source [id number] 01/02/2021 09:27:43 PM EDT [facility] Name Value Range Interpretation Code Description Data Fadumo rce(s) Supporting Document(s) PROTEIN,URINE 46 mg/dL [facility] URINE PROTEIN MAY BE FALSELY ELEVATEDDUR ING TREATMENT WITH AMINOGLYCOSIDESDUE TO METHOD INTERFERENCE. CREATININE,URINE 257.00 mg/dL [facility] URINE TP/CR RATIO 0.18 RATIO (0.00-0.20) [facility] ID Date Data Source [id number] 01/02/2021 04:00:42 PM EDT [facility] Name Value Range Interpretation Code Description Data Fadumo rce(s) Supporting Document(s) POC URINE COLOR [facility] POC URINE APPEARANCE [facility] POC SPEC GRAV URINE 1.025 (1.003-1.030) [facility] POC PH URINE 6.5 (5.0-7.5) [facility] [place] POC LEUK ESTERASE UR 1+ (NEG) A [facility] POC NITRITE URINE (NEG) A [facility] POC PROTEIN URINE 1+ mg/dL (NEG) A [facility] POC GLUCOSE URINE (NEG) [facility] POC KETONE URINE (NEG) A [facility] POC UROBILINOGEN UR 1.0 EU/dL (0.2-1.0) [facility] POC BILIRUBIN UR 1+ (NEG) A [facility] POC BLOOD HGB URINE (NEG) [facility] PERFORMED BY [facility] CLINICAL STAFF ID Date Data Source [id number] 12/26/2020 05:24:09 PM EDT [address] [address]S[place] Name: CARLOS CHAPA JEFFDOB: 1990Sex: FOrdering Provider: HARDIK NYuthedwin Prov: HARDIK CHAUDHRYYReferring Provider: HARDIK Melendez Performed: / US OB 14 + WEEKS SINGLE OR FIRST GESTATIONExam Date: 12/26/2020 16:02MRN: [id number] Number: [id number] Class: OutpatientAccount #: [id number] for Exam: anatomicTechnique: Real time sonographic images were obtained.Comparison: NoneFindings:GESTATION: SinglePRESENTATION: CephalicHEART RATE: 130 BPMAMNIOTIC FLUID INDEX (6-25 varies by GA): 16 cm NormalPLACENTA: Anterior WallAVERAGE ULTRASOUND AGE: 35 wks 5 dESTIMATED WEIGHT: 2784 grams Percentile: 37MATERNAL CERVIX: 3.3 cmFetal measurements are as follows:Biparietal diameter: 8.59 cm 34 wks weeks 5 zbcx81Uflp circumference: 31.92 cm 36 weeks 0 upte30Wrfoyuwbi circumference: 32.40 cm 36 weeks 3 efbp27Upnwa length : 6.89 cm 35 weeks 3 egwn24DG/AC: .99FL/BPD: 80 %FL/AC: 21 %MANISHA (AUA): 01/25/21NEURAL [...] DENIS BARRIENTOS On 12/26/2020 5:24 PMWorkstation ID: [id number] - [id number] Name Value Range Interpretation Code Description Data Fadumo rce(s) Supporting Document(s) ID Date Data Source [id number] 12/26/2020 10:55:55 AM EDT [facility] NT INFORMATIONPatient MRN Name Date of Age Gend*PT [id number] Carlos Aguilar AE 1990 30 years F OPPT Location Admission Date/Time Visit ID Attending Provider --- --- --- Grgeg Azar MD([id number]) EPI ID CSN Admitting Provider [id number] ---Assessment/Plan:Diagnoses and all orders for this visit:History [...] [facility] for what Carlos reports missing appointments.LMP [...] months. Thisis [facility] [place] PRN dailyMethylphenidate 40mg BIDSertraline 200mg dailyAlbuterol PRN- states she uses it less than once a weekLast Pap 2021 while with previous practiceHx of chlamydia years [...] nursing note reviewed. Exam conducted with a footwear machinery instructor present.Constitutional: Appearance: Normal appearance. She is normal [...] rce(s) Supporting Document(s) ID Date Data Source [id number] 12/28/2020 02:23:54 PM EDT [facility] SPECIMEN DESCRIPTION VAGINAL/RECT ALCULTURE RESULTS NEGATIVE: BETA HEMOLYTIC STREPTOCOCCI GROUP B B Y PCRREPORT STATUS FINAL 12/28/2020 Name Value Range Interpretation Code Description Data Fadumo rce(s) Supporting Document(s) ID Date Data Source [id number] 12/27/2020 03:08:16 PM EDT [facility] Name Value Range Interpretation Code Description Data [facility] rce(s) Supporting Document(s) SPECIMEN DESCRIPTION [facility] Corrected on 12/26 AT 1616: Previously r eported as CERVICAL C. TRACHOMATIS (NEG) [facility] THIS ASSAY AMPLIFIES AND DETECTS TARGETD NA USING BUTCHER OR SMALLGOODS MAKER-MEDIATEDAMPLIFICATION N. GONORRHOEAE (NEG) [facility] THIS ASSAY AMPLIFIES AND DETECTS TARGETD NA USING BUTCHER OR SMALLGOODS MAKER-MEDIATEDAMPLIFICATION COMMENT [facility] IS ONLY APPROVED FOR VAGINAL, THROAT ,AND RECTAL SOURCES. ID Date Data Source [id number] 12/27/2020 01:04:13 PM EDT [facility] SPECIMEN DESCRIPTION MIDSTREAM UR INE,CLEAN CATCHCULTURE RESULTS NO GROWTHREPORT STATUS FINAL 12/27/2020 Name Value Range Interpretation Code Description Data Fadumo rce(s) Supporting Document(s) ID Date Data Source [id number] 12/30/2020 08:03:19 PM EDT [facility] Name Value Range Interpretation Code Description Data Fadumo rce(s) Supporting Document(s) DIAZEPAM,URINE <20 [facility] Unit: ng/mL Cutoff: 20 ng/mL NORDIAZEPAM,URINE <20 [facility] Unit: ng/mL Cutoff: 20 ng/mL OXAZEPAM,URINE <20 [facility] Unit: ng/mL Cutoff: 20 ng/mL TEMAZEPAM,URINE <20 [facility] Unit: ng/mL Cutoff: 20 ng/mL LORAZEPAM,URINE <20 [facility] Unit: ng/mL Cutoff: 20 ng/mL ALPRAZOLAM,URINE 146 [facility] Unit: ng/mL Consistent with use of a lópez g containing alprazolam, such as Xanax. Cutoff: 5 ng/mL ALPHA OH ALPRAZOLAM 312 [facility] Unit: ng/mL Alprazolam metabolite; consi stent with use of a drug containing alprazolam, such as Xanax. Cutoff: 5 ng/mL CLONAZEPAM,URINE <5 [facility] Unit: ng/mL Cutoff: 5 ng/mL 7 AMINOCLONAZEPAM U 8 [facility] Unit: ng/mL Clonazepam metabolite; consi stent with use of a drug containing clonazepam, such as Klonopin. Cutoff: 5 ng/mL MIDAZOLAM,URINE <20 [facility] Unit: ng/mL Cutoff: 20 ng/mL CHLORDIAZEPOXIDE <20 [facility] Unit: ng/mL Cutoff: 20 ng/mL [...] developed and its performance characteristics determined by [employer]. It has not been cleared or approved by the US Food and Drug Administration. This test was performed in a CLIA certified laboratory and is intended for clinical purposes. Performed By: [facility] [address] [place] [address] Police Investigator: Sunita Vaca MD ID Date Data Source [id number] 12/26/2020 07:53:51 PM EDT [facility] SPECIMEN DESCRIPTION VAGINAL SPEC IMENRESULT NEGATIVE FOR TRICHOMONAS VAGINALIS BY DNA PROBE POSITIVE FOR GARDNERELLA VAGINALIS BY DNA PROBE NEGATIVE FOR KWASI SPECIES BY DNA PROBEREPORT STATUS FINAL 12/26/2020 Name Value Range Interpretation Code Description Data Fadumo rce(s) Supporting Document(s) ID Date Data Source [id number] 12/26/2020 06:08:05 PM EDT [facility] Name Value Range Interpretation Code Description Data Fadumo rce(s) Supporting Document(s) AMPHETAMINES,URINE (NEG) [facility] BARBITURATES,URINE (NEG) [facility] BENZODIAZEPINE,URINE (NEG) A [facility] SPECIMEN HAS BEEN SENT FOR CONFIRMATION. CANNABINOIDS,URINE (NEG) [facility] COCAINE,URINE (NEG) [facility] OPIATES,URINE (NEG) [facility] NOTE: Oxycodone is not sufficientlydetec joel by this screening assay. A moresensitive assay is available upon request. PHENCYCLIDINE,URINE (NEG) [facility] PLEASE NOTE: [facility] [place] ARE REPORTED POSITIVE WHEN THE [...] FORMONITORING MEDICATION COMPLIANCE. ID Date Data Source [id number] 12/31/2020 11:33:38 AM EDT [facility] Name Value Range Interpretation Code Description Data Fadumo rce(s) Supporting Document(s) HCV QUANT BY NAAT [facility] 1,312,601 HCV QUANT BY NAAT 6.12 [facility] Unit: log IU/mL HCV QNT NAAT INTERP A [facility] Reference range: Not Detected INTERPRETI VE [...] and Cellular Tissue-Based Products (HCT/P). Performed by [facility], [address] [place] [id number] [email or web address], Sunita Vaca MD, Lab. Director ID Date Data Source [id number] 12/27/2020 01:51:24 PM EDT [facility] Name Value Range Interpretation Code Description Data Fadumo rce(s) Supporting Document(s) TREPONEMA IGG/IGM @ (NEG) [facility] [place] ID Date Data Source [id number] 12/27/2020 12:31:12 PM EDT [facility] Name Value Range Interpretation Code Description Data Fadumo rce(s) Supporting Document(s) HEPATITIS C AB @ (NEG) A [facility] PROBABLY IND ICATES PAST OR PRESENTHCV INFECTION. IF INDICATED, HCV QUANTITATIVERNA SHOULD BE REQUESTED.CALLED RESULTS TO NIALL AT [phone] ON 12/27/2020 AT 1214 [place] [id number] RESULTS TO [facility] ON 12/27/2020 AT 1228 [place] [id number] ID Date Data Source [id number] 12/26/2020 10:39:28 PM EDT [facility] [place] SPEC EXP DATE 12/29/2020ATI ENT ABO/Rh O POSITIVEANTIBODY SCREEN NEGATIVETESTING SITE PERFORMED AT [address] [place] [id number] BANK COMMENT BLOOD TYPE CONFIRMED. Name Value Range Interpretation Code Description Data Fadumo rce(s) Supporting Document(s) TYPE AND SCREEN [facility] [place] ID Date Data Source [id number] 12/26/2020 06:42:58 PM EDT [facility] [place] Name Value Range Interpretation Code Description Data Fadumo rce(s) Supporting Document(s) HIV 1/2 SCREEN @ (NEG) [facility] Testing performed using Siemens ADVIACen taur 4th gen CHIV combo assay.This assay detects the HIV1 p24 antigenin addition to antibodies to HIV1 and HIV2. ID Date Data Source [id number] 12/26/2020 06:00:43 PM EDT [facility] [place] Name Value Range Interpretation Code Description Data Fadumo rce(s) Supporting Document(s) GLU CHALLENGE TEST @ 96 mg/dL (<140) Lab [facility] of [place] LITERATURE SUGGESTS RESULTS <140 MG/DL I N A FEMALE RULE OUT GESTATIONAL DIABETES.PATIENTS WITH RESULTS > OR = 140 MAY NEED AGLUCOSE TOLERANCE TEST FOLLOW UP. NOREFERENCE RANGE FOR NON- PATIENTS. ID Date Data Source [id number] 12/26/2020 05:20:23 PM EDT [facility] [place] Name Value Range Interpretation Code Description Data Fadumo rce(s) Supporting Document(s) WBC 9.9 10*3/uL (4.1-11.0) [facility] [place] [place] RBC 3.60 10*6/uL (4.00-5.40) L [facility] [place] HGB 9.9 g/dL (12.0-16.0) L [facility] [place] HCT 29.6 % (36.0-47.0) L [facility] [place] MCV 82.3 fL (80.0-95.0) [facility] Cindy Roth MCH 27.6 pg (27.0-32.0) [facility] Cindy Roth MCHC 33.6 g/dL (32.0-36.0) [facility] Cindy Roth RDW 14.7 % (10.5-14.5) H [facility] Cindy Roth PLT 186 10*3/uL (150-450) [facility] Cindy Roth MPV 9.2 fL (7.1-10.7) [facility] elicia [facility] ID Date Data Source [id number] 12/30/2020 06:46:24 AM EDT [facility] Name Value Range Interpretation Code Description Data Fadumo rce(s) Supporting Document(s) BUPRENORPHINE UR 3 ng/mL [facility] INTERPRETIVE INFORMATION: Buprenorphine and Metabolites, [...] developed and its performance characteristics determined by [employer]. It has not been cleared or approved [...] [place] Unit: ng/mL NALOXONE,URINE <100 ng/mL [facility] [place] Performed By: [facility] [address] [place] [address] Police Investigator: Sunita Vaca MD ID Date Data Source [id number] 12/26/2020 10:06:52 PM EDT [facility] [place] Name Value Range Interpretation Code [...] AVAILABLE UPON REQUEST. ID Date Data Source [id number] 12/26/2020 09:29:44 AM EDT [facility] [place] Name Value Range Interpretation Code Description Data Fadumo rce(s) Supporting Document(s) POC URINE COLOR [facility] [place] POC URINE APPEARANCE [facility] [place] POC SPEC GRAV URINE 1.015 (1.003-1.030) [facility] [place] POC PH URINE 7.0 (5.0-7.5) [facility] [place] [facility] [place] POC LEUK ESTERASE UR 3+ (NEG) A [facility] [place] POC NITRITE URINE (NEG) [facility] [place] POC PROTEIN URINE (NEG) [facility] [place] POC GLUCOSE URINE (NEG) [facility] [place] POC KETONE URINE (NEG) [facility] [place] POC UROBILINOGEN UR 0.2 EU/dL (0.2-1.0) [facility] [place] POC BILIRUBIN UR (NEG) [facility] [place] POC BLOOD HGB URINE (NEG) A [facility] [place] PERFORMED BY [facility] CLINICAL STAFF ID Date Data Source [id number] 12/25/2020 03:31:35 AM EDT [address] [address]Lggaoex Name: Carlos AguilarDOB: 1990Sex: FOrdering Provider: HAILEY GROETZAuthorizing Prov: HAILEY GROETZReferring Provider: Procedure Performed: US BIOPHYSICAL PROFILE WO NON STRESS TESTINGExam Date: 12/25/2020 01:35MRN: [id number] Number: [id number] Class: INFORMATION: Exam: US Biophysical Profile Without [...] rce(s) Supporting Document(s) ID Date Data Source [id number] 12/25/2020 03:31:11 AM EDT [address] [address]Hkwegcn Name: Carlos AguilarDOB: 1990Sex: FOrdering Provider: HAILEY GRACIAAuthorihayde Prov: HAILEY GARCIAETZReferrzaria Provider: Procedure Performed: US OB FOLLOW UP TRANSABDOMINAL APPROACHExam Date: 12/25/2020 01:35MRN: [id number] Number: [id number] Class: INFORMATION: Exam: US , Limited Exam [...] rce(s) Supporting Document(s) ID Date Data Source [id number] 08/18/2020 08:24:08 PM EDT Laboratory [email or web address] [facility] Name Value Range Interpretation Code Description Data Fadumo rce(s) Supporting Document(s) HCV QUANT BY NAAT [facility] [place] - CORE 2,977,621 HCV QUANT BY NAAT 6.47 [facility] [place] - CORE Unit: log IU/mL HCV QNT NAAT INTERP A [facility] [place] - CORE Reference range: Not [...] and Cellular Tissue-Based Products (HCT/P). Performed by [facility], [address] [place] [id number] [email or web address], Sunita Vaca MD, Lab. Director ID Date Data Source [id number] 2020 10:06:01 PM EDT [facility] Name Value Range Interpretation Code Description Data Fadumo rce(s) Supporting Document(s) AMPHETAMINES,URINE (NEG) [email or web address] [employer] BARBITURATES,URINE (NEG) [facility] [email or web address] [facility] - CORE BENZODIAZEPINE,URINE (NEG) A Laborator y [facility] of [employer] [facility] [employer] SPECIMEN HAS BEEN SENT FOR CONFIRMATION. CANNABINOIDS,URINE (NEG) [facility] of [facility] COCAINE,URINE (NEG) Laboratory [facility] of [facility] OPIATES,URINE (NEG) Laboratory [facility] of [facility] NOTE: Oxycodone is not sufficientlydetec joel by this screening assay. A moresensitive assay is available upon request. PHENCYCLIDINE,URINE (NEG) [facility] PLEASE NOTE: Laboratory [facility] of [facility] ARE REPORTED POSITIVE WHEN THE RESULT SEXCEED THE THRESHOLD (CUTOFF) INDICATED. ALIST OF POTENTIAL INTERFERENCES FOR EACHMETHOD CAN BE MADE AVAILABLE UPON REQUEST.A CONFIRMATORY ANALYSIS IS ORDERED ONALL DRUG CLASSES SCREENING POSITIVE BYTHIS METHOD.* * * * * * * * * * * * * * *THIS ASSAY IS NOT INTENDED TO BE USED FORMONITORING MEDICATION COMPLIANCE. ID Date Data Source [id number] 08/16/2020 12:19:26 AM EDT Laboratory [facility] Name Value Range Interpretation Code Description Data Fadumo rce(s) Supporting Document(s) BUPRENORPH SCREEN UR (NEG) A Laborator y [facility] THIS IS A SCREENING IMMUNOASSAYTEST THAT IS REPORTED POSITIVEWHEN THE RESULT EXCEEDS THETHRESHOLD (CUTOFF) INDICATED. ACONFIRMATORY ANALYSIS ISREFLEXIVELY ORDERED ON SPECIMENSSCREENING POSITIVE AND MAYBE ADDED FOR UNEXPECTED NEGATIVERESULTS IF REQUESTED WITHIN 72 HRS.A LIST OF POTENTIAL INTERFERENCESIS AVAILABLE UPON REQUEST. ID Date Data Source [id number] 08/19/2020 09:37:52 AM EDT Laboratory [facility] Name Value Range Interpretation Code Description Data Fadumo rce(s) Supporting Document(s) DIAZEPAM,URINE <20 Laboratory Ángel ance of [facility] Unit: ng/mL Cutoff: 20 ng/mL NORDIAZEPAM,URINE <20 Laboratory [facility] of [facility] Unit: ng/mL Cutoff: 20 ng/mL OXAZEPAM,URINE <20 Laboratory Ángel ance of [facility] Unit: ng/mL Cutoff: 20 ng/mL TEMAZEPAM,URINE <20 Laboratory [facility] of [facility] Unit: ng/mL Cutoff: 20 ng/mL LORAZEPAM,URINE <20 Laboratory [facility] of [facility] Unit: ng/mL Cutoff: 20 ng/mL ALPRAZOLAM,URINE 734 Laboratory [facility] of [facility] Unit: ng/mL Consistent with use of a lópez g containing alprazolam, such as Xanax. Cutoff: 5 ng/mL ALPHA [place] ALPRAZOLAM >1000 Laboratory [facility] Unit: ng/mL Alprazolam metabolite; consi stent with use of a drug containing alprazolam, such as Xanax. Cutoff: 5 ng/mL CLONAZEPAM,URINE <5 Laboratory [facility] of [facility] Unit: ng/mL Cutoff: 5 ng/mL 7 AMINOCLONAZEPAM U 25 Laboratory [facility] Unit: ng/mL Clonazepam metabolite; consi stent with use of a drug containing clonazepam, such as Klonopin. Cutoff: 5 ng/mL MIDAZOLAM,URINE <20 Laboratory [facility] of [facility] Unit: ng/mL Cutoff: 20 ng/mL CHLORDIAZEPOXIDE <20 Laboratory [facility] of [facility] Unit: ng/mL Cutoff: 20 ng/mL ALPHA [place] MIDAZOLAM <20 Laboratory [facility] Unit: ng/mL Cutoff: 20 ng/mL INTERPRETIV [...] developed and its performance characteristics determined by [employer]. It has not been cleared or approved by the US Food and Drug Administration. This test was performed in a CLIA certified laboratory and is intended for clinical purposes. Performed By: [facility] [address] [place] [id number] Police Investigator: Sunita Vaca MD ID Date Data Source [id number] 08/19/2020 02:39:08 PM EDT Laboratory [facility] Name Value Range Interpretation Code Description Data Fadumo rce(s) Supporting Document(s) BUPRENORPHINE UR 53 ng/mL Laboratory [facility] INTERPRETIVE INFORMATION: Buprenorphine and Metabolites, Urine, Quantitative [...] developed and its performance characteristics determined by [employer]. It has not been cleared or approved by the US Food and Drug Administration. This test was performed in a CLIA certified laboratory and is intended for clinical purposes. NORBUPRENORPHINE UR 539 ng/mL Laboratory [facility] BUPRENORPHINE GLUCU >1000 [facility] Unit: ng/mL Consistent with use of a bup renorphine-containing drug. Glucuronide concentrations are semi-quantitative. NORBUPR GLUCURONIDE >1000 [facility] Unit: ng/mL NALOXONE,URINE <100 ng/mL Laboratory [facility] Performed By: [facility] [address] [place] [address] Police Investigator: Sunita Vaca MD ID Date Data Source [id number] 07/24/2020 08:26:12 AM EDT [facility] SPECIMEN DESCRIPTION URINE, COLLE CTION METHOD NOT SPECIFIEDCULTURE RESULTS NO GROWTHREPORT STATUS FINAL 07/24/2020 Name Value Range Interpretation Code Description Data Fadumo rce(s) Supporting Document(s) ID Date Data Source [id number] 07/22/2020 11:09:50 PM EDT [facility] Name Value Range Interpretation Code Description Data Fadumo rce(s) Supporting Document(s) AMPHETAMINES,URINE (NEG) Lab [facility] of [facility] BARBITURATES,URINE (NEG) [facility] [place] BENZODIAZEPINE,URINE (NEG) A [facility] [place] CANNABINOIDS,URINE (NEG) [facility] [place] COCAINE,URINE (NEG) A [facility] [place] OPIATES,URINE (NEG) [facility] [place] NOTE: Oxycodone is not sufficientlydetec joel by this screening assay. A moresensitive assay is available upon request. PHENCYCLIDINE,URINE (NEG) [facility] [place] PLEASE NOTE: [facility] ARE REPORTED POSITIVE WHEN [...] FORMONITORING MEDICATION COMPLIANCE. ID Date Data Source [id number] 07/22/2020 10:59:08 PM EDT [facility] [place] Name Value Range Interpretation Code Description Data Fadumo rce(s) Supporting Document(s) URINE WBC (0-5) [facility] [place] URINE RBC (0-2) [facility] EPITHELIAL CELLS 2+ [HPF] [facility] BACTERIA 1+ [HPF] [facility] MUCUS 1+ [HPF] [facility] [place] ID Date Data Source [id number] 07/22/2020 10:42:22 PM EDT [facility] [place] Name Value Range Interpretation Code Description Data Fadumo rce(s) Supporting Document(s) COLOR [facility] [place] APPEARANCE [facility] [place] SPEC GRAV URINE 1.028 (1.003-1.030) [facility] [place] PH URINE 6.0 (5.0-7.5) [facility] [place] LEUK ESTERASE 1+ (NEG) A [facility] [place] NITRITE URINE (NEG) [facility] [place] PROTEIN URINE (NEG) [facility] [place] GLUCOSE URINE (NEG) [facility] [place] KETONE URINE (NEG) [facility] [place] UROBILINOGEN 1.0 mg/dL (0-1.0) [facility] [place] [facility] [place] BILIRUBIN URINE 1+ (NEG) A [facility] [place] INTERFERING SUBSTANCES MAY CAUSE FALSEPO SITIVE BILIRUBIN, WHICH HAS BEENSHOWN TO BE CLINICALLY INSIGNIFICANT.CORRELATE WITH OTHER TESTING. BLOOD/HGB URINE (NEG) [facility] [place] ID Date Data Source [id number] 07/22/2020 11:13:55 PM EDT [facility] [place] Name Value Range Interpretation Code Description Data Fadumo rce(s) Supporting Document(s) SODIUM 139 mmol/L (136-145) [facility] [place] POTASSIUM 3.8 mmol/L (3.6-5.2) [facility] [place] CHLORIDE 108 mmol/L (100-108) [facility] [place] CO2 25 mmol/L (22-31) [facility] [place] ANION GAP 6 mmol/L (7-16) L [facility] [place] UREA NITROGEN 6 mg/dL (7-24) L [facility] [place] CREATININE 0.55 mg/dL (0.60-1.00) L [facility] [place] BUN/CREAT RATIO 10.9 RATIO (10.0-20.0) [facility] [place] GLUCOSE 79 mg/dL (70-99) [facility] [place] CALCIUM 8.2 mg/dL (8.4-10.2) L [facility] [place] GFR >60 ml/min/1.73m2 (>59) [facility] [place] GFR ( AMER) >60 ml/min/1.73m2 (>59) [facility] [place] GFR INTERPRETATION [facility] [place] --NORMAL KIDNEY FUNCTION OR MILD DISEASE - GFR >OR= 60CHRONIC KIDNEY DISEASE - GFR 15 - 59RENAL FAILURE - GFR <15 Est. GFR calculation based on the MDRDstudy equation, which assumes a steadystate for creatinine. Est. GFR should notbe used for medication dosing. ID Date Data Source [id number] 07/22/2020 11:13:55 PM EDT [facility] [place] Name Value Range Interpretation Code Description Data Fadumo rce(s) Supporting Document(s) TROPONIN I <0.05 ng/mL (<0.05) [facility] [place] Less than 0.05: Myocardial injury unlike lyGreater than or equal to 0.05: Highly suggestive of myocardial injuryCorrelation with rise and/or fall ofserial troponins, clinical symptomsand ECG changes is necessary. ID Date Data Source [id number] 07/22/2020 10:41:02 PM EDT [facility] [place] Name Value Range Interpretation Code Description Data Fadumo rce(s) Supporting Document(s) WBC 6.4 10*3/uL (4.1-11.0) [facility] [place] [place] RBC 3.65 10*6/uL (4.00-5.40) L [facility] [place] HGB 10.9 g/dL (12.0-16.0) L [facility] [place] HCT 31.9 % (36.0-47.0) L [facility] [place] MCV 87.5 fL (80.0-95.0) [facility] [place] MCH 30.0 pg (27.0-32.0) [facility] [place] MCHC 34.2 g/dL (32.0-36.0) [facility] [place] RDW 14.3 % (10.5-14.5) [facility] [place] PLT 156 10*3/uL (150-450) [facility] [place] MPV 8.5 fL (7.1-10.7) [facility] [place] NEUT % 56.4 % (35.0-75.0) [facility] [place] LYMPH % 31.7 % (16.0-52.0) [facility] [place] MONO % 7.0 % (0.0-8.0) [facility] [place] EOS % 4.6 % (0.0-5.0) [facility] [place] BASO % 0.3 % (0.0-4.0) [facility] [place] NEUT # 3.6 10*3/uL (1.8-7.7) [facility] [place] LYMPH # 2.0 10*3/uL (1.2-4.8) [facility] [place] MONO # 0.4 10*3/uL (0.0-0.8) [facility] [place] Eosinophils [#/volume] in Blood by Automated count 0.3 10*3/uL (0.0-0 .5) [facility] BASO # 0.0 10*3/uL (0.0-0.2) Lab [facility] Y ID Date Data Source [id number] 07/18/2020 11:36:36 PM EDT Laboratory [facility] Name Value Range Interpretation Code Description Data Fadumo rce(s) Supporting Document(s) BUPRENORPH SCREEN UR (NEG) A Laborator y [facility] THIS IS A SCREENING IMMUNOASSAYTEST THAT IS REPORTED POSITIVEWHEN THE RESULT EXCEEDS THETHRESHOLD (CUTOFF) INDICATED. ACONFIRMATORY ANALYSIS ISREFLEXIVELY ORDERED ON SPECIMENSSCREENING POSITIVE AND MAYBE ADDED FOR UNEXPECTED NEGATIVERESULTS IF REQUESTED WITHIN 72 HRS.A LIST OF POTENTIAL INTERFERENCESIS AVAILABLE UPON REQUEST. ID Date Data Source [id number] 07/22/2020 03:52:18 PM EDT Laboratory [facility] Name Value Range Interpretation Code Description Data Fadumo rce(s) Supporting Document(s) BUPRENORPHINE UR 23 ng/mL Laboratory [facility] INTERPRETIVE INFORMATION: Buprenorphine and Metabolites, Urine, Quantitative [...] developed and its performance characteristics determined by [employer]. It has not been cleared or approved by the US Food and Drug Administration. This test was performed in a CLIA certified laboratory and is intended for clinical purposes. NORBUPRENORPHINE UR 667 ng/mL Laboratory [facility] BUPRENORPHINE GLUCU >1000 [facility] [place] - CORE Unit: ng/mL Consistent with use of a bup renorphine-containing drug. Glucuronide concentrations are semi-quantitative. NORBUPR GLUCURONIDE >1000 [facility] [place] - CORE Unit: ng/mL NALOXONE,URINE <100 ng/mL [facility] [place] - CORE Performed By: [facility] [address] [place] [address] Police Investigator: Sunita Vaca MD ID Date Data Source [id number] 07/18/2020 10:42:03 PM EDT [facility] [place] - CORE SPECIMEN DESCRIPTION MIDSTREAM UR INE,CLEAN CATCHCULTURE RESULTS <10,000 CFU/ML REPRESENTING URETHRAL [place] STATUS FINAL 07/20/2020 Name Value Range Interpretation Code Description Data Fadumo rce(s) Supporting Document(s) COLOR [facility] [place] - CORE APPEARANCE [facility] [place] - CORE SPEC GRAV URINE 1.030 (1.003-1.030) [facility] [place] - CORE PH URINE 5.5 (5.0-7.5) [facility] [place] - CORE LEUK ESTERASE (NEG) [...] [facility] - CORE URINE WBC (0-5) [facility] [place] - CORE URINE RBC (0-2) [facility] [place] - CORE EPITHELIAL CELLS 4+ [HPF] [facility] [place] - CORE BACTERIA 1+ [HPF] [facility] [place] - CORE MUCUS 2+ [HPF] [facility] [place] - CORE ID Date Data Source [id number] 07/20/2020 07:56:28 AM EDT [facility] [place] - CORE SPECIMEN DESCRIPTION MIDSTREAM UR INE,CLEAN CATCHCULTURE RESULTS <10,000 CFU/ML REPRESENTING URETHRAL [place] STATUS FINAL 07/20/2020 Name Value Range Interpretation Code Description Data Fadumo rce(s) Supporting Document(s) ID Date Data Source [id number] 07/13/2020 12:00:00 AM EDT [facility] Name Value Range Interpretation Code Description Data Fadumo rce(s) Supporting Document(s) 2019 Novel Coronavirus RNA Negative [facility] This lab was ordered by [facility] are and reported by [facility]. ID Date Data Source [id number] 07/04/2020 06:55:22 PM EDT [facility] SPEC EXP DATE 07/07/2020ATI ENT ABO/Rh O POSITIVEANTIBODY SCREEN NEGATIVETESTING SITE PERFORMED AT [address] COMMENT BLOOD TYPE CONFIRMED. SPECIMEN DESCRIPTION [...] Fadumo rce(s) Supporting Document(s) TEST NAME [facility] [employer] [address] [place] [address] RESULT [facility] ID Date Data Source [id number] 07/04/2020 06:55:27 PM EDT [facility] SPEC EXP DATE 07/07/2020ATI ENT ABO/Rh O POSITIVEANTIBODY SCREEN NEGATIVETESTING SITE PERFORMED AT [address] [place] [address]IPQOJ BANK COMMENT BLOOD TYPE CONFIRMED. SPECIMEN DESCRIPTION [...] CORE HGB 11.5 g/dL (12.0-16.0) L [facility] of [place] - CORE HCT 33.5 % (36.0-47.0) L [facility] [place] - CORE MCV 87.7 fL (80.0-95.0) [facility] [place] - CORE MCH 30.1 pg (27.0-32.0) [facility] [place] - CORE MCHC 34.3 g/dL (32.0-36.0) [facility] [place] - CORE RDW 14.0 % (10.5-14.5) [facility] [place] - CORE PLT 161 10*3/uL (150-450) [facility] [place] - CORE MPV 9.6 fL (7.1-10.7) [facility] of [place] - CORE NEUT % 66.1 % (35.0-75.0) [facility] [place] - CORE LYMPH % 25.4 % (16.0-52.0) [facility] [place] - CORE MONO % 4.8 % (0.0-8.0) [facility] [place] - CORE EOS % 3.2 % (0.0-5.0) [facility] [place] - CORE BASO % 0.5 % (0.0-4.0) [facility] [place] - CORE NEUT # 3.4 10*3/uL (1.8-7.7) Laboratory [facility] of [place] - CORE LYMPH # 1.3 10*3/uL (1.2-4.8) Laboratory [facility] of [place] - CORE MONO # 0.2 10*3/uL (0.0-0.8) Laboratory [facility] e of [place] - CORE Eosinophils [#/volume] in Blood by Automated count 0.2 10*3/uL (0.0-0 .5) [facility] BASO # 0.0 10*3/uL (0.0-0.2) Laboratory [facility] e of [place] - CORE ID Date Data Source [id number] 07/04/2020 07:55:40 PM EDT Laboratory Al [facility] of [facility] - CORE SPEC EXP DATE 1PATI ENT ABO/Rh O POSITIVEANTIBODY SCREEN NEGATIVETESTING SITE PERFORMED AT [address] [place] [address] BANK COMMENT BLOOD TYPE CONFIRMED. SPECIMEN DESCRIPTION [...] HEPATITIS B S AG @ (NEG) Laboratory [facility] ID Date Data Source [id number] 07/04/2020 08:00:05 PM EDT Laboratory [facility] of [facility] SPEC EXP DATE 07/07/2020ATI ENT ABO/Rh O POSITIVEANTIBODY SCREEN NEGATIVETESTING SITE PERFORMED AT [address] [place] [address] COMMENT BLOOD TYPE CONFIRMED. SPECIMEN DESCRIPTION MIDSTREAM [...] SCREEN @ (NEG) Laboratory [facility] of [facility] Testing performed using Siemens ADVIACen taur 4th gen CHIV combo assay.This assay detects the HIV1 p24 antigenin addition to antibodies to HIV1 and HIV2. ID Date Data Source [id number] 07/04/2020 08:06:53 PM EDT Laboratory [facility] of [facility] SPEC EXP DATE 07/07/2020ATI ENT ABO/Rh O POSITIVEANTIBODY SCREEN NEGATIVETESTING SITE PERFORMED AT [address] [place] [address] COMMENT BLOOD TYPE CONFIRMED. SPECIMEN DESCRIPTION MIDSTREAM [...] Supporting Document(s) TREPONEMA IGG/IGM @ (NEG) Laboratory [facility] ID Date Data Source [id number] 07/04/2020 08:07:03 PM EDT Laboratory [facility] of [facility] [employer] SPEC EXP DATE 07/07/2020ATI ENT ABO/Rh O POSITIVEANTIBODY SCREEN NEGATIVETESTING SITE PERFORMED AT [address] COMMENT BLOOD TYPE CONFIRMED. SPECIMEN DESCRIPTION [...] Supporting Document(s) GLUCOSE 73 mg/dL (70-99) [facility] ID Date Data Source [id number] 07/04/2020 08:07:03 PM EDT Laboratory [facility] of [email or web address] SPEC EXP DATE 07/07/2020ATI ENT ABO/Rh O POSITIVEANTIBODY SCREEN NEGATIVETESTING SITE PERFORMED AT [address] COMMENT BLOOD TYPE CONFIRMED. SPECIMEN DESCRIPTION [...] FREE THYROXINE @ 1.24 ng/dL (0.76-1.46) [facility] ID Date Data Source [id number] 07/04/2020 08:07:03 PM EDT Laboratory [facility] of [facility] SPEC EXP DATE 07/07/2020ATI ENT ABO/Rh O POSITIVEANTIBODY SCREEN NEGATIVETESTING SITE PERFORMED AT [address] [place] [address] BANK COMMENT BLOOD TYPE CONFIRMED. SPECIMEN DESCRIPTION [...] TSH,ULTRASENSITIVE @ 0.172 mIU/L (0.360-4.170) L [facility] ID Date Data Source [id number] 07/04/2020 08:16:30 PM EDT Laboratory [facility] of [facility] SPEC EXP DATE 07/07/2020ATI ENT ABO/Rh O POSITIVEANTIBODY SCREEN NEGATIVETESTING SITE PERFORMED AT [address] [place] [address] BANK COMMENT BLOOD TYPE CONFIRMED. SPECIMEN DESCRIPTION [...] Fadumo rce(s) Supporting Document(s) AMPHETAMINES,URINE (NEG) Laboratory [facility] BARBITURATES,URINE (NEG) [facility] BENZODIAZEPINE,URINE (NEG) A Laborator y [facility] SPECIMEN HAS BEEN SENT FOR CONFIRMATION. CANNABINOIDS,URINE (NEG) [facility] COCAINE,URINE (NEG) Laboratory [facility] OPIATES,URINE (NEG) Laboratory [facility] NOTE: Oxycodone is not sufficientlydetec joel by this screening assay. A moresensitive assay is available upon request. PHENCYCLIDINE,URINE (NEG) [facility] PLEASE NOTE: Laboratory [facility] of [facility] ARE REPORTED POSITIVE WHEN THE RESULT SEXCEED THE THRESHOLD (CUTOFF) INDICATED. ALIST OF POTENTIAL INTERFERENCES FOR EACHMETHOD CAN BE MADE AVAILABLE UPON REQUEST.A CONFIRMATORY ANALYSIS IS ORDERED ONALL DRUG CLASSES SCREENING POSITIVE BYTHIS METHOD.* * * * * * * * * * * * * * *THIS ASSAY IS NOT INTENDED TO BE USED FORMONITORING MEDICATION COMPLIANCE. ID Date Data Source [id number] 07/04/2020 09:12:57 PM EDT [facility] - CORE SPEC EXP DATE 1PATI ENT ABO/Rh O POSITIVEANTIBODY SCREEN NEGATIVETESTING SITE PERFORMED AT [address] [place] [address] BANK COMMENT BLOOD TYPE CONFIRMED. SPECIMEN DESCRIPTION [...] Data Fadumo rce(s) Supporting Document(s) COLOR [facility] - CORE APPEARANCE [facility] - CORE SPEC GRAV URINE 1.027 (1.003-1.030) [facility] [email or web address] - CORE PH URINE 6.0 (5.0-7.5) [facility] [email or web address] - CORE LEUK ESTERASE 2+ (NEG) A [...] CNY - CORE URINE WBC (0-5) [facility] [email or web address] [facility] - CORE URINE RBC (0-2) [facility] - CORE EPITHELIAL CELLS 2+ [HPF] [facility] BACTERIA 2+ [HPF] [facility] MUCUS 2+ [HPF] [facility] ID Date Data Source [id number] 07/05/2020 12:27:31 AM EDT [facility] - CORE SPEC EXP DATE 07/07/2020ATI ENT ABO/Rh O POSITIVEANTIBODY SCREEN NEGATIVETESTING SITE PERFORMED AT [address] [place] [address] COMMENT BLOOD TYPE CONFIRMED. SPECIMEN DESCRIPTION MIDSTREAM [...] rce(s) Supporting Document(s) ID Date Data Source [id number] 07/05/2020 12:49:38 PM EDT Laboratory [facility] of [facility] - CORE SPEC EXP DATE 07/07/2020ATI ENT ABO/Rh O POSITIVEANTIBODY SCREEN NEGATIVETESTING SITE PERFORMED AT [address] [place] [address] COMMENT BLOOD TYPE CONFIRMED. SPECIMEN DESCRIPTION MIDSTREAM [...] Name Value Range Interpretation Code Description Data [facility] rce(s) Supporting Document(s) RUBELLA IGG AB @ Laboratory [facility] of [facility] IgG antibody to Rubella detected. IgGan tibody levels are at a level consideredto indicate positive immunity. ID Date Data Source [id number] 07/05/2020 12:49:38 PM EDT Laboratory [facility] of [facility] SPEC EXP DATE 07/07/2020ATI ENT ABO/Rh O POSITIVEANTIBODY SCREEN NEGATIVETESTING SITE PERFORMED AT [address] COMMENT BLOOD TYPE CONFIRMED. SPECIMEN DESCRIPTION [...] Name Value Range Interpretation Code Description Data [facility]) VARICELLA ZOST IGG @ Laborator y [place] [facility] No IgG antibodies specific to VZV detect ed.Patient is presumed NOT to have had a previous exposure to VZV through infectionor vaccination. ID Date Data Source [id number] 07/05/2020 04:07:16 PM EDT Laboratory [facility] of [facility] SPEC EXP DATE 07/07/2020ATI ENT ABO/Rh O POSITIVEANTIBODY SCREEN NEGATIVETESTING SITE PERFORMED AT [address] COMMENT BLOOD TYPE CONFIRMED. SPECIMEN DESCRIPTION [...] lead poisoningprevention and management isavailable on the [facility] website. ID Date Data Source [id number] 07/06/2020 07:52:55 AM EDT Laboratory [facility] - CORE SPEC EXP DATE 07/07/2020ATI ENT ABO/Rh O POSITIVEANTIBODY SCREEN NEGATIVETESTING SITE PERFORMED AT [address] [place] [address] COMMENT BLOOD TYPE CONFIRMED. SPECIMEN DESCRIPTION MIDSTREAM [...] rce(s) Supporting Document(s) ID Date Data Source [id number] 07/06/2020 12:37:08 PM EDT Laboratory [facility] of [facility] - CORE SPEC EXP DATE 07/07/2020ATI ENT ABO/Rh O POSITIVEANTIBODY SCREEN NEGATIVETESTING SITE PERFORMED AT [address] [place] [address] COMMENT BLOOD TYPE CONFIRMED. SPECIMEN DESCRIPTION MIDSTREAM [...] Name Value Range Interpretation Code Description Data [facility] rce(s) Supporting Document(s) HGB A1 95.6 % (94.3-98.5) Laboratory [facility] HGB A2 3.1 % (1.5-3.7) Laboratory [facility] HGB F 1.3 % (0.0-2.0) Laboratory [place] [facility] HGB EVALUATION Laboratory [facility] of [facility] HGB EVALUATION BY HPLC PLEASE NOTE:PA TIENTS WITH A COMBINATION OF IRONDEFICIENCY ANEMIA AND BETA-THALASSEMIATRAIT MAY CLINICALLY PRESENT WITH ANORMAL HGB A2 LEVEL. ID Date Data Source [id number] 07/08/2020 10:21:58 PM EDT Laboratory [facility] of [facility] - CORE SPEC EXP DATE 07/07/2020ATI ENT ABO/Rh O POSITIVEANTIBODY SCREEN NEGATIVETESTING SITE PERFORMED AT [address] [place] [address] COMMENT BLOOD TYPE CONFIRMED. SPECIMEN DESCRIPTION MIDSTREAM [...] Document(s) DIAZEPAM,URINE <20 Laboratory [facility] of [facility] Unit: ng/mL Cutoff: 20 ng/mL NORDIAZEPAM,URINE <20 Laboratory [facility] of [facility] Unit: ng/mL Cutoff: 20 ng/mL OXAZEPAM,URINE <20 Laboratory [facility] of [facility] Unit: ng/mL Cutoff: 20 ng/mL TEMAZEPAM,URINE <20 Laboratory [facility] of [facility] Unit: ng/mL Cutoff: 20 ng/mL LORAZEPAM,URINE <20 Laboratory [facility] of [facility] Unit: ng/mL Cutoff: 20 ng/mL ALPRAZOLAM,URINE 405 Laboratory [facility] of [facility] Unit: ng/mL Consistent with use of a lópez g containing alprazolam, such as Xanax. Cutoff: 5 ng/mL ALPHA [place] ALPRAZOLAM >1000 Laboratory [place] [facility] Unit: ng/mL Alprazolam metabolite; consi stent with use of a drug containing alprazolam, such as Xanax. Cutoff: 5 ng/mL CLONAZEPAM,URINE <5 Laboratory [facility] of [facility] Unit: ng/mL Cutoff: 5 ng/mL 7 AMINOCLONAZEPAM U 43 Laboratory [place] [facility] Unit: ng/mL Clonazepam metabolite; consi stent with use of a drug containing clonazepam, such as Klonopin. Cutoff: 5 ng/mL MIDAZOLAM,URINE <20 Laboratory [facility] Unit: ng/mL Cutoff: 20 ng/mL CHLORDIAZEPOXIDE <20 Laboratory [facility] of [facility] - CORE Unit: ng/mL Cutoff: 20 ng/mL ALPHA [place] MIDAZOLAM <20 Laboratory [place] [facility] Unit: ng/mL Cutoff: 20 ng/mL INTERPRETIV E [...] developed and its performance characteristics determined by [employer]. It has not been cleared or approved by the US Food and Drug Administration. This test was performed in a CLIA certified laboratory and is intended for clinical purposes. Performed By: [employer] [address] [place] [id number] Police Investigator: Sunita Vaca MD ID Date Data Source [id number] 04/21/2020 12:37:00 AM EST [facility] Name Value Range Interpretation Code Description Data Fadumo rce(s) Supporting Document(s) COLOR,UR SONJA YELLOW A [facility] APPEARANCE,UR SL CLOUDY CLEAR [facility] PH,UR 5.0 5.0-8.0 [facility] SPECIFIC GRAVITY,UR 1.026 1.002-1.035 N [facility] PROTEIN,UR NEGATIVE MG/DL NEGATIVE [facility] GLUCOSE, UR NEGATIVE MG/DL NEGATIVE [facility] KETONES,UR NEGATIVE MG/DL NEGATIVE [facility] OCCULT BLOOD,UR NEGATIVE NEGATIVE [facility] NITRATE,UR NEGATIVE NEGATIVE [facility] LEUKOCYTE ESTERASE ,UR NEGATIVE NEGATIVE [facility] BILIRUBIN,UR SMALL NEGATIVE A [facility] UROBILINOGEN,UR 4.0 EU MG/DL NEG-0-1.0 A [facility] ID Date Data Source [id number] 04/21/2020 12:44:00 AM EST [facility] Name Value Range Interpretation Code Description Data Fadumo rce(s) Supporting Document(s) OPIATE SCREEN NEG NEGATIVE [facility] Minimum Detectable Limit is 300 ng/mL. BARBITURATE SCREEN NEG NEGATIVE [facility] Minimum Detectable Limit is 300 ng/mL. PHENCYCLIDINE SCREEN NEG NEGATIVE [facility] Minimum Detectable Limit is 25 ng/mL. AMPHETAMINE SCREEN NEG NEGATIVE [facility] Minimum Detectable Limit is 1000 mg/mL. BENZODIAZEPINE SCREEN POS NEGATIVE [facility] Mininum Detectable Limit is 300 ng/mL. COCAINE SCREEN NEG NEGATIVE [facility] Minimum Detectable Limit is 300 ng/mL. CANNABINOID SCREEN NEG NEGATIVE [facility] Minimum Detectable limit is 50 ng/dL. HEROIN SCREEN NEG NEGATIVE [facility] Minimum Detectable limit is 10 ng/dL. A ll POSITIVE or BORDER results are unconfirmed. Please contact the laboratory if a reference testing confirmation is needed. ID Date Data Source [id number] 04/20/2020 10:08:22 PM EST [facility] Name Value Range Interpretation Code Description Data Faudmo rce(s) Supporting Document(s) [facility] [file] O4HatdixDEEWVcYBXEZLYXXWENOGNZYNLQAQWQXPMDFZYKOFFYJFYLVIHKPZOORQHYMKSBPITCYUIOGS ULMPRAAIHIWHIBSOTKYKb3ah7220uj4H7KrAlR9CpcWmmrIYzaohbJcZBYUqYgaXegYrlzph9zs2+yXU wJNYsz70fUvE8LFibUk6Ad8WPGrppnpj0Hixnf7sf+ syL3nissGjX+GGfOlo6uIwsKE9EuR/8ACwP+q4f+Wn/4gZA5Sra5sqBvOFlyK3TnDesI2smjj0Py6fMQ svVoq5Utxsn/5PrkzM9lPcae76u8dTS5hFdoHffcifJzZ0Tc7BNZX8vRtlYOviFFVMLKpTocsx9Q0nY7 ghtaaXxgWa9S5GRip0n/ANGtzmPP+uHQLk6mGwCr+z 2+XYLqjVkFy08MN+RzXpS2b/mGxOR05ftZFa4OYHrgvrfvcMZo0oBq7grY6IBmCf/4JnwIF4nKOFa7kH RNhzfb1REQPaWBNFDZ0/e98UAWDdqyebuCQN66OvgNCpkjU54PyvfqD85EnxGJKLl89e7B4K9NJwkFjg nv+Q6w1751Ukbz3spmHP9lizkvLAMzR/6s7Vwp CFoosxFXv8FYBBwhmnchS4zq811Cf/xDjd/r3aUI0gKxzaSbRQxo8gZtmysLh9JrRinqdNh/tpf77YrS J1QspA0qfnssKASgpZQfWQfEru6zCuhkvp/9FgufQ4tUfta71eH+PCxr7k5Z85Y9ehO6xqyYWD8lkdRN GTa55B06GDDFiPT4yY9+V+6gCQ72zo109HOopJslvP L8LsKQKQSwUdbqli4ubANt1l6NymqfaxdY97Iql7HkpnU75XjjitR26JmkEbsgcP/hhsWsgI20y0BA7b JFnxH/FMGvoWvl7LfumF6tOkJQ8wt8TzYNnDLYSlaXJ9tKkDPyD+3dHFg498HuuC3pbcd7/sGgTXJO84 SvyUT1YFBh9p8QctkhqfhZ16Hwx6JPyEmM/t4ELeU3 6q37hs27bNlO0+V+1xWL06et391BRlXczS2ICtFp0XCfivaUJni3QYHzaJR0q3fWcDjhavrUtgauyXy8 O1O4MdckA/172SYVQXbahXBQBK2e29fDEnhSfABAnqADLt186wer281hBT368++8oZ5zaKoUduala1FD 42o97G4i6I8n44glTwfYo3Xsq4TXDEUA6vI3jKJFst UklfuOaQfs92xviO5P1shV4+sFfMuzBmWNQ6smaKnyMd7HS2oYFtXk/eQd99tVpjL86Plu4awhhs6/dR vQVTF46YltGrA21t6mKnv73NJcd5zyU7hBGgZoY/i3TDaJ78p04le45rOwLDuU/mHVvcjV5nJuch49xL unIvtxioWooniP14Epjnn6X3aY1luuaeOmqJNOQoz9 [file] occupational therapy aide+PAaOd1g+x53ttyATn84+3ZJoNkHtQL2D0S5MDeDf76Uu0Nl7eFnlY1LtwCmcyVh+pyAaQmjH+DTNN [file] rwFhqT8F1kiwDLJMGqSSFVHJOPYJVJQNWQGRFBROOABYOVCPPOGPUDAPUMZUOEFCZXWJPKIVAWSNVYXM JCIIWUHXULGPPYBVNBHPFAVSUZOKu59x+/el8HRw5QyBFAuzc0PT/DQUUUVRuFeTfG/wD1Oi/Wb/2Sii plsY1/7dBYfRSVlRVMfsxuI1W0Wi6APb7Q/r2H/oQr 7ognqW8Hx8f4DQFWNAnsVf4et/1Oi/Wb/wBkooqZbGNf+Kdb4fhNJKT0HKTTDGigaRS/AJDuo/8AXsP/ YHQV8PRIPzvb50E3FVgzkdLktmq43/6nRfrN/wCyUUVMtjGv/PS09X0QFfqAQRZFPZ0O+Cn/ACHdR/69 h/8KZ3tslwQQp1MH+PIAZNES0K7T1m/9Tov1m/8AZK KKmWxjX/gm0gi81HEycGBFRPYNxnxQP/kO6j/17D/6RC5FIZBuvl50I5IIsenvJtmjl69/BYn0R5qp+y TJCWdyUu3Ic3nF6l6OFmRWBuVAXYMEPsr/yHdR/tZhDr5RnAv0abenL1Od6m4NHESHCtrJp5rx/wBTov 1m/wDZKKKmWxjX/mk0rwtZTgXSPtreiP5D+Cn/ACHd R/69h/6LD8vrvxJDo3bF+SBSKGAV3Aj+G/8AkJP/ANcj/ESRZW1Zn/6VGviVCIAQB2WMUTSQVEMAVVIX RQAUUUUAFFFFABRRRQAUUUUAFFFFABRRRQAUUUUAFFFFABRRRQAUUUUAFFFFABRRRQAUUUUAf//ZDQpl fcRtmNHgQT8LFxGzJK4mkj2XQXQzQSFzJawZAdu5L5 E7bKRbY2JlY3ZaH13hYy3QgMOwyPK5NE8OmGa6IULqIklibCASZOYzZTVmMUKsX5EzYHN6Dh8+DQpzdH SnJM0GLrkniKAtK6LrPKR2od2wOoxMqbz6dYEgMXDJe2ITKK0VOdDC2l7ecjwucCBgb5+99xKMIABMIE bNQQ1XcDhQDZz6KRXUyWToYhZYXFyFgyGXDwOVQCI5 SeM4YZF0iqc0Z3sEdGnWq4Vubbf2zkuO2Jg1AJJJHlUHin6X7oHwdQQBq5nPW4X75k3Uw2XohbmRAbzz Zk8YKvI7hqpsFuxalF/mXvLBi1ROj6P37lyZa5ovij0b+3jzZaVW7moz6syRLY0TBC0yi9BjKYOkJAzy bxAaZcoBExL2KGIph9MgBGq7EU6Nee4upAIcxwv+/w SWHEeRGeIsKU5VvoIgEYYKpSBoQLXQIkJdCFLYhLEgCVAIRVTCSO5YxkLcHFQOXjCbISJTHzjcC9JjTC Rvcij+/gJUULhHNgKcZJ0EwyReVVMVsOLvHAFPCzNsFZIZqLMcQVIZLFNBUT6LtmSlZMMMWtHkOBNWRr teR3ZuTEUzl82AKUVjWBT7UfEgYHSmHqZrJwE5UkMt AG2Sw8MOVSPjUMM9HiNaHTQzRsUsQxV4LzJnWO4+WNalrvBuAghMMnL3HEPwg3DfZTirBEH4PQ3mHWuk ykTaAlmTBnGjGEIhx5SmQWyjKVY4ST7tKEblspRaJavPQqYoIXCiu5NkVUo3QW3XrDLwH5jJHHFkQ8n7 YHVtNT4FYgMaHFHiZk0gJ8Fus8TmFPUgTLTwFI7yai YkAATeCOIaDJCsUORYXsF2MvZlZ9PgKdZCYHn7KCNPX7PxBBO8BFtwSkBuKgg7BtCEPJH6GKmLAMXJFT M4KPwQJMBUJWACJKi4CgIIMD0kJC8VtIg5DRLiYgmbwDDGJVXuONOuEDEjP8KgCLi3Md3DHgR3hlWmaN 0KeJxjYACC//7NvwAuLhKKauCPF6EZ73XbjVDiWMSS BEMjwSOOQG2HladM8CSnUIlZMRIkpFRBNVvDQpmLdMYJLhZ2eCfC8BbOl8et3btNnxTIHCeJNX6Uyy5K PG3hh4GnWGXcXKerqdGpBehOErdqLKWBMaQuPbBMNcUcIKXsKBFhEFBlKhC0MhVzYt1EZCMcLHLdIREs RdBdBNZmSUOvQLysJTZuFHVnHTW0FEGuCLJgTZ3FOq AnMCCrLCPaZATwNLGpTBPlmr7FWNQiQTCfSDH9LNQtRXXhWCYfXEmhFFWoDOWpHxT9XUVrERTiOG9PFm JjMPUdERB5BGWvVFYaSJMcbu1QKVTlYLXgKIX6RJYnWUGgMLOaGOxmMNHqNYCrAoJ6ZKDjZINzPK0NDz NrGFRdTEL8CwBqMPWzAAZnzd4KAXLxUCFgBJBkDFW4 XBGbITLyIWbrGJDlFAWaAAZiGOO9GMH1TAZGTeKvPPLeLEKtOILxOzP4RoReJc3RZUPqSIBbZJNgKLK0 QZPqQYPtMInwPJLoYSAfZKR2HXF5OTG3BLYTFzUoEKHqTRDtHSNjQbW0VpUdRc6UEZDwHJBfLVEkJjT4 DOCjPDWnXOmaMOLnGETpKXJyALB6AHL6PXEKNnOfGC LdJZpsAppeQQYyCFHdvp3QZUOfEDErRmZ2KIQuBKXkARVbRDnxBCLbDtE8LzAqKQRqMFDgXD8BXzTqCC AjEHx5QXwzCZHgRXMbyi9UnWNnmSvpvu8GAIrgK3q1MGPmSy9Mp993YJPbFRABR6xyRn8kHJemXMRSK2 oRAje4XdTPWES3XWoQVQMTJOJ9GLrCSWBOZNDJCJa3 UvIVNN27PMY3EsiVMXK2JdJZKmG8EJk8TFJODoAxMuD9AIYQLkX+XSA+Mc3Za7FnkfU0vtBpPRruFKc7 GouOOhFkXV2LPMv2ybXcKAmgTOTXJaYpVSwpMXPSSme5N0OduyWdCbIzPi5ewOMfWRWzDk7AjkKtPJA9 AXTuEb1FGLi3JJD3WfoRNDH7UeHOFzV1YVh8PDEOWf UtXlD0KAQCOgN+WCGFEqS9OcXaO2ScBwPNJSn0OGLJU9DqNTU5RMssZsEaBg8hQ9UaIBCiTyY7ZIR2R1 iHICFAiJ5oHjW0RzA8Lx9JZdI1TTG1qKDfXw8SLhL3FWF4QGtsXLKYBt== ID Date Data Source "" 04/20/2020 10:08:00 [place] [address] Patient Name: Carlos Aguilar Exam Date: 04/20/20 : 1990 CC: EKG/ECG in ED Ordering Doctor: Missy Cheung MD Attending Doctor: Missy Cheung MD CC: EKG/ECG in ED APPROVED REPORT ECG MEASUREMENT Heart Rate 61 AXES AR 158 P 48 QRSd 86 QRS 73 QT 434 T 55 QTc 438 INTERPRETATION SINUS RHYTHM NO ACUTE ISCHEMIA NORMAL ECG <Conclusion> SINUS RHYTHM NO ACUTE ISCHEMIA NORMAL ECG End of diagnostic report for accession: [id number] Interpreted: Missy Cheung MD 04/20/202207 Transcribed: Signed: Missy Cheung MD 04/20/202207 Interpreted by: Missy CheungTranscribed by: Missy Cheung Name Value Range Interpretation Code Description Data Fadumo rce(s) Supporting Document(s) ID Date Data Source [id number] 04/24/2020 08:39:00 AM EST [facility] Name Value Range Interpretation Code Description Data Fadumo rce(s) Supporting Document(s) HEPATITIS A ANTIBODY, IgM,S Negative Negative [facility] HEPATITIS A ANTIBODY, Total,S Negative Negative [facility] HEPATITIS B SURF ANTIGEN SCRN Negative Negative [facility] HEPATITIS B CORE ANTIBODY,IGM Negative Negative [facility] HEP B CORE ANTIBODY,TOTAL Negative [facility]TIBODY Non Reactive . [facility] Non Reactive: Inconsisten t with immunity, less than 10 mIU/mL Reactive: Consistent with immunity, greater than 9.9 mIU/mL Verified by repeat analysis HCV Ab,S >11.0 s/co ratio 0.0-0.9 A [facility] HCV COMMENT [facility] Strong reactive antibody screen (s/c ra renetta >10.9) is consistent with past or present HCV infection. Follow-up testing by HCV, Quantitative, Real time PCR (#[id number]) is recommended to determine viral load/diagnosis of current HCV infection. Performed at: [facility] [id number] Grease Cup Filler: Helene Mccoy MD, Phone: [phone] ID Date Data Source [id number] 04/20/2020 08:20:00 PM EST [facility] Name Value Range Interpretation Code Description Data Fadumo rce(s) Supporting Document(s) Coronavirus 2 (SARS-CoV-2) NOT-DETECTED [facility] This lab was ordered by [facility] and reported by [facility]. ID Date Data Source [id number] 04/20/2020 10:31:00 PM EST [facility] Name Value Range Interpretation Code Description Data Fadumo rce(s) Supporting Document(s) ADENOVIRUS Not Detected NotDetected [facility] CORONAVIRUS 229E Not Detected NotDetected [place] This is NOT the novel coronavirus COVID -19 CORONAVIRUS HKU1 Not Detected [facility] This is NOT the novel coronavirus COVID -19 CORONAVIRUS NL63 Not Detected NotDetected [place] [facility] This is NOT the novel coronavirus COVID -19 CORONAVIRUS OC43 Not Detected [facility] This is NOT the novel coronavirus COVID -19 HUMAN METAPNEUMOVIRUS Not Detected NotDetected [facility] HUMAN RHINOVIRUS/ENT Not Detected NotDetected [facility] INFLUENZA A Not Detected NotDetected [facility] INFLUENZA B Not Detected NotDetected [facility] PARAINFLUENZA VIRUS 1 Not Detected NotDetected [facility] PARAINFLUENZA VIRUS 2 Not Detected NotDetected [facility] PARAINFLUENZA VIRUS 3 Not Detected NotDetected [facility] PARAINFLUENZA VIRUS 4 Not Detected NotDetected [facility] RESPIRATORY SYNCY VIR Not Detected NotDetected [facility] BORDETELLA PARAPERTUS Not Detected NotDetected [facility] BORDETELLA PERTUSSIS Not Detected NotDetected [facility] CHLAMYDIA PNEUMONIAE Not Detected NotDetected [facility] MYCOPLASMA PNEUMONIAE Not Detected NotDetected [facility] The Respiratory Panel is a multiplexed nucleic acid/PCR test. A negative result does not rule out the presence of PCR inhibitors in the patient sample or assay-specific nucleic acid concentrations below the level of detection by the assay. Coronavirus 2 (SARS-CoV-2) NOT-DETECTED NOTDETECTED [facility] THIS IS THE NOVEL CORONAVIRUS COVID-19 ID Date Data Source [id number] 04/20/2020 09:24:00 PM [facility] Has Patient Fasted For The Past 12 Hour s? N Has Patient Fasted For The Past 12 Hour s? N Has Patient Fasted For The Past 12 Hour s? N Has Patient Fasted For The Past 12 Hour s? N Name Value Range Interpretation Code Description Data Fadumo rce(s) Supporting Document(s) WHITE BLOOD COUNT 6.90 10^3/uL 4.00-10.50 N [facility] RED BLOOD COUNT 4.24 10^6/uL 3.90-5.20 N [facility] HEMOGLOBIN 12.6 G/DL 11.5-15.6 [facility] HEMATOCRIT 38.4 % 35.0-46.0 [facility] MCV 90.6 FL 80.0-100.0 [facility] MCH 29.7 PG 27.0-34.0 [facility] MCHC 32.8 G/DL 32-36 N [facility] RDW 14.2 % 11.5-14.5 N [facility] PLATELET COUNT 182 10^3/uL 130-400 N [facility] MPV 10.2 FL 8.7-13.2 N [facility] GRAN % (AUTO) 37.5 % 42.0-75.0 L [facility] LYMPH % (AUTO) 45.2 % 20.0-51.0 N [facility] MONO % (AUTO) 9.3 % 2.0-15.0 N [facility] EOS % (AUTO) 7.5 % 0.0-11.0 N [facility] BASO % (AUTO) 0.4 % 0.0-2.0 N [facility] IG % (AUTO) 0.1 % 1.00-5.00 [facility] IG # (AUTO) 0.0 10^3/uL <0.5 [facility] GRAN # (AUTO) 2.58 10^3/uL 1.50-6.50 N [facility] LYMPH # (AUTO) 3.1 k/uL 1.0-5.0 N [facility] MONO # (AUTO) 0.64 k/uL 0.20-1.50 N [facility] EOS # (AUTO) 0.52 10^3/uL 0.00-1.10 N [facility] BASO # (AUTO) 0.03 10^3/uL 0.00-0.20 N [facility] ID Date Data Source [id number] 04/20/2020 09:30:00 PM EST [employer] Has Patient Fasted For The Past 12 Hour s? N Has Patient Fasted For The Past 12 Hour s? N Has Patient Fasted For The Past 12 Hour s? N Has Patient Fasted For The Past 12 Hour s? N Name Value Range Interpretation Code Description Data Fadumo rce(s) Supporting Document(s) HCG QUALITATIVE SPECIMEN SERUM [employer] ID Date Data Source [id number] 04/20/2020 09:42:00 PM EST [employer] Has Patient Fasted For The Past 12 Hour s? N Has Patient Fasted For The Past 12 Hour s? N Has Patient Fasted For The Past 12 Hour s? N Has Patient Fasted For The Past 12 Hour s? N Name Value Range Interpretation Code Description Data Fadumo rce(s) Supporting Document(s) SODIUM 142 MEQ/L 135-145 [facility] POTASSIUM 3.5 MEQ/L 3.5-5.3 N [facility] CHLORIDE 108 MEQ/L 94-110 [facility] CARBON DIOXIDE 31 MEQ/L 22-33 [facility] ANION GAP 7 5-16 N [facility] BLOOD UREA NITRO 9 MG/DL 7-25 N [facility] CREATININE 0.7 MG/DL 0.6-1.4 N [facility] GFR > 90.0 ML/MIN [facility] Stage G1 - Normal or high kidney functi on The GFR is an estimate of the Glomerular Filtration Rate. It is an aid to assess a patient's renal function. It is not a conclusive diagnosis of kidney disease. GFR normal is >=90 The MDRD GFR calculation is considered valid between the ages of 18 and 75 years only. BUN/CREAT RATIO 12 8-36 [facility] GLUCOSE 79 MG/DL 70-100 [facility] CA 9.1 MG/DL 8.7-10.5 [facility] BILIRUBIN,TOTAL 0.3 MG/DL 0.1-1.3 [facility] AST 248 U/L 5-40 H [facility] ALT 242 U/L 5-48 H [facility] ALKALINE PHOSPHATASE 84 U/L 40-[address] [facility] alth TOTAL PROTEIN 7.7 G/DL 5.9-8.3 [facility] ALBUMIN 4.3 G/DL 3.0-5.1 [facility] GLOBULIN 3.4 G/DL 1.5-3.5 [facility] ALB/GLOB RATIO 1.3 G/DL 1.0-3.0 [facility] ID Date Data Source [id number] 04/20/2020 09:30:00 PM EST [facility] Has Patient Fasted For The Past 12 Hour s? N Has Patient Fasted For The Past 12 Hour s? N Has Patient Fasted For The Past 12 Hour s? N Has Patient Fasted For The Past 12 Hour s? N Name Value Range Interpretation Code Description Data Fadumo rce(s) Supporting Document(s) HCG RESULT,S NEGATIVE [facility] Reference range is Negative "Extreme" early may have low levels of HCG present. If is suspected, repeat testing with a new specimen in 48-72 hours ID Date Data Source [id number] 04/20/2020 09:42:00 [facility] Fasted For The Past 12 Hour s? N Has Patient Fasted For The Past 12 Hour s? N Has Patient Fasted For The Past 12 Hour s? N Has Patient Fasted For The Past 12 Hour s? N Name Value Range Interpretation Code Description Data Fadumo rce(s) Supporting Document(s) SALICYLATE < 3.0 MG/DL 2.8-20.0 N [facility] ID Date Data Source [id number] 04/20/2020 09:42:00 PM EST [facility] Has Patient Fasted For The Past 12 Hour s? N Has Patient Fasted For The Past 12 Hour s? N Has Patient Fasted For The Past 12 Hour s? N Has Patient Fasted For The Past 12 Hour s? N Name Value Range Interpretation Code Description Data Fadumo rce(s) Supporting Document(s) ACETAMINOPHEN < 2.0 UG/ML 10-30 L [facility] High levels of N-acetylcysteine (used t o treat Acetaminophen overdose) may cause interference and cause a negative bias in the Acetaminophen result. ID Date Data Source [id number] 04/20/2020 09:42:00 PM [facility] Has Patient Fasted For The Past 12 Hour s? N Has Patient Fasted For The Past 12 Hour s? N Has Patient Fasted For The Past 12 Hour s? N Has Patient Fasted For The Past 12 Hour s? N Name Value Range Interpretation Code Description Data Fadumo rce(s) Supporting Document(s) BLOOD ALCOHOL < 0.03 % <0.03 [facility] ID Date Data Source [id number] 01/25/2020 04:35:00 PM EDT [facility] Name Value Range Interpretation Code Description Data Fadumo rce(s) Supporting Document(s) Creatinine [Moles/volume] in Vitreous fluid 139.4 mg/dL No rmal Creatinine [facility] ([facility]) Nitrite [Presence] in Urine by Test strip 47.6 mcg/mL Norm al Nitrite [facility] ([facility]) pH of Vaginal fluid by Test strip 6.8 Normal pH [facility] ([facility]) Amphetamines [Presence] in Unknown substance by Confirmatory met hod 0 ng/mL Normal Amphetamines [facility] ([facility]) Barbiturates [Mass/volume] in Saliva (oral fluid) by Screen meth od 0 ng/mL Normal Barbiturates [place] ([facility]) Cocaine Metabolites 0 ng/mL Normal Cocaine Metabolites [facility] ([facility]) Meprobamate [Mass/volume] in Blood by Confirmatory method 0 ng/mL Normal Meprobamate [place] ([facility]) Tramadol [Presence] in Blood by Screen method 0 ng/mL N ormal Tramadol [facility] ([facility]) Meperidine Metabolite 0 ng/mL Normal Meperidine Met abolite [facility] ([facility]) Methadone [Moles/volume] in Unspecified specimen 0 ng/mL Normal Methadone [place] ([facility]) Fentanyl [Z-score] in Urine 0 ng/mL Normal Fentanyl [facility] [place] ([facility]) Oxycodone/Oxymorphone 0 ng/mL Normal Oxycodone/Oxym orphone [place] ([facility]) Opiates - Basic 0 ng/mL Normal Opiates - Basic [facility] ([facility]) 6-Acetylmorphine (Heroin) 0 ng/mL Normal 6-Acetylmo rphine (Heroin) [place] ([facility]) Phencyclidine (PCP) 0 ng/mL Normal Phencyclidine (PCP) [place] ([facility]) Propoxyphene [Presence] in Meconium by Screen method 0 ng/mL Normal Propoxyphene [facility] [facility]) Ecstasy Analogs 0 ng/mL Normal Ecstasy Analogs [place] ([facility]) Marijuana Metabolite 0 ng/mL Normal Marijuana Metab olite [place] ([facility]) Oxazepam [Moles/volume] in Unspecified specimen 0 ng/mL Normal Oxazepam [place] ([facility]) Lorazepam [Moles/volume] in Unspecified specimen 0 ng/mL Normal Lorazepam [place] ([facility]) Nordiazepam [Moles/volume] in Unspecified specimen 0 ng/mL Normal Nordiazepam [place] ([facility]) Temazepam [Moles/volume] in Unspecified specimen 0 ng/mL Normal Temazepam [place] ([facility]) Nitrazepam Metabolite 0 ng/mL Normal Nitrazepam Met abolite [place] ([facility]) Flunitrazepam Metabolite 0 ng/mL Normal Flunitrazep am Metabolite [place] ([facility]) Clonazepam Metabolite 0 ng/mL Normal Clonazepam Met abolite [place] ([facility]) Flurazepam Metabolite 0 ng/mL Normal Flurazepam Met abolite [place] ([facility]) Triazolam Metabolite 0 ng/mL Normal Triazolam Metab olite [place] ([facility]) Alprazolam Metabolite See Note ng/mL Normal Alprazolam Metabolite [place] ([facility]) Note: Consistent Present below cut off.P rescribed drug was detected. Midazolam Metabolite 0 ng/mL Normal Midazolam Metab olite [place] ([facility]) Estazolam [Mass/volume] in Urine by Confirmatory method 0 ng/mL Normal Estazolam [place] ([facility]) Methylphenidate Metabolite >1500 ng/mL Normal Methylph enidate Metabolite [place] ([facility]) Note: Consistent Prescribed drug was det ected. Gabapentin [Mass/volume] in Urine by Confirmatory method 599 ng/ mL Abnormal (applies to non-numeric results) Gabapentin [place] ([facility]) Note: Inconsistent Unprescribed drug was detected. Pregabalin [Presence] in Urine by Screen method 0 ng/mL Normal Pregabalin [place] ([facility]) Tapentadol [Presence] in Blood by Screen method 0 ng/mL Normal Tapentadol [place] ([facility]) Norbuprenorphine [Mass/mass] in Meconium by Confirmatory method 1462.7 ng/mL Normal Norbuprenorphine [place] ([facility]) Note: Consistent Prescribed drug was det ected. Buprenorphine [Presence] in Blood by Screen method 251.3 ng/mL Normal Buprenorphine [place] ([facility]) Note: Consistent Prescribed drug was det ected. ID Date Data Source [id number] 01/02/2020 06:44:00 PM EDT [place] ([facility]) Name Value Range Interpretation Code Description Data Fadumo rce(s) Supporting Document(s) Creatinine [Moles/volume] in Vitreous fluid 64.8 mg/dL Nor mal Creatinine [place] ([facility]) pH of Vaginal fluid by Test strip 6.5 Normal pH [place] ([facility]) Nitrite [Presence] in Urine by Test strip 49.5 mcg/mL Norm al Nitrite [place] ([facility]) Amphetamines [Presence] in Unknown substance by Confirmatory met hod 0 ng/mL Normal Amphetamines [place] ([facility]) Cocaine Metabolites 0 ng/mL Normal Cocaine Metabolites [place] ([facility]) Barbiturates [Mass/volume] in Saliva (oral fluid) by Screen meth od 0 ng/mL Normal Barbiturates [place] ([facility]) Tramadol [Presence] in Blood by Screen method 0 ng/mL N ormal Tramadol [place] ([facility]) Meprobamate [Mass/volume] in Blood by Confirmatory method 0 ng/mL Normal Meprobamate [place] ([facility]) Fentanyl [Z-score] in Urine 0 ng/mL Normal Fentanyl [place] ([facility]) Meperidine Metabolite 0 ng/mL Normal Meperidine Met abolite [place] ([facility]) Opiates - Basic 0 ng/mL Normal Opiates - Basic [place] ([facility]) Methadone [Moles/volume] in Unspecified specimen 0 ng/mL Normal Methadone [place] ([facility]) 6-Acetylmorphine (Heroin) 0 ng/mL Normal 6-Acetylmo rphine (Heroin) [place] ([facility]) Oxycodone/Oxymorphone 0 ng/mL Normal Oxycodone/Oxym orphone [place] ([facility]) Propoxyphene [Presence] in Meconium by Screen method 0 ng/mL Normal Propoxyphene [place] ([facility]) Phencyclidine (PCP) 0 ng/mL Normal Phencyclidine (PCP) [place] ([facility]) Ecstasy Analogs 0 ng/mL Normal Ecstasy Analogs [place] ([facility]) Marijuana Metabolite 0 ng/mL Normal Marijuana Metab olite [place] ([facility]) Oxazepam [Moles/volume] in Unspecified specimen 0 ng/mL Normal Oxazepam [place] ([facility]) Lorazepam [Moles/volume] in Unspecified specimen 0 ng/mL Normal Lorazepam [place] ([facility]) Nordiazepam [Moles/volume] in Unspecified specimen 0 ng/mL Normal Nordiazepam [place] ([facility]) Temazepam [Moles/volume] in Unspecified specimen 0 ng/mL Normal Temazepam [place] ([facility]) Clonazepam Metabolite 0 ng/mL Normal Clonazepam Met abolite [place] ([facility]) Nitrazepam Metabolite 0 ng/mL Normal Nitrazepam Met abolite [place] ([facility]) Triazolam Metabolite 0 ng/mL Normal Triazolam Metab olite [place] ([facility]) Flunitrazepam Metabolite 0 ng/mL Normal Flunitrazep am Metabolite [place] ([facility]) Alprazolam Metabolite See Note ng/mL Normal Alprazolam Metabolite [place] ([facility]) Note: Consistent Present below cut off.P rescribed drug was detected. Flurazepam Metabolite 0 ng/mL Normal Flurazepam Met abolite [place] ([facility]) Midazolam Metabolite 0 ng/mL Normal Midazolam Metab olite [place] ([facility]) Gabapentin [Mass/volume] in Urine by Confirmatory method 1373 ng /mL Abnormal (applies to non-numeric results) Gabapentin [place] ([facility]) Note: Inconsistent Unprescribed drug was detected. Estazolam [Mass/volume] in Urine by Confirmatory method 0 ng/mL Normal Estazolam [place] ([facility]) Tapentadol [Presence] in Blood by Screen method 0 ng/mL Normal Tapentadol [place] ([facility]) Pregabalin [Presence] in Urine by Screen method 0 ng/mL Normal Pregabalin [place] ([facility]) Norbuprenorphine [Mass/mass] in Meconium by Confirmatory method 673.3 ng/mL Normal Norbuprenorphine [place] ([facility]) Note: Consistent Prescribed drug was det ected. Buprenorphine [Presence] in Blood by Screen method 116.1 ng/mL Normal Buprenorphine [place] ([facility]) Note: Consistent Prescribed drug was det ected. ID Date Data Source [id number] 12/29/2019 09:11:00 [place] [address] HEALTH INFORMATION MANAGEMENT ED/UC Physician Report : [id number] Signed Patient: Carlos Aguilar Acct:[id number] Unit: [id number] : 1990 Arrival Date: 12/29/19 Age/Sex: 29 [...] all of her prescribing physicians are in [facility]. She has never had [id number] contact with them and does tele medicine consult. She has no local physician. She states that 2 days ago her toddler must have thrown her medications out of the car. She attempted to get medications represcribed by her [facility] physicians but they requested a police report be made. She states that she did this but the police report was not return until this evening. Shestates that her providers in [facility] are no longer available to prescribe her [...] Reports None Drug use: Reports None Occupation: [employer] Lives with: Reports Family Physical Exam Physical [...] Normal Affect Skin Skin exam: Dry, Intact, [place] and Warm Course Vital Signs Vital signs: [...] incidentally mentioned that she had been in [place] emergency room yesterday. I asked her what had happened up there and she stated that they had also refused to prescribe her medications. I advised her that she would have to discuss with her prescribing physicians in [facility] about ongoing prescribing of her controlled substances and that we would not provide a bridge prescription. The patient currently has no signs of withdrawal. Nursing staff did check with [facility] and some of the medications that she was requesting were higher doses than previously refilled by the pharmacy. the patient states that her doses were changed by her prescribing physician in [facility] however the prescriptions had not yet been filled. During this interaction which lasted approximately 20 minutes the patient was frequently changing her story. The patient did advise me that she was not requiring a prescribing of her noncontrolled substances. She stated that she had an aunt who was a nurse and told her that [place] would prescribe her medications even though [place] had not. Based on her constantly changing story, inconsistencies in her dosing of her medications and not telling me that she had previously been in [place] the patient was advised that I did not feel comfortable prescribing medications. Given that she had no signs of withdrawal I did not feel there was any treatment required at the current time. I have recommended that she contact and follow up with her [facility] physicians. Critical Care Time Critical Care Time: [...] BID RF: 0 Referrals: Genet Lange I, [employer] [Primary Care Provider] - Patient agreeable to [...] (finding) completed Current non-drinker of alcohol (finding) [facility] Alcohol intake 12/26/2020 12:00:00 AM EDT Current non-d laura of alcohol (finding) completed Current non-drinker of alcohol (finding) [facility] Tobacco use and exposure 12/25/2020 12:00:00 AM EDT Never used co mpleted Never used [facility] Cigarettes smoked current (pack per day) - Reported 12/26/19 12:00:00 AM EDT UNK completed [facility] Smoking 12/25/2020 12:00:00 AM EDT Current every day smoker co mpleted Current every day smoker [facility] Alcohol intake 12/25/2020 12:00:00 AM EDT Current non-d laura of alcohol (finding) completed Current non-drinker of alcohol (finding) [facility] Smoking 12/17/2020 12:00:00 AM EDT Smokes tobacco daily (findi ng) completed Smokes tobacco daily (finding) [facility] Smoking 11/05/2020 12:00:00 AM EDT Smokes tobacco [...] 09:58:00 PM EDT Daily Smoker completed [facility] Smoking 07/22/2020 09:58:00 PM EDT Daily Smoker completed [facility] 04/29/2020 12:00:00 AM EST completed [facility] 04/29/2020 12:00:00 AM EST completed [facility] 04/20/2020 10:17:25 PM EST Current Every Day Smoker co mpleted Current Every Day Smoker [facility] 04/20/2020 10:17:25 PM EST Cigarettes completed Cigarette s [facility] 04/20/2020 10:17:25 PM EST Current Every Day Smoker co mpleted Current Every Day Smoker [facility] 04/20/2020 10:17:25 PM EST Cigarettes completed Cigarette s [facility] Smoking 04/20/2020 10:17:00 PM EST Smoker (finding) completed Smo ker (finding) [facility] Smoking 04/20/2020 10:17:00 PM EST Smoker (finding) completed Smo ker (finding) [facility] Smoking 02/01/2020 12:00:00 AM EST Smokes tobacco daily (findi ng) completed Smokes tobacco daily (finding) [facility] Vital Signs ID Date Data Source UNK Name Value Range Interpretation Code Description Data Source(s) Systolic blood pressure 119 mm[Hg] 119 mm[Hg] [facility] Diastolic blood pressure 84 mm[Hg] 84 mm[Hg] [facility] Heart rate 112 /min 112 /min [facility] Body temperature 37.11 Eliana 37.11 Eliana [facility] Respiratory rate 18 /min 18 /min [facility] Body height 160 cm 160 cm [facility] Body weight 77.111 kg 77.111 kg [facility] Body mass index (BMI) [Ratio] 30.11 kg/m2 30.11 kg/m2 [facility] Systolic blood pressure 100 mm[Hg] 100 mm[Hg] [place] [facility] Heart rate 86 /min 86 /min [facility] Heart rate rhythm 1 1 [place] [facility] Respiratory rate 18 /min 18 /min [facility] ([facility]) Body temperature 96.5 [degF] 96.5 [degF] [place] [facility] ([facility]) Body height 62 [in_i] 62 [in_i] [facility] ([facility]) Body weight 178 [lb_av] 178 [lb_av] [facility] ([facility]) Body mass index (BMI) [Ratio] 32.6 kg/m2 32.6 k g/m2 [place] ([facility]) Body surface area Derived from formula 1.82 m2 1.82 m2 [place] ([facility]) PhenX - pain, abdominal - type and intensity protocol 0 0 [place] ([facility]) Oxygen saturation in Arterial blood by Pulse oximetry 100 % 100 % [place] ([facility]) Body height 160 cm 160 cm [facility] Systolic blood pressure 125 mm[Hg] 125 mm[Hg] [facility] Diastolic blood pressure 74 mm[Hg] 74 mm[Hg] [facility] Heart rate 103 /min 103 /min [facility] Body temperature 37.06 Eliana 37.06 Eliana [facility] Systolic blood pressure 100 mm[Hg] 100 mm[Hg] [place] ([facility]) Diastolic blood pressure 70 mm[Hg] 70 mm[Hg] [place] ([facility]) Heart rate 76 /min 76 /min [place] ([facility] Heart rate rhythm 1 1 [place] ([facility]) Respiratory rate 16 /min 16 /min [place] ([facility]) Body temperature 97.8 [degF] 97.8 [degF] [facility] ([facility]) Body height 62 [in_i] 62 [in_i] [facility] ([facility] Body weight 158 [lb_av] 158 [lb_av] [facility] Body mass index (BMI) [Ratio] 28.9 kg/m2 28.9 k g/m2 [place] ([facility]) Body surface area Derived from formula 1.73 m2 1.73 m2 [place] ([facility]) PhenX - pain, abdominal - type and intensity protocol 0 0 [place] ([facility]) Oxygen saturation in Arterial blood by Pulse oximetry 97 % 97 % [place] ([facility]) Systolic blood pressure 100 mm[Hg] 100 mm[Hg] G [place] [facility] Diastolic blood pressure 66 mm[Hg] 66 mm[Hg] [place] ([facility]) Heart rate 78 /min 78 /min [facility] ([facility]) Heart rate rhythm 1 1 [place] ([facility]) Respiratory rate 16 /min 16 /min [place] ([facility]) Body temperature 96.7 [degF] 96.7 [degF] [place] ([facility]) Body height 62 [in_i] 62 [in_i] [place] ([facility]) Body weight 146 [lb_av] 146 [lb_av] [place] ([facility]) Body mass index (BMI) [Ratio] 26.7 kg/m2 26.7 k g/m2 [place] ([facility]) Body surface area Derived from formula 1.67 m2 1.67 m2 [place] ([facility]) PhenX - pain, abdominal - type and intensity protocol 0 0 [place] ([facility]) Oxygen saturation in Arterial blood by Pulse oximetry 100 % 100 % [place] ([facility]) Systolic blood pressure 104 mm[Hg] 104 mm[Hg] [place] ([facility]) Diastolic blood pressure 70 mm[Hg] 70 mm[Hg] [place] ([facility]) Heart rate 98 /min 98 /min [place] ([facility]) Heart rate rhythm 1 1 [place] ([facility]) Respiratory rate 16 /min 16 /min [place] ([facility]) Body temperature 97.3 [degF] 97.3 [degF] [place] ([facility]) Body surface area Derived from formula 1.68 m2 1.68 m2 [place] ([facility]) PhenX - pain, abdominal - type and intensity protocol 0 0 [place] ([facility]) Oxygen saturation in Arterial blood by Pulse oximetry 100 % 100 % [place] ([facility]) Body height 62 [in_i] 62 [in_i] [place] ([facility]) Body weight 148 [lb_av] 148 [lb_av] [facility] Body mass index (BMI) [Ratio] 27.1 kg/m2 27.1 k g/m2 [place] ([facility]) Systolic blood pressure 100 mm[Hg] 100 mm[Hg] [place] ([facility]) Diastolic blood pressure 68 mm[Hg] 68 mm[Hg] [place] ([facility]) Heart rate 104 /min 104 /min [place] ([facility]) Heart rate rhythm 1 1 [place] ([facility]) Respiratory rate 16 /min 16 /min [place] ([facility]) Body temperature 97.6 [degF] 97.6 [degF] [place] ([facility]) Body height 62 [in_i] 62 [in_i] [place] ([facility]) Body weight 143 [lb_av] 143 [lb_av] [place] ([facility]) Body mass index (BMI) [Ratio] 26.2 kg/m2 26.2 k g/m2 [place] ([facility]) Body surface area Derived from formula 1.66 m2 1.66 m2 [place] ([facility]) PhenX - pain, abdominal - type and intensity protocol 0 0 [place] ([facility]) Oxygen saturation in Arterial blood by Pulse oximetry 97 % 97 % [place] ([facility]) Systolic blood pressure 100 mm[Hg] 100 mm[Hg] [place] ([facility]) Diastolic blood pressure 66 mm[Hg] 66 mm[Hg] [place] ([facility]) Heart rate 98 /min 98 /min [place] ([facility]) Heart rate rhythm 1 1 [place] ([facility]) Respiratory rate 18 /min 18 /min [place] ([facility]) Body temperature 98.6 [degF] 98.6 [degF] [place] ([facility]) Body height 62 [in_i] 62 [in_i] [facility] ([facility]) Body weight 134 [lb_av] 134 [lb_av] [place] ([facility]) Body mass index (BMI) [Ratio] 24.5 kg/m2 24.5 k g/m2 [place] ([facility]) Body surface area Derived from formula 1.61 m2 1.61 m2 [place] ([facility]) PhenX - pain, abdominal - type and intensity protocol 0 0 [place] ([facility]) Oxygen saturation in Arterial blood by Pulse oximetry 99 % 99 % [place] ([facility]) Systolic blood pressure 100 mm[Hg] 100 mm[Hg] [place] ([facility]) Diastolic blood pressure 52 mm[Hg] 52 mm[Hg] [place] ([facility]) Heart rate 135 /min 135 /min [place] ([facility] Respiratory rate 18 /min 18 /min [place] ([facility]) Body temperature 96.9 [degF] 96.9 [degF] [place] ([facility]) Body height 62 [in_i] 62 [in_i] [facility] Body weight 131 [lb_av] 131 [lb_av] [facility] Body mass index (BMI) [Ratio] 24.0 kg/m2 24.0 k g/m2 [place] ([facility]) Body surface area Derived from formula 1.60 m2 1.60 m2 [place] ([facility]) PhenX - pain, abdominal - type and intensity protocol 0 0 [place] ([facility]) Oxygen saturation in Arterial blood by Pulse oximetry 99 % 99 % [place] ([facility]) Heart rate 98 min Normal (applies to non-numeric resul ts) 98 min [facility] Respiratory rate 18 min Normal (applies to non-numeric results) 18 min [facility] Body height 162.1536 cm Normal (applies to non-numeric res ults) 162.1536 cm [facility] Body weight Measured 140 [lb_av] Normal (applies to n on-numeric results) 140 [lb_av] [facility] Body temperature 36.7 eliana Normal (applies to non-numeric results) 36.7 eliana [facility] Systolic blood pressure 107 mm[Hg] Normal (applies t o non-numeric results) 107 mm[Hg] [facility] Diastolic blood pressure 70 mm[Hg] Normal (applies to non-numeric results) 70 mm[Hg] [facility] Body mass index (BMI) [Ratio] 24.0 kg/m2 No rmal (applies to non-numeric results) 24.0 kg/m2 [facility] Deprecated Oxygen saturation in Capillary blood by Oximetry 100 % Normal (applies to non-numeric results) 100 % [facility] Heart rate 65 /min 65 /min [facility] Respiratory rate 16 /min 16 /min [place] [facility] Oxygen saturation in Arterial blood by Pulse oximetry 99 % 99 % [facility] Heart rate 65 /min 65 /min [facility] Respiratory rate 16 /min 16 /min [place] [facility] Oxygen saturation in Arterial blood by Pulse oximetry 99 % 99 % [facility] Body weight 65.00 kg 65.00 kg [facility] Body temperature 98.4 [degF] 98.4 [degF] [facility] Systolic blood pressure 130 mm[Hg] 130 mm[Hg] [facility] Diastolic blood pressure 57 mm[Hg] 57 mm[Hg] [facility] Body weight 65.00 kg 65.00 kg [facility] Body temperature 98.4 [degF] 98.4 [degF] [facility] Systolic blood pressure 130 mm[Hg] 130 mm[Hg] [facility] Diastolic blood pressure 57 mm[Hg] 57 mm[Hg] [facility] PhenX - pain, abdominal - type and intensity protocol 0 0 [place] ([facility]) Unable to obtain all vitals due to covid 19 pandemic. Heart rate 88 /min 88 /min [place] ([facility]) Systolic blood pressure 98 mm[Hg] 98 mm[Hg] [facility] ([facility]) Diastolic blood pressure 70 mm[Hg] 70 mm[Hg] [place] ([facility]) Heart rate 113 /min 113 /min [place] ([facility]) Heart rate rhythm 1 1 [facility] Y ([facility]) Respiratory rate 16 /min 16 /min [place] ([facility]) Body temperature 97.5 [degF] 97.5 [degF] [place] ([facility]) Body weight 151.125 [lb_av] 151.125 [lb_av] [facility] PhenX - pain, abdominal - type and intensity protocol 0 0 [place] ([facility]) Oxygen saturation in Arterial blood by Pulse oximetry 97 % 97 % [place] ([facility]) Inhaled oxygen flow rate 0 L/min 0 L/min [place] ([facility]) Inhaled oxygen concentration 21 % 21 % [place] ([facility]) PhenX - pain, abdominal - type and intensity protocol 6 6 [place] ([facility]) Oxygen saturation in Arterial blood by Pulse oximetry 98 % 98 % [place] ([facility]) Inhaled oxygen flow rate 0 L/min 0 L/min [place] ([facility]) Inhaled oxygen concentration 21 % 21 % [place] ([facility]) Systolic blood pressure 110 mm[Hg] 110 mm[Hg] [facility] ([facility]) Diastolic blood pressure 64 mm[Hg] 64 mm[Hg] [place] [facility] [facility]) Heart rate 132 /min 132 /min [place] ([facility]) Heart rate rhythm 1 1 [place] ([facility]) Respiratory rate 18 /min 18 /min [place] ([facility]) Body temperature 97.2 [degF] 97.2 [degF] GREENW AY ([facility]) Body weight 152 [lb_av] 152 [lb_av] [facility] Treatment Plan of Care Planned Activity Planned Date Details Description Data Source (s) Buprenorphine 2 MG Sublingual Tablet 01/14/2021 12:00:00 AM EDT [place] ([facility]) Alprazolam 1 MG Oral Tablet 01/14/2021 12:00:00 AM EDT [place] ([facility]) Methylphenidate Hydrochloride 20 MG Oral Tablet 01/14/2021 12:00:00 AM EDT [place] ([facility]) ferrous sulfate 325 MG Oral Tablet 01/14/2021 12:00:00 AM EDT [place] ([facility]) Buprenorphine 8 MG Sublingual Tablet 01/14/2021 12:00:00 AM EDT [place] ([facility]) Sertraline 100 MG Oral Tablet [Zoloft] 01/14/2021 12:00:00 AM EDT [place] ([facility]) 200 ACTUAT Albuterol 0.09 MG/ACTUAT Metered Dose Inhal er [ProAir] 01/14/2021 12:00:00 AM [facility] NITROFURANTOIN, MACROCRYSTALS 100 MG Oral Capsule 01/14/2021 12: 00:00 AM EDT [place] ([facility]) ferrous sulfate 325 MG Oral Tablet 01/04/2021 12:00:00 AM EDT [facility] albuterol (PROVENTIL HFA;VENTOLIN HFA) 108 (90 Base) M CG/ACT inhaler 12/17/2020 12:00:00 AM EDT [facility] Buprenorphine 2 MG Sublingual Tablet 12/17/2020 12:00:00 AM EDT [place] ([facility]) Buprenorphine 8 MG Sublingual Tablet 12/17/2020 12:00:00 AM EDT [place] ([facility]) Sertraline 100 MG Oral Tablet [Zoloft] 12/17/2020 12:00:00 AM EDT [place] ([facility]) 200 ACTUAT Albuterol 0.09 MG/ACTUAT Metered Dose Inhal er [ProAir] 12/17/2020 12:00:00 AM EDT [place] [facility] Methylphenidate Hydrochloride 20 MG Oral Tablet 12/04/2020 12:00:00 AM EDT [place] [facility] Alpraz[facility]am 1 MG Oral Tablet 11/26/2020 12:00:00 AM EDT [place] [facility] Alprazolam 1 MG Oral Tablet 11/05/2020 12:00:00 AM EDT [place] [facility] Methylphenidate Hydrochloride 20 MG Oral Tablet 11/05/2020 12:00:00 AM EDT [place] [facility] Buprenorphine 8 MG Sublingual Tablet 11/05/2020 12:00:00 AM EDT [place] [facility] Buprenorphine 2 MG Sublingual Tablet 11/05/2020 12:00:00 AM EDT [place] [facility] Methylphenidate Hydrochloride 20 MG Oral Tablet 10/25/2020 12:00:00 AM EDT [facility] Buprenorphine 8 MG Sublingual Tablet 10/22/2020 12:00:00 AM EDT [facility] Alprazolam 1 MG Oral Tablet 10/22/2020 12:00:00 AM EDT [facility] Sertraline 100 MG Oral Tablet [Zoloft] 10/22/2020 12:00:00 AM EDT [place] [facility] Alprazolam 1 MG Oral Tablet 10/22/2020 12:00:00 AM EDT [place] [facility] Methylphenidate Hydrochloride 20 MG Oral Tablet 10/22/2020 12:00:00 AM EDT [place] [facility] Buprenorphine 8 MG Sublingual Tablet 10/22/2020 12:00:00 AM EDT [place] [facility] Sertraline 100 MG Oral Tablet 10/09/2020 12:00:00 AM EDT [facility] Methylphenidate Hydrochloride 20 MG Oral Tablet 10/08/2020 12:00:00 AM EDT [place] ([facility]) Buprenorphine 8 MG Sublingual Tablet 10/08/2020 12:00:00 AM EDT [place] ([facility]) Alprazolam 1 MG Oral Tablet 10/08/2020 12:00:00 AM EDT [place] ([facility]) Methylphenidate Hydrochloride 20 MG Oral Tablet 09/03/2020 12:00:00 AM EDT [place] ([facility]) Buprenorphine 8 MG Sublingual Tablet 09/03/2020 12:00:00 AM EDT [place] ([facility]) Alprazolam 1 MG Oral Tablet 09/03/2020 12:00:00 AM EDT [place] [facility] Escitalopram 5 MG Oral Tablet [Lexapro] 02/01/2020 12:00:00 AM EST [place] ([facility]) Buprenorphine 8 MG Sublingual Tablet 01/02/2020 12:00:00 AM EDT [place] [facility] Ibuprofen 600 MG Oral Tablet 12/06/2017 12:00:00 AM EDT [facility]
== END 2021-01-20 17:48 | disposition home or self-care (01) ==
LOC: M ED 16:48
DX: Z76.0 Encounter for issue of repeat prescription (principal); Z3A.40 40 weeks gestation of pregnancy; Z79.899 Other long term (current) drug therapy